=== PATIENT | female | born 1955 | race Caucasian/White ===

== ENCOUNTER → 2017-10-19 11:41 | Outpatient (CLI) | payer MEDICARE, OTHER, SELFPAY ==
[2017-10-19 14:40] LABS: ALB/GLOB Ratio 0.9 RATIO (0.9-2.4); AST(SGOT) 19 U/L (15-37); Alanine Aminotransfer ALT/SGPT 29 U/L (13-56); Albumin, Serum 3.8 g/dL (3.2-5.0); Alkaline Phosphatase 64 U/L (45-117); Anion Gap 8 (5-15); BUN 14 mg/dL (7-18); BUN/Creat Ratio 17.2 RATIO (10-20); Calcium,Total 8.9 mg/dL (8.5-10.1); Chloride 104 mmol/L (98-107); Creatinine, Serum 0.81 mg/dL (0.55-1.02); EST Glomerular Filtration Rate 75 mL/min (>60); Est Glom Filt Rate - Afr Amer 91 mL/min (>60); Globulin 4.2 g/dL (2.2-4.2); Glucose 86 mg/dL (74-106); Potassium 3.7 mmol/L (3.5-5.1); Sodium Level 139 mmol/L (136-145)
[2017-10-19 14:47] LABS: Absolute Lymphocyte Count 2.31 X10^3/ul (0.83-4.51); Basophil# 0.03 X10^3/uL; Basophil% 0.5 % (0-1); Eosinophil# 0.07 X10^3/uL; Eosinophils% 1.2 % (0-5); Hematocrit 40.4 % (37-47); Hemoglobin 13.3 g/dl (12.0-15.0); Lymphocyte # 2.31 X10^3/ul (4.0); Lymphocyte % 38.9 % (19-41); Mean Corp Hgb Conc 32.9 g/gl (32-36); Mean Corpuscular Hgb 31.3 pg (27.0-32.0); Mean Corpuscular Volume 95.1 fL (81-99); Mean Platelet Vol. 11.7 fl (6.2-12.0); Monocyte# 0.55 X10^3/uL; Monocyte% 9.3 % (0-10); Neutrophil # 2.98 X10^3/uL (2.7-7.7); Neutrophil % 50.1 % (47-70); Platelet Count 202 K/mm3 (150-450); RBC Distribution Width CV 14.5 % (11.6-14.6); RBC Distribution Width SD 48.6 fl (35.1-43.9); Red Blood Count 4.25 M/mm3 (4.2-5.4); White Blood Count 5.9 K/mm3 (4.4-11.0)
[2017-10-19 14:57] LABS: POSITIVE COUNT NO; POSITIVE DIFFERENTIAL NO; POSITIVE MORPHOLOGY NO
== END ==
PROVIDERS: Family Provider Family Medicine; PCP Family Medicine; Visit Provider Internal Medicine Rheumatology
DX: M05.70 Rheumatoid arthritis with rheumatoid factor of unspecified site without organ or systems involvement (principal); M21.40 Flat foot [pes planus] (acquired), unspecified foot; M81.0 Age-related osteoporosis without current pathological fracture; Z79.899 Other long term (current) drug therapy
CPT/HCPCS: 36415; 80053; 85025

== ENCOUNTER → 2018-01-09 11:40 | Outpatient (CLI) | payer MEDICARE, OTHER, SELFPAY ==
--- NOTE | 2018-01-09 11:40 | DT_ITS ---
This patient was seen during an EMR downtime January 02, 2018 - January 09, 2018. This patient may have a combination of paper and electronic documentation or all paper documentation. All documentation is viewable within the e-chart portion of [facility] [employer] for each patient visit.
[2018-01-09 14:01] LABS: Absolute Lymphocyte Count 2.83 X10^3/ul (0.83-4.51); Basophil# 0.03 X10^3/uL; Basophil% 0.4 % (0-1); Eosinophil# 0.04 X10^3/uL; Eosinophils% 0.5 % (0-5); Hematocrit 43.2 % (37-47); Hemoglobin 14.3 g/dl (12.0-15.0); Lymphocyte # 2.83 X10^3/ul (4.0); Mean Corp Hgb Conc 33.1 g/gl (32-36); Mean Corpuscular Hgb 31.6 pg (27.0-32.0); Mean Corpuscular Volume 95.4 fL (81-99); Mean Platelet Vol. 11.8 fl (6.2-12.0); Monocyte# 0.53 X10^3/uL; Monocyte% 7.1 % (0-10); Neutrophil % 53.7 % (47-70); Platelet Count 211 K/mm3 (150-450); RBC Distribution Width CV 14.5 % (11.6-14.6); RBC Distribution Width SD 49.1 fl (35.1-43.9); Red Blood Count 4.53 M/mm3 (4.2-5.4); White Blood Count 7.5 K/mm3 (4.4-11.0)
[2018-01-09 14:05] LABS: POSITIVE COUNT NO; POSITIVE DIFFERENTIAL NO; POSITIVE MORPHOLOGY NO
[2018-01-09 14:13] LABS: ALB/GLOB Ratio 0.9 RATIO (0.9-2.4); AST(SGOT) 17 U/L (15-37); Alanine Aminotransfer ALT/SGPT 22 U/L (13-56); Albumin, Serum 4.2 g/dL (3.2-5.0); Alkaline Phosphatase 67 U/L (45-117); Anion Gap 9 (5-15); BUN 9 mg/dL (7-18); BUN/Creat Ratio 12.2 RATIO (10-20); Calcium,Total 9.5 mg/dL (8.5-10.1); Chloride 105 mmol/L (98-107); Creatinine, Serum 0.74 mg/dL (0.55-1.02); EST Glomerular Filtration Rate 84 mL/min (>60); Est Glom Filt Rate - Afr Amer 102 mL/min (>60); Globulin 4.5 g/dL (2.2-4.2); Glucose 87 mg/dL (74-106); Potassium 3.9 mmol/L (3.5-5.1); Protein, Total 8.7 g/dL (6.4-8.2); Sodium Level 142 mmol/L (136-145)
== END ==
PROVIDERS: Family Provider Family Medicine; PCP Family Medicine; Visit Provider Internal Medicine Rheumatology
DX: M05.70 Rheumatoid arthritis with rheumatoid factor of unspecified site without organ or systems involvement (principal); Z79.899 Other long term (current) drug therapy; M21.40 Flat foot [pes planus] (acquired), unspecified foot; M81.0 Age-related osteoporosis without current pathological fracture
CPT/HCPCS: 36415; 80053; 85025

== ENCOUNTER → 2018-04-10 11:03 | Outpatient (CLI) | payer MEDICARE, OTHER, SELFPAY ==
[2018-04-10 12:47] LABS: Absolute Lymphocyte Count 1.93 X10^3/ul (0.83-4.51); Absolute Neutrophil Count 3.1 X10^3/uL (2.0-7.7); Basophil# 0.02 X10^3/uL; Basophil% 0.4 % (0-1); Eosinophil# 0.03 X10^3/uL; Eosinophils% 0.5 % (0-5); Hematocrit 42.8 % (37-47); Hemoglobin 14.5 g/dl (12.0-15.0); Lymphocyte # 1.93 X10^3/ul (4.0); Lymphocyte % 33.8 % (19-41); Mean Corp Hgb Conc 33.9 g/gl (32-36); Mean Corpuscular Hgb 31.9 pg (27.0-32.0); Mean Corpuscular Volume 94.1 fL (81-99); Mean Platelet Vol. 11.8 fl (6.2-12.0); Monocyte# 0.63 X10^3/uL; Neutrophil # 3.09 X10^3/uL (2.7-7.7); Neutrophil % 54.1 % (47-70); Platelet Count 194 K/mm3 (150-450); RBC Distribution Width CV 13.7 % (11.6-14.6); RBC Distribution Width SD 45.3 fl (35.1-43.9); Red Blood Count 4.55 M/mm3 (4.2-5.4); White Blood Count 5.7 K/mm3 (4.4-11.0)
[2018-04-10 12:59] LABS: POSITIVE COUNT NO; POSITIVE DIFFERENTIAL NO; POSITIVE MORPHOLOGY NO
[2018-04-10 13:21] LABS: ALB/GLOB Ratio 0.9 RATIO (0.9-2.4); AST(SGOT) 15 U/L (15-37); Alanine Aminotransfer ALT/SGPT 21 U/L (13-56); Alkaline Phosphatase 63 U/L (45-117); Anion Gap 13 (5-15); BUN 10 mg/dL (7-18); Calcium,Total 9.5 mg/dL (8.5-10.1); Chloride 100 mmol/L (98-107); Creatinine, Serum 0.72 mg/dL (0.55-1.02); EST Glomerular Filtration Rate 87 mL/min (>60); Est Glom Filt Rate - Afr Amer 105 mL/min (>60); Globulin 4.5 g/dL (2.2-4.2); Glucose 88 mg/dL (74-106); Potassium 4.3 mmol/L (3.5-5.1); Protein, Total 8.5 g/dL (6.4-8.2); Sodium Level 139 mmol/L (136-145)
== END ==
PROVIDERS: Family Provider Family Medicine; PCP Family Medicine; Visit Provider Internal Medicine Rheumatology
DX: M05.70 Rheumatoid arthritis with rheumatoid factor of unspecified site without organ or systems involvement (principal); M21.40 Flat foot [pes planus] (acquired), unspecified foot; M81.0 Age-related osteoporosis without current pathological fracture; Z79.899 Other long term (current) drug therapy
CPT/HCPCS: 36415; 80053; 85025

== ENCOUNTER 2018-05-19 17:48 | Emergency (ER) | payer MEDICARE, OTHER, SELFPAY ==
[2018-05-19 17:49] VITALS: BP 158/84; PULSE 84; RESP 16; TEMP 36.7; O2SAT 99; BMI 24.2
[2018-05-19 17:54] VITALS: O2SAT 100
--- NOTE | 2018-05-19 18:25 | ED.DCSUM_ITS ---
- ER Visit Summary Date of Service: 05/19/18 Chief Complaint: Fall History of Present Illness: The patient is a 63 F presenting after fall. Patient was getting the mail. She reached down for her cat and her leg slipped and she did the splits. She did not hit her head or lose consciousness. She was unable to get up. Her was also unable to get her up and EMS was called. She complains of left hip and pelvis pain. Denies other injuries. Physical Examination: Vitals are stable. Patient is afebrile. Alert no acute distress. HEENT exam is unremarkable. Neck is nontender Lungs are clear and equal bilaterally. Heart is regular rate and rhythm. Abdomen is soft nontender nondistended. Extremities left hip tenderness with painful range of motion, normal distal pulse Skin is warm and dry. No focal neurologic deficit. Remainder of exam is unremarkable. Emergency Department Course and Treatment: Patient was given morphine, Zofran IV. Left hip x-ray shows complete intratrochanteric transsection of the left femoral neck. No evidence of dislocation. Discussed with Dr. Rodriguez. Due to the operating room being down tomorrow he would like her transferred to [facility] for surgery tomorrow. Discussed with John Rae and patient will be transferred. Disposition: Transfer [facility] Impression: Left intertrochanteric fracture status post fall This note was generated with [employer] dictation software. It may contain incorrect words, spelling, and punctuation that were not noted in review of the chart prior to signing ED Disposition - Plan for ED Patient: Chief Complaint: Fall Referrals: Paulo Robertson III, MD [Primary Care Provider] -
[2018-05-19] MEDS: morphine 8 MG/ML Syringe 6 MG IV (18:31)
[2018-05-19] MEDS: Ondansetron 4 MG/2 ML Vial IV (18:31)
--- NOTE | 2018-05-19 18:45 | RAD_ITS ---
STUDY: X-RAY - PELVIS AND LEFT HIP REASON FOR EXAM: Female, 63 years old. Left hip pain after fall TECHNIQUE: Radiological exam, hip, unilateral, with pelvis when performed; 2 or 3 views. # of Images: 3 COMPARISON: None. FINDINGS: Complete intratrochanteric transsection of the left femoral neck. No evidence of dislocation. Calcified uterine fibroid. Unremarkable right hip RAD/HIP, UNI W/ Pelvis 2-3 Views IMPRESSION: As above Electronically Signed: Magan Thompson DO at 19:14 EDT Tel , Service support ,
[2018-05-19 20:05] VITALS: BP 162/81; PULSE 78; RESP 16; O2SAT 97
[2018-05-19 20:17] LABS: Absolute Lymphocyte Count 1.41 X10^3/ul (0.83-4.51); Absolute Neutrophil Count 8.4 X10^3/uL (2.0-7.7); Basophil# 0.01 X10^3/uL; Basophil% 0.1 % (0-1); Eosinophil# 0.01 X10^3/uL; Eosinophils% 0.1 % (0-5); Hematocrit 38.5 % (37-47); Hemoglobin 12.8 g/dl (12.0-15.0); Lymphocyte # 1.41 X10^3/ul (4.0); Lymphocyte % 13.4 % (19-41); Mean Corp Hgb Conc 33.2 g/gl (32-36); Mean Corpuscular Hgb 31.2 pg (27.0-32.0); Mean Corpuscular Volume 93.9 fL (81-99); Mean Platelet Vol. 11.1 fl (6.2-12.0); Monocyte# 0.67 X10^3/uL; Monocyte% 6.4 % (0-10); Neutrophil # 8.37 X10^3/uL (2.7-7.7); Neutrophil % 79.8 % (47-70); Platelet Count 183 K/mm3 (150-450); RBC Distribution Width CV 14.1 % (11.6-14.6); RBC Distribution Width SD 48.1 fl (35.1-43.9); White Blood Count 10.5 K/mm3 (4.4-11.0)
[2018-05-19 20:18] LABS: POSITIVE COUNT NO; POSITIVE DIFFERENTIAL NO; POSITIVE MORPHOLOGY NO
[2018-05-19 20:37] LABS: Anion Gap 6 (5-15); BUN 10 mg/dL (7-18); BUN/Creat Ratio 14.1 RATIO (10-20); Calcium,Total 8.7 mg/dL (8.5-10.1); Chloride 100 mmol/L (98-107); Creatinine, Serum 0.71 mg/dL (0.55-1.02); EST Glomerular Filtration Rate 88 mL/min (>60); Est Glom Filt Rate - Afr Amer 107 mL/min (>60); Estimated Creatinine Clearance 68.21 ml/min; Glucose 122 mg/dL (74-106); Potassium 3.8 mmol/L (3.5-5.1); Sodium Level 133 mmol/L (136-145)
[2018-05-19] MEDS: Morphine 4 MG/ML Syringe IV (21:40)
[2018-05-19 22:01] VITALS: BP 141/88; PULSE 88; RESP 16; O2SAT 100
== END 2018-05-19 22:03 | disposition short-term general hospital (02) ==
PROVIDERS: Emergency Provider Emergency Medicine; Family Provider Family Medicine; PCP Family Medicine; Referring Provider Emergency Medicine
DX: S72.142A Displaced intertrochanteric fracture of left femur, initial encounter for closed fracture (principal); W01.0XXA Fall on same level from slipping, tripping and stumbling without subsequent striking against object, initial encounter; Y93.89 Activity, other specified; I10 Essential (primary) hypertension; Z79.899 Other long term (current) drug therapy; Z72.0 Tobacco use
CPT/HCPCS: 73502; 80048; 85025; 96374; 96375; 96376; 99285; A4216; J2405

== ENCOUNTER → 2018-06-30 14:10 | Outpatient (CLI) | payer MEDICARE, OTHER, SELFPAY ==
[2018-06-30 15:58] LABS: ALB/GLOB Ratio 0.9 RATIO (0.9-2.4); AST(SGOT) 14 U/L (15-37); Alanine Aminotransfer ALT/SGPT 20 U/L (13-56); Alkaline Phosphatase 87 U/L (45-117); Anion Gap 11 (5-15); BUN 14 mg/dL (7-18); BUN/Creat Ratio 14.7 RATIO (10-20); Calcium,Total 9.7 mg/dL (8.5-10.1); Chloride 95 mmol/L (98-107); Creatinine, Serum 0.95 mg/dL (0.55-1.02); EST Glomerular Filtration Rate 62 mL/min (>60); Est Glom Filt Rate - Afr Amer 75 mL/min (>60); Globulin 4.4 g/dL (2.2-4.2); Glucose 101 mg/dL (74-106); Hematocrit 39.9 % (37-47); Hemoglobin 13.2 g/dl (12.0-15.0); Mean Corp Hgb Conc 33.1 g/gl (32-36); Mean Corpuscular Hgb 31.6 pg (27.0-32.0); Mean Corpuscular Volume 95.5 fL (81-99); Mean Platelet Vol. 10.7 fl (6.2-12.0); Neutrophil % 50.4 % (47-70); POSITIVE COUNT NO; POSITIVE DIFFERENTIAL NO; POSITIVE MORPHOLOGY NO; Platelet Count 286 K/mm3 (150-450); Potassium 3.6 mmol/L (3.5-5.1); Protein, Total 8.4 g/dL (6.4-8.2); RBC Distribution Width CV 14.4 % (11.6-14.6); RBC Distribution Width SD 48.8 fl (35.1-43.9); Red Blood Count 4.18 M/mm3 (4.2-5.4); Sodium Level 133 mmol/L (136-145); White Blood Count 7.7 K/mm3 (4.4-11.0)
[2018-06-30 15:59] LABS: Absolute Lymphocyte Count 3.02 X10^3/ul (0.83-4.51); Absolute Neutrophil Count 3.9 X10^3/uL (2.0-7.7); Basophil# 0.02 X10^3/uL; Basophil% 0.3 % (0-1); Eosinophil# 0.04 X10^3/uL; Eosinophils% 0.5 % (0-5); Lymphocyte # 3.02 X10^3/ul (4.0); Lymphocyte % 39.2 % (19-41); Monocyte# 0.73 X10^3/uL; Monocyte% 9.5 % (0-10); Neutrophil # 3.89 X10^3/uL (2.7-7.7)
--- OUTSIDE RECORDS SUMMARY | 2018-08-25 13:46 | XMS RPT_ITS ---
:1955 Author Organization OHIP Support Name Relationship Address Phone FORTINO BAIRD Unavailable [address] + [place] [address] TEREZA BAIRD Unavailable [address] + [place] [address] R Unavailable Unavailable Unavailable FORTINO BAIRD Unavailable [address] + [place] [address] TEREZA BAIRD Unavailable [address] + [place] [address] R Unavailable Unavailable Unavailable FORTINO BAIRD Unavailable [address] + [place] [address] TEREZA BAIRD Unavailable [address] + [place] [address] R Unavailable Unavailable Unavailable FORTINO BAIRD Unavailable [address] + [place] [address] TEREZA BAIRD Unavailable [address] + [place] [address] R Unavailable Unavailable Unavailable FORTINO BAIRD Unavailable [address] + [place] [address] TEREZA BAIRD Unavailable [address] + [place] [address] R Unavailable Unavailable Unavailable D Unavailable Unavailable Unavailable FORTINO BAIRD Unavailable [address] + [place] [address] TEREZA BAIRD Unavailable [address] + [place] [address] D Unavailable Unavailable Unavailable FORTINO BAIRD Unavailable [address] + [place] [address] TEREZA BAIRD Unavailable [address] + [place] [address] D Unavailable Unavailable Unavailable FORTINO BAIRD Unavailable [address] + [place] [address] TEREZA BAIRD Unavailable [address] + [place] [address] Care Team Providers Name Role Phone MARCY BARROSO MD Admitting Unavailable MARCY BARROSO MD Attending Unavailable PHYSICIAN, NONE Primary Care Unavailable JORDON FORD MD Consulting Unavailable MARCY BARROSO MD Consulting Unavailable IZABELLA DEXTER (LEAD MILITARY ANALYST) Attending Unavailable KAYDEN PATEL Referring Unavailable FAITH CASE (LEAD MILITARY ANALYST) Attending Unavailable IZABELLA DEXTER (LEAD MILITARY ANALYST) Referring Unavailable CEBUL III, PAULO A Referring Unavailable CEBUL III, PAULO A Attending Unavailable FAITH CASE (LEAD MILITARY ANALYST) Referring Unavailable CEBUL III, PAULO A Attending Unavailable Vellanki, Cira Attending Unavailable Cebul III, Paulo Primary Care Unavailable Vellanki, Cira Attending Unavailable Cebul III, Paulo Primary Care Unavailable Vellanki, Cira Attending Unavailable Vellanki, Cira Referring Unavailable Cebul III, Paulo Primary Care Unavailable Vellanki, Cira Attending Unavailable Vellanki, Cira Referring Unavailable Cebul III, Paulo Primary Care Unavailable Vellanki, Cira Attending Unavailable Vellanki, Cira Referring Unavailable Cebul III, Paulo Primary Care Unavailable Dyllan, Juan Attending Unavailable Cebul III, Paulo Referring Unavailable Cebul III, Paulo Primary Care Unavailable Xochilt Dorado Attending Unavailable Maru Doradoson Referring Unavailable Vellanki, Cira Attending Unavailable Vellanki, Cira Referring Unavailable Cebul III, Paulo Primary Care Unavailable PROBLEMS PROBLEMS DATE TYPE CONDITION / CODE ATTENDING STATUS SOURCE 05/18/2018 Unknown I10 - Essential [place], [place] Active [place] (primary) Community hypertension / Hospital I10(ICD-10) Repository 05/18/2018 Unknown I77.810 - Thoracic Dyllan, [place] Active [place] aortic ectasia / Community I77.810(ICD-10) Hospital Repository 03/03/2018 Active Other custodial NA Active [facility] (current) drug [facility] [place] therapy / Repository Z79.899(ICD-10) 03/21/2018 Unknown M05.70 - Vellanki, Cira Active [facility] arthritis with Hospital rheumatoid factor Repository of unspecified site without organ or systems involvement / M05.70(ICD-10) 10/19/2017 Unknown M21.40 - Flat foot Vellanki, Cira Active [place] [pes planus] Community (acquired), Hospital unspecified foot / Repository M21.40(ICD-10) 10/19/2017 Unknown M81.0 - Cira Boswell Active [place] Age-related Community osteoporosis Hospital without current Repository pathological fracture / M81.0(ICD-10) 10/19/2017 Unknown Z79.899 - Other Cira Boswell Active [place] custodial Community (current) drug Hospital therapy / Repository Z79.899(ICD-10) 08/08/2017 Active Unknown / IZABELLA DEXTER Active [facility] UNK(Unknown) (LEAD MILITARY ANALYST) [facility] [place] Repository PROCEDURES PROCEDURES No Procedure Records FoundRESULTS RESULTS COMPREHENSIVE METABOLIC Collected: 06/30/2018 Status: F Source: [place] 2:16 PM [facility]PITAL REPOSITORY TYPE CODE TESTS RESULT OUT OF RANGE REFERENCE UNITS LAB L501.0100 74-106 mg/dL Normal GLU 101 Result Comment: Fasting Glucose result from 100 to 125 mg/dL suggests IMPAIRED HOMEOSTASIS per A.D.A. criteria. Please note revised GLUCOSE reference range effective 2017. LAB L501.1000 7-18 mg/dL Normal BUN 14 LAB L501.1100 0.55-1.02 mg/dL Normal CREAT,SERUM 0.95 Result Comment: The validity of the calculated GFR AND GFRAA in patients over 70 years has not been determined. Clinical correlation is essential. LAB L501.1110 >60 mL/min Normal EST GFR 62 Result Comment: Non- GFR Calc LAB L501.1115 >60 mL/min Normal EST GFR - AA 75 Result Comment: GFR Calc LAB L501.1300 10-20 RATIO Normal BUN/CRE 14.7 LAB L501.1500 6.4-8.2 g/dL High T PROT 8.4 LAB L501.1800 3.2-5.0 g/dL Normal ALB 4.0 LAB L501.1950 2.2-4.2 g/dL High GLOB 4.4 LAB L501.2000 0.9-2.4 RATIO Normal A/G 0.9 LAB L501.2200 8.5-10.1 mg/dL CA Normal 9.7 LAB L501.4100 15-37 U/L Low AST 14 LAB L501.4305 45-117 U/L Normal ALK P 87 LAB L501.4405 13-56 U/L Normal ALT 20 LAB L501.4600 0.20-1.00 mg/dL T Normal BILI 0.30 LAB L501.5300 136-145 mmol/L Low NA 133 LAB L501.5600 3.5-5.1 mmol/L K Normal 3.6 LAB L501.5900 98-107 mmol/L Low CL 95 LAB L501.6100 21.0-32.0 mmol/L Normal CO2 27.0 LAB L501.6200 5-15 Normal GAP 11 Performed By: #### L500.4050 #### [facility] [address] [place], [place], [address] CBC W/DIFF, AUTOMATED Collected: 06/30/2018 Status: F Source: [place] 2:16 PM [facility] REPOSITORY TYPE CODE TESTS RESULT OUT OF RANGE REFERENCE UNITS LAB L100.1000 4.4-11.0 K/mm3 Normal WBC 7.7 LAB L100.1200 4.2-5.4 M/mm3 Low RBC 4.18 LAB L100.1300 12.0-15.0 g/dl Normal HGB 13.2 LAB L100.1400 37-47 % Normal HCT 39.9 LAB L100.1500 81-99 fL Normal MCV 95.5 LAB L100.1600 27.0-32.0 pg Normal MCH 31.6 LAB L100.1700 32-36 g/gl Normal MCHC 33.1 LAB L100.1810 11.6-14.6 % Normal RDW CV 14.4 LAB L100.1820 35.1-43.9 fl High RDW SD 48.8 LAB L100.1900 150-450 K/mm3 Normal PLT 286 LAB L100.2000 6.2-12.0 fl Normal MPV 10.7 LAB L100.2100 47-70 % Normal NEUT% 50.4 LAB L100.2200 19-41 % Normal LY% 39.2 LAB L100.2300 0-10 % Normal MONO% 9.5 LAB L100.2400 0-5 % Normal EO% 0.5 LAB L100.2500 0-1 % Normal BASO% 0.3 LAB L100.2550 0.0-0.9 % Normal IM GRAN % 0.100 Result Comment: IG% - Immature Granulocytes (promyelocytes, myelocytes and metamyelocytes) > 1% indicates that a LEFT SHIFT is Present. LAB L100.2620 2.0-7.7 X10 3/uL Normal Absolute Neut 3.9 LAB L100.2720 0.83-4.51 X10 3/ul Normal Absolute Lymph 3.02 Performed By: #### L100.0100 #### [facility] [address] [place], [address] PROGRESS Observed: 05/29/2018 Status: COMPLETED Source: [place] 3:24 PM [facility] REPOSITORY O ID: [id number] Author: Paulo Robertson III Service: (none) Author Type: Physician Type: Progress Notes Filed: 05/29/2018 6:45 PM Note Text: SUBJECTIVE: This is a 63 year old female that is here today for hospital discharge 05/22. Admitted 05/20 following a fall resulting in fx L hip. Now on xarelto for planned 10 d. tx. Oxycontin with some benefit. 05/29=first day out of home. Had PT earlier today and has been doing HEP. No hx of DVT. She gets up every 2 hrs and walks short distances in house with walker, and does calf pumps. Patient had bone density in March, as below. Diagnosis osteopenia. She had previously been on Fosamax for parts of 3 years. She did notice an episode of heartburn and she bent forward at the waist while on this medication. She stopped taking it. She had been on Boniva for 4 years but we did point out that this drug could not show any efficacy in preventing hip fracture. 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 WORLD HEALTH ORG. CLASSIFICATION OF BONE MASS CLASSIFICATION ?T-SCORE Normal ?Greater than -1 Low Bone Mass ?Between -1 and -2.5 (Osteopenia) Osteoporosis ?Less than or equal to -2.5 Screen Repairer Crusher: [place] ? Transcribe Date/Time: Mar 28 2017 ?4:31P Dictated by : FRANKO BRENNAN MD This examination was interpreted and the report reviewed and electronically signed by: FRANKO BRENNAN MD on Mar 28 2017 ?4:32PM ?EST Results-Findings * * *Final Report* * * DATE OF EXAM: Mar 28 2017 ?3:17PM ? WRB ? 6321 ?- ?BD AP SPINE/HIP TACO ?/ PROCEDURE REASON: Age-related osteoporosis without current pathological fracture ?? ? * * * * Physician Interpretation * * * * ?10/06/2014PROCEDURE: ?BD AP SPINE/HIP TACO INDICATION: Age-related osteoporosis without current pathological fracture TECHNIQUE: Low dose AP spine and hip images COMPARISON: ?02/10/2015 LUMBAR SPINE: ?The bone mineral density from L1 through L4 is 0.800 grams per square centimeter which yields a T-score of -2.2. ?This is not significantly changed. LEFT HIP: ?The bone mineral density of the total region of the hip is 0.789 grams per square centimeter which yields a T-score of -1.3. ?This is not significantly changed. LEFT FEMORAL NECK: ?The bone mineral density of the femoral neck is 0.601 grams per square centimeter which yields a T-score of -2.2. ?This is not significantly changed. RIGHT HIP: ? The bone mineral density of the total region of the hip is 0.883 grams per square centimeter which yields a T-score of -0.5. ? ?. RIGHT FEMORAL NECK: ?The bone mineral density of the femoral neck is 0.601 grams per square centimeter which yields a T-score of -2.2. ? ?. 10-year Fracture Risk (FRAX): Major osteoporotic fracture risk 15% Hip fracture risk 4.1% PAST MEDICAL HISTORY Diagnosis Date - Ascending aortic aneurysm (HCC) 02/27/2014 01/14/15: [address] scan 04/21/17: [address] scan - Carpal tunnel syndrome 07/29/2010 - Chronic obstructive pulmonary disease (COPD) (HCC) - Diarrhea - Essential hypertension, benign 11/14/2013 - H. pylori infection - Hyperlipidemia LDL goal <100 10/30/2016 - Hypertension 11/14/13 - Internal hemorrhoids without mention of complication - Osteoporosis 03/09 - Seropositive rheumatoid arthritis (HCC) 02/10/2012 - Sjogren's syndrome (HCC) 2004 - Snoring - Supraspinatus tendonitis 01/06/2011 - Syncope Current Outpatient Prescriptions on File Prior to Visit: metoprolol succinate ER (TOPROL XL) 25 mg 24 hr tablet Take 1 tablet by mouth once daily. lisinopril (PRINIVIL) 20 mg tablet Take 1 tablet by mouth once daily. Cholecalciferol, Vitamin D3, (VITAMIN D) 1,000 unit cap Vitamin D3 1,000 unit capsule Biotin 10,000 mcg cap Take 5,000 mcg by mouth once daily. hydroxychloroquine (PLAQUENIL) 200 mg tablet Take 1 tablet by mouth twice daily. FISH OIL CAP Take one(1) capsule daily. polyethylene glycol 3350 (MIRALAX) 17 gram/dose powder Take 17 g by mouth once daily. Mix with 8 ounces of liquid and allow sufficient time to dissolve. (1 capful equals 17 g) (Patient not taking: Reported on 05/29/2018 ) methotrexate 2.5 mg tablet Take 4 tablets by mouth every Tuesday. (Patient not taking: Reported on 05/29/2018 ) leucovorin (LEUCOVORIN) 25 mg tablet predniSONE (DELTASONE) 5 mg tablet as needed Etanercept (ENBREL SURECLICK) 50 mg/mL (0.98 mL) pnij Inject 50 mg subcutaneously once each week. (Patient not taking: Reported on 05/29/2018 ) TURMERIC (CURCUMIN MISC) Turmeric Curcumin 500mg daily FOLIC ACID ORAL Take by mouth. Pt takes two tablets daily. CHOLECALCIFEROL (VITAMIN D3) 1,000 UNIT CAP Take one(1) tablet daily. No current facility-administered medications on file prior to visit. FAMILY HISTORY Problem Relation Age of Onset - Hypertension Mother - other (Rheumatoid arthritis) Mother - other (ASHD) Father [place] - other (Grave's disease) Sister - Diabetes Sister - Colon Cancer Maternal Aunt 39 Social History Substance Use Topics - Smoking status: Current Every Day Smoker Packs/day: 0.50 Years: 30.00 Types: Cigarettes - Smokeless tobacco: Never Used - Alcohol use No BP 111/66 Pulse 106 Resp 16 . OBJECTIVE: APPEARANCE Well appearing, alert, in no acute distress, well-hydrated, well nourished. and able to push herself up from the chair to use her walker. Walking with a walker with weightbearing. Good flexion of the left hip with small amount of external rotation. EXTREMITIES mild swelling of the left thigh and left calf. No swelling left popliteal space. ASSESSMENT: L hip fx --healing well post op venous insufficiency LLE hypertension--well controlled RA Osteoporosis with current fracture PLAN: healthy diet and continue PT restart fosamax 70 mg weekly same other medications follow up with orthopedics as appointed recheck bone density 2-4 yrs wear support hose left lower extremity FAZAL Chavarria MD, III MD CNOV Observed: 05/29/2018 Status: COMPLETED Source: [place] 3:00 PM [facility] REPOSITORY [facility] ERIKA BAIRD ([id number]) 1955 F Date Time Provider Department 05/29/18 3:00 PM PAULO ROBERTSON III During your visit today, we recorded the following information about you: Pulse Respiration Blood pressure 106/minute 16/minute 111/66 Paulo Robertson III MD 05/29/2018 6:45 PM Signed SUBJECTIVE: This is a 63 year old female that is here today for hospital discharge 05/22. Admitted 05/20 following a fall resulting in fx L hip. Now on xarelto for planned 10 d. tx. Oxycontin with some benefit. 05/29=first day out of home. Had PT earlier today and has been doing HEP. No hx of DVT. She gets up every 2 hrs and walks short distances in house with walker, and does calf pumps. Patient had bone density in March, as below. Diagnosis osteopenia. She had previously been on Fosamax for parts of 3 years. She did notice an episode of heartburn and she bent forward at the waist while on this medication. She stopped taking it. She had been on Boniva for 4 years but we did point out that this drug could not show any efficacy in preventing hip fracture. 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 WORLD HEALTH ORG. CLASSIFICATION OF BONE MASS CLASSIFICATION ?T-SCORE Normal ?Greater than -1 Low Bone Mass ?Between -1 and -2.5 (Osteopenia) Osteoporosis ?Less than or equal to -2.5 Screen Repairer Crusher: [place] ? Transcribe Date/Time: Mar 28 2017 ?4:31P Dictated by : FRANKO BRENNAN MD This examination was interpreted and the report reviewed and electronically signed by: FRANKO BRENNAN MD on Mar 28 2017 ?4:32PM ?EST Results-Findings * * *Final Report* * * DATE OF EXAM: Mar 28 2017 ?3:17PM ? WRB ? 6321 ?- ?BD AP SPINE/HIP TACO ?/ PROCEDURE REASON: Age-related osteoporosis without current pathological fracture ?? ? * * * * Physician Interpretation * * * * ?10/06/2014PROCEDURE: ?BD AP SPINE/HIP TACO INDICATION: Age-related osteoporosis without current pathological fracture TECHNIQUE: Low dose AP spine and hip images COMPARISON: ?02/10/2015 LUMBAR SPINE: ?The bone mineral density from L1 through L4 is 0.800 grams per square centimeter which yields a T-score of -2.2. ?This is not significantly changed. LEFT HIP: ?The bone mineral density of the total region of the hip is 0.789 grams per square centimeter which yields a T-score of -1.3. ?This is not significantly changed. LEFT FEMORAL NECK: ?The bone mineral density of the femoral neck is 0.601 grams per square centimeter which yields a T-score of -2.2. ?This is not significantly changed. RIGHT HIP: ? The bone mineral density of the total region of the hip is 0.883 grams per square centimeter which yields a T-score of -0.5. ? ?. RIGHT FEMORAL NECK: ?The bone mineral density of the femoral neck is 0.601 grams per square centimeter which yields a T-score of -2.2. ? ?. 10-year Fracture Risk (FRAX): Major osteoporotic fracture risk 15% Hip fracture risk 4.1% PAST MEDICAL HISTORY Diagnosis Date - Ascending aortic aneurysm (HCC) 02/27/2014 01/14/15: [address] scan 04/21/17: [address] scan - Carpal tunnel syndrome 07/29/2010 - Chronic obstructive pulmonary disease (COPD) (HCC) - Diarrhea - Essential hypertension, benign 11/14/2013 - H. pylori infection - Hyperlipidemia LDL goal <100 10/30/2016 - Hypertension 11/14/13 - Internal hemorrhoids without mention of complication - Osteoporosis 03/09 - Seropositive rheumatoid arthritis (HCC) 02/10/2012 - Sjogren's syndrome (HCC) 2004 - Snoring - Supraspinatus tendonitis 01/06/2011 - Syncope Current Outpatient Prescriptions on File Prior to Visit: metoprolol succinate ER (TOPROL XL) 25 mg 24 hr tablet Take 1 tablet by mouth once daily. lisinopril (PRINIVIL) 20 mg tablet Take 1 tablet by mouth once daily. Cholecalciferol, Vitamin D3, (VITAMIN D) 1,000 unit cap Vitamin D3 1,000 unit capsule Biotin 10,000 mcg cap Take 5,000 mcg by mouth once daily. hydroxychloroquine (PLAQUENIL) 200 mg tablet Take 1 tablet by mouth twice daily. FISH OIL CAP Take one(1) capsule daily. polyethylene glycol 3350 (MIRALAX) 17 gram/dose powder Take 17 g by mouth once daily. Mix with 8 ounces of liquid and allow sufficient time to dissolve. (1 capful equals 17 g) (Patient not taking: Reported on 05/29/2018 ) methotrexate 2.5 mg tablet Take 4 tablets by mouth every Tuesday. (Patient not taking: Reported on 05/29/2018 ) leucovorin (LEUCOVORIN) 25 mg tablet predniSONE (DELTASONE) 5 mg tablet as needed Etanercept (ENBREL SURECLICK) 50 mg/mL (0.98 mL) pnij Inject 50 mg subcutaneously once each week. (Patient not taking: Reported on 05/29/2018 ) TURMERIC (CURCUMIN MISC) Turmeric Curcumin 500mg daily FOLIC ACID ORAL Take by mouth. Pt takes two tablets daily. CHOLECALCIFEROL (VITAMIN D3) 1,000 UNIT CAP Take one(1) tablet daily. No current facility-administered medications on file prior to visit. FAMILY HISTORY Problem Relation Age of Onset - Hypertension Mother - other (Rheumatoid arthritis) Mother - other (ASHD) Father [place] - other (Grave's disease) Sister - Diabetes Sister - Colon Cancer Maternal Aunt 39 Social History Substance Use Topics - Smoking status: Current Every Day Smoker Packs/day: 0.50 Years: 30.00 Types: Cigarettes - Smokeless tobacco: Never Used - Alcohol use No BP 111/66 Pulse 106 Resp 16 . OBJECTIVE: APPEARANCE Well appearing, alert, in no acute distress, well- hydrated, well nourished. and able to push herself up from the chair to use her walker. Walking with a walker with weightbearing. Good flexion of the left hip with small amount of external rotation. EXTREMITIES mild swelling of the left thigh and left calf. No swelling left popliteal space. ASSESSMENT: L hip fx --healing well post op venous insufficiency LLE hypertension--well controlled RA Osteoporosis with current fracture PLAN: healthy diet and continue PT restart fosamax 70 mg weekly same other medications follow up with orthopedics as appointed recheck bone density 2-4 yrs wear support hose left lower extremity FAZAL Chavarria MD, III MD Frank A Cebul, III MD 05/29/2018 3:45 PM Addendum PLAN: healthy diet and continue PT restart fosamax 70 mg weekly same other medications follow up with orthopedics as appointed recheck bone density 2-4 yrs wear support hose left lower extremity Paulo Robertson III MD Referring Provider: SELF [200] Allergies As of Date: 05/29/2018 Noted Allergy Reaction ADALIMUMAB 05/08/2017 14 - Other: See Comments FOSAMAX (ALENDRONATE SODIUM) 08/22/2017 8 - GI Upset Comments: Severe GI upset LEFLUNOMIDE 05/08/2017 14 - Other: See Comments Date Reviewed: 05/29/2018 Reviewed by: Cee ([facility]) CARL Wheat - Fully Assessed Reason for Visit: Hospital Follow Up [177] Cmt: left hip fracture Primary Visit Diagnosis:Closed fracture of left hip with routine healing, subsequent encounter [S72.002D] Other Visit Diagnoses:Essential hypertension [I10] Age-related osteoporosis with current pathological fracture with routine healing, subsequent encounter [M80.00XD] Seropositive rheumatoid arthritis (HCC) [M05.9] Essential hypertension, benign [I10] Order(s):alendronate (FOSAMAX) 70 mg tabletTake 1 tablet by mouth once each week. Take with a full glass of water, on an empty stomach; do NOT lie down for 30minutes.Disp: 4 tabletRfl: 11 Prescriptions as of 05/29/2018 Sig: METOPROLOL SUCCINATE ER 25 MG* Take 1 tablet by mouth once d* LISINOPRIL 20 MG TABLET Take 1 tablet by mouth once d* CHOLECALCIFEROL (VITAMIN D3) * Vitamin D3 1,000 unit capsule BIOTIN 10,000 MCG CAPSULE Take 5,000 mcg by mouth once * HYDROXYCHLOROQUINE 200 MG TAB* Take 1 tablet by mouth twice * * FISH OIL 500 MG CAPSULE Take one(1) capsule daily. ALENDRONATE 70 MG TABLET Take 1 tablet by mouth once e* POLYETHYLENE GLYCOL 3350 17 G* Take 17 g by mouth once daily* Patient not taking: Reported on 05/29/2018 METHOTREXATE SODIUM 2.5 MG TA* Take 4 tablets by mouth every* Patient not taking: Reported on 05/29/2018 LEUCOVORIN CALCIUM 25 MG TABL* PREDNISONE 5 MG TABLET as needed ETANERCEPT 50 MG/ML (0.98 ML)* Inject 50 mg subcutaneously o* Patient not taking: Reported on 05/29/2018 CURCUMIN MISC Turmeric Curcumin 500mg daily FOLIC ACID ORAL Take by mouth. Pt takes two * * CHOLECALCIFEROL (VITAMIN D3) * Take one(1) tablet daily. Problem List As Of Date 05/29/2018 Noted Resolved SICCA SYNDROME [M35.00] INVALID FOR* Tobacco use disorder [F17.200] INVALID FOR*02/27/2014 Age-related osteoporosis with current pathologi*INVALID FOR* More... 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 More... Hyperlipidemia LDL goal <100 [E78.5] INVALID FOR* Encounter for screening for malignant neoplasm *INVALID FOR* More... GERD with esophagitis [K21.0] INVALID FOR* More... Age-related osteoporosis without current pathol*INVALID FOR*05/29/2018 Acquired flat foot [M21.40] INVALID FOR* Hypertension [I10] INVALID FOR* Nicotine dependence, unspecified, uncomplicated*INVALID FOR* Palpitations [R00.2] INVALID FOR* Shortness of breath [R06.02] INVALID FOR*03/06/2018 Thoracic aortic aneurysm, without rupture (HCC)*INVALID FOR* Closed fracture of left hip (HCC) [S72.002A] INVALID FOR* Thoracic aortic ectasia (HCC) [I77.810] INVALID FOR* Other instructions from your clinician: PLAN: healthy diet and continue PT restart fosamax 70 mg weekly same other medications follow up with orthopedics as appointed recheck bone density 2-4 yrs wear support hose left lower extremity Paulo Robertson III MD Prescriptions ordered this encounter Disp Refills Start End ALENDRONATE 70 MG TABLET 4 ta* 11 05/29/2018 Route: ORAL Sig: Take 1 tablet by mouth once each week. Take with a full glass of water, on an empty stomach; do NOT lie down for 30minutes. Encounter Status:Closed by PAULO ROBERTSON III, MD on 05/29/18 CBC Collected: 05/21/2018 Status: F Source: [facility] 5:33 AM [facility] REPOSITORY TYPE CODE TESTS RESULT OUT OF REFERENCE UNITS RANGE LAB WBC(LOINC) 4.60-10.80 10 3/mcL WBC 6.20 LAB RBCCT(LOINC 4.20-5.40 10 6/mcL ) Low RBC 3.27 LAB HGB(LOINC) 12.0-16.0 G/dL Low Hgb 10.2 LAB HCT(LOINC) 37.0-47.0 % Low Hct 30.4 LAB MCV(LOINC) 80.0-94.0 fL MCV 93.1 LAB MCH(LOINC) 27.0-31.2 pg MCH 31.2 LAB MCHC(LOINC) 33.0-37.0 G/dL MCHC 33.5 LAB RDW(LOINC) 11.5-14.5 % RDW 13.8 LAB PLT(LOINC) 130-400 10 3/mcL Platelet 154 LAB MPV(LOINC) 7.4-10.4 fL MPV 9.3 Performed By: #### MG, GFR, CMP #### [place] [address] #### ANEU, ADIFF, CBC #### [address] [address] .AUTO DIFF Collected: 05/21/2018 Status: F Source: [facility] 5:33 AM [facility] [place] REPOSITORY TYPE CODE TESTS RESULT OUT OF REFERENCE UNITS RANGE LAB MILLY(LOINC) 37.0-80.0 % Neutrophil % 55.9 LAB LYM(LOINC) 10.0-50.0 % Lymphocyte % 32.7 LAB MON(LOINC) 1.7-13.0 % Monocyte % 10.5 LAB EO(LOINC) 0.0-7.0 % Eosinophil % 0.6 LAB BAS(LOINC) 0.0-2.5 % Basophil % 0.3 LAB ABLYM(LOIN 0.77-3.85 10 3/mcL C) Lymphocyte, 2.00 Absolute LAB RJ(LOINC 0.15-1.00 10 3/mcL ) Monocyte, 0.70 Absolute LAB AEOS(LOINC 0.00-0.40 10 3/mcL ) Eosinophil, 0.00 Absolute LAB ABAS(LOINC 0.00-0.19 10 3/mcL ) Basophil, 0.00 Absolute Performed By: #### MG, GFR, CMP #### [place] [address] #### ANEU, ADIFF, CBC #### [address] [address] .NEUABS Collected: 05/21/2018 Status: F Source: [facility] 5:33 AM [facility] [place] REPOSITORY TYPE CODE TESTS RESULT OUT OF REFERENCE UNITS RANGE LAB ANEU(LOINC) 2.85-6.16 10 3/mcL Neutrophil, 3.50 Absolute Performed By: #### MG, GFR, CMP #### [place] [address] #### ANEU, ADIFF, CBC #### [place] [address] [place], [place] [address] MG Collected: 05/21/2018 Status: F Source: [facility] 5:33 AM [facility] [place] REPOSITORY TYPE CODE TESTS RESULT OUT OF REFERENCE UNITS RANGE LAB MG(LOINC) 1.8-2.4 mg/dL Low Magnesium Lvl 1.7 Performed By: #### MG, GFR, CMP #### [place] [address] #### ANEU, ADIFF, CBC #### [place] [address] [place], [place] [address] CMP Collected: 05/21/2018 Status: F Source: [facility] 5:33 AM [facility] [place] REPOSITORY TYPE CODE TESTS RESULT OUT OF REFERENCE UNITS RANGE LAB GLU(LOINC) 80-115 mg/dL Glucose Level 113 LAB NA(LOINC) 136-145 mmol/L Sodium Level 140 LAB K(LOINC) 3.5-5.1 mmol/L Potassium Level 4.1 LAB CL(LOINC) 98-107 mmol/L Chloride 105 LAB CO2(LOINC) 23-31 mmol/L CO2 High 33 LAB EBAL(LOINC mEq/L ) Electrolyte Balance 2.0 LAB BUN(LOINC) 7-18 mg/dL BUN 7 LAB CRE(LOINC) 0.55-1.02 mg/dL Creatinine Lvl (s) 0.69 LAB BC(LOINC) 7-27 ratio BUN/Creatinine 10 Ratio LAB CA(LOINC) 8.4-10.2 mg/dL Calcium Lvl 8.4 LAB PROT(LOINC 6.4-8.2 G/dL ) Low Total Protein 5.7 LAB ALB(LOINC) 3.4-4.8 G/dL Low Albumin Level 2.8 LAB GLB(LOINC) G/dL Globulin 2.9 LAB AG(LOINC) 1.1-2.5 ratio Low A/G Ratio 1.0 LAB BILT(LOINC 0.2-1.0 mg/dL ) Bili Total 0.4 LAB AP(LOINC) 40-135 U/L Alk Phos 43 LAB AST(LOINC) 10-40 U/L AST/SGOT 17 LAB ALT(LOINC) 10-35 U/L ALT/SGPT 18 Performed By: #### MG, GFR, CMP #### [address] [address] #### ANEU, ADIFF, CBC #### [place] [address] [place], [place] [address] .GFR Collected: 05/21/2018 Status: F Source: [facility] 5:33 AM [facility] REPOSITORY TYPE CODE TESTS RESULT OUT OF REFERENCE UNITS RANGE LAB GFRAA(LOINC ml/min/1.73 ) sqm GFR 103 [place] Result Comment: GFR Population mean for , Non- Americans Ages 20-29 = 116 mL/min/1.73 sq.m. Ages 30-39 = 107 mL/min/1.73 sq.m. Ages 40-49 = 99 mL/min/1.73 sq.m. Ages 50-59 = 93 mL/min/1.73 sq.m. Ages 60-69 = 85 mL/min/1.73 sq.m. Ages 70+ = 75 mL/min/1.73 sq.m. Chronic Kidney Disease: Less than 60 mL/min/1.73 square meters End Stage Renal Disease: Less than 15 mL/min/1.73 square meters LAB GFRNO(LOINC) ml/min/1.73sqm GFR Non- 85 Result Comment: GFR Population mean for , Non- Americans Ages 20-29 = 116 mL/min/1.73 sq.m. Ages 30-39 = 107 mL/min/1.73 sq.m. Ages 40-49 = 99 mL/min/1.73 sq.m. Ages 50-59 = 93 mL/min/1.73 sq.m. Ages 60-69 = 85 mL/min/1.73 sq.m. Ages 70+ = 75 mL/min/1.73 sq.m. Chronic Kidney Disease: Less than 60 mL/min/1.73 square meters End Stage Renal Disease: Less than 15 mL/min/1.73 square meters Performed By: #### MG, GFR, CMP #### [address] [address] #### ANEU, ADIFF, CBC #### [place] [address] [place], [place] [address] XR HIP MINIMUM 2 Observed: 05/20/2018 Status: F Source: [facility] VIEWS LEFT 10:07 AM [facility] REPOSITORY ORIGINAL XR HIP MINIMUM 2 VIEWS LEFT CLINICAL STATEMENT: Status Post Arthroplasty. COMPARISON: 05/20/2018 FINDINGS: ORIF of LEFT intertrochanteric fracture is demonstrated. There are no hardware complications. Long intramedullary emir and compression screws have been placed. Soft tissue gas and skin yocasta are in keeping with recent intervention. IMPRESSION: ORIF LEFT femur. Interpreted By: Sarah Abebe MD Preliminary Report By: Sarah bAebe MD Electronically Signed By: Sarah Abebe MD Dictated Date: 05/20/2018 2:35:45 PM Prelim Date: 05/20/2018 2:35:45 PM Sign Date: 05/20/2018 2:37:19 PM XR FLUORO 1-2 HRS Observed: 05/20/2018 Status: F Source: [facility] TECH TIME 9:15 AM [facility] [place] REPOSITORY ORIGINAL Images acquired, not reported on this accession number. EMERGENCY DEPARTMENT Observed: 05/19/2018 Status: F Source: [facility] SUMMARY 9:21 PM [facility] [place] REPOSITORY [facility] Medical Records Department [address] [place] [address] Emergency Department Summary 05/19/18 1823 MR#: [id number] Acct: [id number] Name: ERIKA BAIRD Rep #: [id number] : 1955 63 From: Xochilt Dorado MD PCP: Paulo Robertson III, MD Status: REG ER - ER Visit Summary Date of Service: 05/19/18 Chief Complaint: Fall History of Present Illness: The patient is a 63 F presenting after fall. Patient was getting the mail. She reached down for her cat and her leg slipped and she did the splits. She did not hit her head or lose consciousness. She was unable to get up. Her was also unable to get her up and EMS was called. She complains of left hip and pelvis pain. Denies other injuries. Physical Examination: Vitals are stable. Patient is afebrile. Alert no acute distress. HEENT exam is unremarkable. Neck is nontender Lungs are clear and equal bilaterally. Heart is regular rate and rhythm. Abdomen is soft nontender nondistended. Extremities left hip tenderness with painful range of motion, normal distal pulse Skin is warm and dry. No focal neurologic deficit. Remainder of exam is unremarkable. Emergency Department Course and Treatment: Patient was given morphine, Zofran IV. Left hip x-ray shows complete intratrochanteric transsection of the left femoral neck. No evidence of dislocation. Discussed with Dr. Ford. Due to the operating room being down tomorrow he would like her transferred to [facility] for surgery tomorrow. Discussed with John Rae and patient will be transferred. Disposition: Transfer [facility] Impression: Left intertrochanteric fracture status post fall This note was generated with [employer] dictation software. It may contain incorrect words, spelling, and punctuation that were not noted in review of the chart prior to signing ED Disposition - Plan for ED Patient: Chief Complaint: Fall Referrals: Paulo Robertson III, MD [Primary Care Provider] - What to do if you have Problems For any increased pain, shortness of breath, bleeding, nausea or vomiting, chest pain, or any unexpected problems, contact your Primary Care Provider. Call [facility] ([phone]) or report to the closest Emergency Room. Call 911 if necessary. 05/19/182120 <Electronically signed by Xochilt Dorado MD> Date Xochilt Dorado MD Cosigner Signature (If Indicated): Date CC: Paulo Robertson III, MD CBC W/DIFF, AUTOMATED Collected: 05/19/2018 Status: F Source: [facility] 7:50 PM [facility] [place] REPOSITORY TYPE CODE TESTS RESULT OUT OF RANGE REFERENCE UNITS LAB L100.1000 4.4-11.0 K/mm3 Normal WBC 10.5 LAB L100.1200 4.2-5.4 M/mm3 Low RBC 4.10 LAB L100.1300 12.0-15.0 g/dl Normal HGB 12.8 LAB L100.1400 37-47 % Normal HCT 38.5 LAB L100.1500 81-99 fL Normal MCV 93.9 LAB L100.1600 27.0-32.0 pg Normal MCH 31.2 LAB L100.1700 32-36 g/gl Normal MCHC 33.2 LAB L100.1810 11.6-14.6 % Normal RDW CV 14.1 LAB L100.1820 35.1-43.9 fl High RDW SD 48.1 LAB L100.1900 150-450 K/mm3 Normal PLT 183 LAB L100.2000 6.2-12.0 fl Normal MPV 11.1 LAB L100.2100 47-70 % High NEUT% 79.8 LAB L100.2200 19-41 % Low LY% 13.4 LAB L100.2300 0-10 % Normal MONO% 6.4 LAB L100.2400 0-5 % Normal EO% 0.1 LAB L100.2500 0-1 % Normal BASO% 0.1 LAB L100.2550 0.0-0.9 % Normal IM GRAN % 0.200 Result Comment: IG% - Immature Granulocytes (promyelocytes, myelocytes and metamyelocytes) > 1% indicates that a LEFT SHIFT is Present. LAB L100.2620 2.0-7.7 X10 3/uL High Absolute Neut 8.4 LAB L100.2720 0.83-4.51 X10 3/ul Normal Absolute Lymph 1.41 Performed By: #### L100.0100 #### [facility] [address] [place], [address] BASIC METABOLIC Collected: 05/19/2018 Status: F Source: [facility] PROFILE ([facility]) 7:50 PM [facility] [place] REPOSITORY TYPE CODE TESTS RESULT OUT OF RANGE REFERENCE UNITS LAB L501.0100 74-106 mg/dL High GLU 122 Result Comment: Fasting Glucose result from 100 to 125 mg/dL suggests IMPAIRED HOMEOSTASIS per A.D.A. criteria. Please note revised GLUCOSE reference range effective 2017. LAB L501.1000 7-18 mg/dL Normal BUN 10 LAB L501.1100 0.55-1.02 mg/dL Normal CREAT,SERUM 0.71 Result Comment: The validity of the calculated GFR AND GFRAA in patients over 70 years has not been determined. Clinical correlation is essential. LAB L501.1110 >60 mL/min Normal EST GFR 88 Result Comment: Non- GFR Calc LAB L501.1115 >60 mL/min Normal EST GFR - AA 107 Result Comment: GFR Calc LAB L501.1255 ml/min Normal Estimated CRCL 68.21 LAB L501.1300 10-20 RATIO Normal BUN/CRE 14.1 LAB L501.2200 8.5-10 mg/dL Normal .1 CA 8.7 LAB L501.5300 136-14 mmol/L Low 5 NA 133 LAB L501.5600 3.5-5. mmol/L Normal 1 K 3.8 LAB L501.5900 98-107 mmol/L Normal CL 100 LAB L501.6100 21.0-3 mmol/L Normal 2.0 CO2 27.0 LAB L501.6200 5-15 Normal GAP 6 Performed By: #### L500.2500 #### [facility] [address] [place], [address] HIP, UNI W/ PELVIS Observed: 05/19/2018 Status: F Source: [facility] 2-3 VIEWS 6:22 PM [facility] [place] REPOSITORY [facility] Imaging Services [address] [place] [address] HIP, UNI W/ Pelvis 2-3 Views MR#: [id number] Acct: [id number] Name: ERIKA BAIRD Rep #: [id number] : 1955 F 63 From: Magan Thompson DO PCP: Paulo Robertson III, MD Status: REG ER Study: HIP, UNI W/ Pelvis 2-3 Views Date of Exam: 05/19/18 Exam# [id number] Ordering Dr: Xochilt Dorado MD STUDY: X-RAY - PELVIS AND LEFT HIP REASON FOR EXAM: Female, 63 years old. Left hip pain after fall TECHNIQUE: Radiological exam, hip, unilateral, with pelvis when performed; 2 or 3 views. # of Images: 3 COMPARISON: None. FINDINGS: Complete intratrochanteric transsection of the left femoral neck. No evidence of dislocation. Calcified uterine fibroid. Unremarkable right hip RAD/HIP, UNI W/ Pelvis 2-3 Views IMPRESSION: As above Electronically Signed: Magan Thompson DO at 19:14 EDT Tel , Service support , CC: Xochilt Dorado MD; Paulo Robertson III, MD Screen Repairer Crusher: Signed CARDIOLOGY VISIT Observed: 05/18/2018 Status: F Source: [facility] REPORT 11:19 AM [facility] [place] REPOSITORY [facility] [place] [id number] [facility] [place] [address] OFFICE VISIT Date of Service: 05/18/18 MR#: [id number] Acct: [id number] Name: ERIKA BAIRD Rep #: [id number] : 1955 Provider: Juan Mijares MD Age/Sex: 63/F [place] [facility] [place]: Signed HPI HPI Chief Complaint: Follow-up visit. Details: ERIKA BAIRD, is a 63 F who presents to the office today for a follow-up visit. She is a lady with no obstructive coronary artery disease but a history of hypertension who returns for yearly follow-up visit. She says that she has been doing well other than the fact that her blood pressure appears to be mildly elevated. She has had no neck arm or jaw discomfort suggest angina no dizziness or diaphoresis no near syncope or syncope. Unfortunately she continues to use tobacco products. You do remember that she had previously undergone a stress test which did not demonstrate any evidence of ischemia. She has been compliant with all her medications. Her physical exam today demonstrates clear lung valdes regular rate and rhythm and no pedal edema. Intake Vital Signs05/18/18 Height 5 ft 4 in 05/18/18 Weight: 137 lb 05/18/18 Body Mass Index (BMI) 23.5 05/18/18 Blood Pressure 132/84 H 05/18/18 Blood Pressure Location Lt brachial Intake Visit Reasons: 1 Y FU Public Address Announcer Required: No Accompanied by: none Is patient in pain?: No Allergies adalimumab [From Humira] Adverse Reaction (Verified 05/18/18 11:03) Other leflunomide [From Arava] Adverse Reaction (Verified 05/18/18 11:03) Other Medications Alendronate Sodium [Fosamax] 70 mg PO Q7D@0700 01/17/14 [History Confirmed 05/08/17] Cholecalciferol (Vitamin D3) [Vitamin D3] 1,000 unit PO DAILY 01/17/14 [History Confirmed 05/18/18] Folic Acid 0.8 mg PO DAILY@0800 01/17/14 [History Confirmed 05/18/18] Hydroxychloroquine [Plaquenil] 300 mg PO DAILYCM 01/17/14 [History Confirmed 05/18/18] Naproxen Sodium [Aleve] 1 tab PO PRN PRN 01/17/14 [History Confirmed 05/18/18] [place]-3 Fatty Acids [Fish Oil] 1 cap PO DAILY 01/17/14 [History Confirmed 05/18/18] predniSONE tablet 5 mg PO DAILY PRN 01/17/14 [History Confirmed 05/18/18] Lisinopril [Zestril] 20 mg PO DAILY #30 tab 02/18/14 [Rx Confirmed 05/18/18] Embrel 50 mg SQ QWEEK 05/08/17 [History Confirmed 05/18/18] Methotrexate 10 mg PO QWEEK 05/08/17 [History Confirmed 05/18/18] Metoprolol Succinate [Toprol Xl] 1 tab PO DAILY 05/08/17 [History Confirmed 05/18/18] hydrochlorothiazide 25 mg tablet 25 mg PO DAILY #90 tab 05/18/18 [Rx Confirmed 05/18/18] leucovorin calcium 15 mg tablet 15 mg PO DAILY 05/18/18 [History Confirmed 05/18/18] PFSH Medical History Rheumatoid arthritis (Chronic) Hypertension (Chronic) Surgical History H/O tubal ligation (Resolved) Hx of tonsillectomy (Resolved) Family History Father Heart disease Social History Smoking Status: Current every day smoker ROS Const Const: Negative for fatigue, weakness, night sweats, excessive sweating, frequent falls, headache(s) or daytime sleepiness Eyes Eyes: Negative for loss of peripheral vision, transient loss of vision, blind spots, double vision or blurry vision ENT ENT: Negative for headache(s), dizziness, balance problems, Nosebleed/epistaxis, tongue swelling or lip swelling Cardio Chest Pain: No Palpitations: No Edema: None Muscle aches with walking: None Resp Respiratory: Negative for SOB at rest, SOB orthopnea\SOB lying down, Cough, paroxysmal nocturnal dyspnea or SOB with activity GI GI: Negative nausea, vomiting, heartburn, black,tarry stools or bright, red blood in stools : Negative for hematuria Musc Musc: Negative for balance problems, muscle aches/ myalgia, muscle weakness or joint pain Skin Skin: Negative non-healing lesions, unusual bruising or rash Neuro Neuro: Negative for weakness, frequent falls, headache(s), double vision, dizziness, lightheadedness, orthostatic symptoms, blurry vision or lack of coordination Mark Hematologic/Lymphatic: Negative for easy bruising or easy bleeding Endo Endo: Negative for fatigue, excessive sweating, cold intolerance, heat intolerance, increased thirst/drinking or hair loss Psych Psych: Negative for anxiety or depression Allergy Allergy/Immunology: Negative for throat swelling, Negative for tongue swelling, Negative for hives, Negative for rash, Negative for lip swelling Cardiology Exam Const Appearance: cooperative, healthy appearing, well developed, well groomed and no acute distress Nutritional Appearance: well nourished and average body habitus Orientation: alert, awake and oriented x3 Head Head: normal to inspection, normocephalic and atraumatic Ears: hearing grossly normal bilaterally and external ears normal Nose: external nose normal, nasal mucous membranes and turbinates normal, nares normal, septum normal, no nasal discharge Face and Sinus: face symmetric Mouth: oral mucosae normal, tongue normal, oropharynx normal and moist mucous membranes Teeth and gingiva: dentition normal Throat: posterior oropharynx normal, tonsils normal and uvula midline Eyes General: appearance normal, both eyes and all related structures Eyelids: eyelids normal Conjunctivae: conjunctivae normal Pupils: PERRL, normal by confrontation and accommodation normal EOM: EOM intact bilaterally Neck Neck: normal visual inspection, trachea midline and no JVD JVD: +5 Carotids: normal carotid upstroke and bounding pulses Chest Chest inspection: normal inspection of the chest, symmetric chest movement and normal respiratory effort Auscultation: Bilateral: Clear to Auscultation Cardio Palpation: normal PMI Rate: regular rate Rhythm: regular rhythm Heart sounds: S1 normal, S2 normal and normal, physiologic split S2; negative rub, gallop or murmur GI GI: normal to inspection, soft, no hepatosplenomegaly and bowel sounds present Neuro General: alert, awake, oriented x3, no focal sensory deficit, gait normal and moves all extremities Skin Skin: no rashes or lesions noted Extremities Pulses: Normal: Right Femoral Pulse, Left Femoral Pulse, Right Dorsalis Pedis Pulse, Left Dorsalis Pedis Pulse, Right Posterior Tibial Pulse, Left Posterior Tibial Pulse, Right Radial Pulse, Left Radial Pulse Lower Extremity Edema: None: Bilateral Musculoskel Musculoskeletal: No joint tenderness Psych Psychological: normal affect Assessment AND Plan 1. Essential hypertension I10 Plan She does have a history of hypertension which appears to be well controlled. At this time I would not recommend that we make any changes other than as stated below. You know due to her mildly dilated ascending aorta I would recommend aggressive blood pressure control. She tells me that her blood pressure has sometimes been elevated at home and therefore I would suggest that we add hydrochlorothiazide 25 mg a day to her current regimen. 2. Ascending aorta dilatation I77.810 Plan She does have a history of mildly dilated ascending aorta. It measured 4 cm in the transverse diameter. My recommendation is for us to continue watching her and I will see her again in approximately a year. Smoking cessation has been emphasized. Thank you for allowing me to participate in the care of your patient. 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) Coding Level of Care Code Off vis,est,level 3 Diagnoses Essential hypertension I10 Hypertension type: essential hypertension Ascending aorta dilatation I77.810 Coding Level of Care Code Off vis,est,level 3 Diagnoses Essential hypertension I10 Hypertension type: essential hypertension Ascending aorta dilatation I77.810 05/18/18 1119 <Electronically signed by Juan Mijares MD> Date Juan Mijares MD Cosigner Signature: Date (if applicable) CC: Paulo Robertson III, MD CBC W/DIFF, AUTOMATED Collected: 04/10/2018 Status: F Source: [facility] 11:09 AM [facility] [place] REPOSITORY TYPE CODE TESTS RESULT OUT OF RANGE REFERENCE UNITS LAB L100.1000 4.4-11.0 K/mm3 Normal WBC 5.7 LAB L100.1200 4.2-5.4 M/mm3 Normal RBC 4.55 LAB L100.1300 12.0-15.0 g/dl Normal HGB 14.5 LAB L100.1400 37-47 % Normal HCT 42.8 LAB L100.1500 81-99 fL Normal MCV 94.1 LAB L100.1600 27.0-32.0 pg Normal MCH 31.9 LAB L100.1700 32-36 g/gl Normal MCHC 33.9 LAB L100.1810 11.6-14.6 % Normal RDW CV 13.7 LAB L100.1820 35.1-43.9 fl High RDW SD 45.3 LAB L100.1900 150-450 K/mm3 Normal PLT 194 LAB L100.2000 6.2-12.0 fl Normal MPV 11.8 LAB L100.2100 47-70 % Normal NEUT% 54.1 LAB L100.2200 19-41 % Normal LY% 33.8 LAB L100.2300 0-10 % High MONO% 11.0 LAB L100.2400 0-5 % Normal EO% 0.5 LAB L100.2500 0-1 % Normal BASO% 0.4 LAB L100.2550 0.0-0.9 % Normal IM GRAN % 0.200 Result Comment: IG% - Immature Granulocytes (promyelocytes, myelocytes and metamyelocytes) > 1% indicates that a LEFT SHIFT is Present. LAB L100.2620 2.0-7.7 X10 3/uL Normal Absolute Neut 3.1 LAB L100.2720 0.83-4.51 X10 3/ul Normal Absolute Lymph 1.93 Performed By: #### L100.0100 #### [facility] [address] [place], [address] COMPREHENSIVE METABOLIC Collected: 04/10/2018 Status: F Source: [facility] 11:09 AM [facility] [place] REPOSITORY TYPE CODE TESTS RESULT OUT OF RANGE REFERENCE UNITS LAB L501.0100 74-106 mg/dL Normal GLU 88 Result Comment: Please note revised GLUCOSE reference range effective 2017. LAB L501.1000 7-18 mg/dL Normal BUN 10 LAB L501.1100 0.55-1.02 mg/dL Normal CREAT,SERUM 0.72 Result Comment: The validity of the calculated GFR AND GFRAA in patients over 70 years has not been determined. Clinical correlation is essential. LAB L501.1110 >60 mL/min Normal EST GFR 87 Result Comment: Non- GFR Calc LAB L501.1115 >60 mL/min Normal EST GFR - AA 105 Result Comment: GFR Calc LAB L501.1300 10-20 RATIO Normal BUN/CRE 14.0 LAB L501.1500 6.4-8.2 g/dL High T PROT 8.5 LAB L501.1800 3.2-5.0 g/dL Normal ALB 4.0 LAB L501.1950 2.2-4.2 g/dL High GLOB 4.5 LAB L501.2000 0.9-2.4 RATIO Normal A/G 0.9 LAB L501.2200 8.5-10.1 mg/dL CA Normal 9.5 LAB L501.4100 15-37 U/L Normal AST 15 LAB L501.4305 45-117 U/L Normal ALK P 63 LAB L501.4405 13-56 U/L Normal ALT 21 LAB L501.4600 0.20-1.00 mg/dL T Normal BILI 0.50 LAB L501.5300 136-145 mmol/L NA Normal 139 LAB L501.5600 3.5-5.1 mmol/L K Normal 4.3 LAB L501.5900 98-107 mmol/L CL Normal 100 LAB L501.6100 21.0-32.0 mmol/L Normal CO2 26.0 LAB L501.6200 5-15 Normal GAP 13 Performed By: #### L500.4050 #### [facility] [address] [place], [address] PROGRESS Observed: 03/06/2018 Status: COMPLETED Source: [place] 9:48 AM [facility] REPOSITORY [facility] ID: [id number] Author: Paulo Robertson III Service: (none) Author Type: Physician Type: Progress Notes Filed: 03/06/2018 12:55 PM Note Text: SUBJECTIVE: This is a 63 year old female that is here today for Chronic Medical Conditions. 1. hypertension-- 2. GERD--well controlled. 3. 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 PAST MEDICAL HISTORY Diagnosis Date - Ascending aortic aneurysm (HCC) 02/27/2014 01/14/15: [address] scan 04/21/17: [address] scan - Carpal tunnel syndrome 07/29/2010 - Chronic obstructive pulmonary disease (COPD) ([facility]) - Diarrhea - Essential hypertension, benign 11/14/2013 - H. pylori infection - Hyperlipidemia LDL goal <100 10/30/2016 - Hypertension 11/14/13 - Internal hemorrhoids without mention of complication - Mental disorder - Osteoporosis 03/09 - Seropositive rheumatoid arthritis (HCC) 02/10/2012 - Sjogren's syndrome ([facility]) 2004 - Snoring - Supraspinatus tendonitis 01/06/2011 - Syncope - Uncontrolled type 2 diabetes mellitus without complication, without long-term current use of insulin ([facility]) 10/30/2016 FBS 173 on 10/28/16 Current Outpatient Prescriptions on File Prior to Visit: methotrexate 2.5 mg tablet Take 4 tablets by mouth every Tuesday. leucovorin (LEUCOVORIN) 25 mg tablet predniSONE (DELTASONE) 5 mg tablet as needed lisinopril (PRINIVIL) 20 mg tablet Take 1 tablet by mouth once daily. metoprolol succinate ER (TOPROL XL) 25 mg 24 hr tablet Take 1 tablet by mouth once daily. Biotin 10,000 mcg cap Take 5,000 mcg by mouth once daily. hydroxychloroquine (PLAQUENIL) 200 mg tablet Take 1 tablet by mouth twice daily. Etanercept (ENBREL SURECLICK) 50 mg/mL (0.98 mL) pnij Inject 50 mg subcutaneously once each week. FOLIC ACID ORAL Take by mouth. Pt takes two tablets daily. CHOLECALCIFEROL (VITAMIN D3) 1,000 UNIT CAP Take one(1) tablet daily. FISH OIL CAP Take one(1) capsule daily. Cholecalciferol, Vitamin D3, (VITAMIN D) 1,000 unit cap Vitamin D3 1,000 unit capsule TURMERIC (CURCUMIN MISC) Turmeric Curcumin 500mg daily No current facility-administered medications on file prior to visit. FAMILY HISTORY Problem Relation Age of Onset - Hypertension Mother - Rheumatoid arthritis [OTHER] Mother - ASHD [OTHER] Father MO - Grave's disease [OTHER] Sister - Diabetes Sister - Colon Cancer Maternal Aunt 39 Social History Substance Use Topics - Smoking status: Current Every Day Smoker Packs/day: 0.50 Years: 30.00 Types: Cigarettes - Smokeless tobacco: Never Used - Alcohol use No BP 134/88 Pulse 85 Resp 16 Wt 61.2 kg (135 lb) BMI 23.17 kg/m? . OBJECTIVE: APPEARANCE Well appearing, alert, in no acute distress, well-hydrated, well nourished. NECK Supple, no adenopathy; thyroid symmetric, normal size, no bruits HEART RRR with normal S1 and S2, no murmurs, no gallops, no JVD appreciated LUNG clear to auscultation ABDOMEN soft, non-tender, non-distended, without organomegaly or palpable masses, no tenderness to palpation EXTREMITIES Extremities normal, No deformities, No skin discoloration, No edema and Normal pulses bilaterally. NEURO Awake, alert and oriented x 3, Normal gait and No involuntary motions. Lab Results for ERIKA BAIRD ( ) as of 03/06/2018 09:53 Ref. Range 03/03/2018 09:27 Cholesterol, Total Latest Ref Range: <200 mg/dL 169 Triglyceride Latest Ref Range: <150 mg/dL 76 Fasting Time Latest Units: hrs 14 HDL Cholesterol Latest Ref Range: >39 mg/dL 64 LDL Cholesterol Latest Ref Range: <100 mg/dL 90 VLDL Cholesterol Latest Ref Range: <30 mg/dL 15 TC:HDL Ratio Latest Ref Range: <5.10 2.64 LDL:HDL Ratio Latest Ref Range: <2.54 1.41 Non HDL Cholesterol Latest Ref Range: <130 mg/dL 105 Hemoglobin A1C Latest Ref Range: 4.3 - 5.6 % 5.9 (H) Estimated Average Glucose Latest Units: mg/dL 123 ASSESSMENT: RA hypertension--at goal tobacco use PLAN: healthy diet and regular exercise recommend quitting smoking same medications follow up with Dr Boswell as appointed recommend pneumonia vaccine--patient declined by stating that she had bad reaction to a past vaccine (not pneumococcal). Will not be dissuaded Paulo Robertson III MD CNOV Observed: 03/06/2018 Status: COMPLETED Source: [place] 9:20 AM [facility] REPOSITORY Office Visit (FAMPWS) ERIKA BAIRD ([id number]) 1955 F Date Time Provider Department 03/06/18 9:20 AM PAULO ROBERTSON III [facility] During your visit today, we recorded the following information about you: Pulse Respiration Blood pressure Weight 85/minute 16/minute 134/88 61.2 kg Paulo Robertson III MD 03/06/2018 12:55 PM Signed SUBJECTIVE: This is a 63 year old female that is here today for Chronic Medical Conditions. 1. hypertension-- 2. GERD--well controlled. 3. 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 PAST MEDICAL HISTORY Diagnosis Date - Ascending aortic aneurysm (HCC) 02/27/2014 01/14/15: [address] scan 04/21/17: [address] scan - Carpal tunnel syndrome 07/29/2010 - Chronic obstructive pulmonary disease (COPD) ([facility]) - Diarrhea - Essential hypertension, benign 11/14/2013 - H. pylori infection - Hyperlipidemia LDL goal <100 10/30/2016 - Hypertension 11/14/13 - Internal hemorrhoids without mention of complication - Mental disorder - Osteoporosis 03/09 - Seropositive rheumatoid arthritis (HCC) 02/10/2012 - Sjogren's syndrome ([facility]) 2004 - Snoring - Supraspinatus tendonitis 01/06/2011 - Syncope - Uncontrolled type 2 diabetes mellitus without complication, without long-term current use of insulin (HCC) 10/30/2016 FBS 173 on 10/28/16 Current Outpatient Prescriptions on File Prior to Visit: methotrexate 2.5 mg tablet Take 4 tablets by mouth every Tuesday. leucovorin (LEUCOVORIN) 25 mg tablet predniSONE (DELTASONE) 5 mg tablet as needed lisinopril (PRINIVIL) 20 mg tablet Take 1 tablet by mouth once daily. metoprolol succinate ER (TOPROL XL) 25 mg 24 hr tablet Take 1 tablet by mouth once daily. Biotin 10,000 mcg cap Take 5,000 mcg by mouth once daily. hydroxychloroquine (PLAQUENIL) 200 mg tablet Take 1 tablet by mouth twice daily. Etanercept (ENBREL SURECLICK) 50 mg/mL (0.98 mL) pnij Inject 50 mg subcutaneously once each week. FOLIC ACID ORAL Take by mouth. Pt takes two tablets daily. CHOLECALCIFEROL (VITAMIN D3) 1,000 UNIT CAP Take one(1) tablet daily. FISH OIL CAP Take one(1) capsule daily. Cholecalciferol, Vitamin D3, (VITAMIN D) 1,000 unit cap Vitamin D3 1,000 unit capsule TURMERIC (CURCUMIN MISC) Turmeric Curcumin 500mg daily No current facility-administered medications on file prior to visit. FAMILY HISTORY Problem Relation Age of Onset - Hypertension Mother - Rheumatoid arthritis [OTHER] Mother - ASHD [OTHER] Father MO - Grave's disease [OTHER] Sister - Diabetes Sister - Colon Cancer Maternal Aunt 39 Social History Substance Use Topics - Smoking status: Current Every Day Smoker Packs/day: 0.50 Years: 30.00 Types: Cigarettes - Smokeless tobacco: Never Used - Alcohol use No BP 134/88 Pulse 85 Resp 16 Wt 61.2 kg (135 lb) BMI 23.17 kg/m? . OBJECTIVE: APPEARANCE Well appearing, alert, in no acute distress, well- hydrated, well nourished. NECK Supple, no adenopathy; thyroid symmetric, normal size, no bruits HEART RRR with normal S1 and S2, no murmurs, no gallops, no JVD appreciated LUNG clear to auscultation ABDOMEN soft, non-tender, non-distended, without organomegaly or palpable masses, no tenderness to palpation EXTREMITIES Extremities normal, No deformities, No skin discoloration, No edema and Normal pulses bilaterally. NEURO Awake, alert and oriented x 3, Normal gait and No involuntary motions. Lab Results for ERIKA BAIRD ( ) as of 03/06/2018 09:53 Ref. Range 03/03/2018 09:27 Cholesterol, Total Latest Ref Range: <200 mg/dL 169 Triglyceride Latest Ref Range: <150 mg/dL 76 Fasting Time Latest Units: hrs 14 HDL Cholesterol Latest Ref Range: >39 mg/dL 64 LDL Cholesterol Latest Ref Range: <100 mg/dL 90 VLDL Cholesterol Latest Ref Range: <30 mg/dL 15 TC:HDL Ratio Latest Ref Range: <5.10 2.64 LDL:HDL Ratio Latest Ref Range: <2.54 1.41 Non HDL Cholesterol Latest Ref Range: <130 mg/dL 105 Hemoglobin A1C Latest Ref Range: 4.3 - 5.6 % 5.9 (H) Estimated Average Glucose Latest Units: mg/dL 123 ASSESSMENT: RA hypertension--at goal tobacco use PLAN: healthy diet and regular exercise recommend quitting smoking same medications follow up with Dr Boswell as appointed recommend pneumonia vaccine--patient declined by stating that she had bad reaction to a past vaccine (not pneumococcal). Will not be dissuaded FAZAL Chavarria MD, III MD 03/06/2018 10:09 AM Signed PLAN: healthy diet and regular exercise recommend quitting smoking same medications follow up with Dr Boswell as appointed recommend pneumonia vaccine--patient declined Paulo Robertson III MD Referring Provider: FAITH CASE ([employer]) [[id number]] Allergies As of Date: 03/06/2018 Noted Allergy Reaction ADALIMUMAB 05/08/2017 14 - Other: See Comments FOSAMAX (ALENDRONATE SODIUM) 08/22/2017 8 - GI Upset Comments: Severe GI upset LEFLUNOMIDE 05/08/2017 14 - Other: See Comments Date Reviewed: 03/06/2018 Reviewed by: Cee ([facility]) CARL Wheat - Fully Assessed Primary Visit Diagnosis:Need for vaccination [Z23] Other Visit Diagnoses:Essential hypertension, benign [I10] Screening for breast cancer [Z12.31] Seropositive rheumatoid arthritis (HCC) [M05.9] GERD with esophagitis [K21.0] Cigarette nicotine dependence without complication [F17.210] Order(s):metoprolol succinate ER (TOPROL XL) 25 mg 24 hr tabletTake 1 tablet by mouth once daily.Disp: 90 tabletRfl: 3 lisinopril (PRINIVIL) 20 mg tabletTake 1 tablet by mouth once daily.Disp: 90 tabletRfl: 3 VESTA BAIRD [[id number]] Order #: [id number] FUTURE Prescriptions as of 03/06/2018 Sig: METOPROLOL SUCCINATE ER 25 MG* Take 1 tablet by mouth once d* LISINOPRIL 20 MG TABLET Take 1 tablet by mouth once d* METHOTREXATE SODIUM 2.5 MG TA* Take 4 tablets by mouth every* LEUCOVORIN CALCIUM 25 MG TABL* PREDNISONE 5 MG TABLET as needed BIOTIN 10,000 MCG CAPSULE Take 5,000 mcg by mouth once * HYDROXYCHLOROQUINE 200 MG TAB* Take 1 tablet by mouth twice * ETANERCEPT 50 MG/ML (0.98 ML)* Inject 50 mg subcutaneously o* FOLIC ACID ORAL Take by mouth. Pt takes two * * CHOLECALCIFEROL (VITAMIN D3) * Take one(1) tablet daily. * FISH OIL 500 MG CAPSULE Take one(1) capsule daily. 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 More... Hyperlipidemia LDL goal <100 [E78.5] INVALID FOR* Encounter for screening for malignant neoplasm *INVALID FOR* More... GERD with esophagitis [K21.0] INVALID FOR* More... Age-related osteoporosis without current pathol*INVALID FOR* Acquired flat foot [M21.40] INVALID FOR* Hypertension [I10] INVALID FOR* Nicotine dependence, unspecified, uncomplicated*INVALID FOR* Palpitations [R00.2] INVALID FOR* Shortness of breath [R06.02] INVALID FOR*03/06/2018 Thoracic aortic aneurysm, without rupture (HCC)*INVALID FOR* Other instructions from your clinician: PLAN: healthy diet and regular exercise recommend quitting smoking same medications follow up with Dr Boswell as appointed recommend pneumonia vaccine--patient declined Paulo Robertson III MD Prescriptions ordered this encounter Disp Refills Start End METOPROLOL SUCCINATE ER 25 MG TABLET* 90 t* 3 03/06/2018 Route: ORAL Sig: Take 1 tablet by mouth once daily. LISINOPRIL 20 MG TABLET 90 t* 3 03/06/2018 Route: ORAL Sig: Take 1 tablet by mouth once daily. Medications Discontinued During This Encounter metoprolol succinate ER (TOPROL XL) * 90 t* 3 02/28/2017 03/06/2018 Route: ORAL Sig: Take 1 tablet by mouth once daily. Disc: Reason for discontinue is not on file. lisinopril (PRINIVIL) 20 mg tablet 90 t* 3 02/28/2017 03/06/2018 Route: ORAL Sig: Take 1 tablet by mouth once daily. Disc: Reason for discontinue is not on file. Encounter Status:Closed by PAULO ROBERTSON III, MD on 03/06/18 PROGRESS Observed: 03/05/2018 Status: COMPLETED Source: [place] 6:02 PM [facility] REPOSITORY HNO ID: [id number] Author: Paulo Robertson III Service: (none) Author Type: Physician Type: Progress Notes Filed: 03/05/2018 6:02 PM Note Text: I will discuss with patient at upcoming appt Paulo Robertson III MD LIPID PANEL, BASIC Collected: 03/03/2018 Status: F Source: [place] 9:27 AM [facility] REPOSITORY TYPE CODE TESTS RESULT OUT OF REFERENCE UNITS RANGE LAB CHOL <200 mg/dL Cholesterol 169 Result Comment: <200 mg/dL, Desirable 200-239 mg/dL, Borderline high >239 mg/dL, High LAB TRIGLY <150 mg/dL Triglyceride 76 Result Comment: <150 mg/dL, Normal 150-199 mg/dL, Borderline high 200-499 mg/dL, High >499 mg/dL, Very high LAB HDL >39 mg/dL HDL-Cholesterol 64 Result Comment: 40-59 mg/dL, Acceptable >59 mg/dL, High: Negative risk factor for coronary heart disease <40 mg/dL, Low: Positive risk factor for coronary heart disease LAB LDL <100 mg/dL LDL-Cholesterol 90 Result Comment: <100 mg/dL, Optimal 100-129 mg/dL, Near optimal/above optimal 130-159 mg/dL, Borderline high 160-189 mg/dL, High >189 mg/dL, Very high Secondary prevention optimal LDL Cholesterol levels are recommended to be < 70 mg/dL LAB NONHDL <130 mg/dL Non HDL Cholesterol 105 Result Comment: <130 mg/dL, Optimal 130-159 mg/dL, Near optimal/above optimal 160-189 mg/dL, Borderline high 190-219 mg/dL, High >219 mg/dL, Very high Secondary prevention optimal non HDL Cholesterol levels are recommended to be < 100 mg/dL LAB FT hrs Fasting Time 14 LAB VLDL <30 mg/dL VLDL Cholesterol 15 LAB TCHDL <5.10 TC:HDL Ratio 2.64 LAB LDLHDL <2.54 LDL:HDL Ratio 1.41 Result Comment: Reference: 1. National Cholesterol Education Program ATP III Guideline At-A-Glance Quick Desk Reference: National Heart, Lung, and Blood [place]. National Institutes of Health. 2001: NIH Publication No. 01-3305. 2. An International Atherosclerosis Society position paper: global recommendations for the management of dyslipidemia: executive summary, Atherosclerosis. 2014: 232(2):410-413. Performed By: #### LIPB, HBA1C #### [facility] [address] [place], [place] [address] HEMOGLOBIN A1C Collected: 03/03/2018 Status: F Source: [place] 9:27 AM [facility] REPOSITORY TYPE CODE TESTS RESULT OUT OF REFERENCE UNITS RANGE LAB HGBA1C 4.3-5.6 % High Hemoglobin A1c 5.9 LAB HBA0 mg/dL Est. Average Glucose 123 Result Comment: eAG: (Estimated average glucose) is a calculated value from HgbA1c and is inbound sales representative of the average blood glucose level in the last 2-3 month period. Performed By: #### LIPB, HBA1C #### [facility] [address] [place], [place] [address] CNPTOUTREACH Observed: 02/21/2018 Status: COMPLETED Source: [place] 12:00 AM [facility] REPOSITORY Patient Outreach (FAMPST) ERIKA BAIRD ([id number]) 1955 F Date Time Provider Department 02/21/18 [facility] ROBERTSON [facility] During your visit today, we recorded the following information about you: Allergies As of Date: 02/21/2018 Noted Allergy Reaction ADALIMUMAB 05/08/2017 14 - Other: See Comments FOSAMAX (ALENDRONATE SODIUM) 08/22/2017 8 - GI Upset Comments: Severe GI upset LEFLUNOMIDE 05/08/2017 14 - Other: See Comments Date Reviewed: 08/22/2017 Reviewed by: Sirena Morillo [employer]land Maker - Fully Assessed Visit Diagnosis:Medication management [Z79.899] Order(s):HGB A1C [ZLAKM6S] Order #: [id number] FUTURE LIPID PANEL BASIC [SQLIPB] Order #: [id number] FUTURE Prescriptions as of 02/21/2018 Sig: METHOTREXATE SODIUM 2.5 MG TA* Take 4 tablets by mouth every* LEUCOVORIN CALCIUM 25 MG TABL* PREDNISONE 5 MG TABLET as needed CHOLECALCIFEROL (VITAMIN D3) * Vitamin D3 1,000 unit capsule X LISINOPRIL 20 MG TABLET Take 1 tablet by mouth once d* X METOPROLOL SUCCINATE ER 25 MG* Take 1 tablet by mouth once d* BIOTIN 10,000 MCG CAPSULE Take 5,000 mcg by mouth once * HYDROXYCHLOROQUINE 200 MG TAB* Take 1 tablet by mouth twice * ETANERCEPT 50 MG/ML (0.98 ML)* Inject 50 mg subcutaneously o* CURCUMIN MISC Turmeric Curcumin 500mg daily FOLIC ACID ORAL Take by mouth. Pt takes two * * CHOLECALCIFEROL (VITAMIN D3) * Take one(1) tablet daily. * FISH OIL 500 MG CAPSULE Take one(1) capsule daily. 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 More... Hyperlipidemia LDL goal <100 [E78.5] INVALID FOR* Encounter for screening for malignant neoplasm *INVALID FOR* More... GERD with esophagitis [K21.0] INVALID FOR* More... Encounter Status:Closed by Lintes TechnologiesERIS on 05/12/18 DOWNTIME REPORT Observed: 01/19/2018 Status: F Source: [place] 2:21 PM [facility] REPOSITORY [facility] Medical Records Department [address] [place] [id number] Downtime Report MR#: [id number] Acct: [id number] Name: ERIKA BAIRD Rep #: [id number] : 1955 63 From: Luke Douglas PCP: Paulo Robertson III, MD Status: REG CLI This patient was seen during an EMR downtime January 02, 2018 - January 09, 2018. This patient may have a combination of paper and electronic documentation or all paper documentation. All documentation is viewable within the e-chart portion of [employer] for each patient visit. CBC W/DIFF, AUTOMATED Collected: 01/09/2018 Status: F Source: [place] 11:47 AM [facility] REPOSITORY TYPE CODE TESTS RESULT OUT OF RANGE REFERENCE UNITS LAB L100.1000 4.4-11.0 K/mm3 Normal WBC 7.5 LAB L100.1200 4.2-5.4 M/mm3 Normal RBC 4.53 LAB L100.1300 12.0-15.0 g/dl Normal HGB 14.3 LAB L100.1400 37-47 % Normal HCT 43.2 LAB L100.1500 81-99 fL Normal MCV 95.4 LAB L100.1600 27.0-32.0 pg Normal MCH 31.6 LAB L100.1700 32-36 g/gl Normal MCHC 33.1 LAB L100.1810 11.6-14.6 % Normal RDW CV 14.5 LAB L100.1820 35.1-43.9 fl High RDW SD 49.1 LAB L100.1900 150-450 K/mm3 Normal PLT 211 LAB L100.2000 6.2-12.0 fl Normal MPV 11.8 LAB L100.2100 47-70 % Normal NEUT% 53.7 LAB L100.2200 19-41 % Normal LY% 38.0 LAB L100.2300 0-10 % Normal MONO% 7.1 LAB L100.2400 0-5 % Normal EO% 0.5 LAB L100.2500 0-1 % Normal BASO% 0.4 LAB L100.2550 0.0-0.9 % Normal IM GRAN % 0.300 Result Comment: IG% - Immature Granulocytes (promyelocytes, myelocytes and metamyelocytes) > 1% indicates that a LEFT SHIFT is Present. LAB L100.2620 2.0-7.7 X10 3/uL Normal Absolute Neut 4.0 LAB L100.2720 0.83-4.51 X10 3/ul Normal Absolute Lymph 2.83 Performed By: #### L100.0100 #### [facility] [address] [place] [address]. [place], [place], [address] COMPREHENSIVE METABOLIC Collected: 01/09/2018 Status: F Source: [facility] 11:47 AM [facility] REPOSITORY TYPE CODE TESTS RESULT OUT OF RANGE REFERENCE UNITS LAB L501.0100 74-106 mg/dL Normal GLU 87 Result Comment: Please note revised GLUCOSE reference range effective 2017. LAB L501.1000 7-18 mg/dL Normal BUN 9 LAB L501.1100 0.55-1.02 mg/dL Normal CREAT,SERUM 0.74 Result Comment: The validity of the calculated GFR AND GFRAA in patients over 70 years has not been determined. Clinical correlation is essential. LAB L501.1110 >60 mL/min Normal EST GFR 84 Result Comment: Non- GFR Calc LAB L501.1115 >60 mL/min Normal EST GFR - AA 102 Result Comment: GFR Calc LAB L501.1300 10-20 RATIO Normal BUN/CRE 12.2 LAB L501.1500 6.4-8.2 g/dL High T PROT 8.7 LAB L501.1800 3.2-5.0 g/dL Normal ALB 4.2 LAB L501.1950 2.2-4.2 g/dL High GLOB 4.5 LAB L501.2000 0.9-2.4 RATIO Normal A/G 0.9 LAB L501.2200 8.5-10.1 mg/dL CA Normal 9.5 LAB L501.4100 15-37 U/L Normal AST 17 LAB L501.4305 45-117 U/L Normal ALK P 67 LAB L501.4405 13-56 U/L Normal ALT 22 LAB L501.4600 0.20-1.00 mg/dL T Normal BILI 0.50 LAB L501.5300 136-145 mmol/L NA Normal 142 LAB L501.5600 3.5-5.1 mmol/L K Normal 3.9 LAB L501.5900 98-107 mmol/L CL Normal 105 LAB L501.6100 21.0-32.0 mmol/L Normal CO2 28.0 LAB L501.6200 5-15 Normal GAP 9 Performed By: #### L500.4050 #### [facility] [address] [place] [address]. [place], [address] COMPREHENSIVE METABOLIC Collected: 10/19/2017 Status: F Source: [facility] 11:52 AM [facility] REPOSITORY TYPE CODE TESTS RESULT OUT OF RANGE REFERENCE UNITS LAB L501.0100 74-106 mg/dL Normal GLU 86 Result Comment: Please note revised GLUCOSE reference range effective 2017. LAB L501.1000 7-18 mg/dL Normal BUN 14 LAB L501.1100 0.55-1.02 mg/dL Normal CREAT,SERUM 0.81 Result Comment: The validity of the calculated GFR AND GFRAA in patients over 70 years has not been determined. Clinical correlation is essential. LAB L501.1110 >60 mL/min Normal EST GFR 75 Result Comment: Non- GFR Calc LAB L501.1115 >60 mL/min Normal EST GFR - AA 91 Result Comment: GFR Calc LAB L501.1300 10-20 RATIO Normal BUN/CRE 17.2 LAB L501.1500 6.4-8.2 g/dL T Normal PROT 8.0 LAB L501.1800 3.2-5.0 g/dL Normal ALB 3.8 LAB L501.1950 2.2-4.2 g/dL Normal GLOB 4.2 LAB L501.2000 0.9-2.4 RATIO Normal A/G 0.9 LAB L501.2200 8.5-10.1 mg/dL CA Normal 8.9 LAB L501.4100 15-37 U/L Normal AST 19 LAB L501.4305 45-117 U/L Normal ALK P 64 LAB L501.4405 13-56 U/L Normal ALT 29 Result Comment: Please note revised ALT reference range effective 2017. LAB L501.4600 0.20-1.00 mg/dL Normal T BILI 0.40 LAB L501.5300 136-145 mmol/L Normal NA 139 LAB L501.5600 3.5-5.1 mmol/L Normal K 3.7 LAB L501.5900 98-107 mmol/L Normal CL 104 LAB L501.6100 21.0-32.0 mmol/L Normal CO2 27.0 LAB L501.6200 5-15 Normal GAP 8 Performed By: #### L500.4050 #### [facility] [address] [place], [place], [address] CBC W/DIFF, AUTOMATED Collected: 10/19/2017 Status: F Source: [facility] 11:52 AM [facility] REPOSITORY TYPE CODE TESTS RESULT OUT OF RANGE REFERENCE UNITS LAB L100.1000 4.4-11.0 K/mm3 Normal WBC 5.9 LAB L100.1200 4.2-5.4 M/mm3 Normal RBC 4.25 LAB L100.1300 12.0-15.0 g/dl Normal HGB 13.3 LAB L100.1400 37-47 % Normal HCT 40.4 LAB L100.1500 81-99 fL Normal MCV 95.1 LAB L100.1600 27.0-32.0 pg Normal MCH 31.3 LAB L100.1700 32-36 g/gl Normal MCHC 32.9 LAB L100.1810 11.6-14.6 % Normal RDW CV 14.5 LAB L100.1820 35.1-43.9 fl High RDW SD 48.6 LAB L100.1900 150-450 K/mm3 Normal PLT 202 LAB L100.2000 6.2-12.0 fl Normal MPV 11.7 LAB L100.2100 47-70 % Normal NEUT% 50.1 LAB L100.2200 19-41 % Normal LY% 38.9 LAB L100.2300 0-10 % Normal MONO% 9.3 LAB L100.2400 0-5 % Normal EO% 1.2 LAB L100.2500 0-1 % Normal BASO% 0.5 LAB L100.2550 0.0-0.9 % Normal IM GRAN % 0.000 Result Comment: IG% - Immature Granulocytes (promyelocytes, myelocytes and metamyelocytes) > 1% indicates that a LEFT SHIFT is Present. LAB L100.2620 2.0-7.7 X10 3/uL Normal Absolute Neut 3.0 LAB L100.2720 0.83-4.51 X10 3/ul Normal Absolute Lymph 2.31 Performed By: #### L100.0100 #### [facility] [address] [facility] [place], [address] PROGRESS Observed: 08/22/2017 Status: COMPLETED Source: [place] 11:10 AM [facility] REPOSITORY O ID: [id number] Author: Faith Daniel (Wang) Manpreet Service: (none) Author Type: Nurse Practitioner Type: Progress Notes Filed: 08/22/2017 12:28 PM Note Text: Chief Complaint Patient presents with: Blood Pressure HPI Erika Baird is a 62 year old female who presents here today for Above Complaints, recheck BP. HTN: Ms. Baird indicates that she is feeling well and denies any symptoms referable to elevated blood pressure. Specifically denies headache, chest pain, palpitations, dyspnea and peripheral edema. Patient denies any side effects of her medication(s) and is compliant with their regimen. She does check BP's away from this office with average BP's in the 118-145 SBP and 72-88 range. Erika gets minimal exercise. She watches her diet for sodium, low fat and low cholesterol most of the time. Last 3 Encounter BP Readings: Date: BP: 08/22/2017 130/78 08/08/2017 133/86 07/12/2017 138/86 The ROS is otherwise negative. Past medical history, appointments, medications, allergies reviewed. Patient Allergies ALLERGIES Allergen Reactions - Adalimumab Other: See Comments - Leflunomide Other: See Comments Current Medications Current Outpatient Prescriptions on File Prior to Visit: leucovorin (LEUCOVORIN) 25 mg tablet predniSONE (DELTASONE) 5 mg tablet DAILY Cholecalciferol, Vitamin D3, (VITAMIN D) 1,000 unit cap Vitamin D3 1,000 unit capsule sucralfate (CARAFATE) 1 gram tablet Dissolve in 1 TBSP water 4 times/day, before meals and at bedtime. lisinopril (PRINIVIL) 20 mg tablet Take 1 tablet by mouth once daily. metoprolol succinate ER (TOPROL XL) 25 mg 24 hr tablet Take 1 tablet by mouth once daily. Biotin 10,000 mcg cap Take 5,000 mcg by mouth once daily. hydroxychloroquine (PLAQUENIL) 200 mg tablet Take 1 tablet by mouth twice daily. Etanercept (ENBREL SURECLICK) 50 mg/mL (0.98 mL) pnij Inject 50 mg subcutaneously once each week. TURMERIC (CURCUMIN MISC) Turmeric Curcumin 500mg daily FOLIC ACID ORAL Take by mouth. Pt takes two tablets daily. CHOLECALCIFEROL (VITAMIN D3) 1,000 UNIT CAP Take one(1) tablet daily. FISH OIL CAP Take one(1) capsule daily. leucovorin (LEUCOVORIN) 15 mg tablet Take 1.67 tablets by mouth once each week. No current facility-administered medications on file prior to visit. Previous Medical History PAST MEDICAL HISTORY Diagnosis Date - Ascending aortic aneurysm (HCC) 02/27/2014 01/14/15: [address] scan 04/21/17: [address] scan - Carpal tunnel syndrome 07/29/2010 - Chronic obstructive pulmonary disease (COPD) (HCC) - Diarrhea - Essential hypertension, benign 11/14/2013 - H. pylori infection - Hyperlipidemia LDL goal <100 10/30/2016 - Hypertension 4/16/14 - Internal hemorrhoids without mention of complication - Mental disorder - Osteoporosis 03/09 - Seropositive rheumatoid arthritis (HCC) 02/10/2012 - Sjogren's syndrome (HCC) 2004 - Snoring - Supraspinatus tendonitis 01/06/2011 - Syncope - Uncontrolled type 2 diabetes mellitus without complication, without long-term current use of insulin (HCC) 10/30/2016 FBS 173 on 10/28/16 Previous Surgical History PAST SURGICAL HISTORY Procedure Laterality Date - COLONOSCOP W/ OR W/O [facility] SPEC 01/09/07 repeat in -2016 - COLONOSCOP W/ OR W/O BRSH SPEC 07/18/2017 10 year repeat - DANDC, DIAG AND/OR THERAPEUTIC Dilation AND curettage - EGD W/O OR W/BRUSH/WASH EGD - LIGATE FALLOPIAN TUBE Tubal ligation - REMOVAL OF TONSILS,<12 Y/O Tonsillectomy Family History FAMILY HISTORY Problem Relation Age of Onset - Hypertension Mother - Rheumatoid arthritis [OTHER] Mother - ASHD [OTHER] Father MO - Grave's disease [OTHER] Sister - Diabetes Sister - Colon Cancer Maternal Aunt 39 Social History Social History Marital status: Spouse name: Fortino Years of education: 13 Number of children: 2 Social History Main Topics Smoking status: Current Every Day Smoker Packs/day: 0.50 Years: 30.00 Types: Cigarettes Smokeless status: Never Used Alcohol use: No Drug use: No Sexual activity: Yes Partners with: Male control/protection: Surgical Comment: tubal ligation/Postmenopausal EXAM: BP 130/78 Pulse 76 Resp 20 Wt 60.3 kg (133 lb) BMI 22.83 kg/m2 General Appearance: Well appearing, alert, in no acute distress, well-hydrated, well nourished.. Neck: Supple, no adenopathy; thyroid symmetric, normal size, no bruits. Lungs: Lungs clear to auscultation. No wheezing, rhonchi, rales. Heart: RRR without murmur, gallop, or rubs. No ectopy. Extremities: No deformities, edema, skin discoloration, clubbing or cyanosis. Good capillary refill. . ASSESSMENT/PLAN: 1. Essential hypertension, benign - ICD9: 401.1, ICD10: I10 (primary diagnosis) - fair control - Continue current medication(s) - Encouraged dietary sodium restriction/DASH diet - Recommended regular aerobic exercise. - Recommend home blood pressure monitoring, to bring results in on next visit - Goal of BP <130/80 - She will continue to monitor BP at home, given parameters. If trending upward then will add Amlodipine 2.5-5 mg daily 2. Osteoporosis without current pathological fracture, unspecified osteoporosis type - ICD9: 733.00, ICD10: M81.0 - She is given reading information on Reclast. Will avoid oral Biphosphonates 3. Ascending aortic aneurysm (HCC) - ICD9: 441.2, ICD10: I71.2 - Stable, follows with Dr. Mijares. 4. Seropositive rheumatoid arthritis (HCC) - ICD9: 714.0, ICD10: M05.9 - Follows with Dr. Boswell, rx added to med list - METHOTREXATE SODIUM 2.5 MG TABLET 5. Sicca syndrome (HCC) - ICD9: 710.2, ICD10: M35.00 - Follows with Dr. Huang 6. Sjogren's syndrome with keratoconjunctivitis sicca (HCC) - ICD9: 710.2, ICD10: M35.01 - Follows with Dr. Andreia Case, MSN BIAS CUTTING MACHINE OPERATOR VERTICAL CNOV Observed: 08/22/2017 Status: COMPLETED Source: [place] 11:00 AM [facility] REPOSITORY Office Visit ([facility]) BAIRD,ERIKA L ([id number]) 1955 F Date Time Provider Department 08/22/17 11:00 AM FAITH CASE ([employer]IT[employer] ANALYST) [facility] During your visit today, we recorded the following information about you: Pulse Respiration Blood pressure Weight 76/minute 20/minute 130/78 60.3 kg Faith Case MSN BIAS CUTTING MACHINE OPERATOR VERTICAL 08/22/2017 12:28 PM Signed Chief Complaint Patient presents with: Blood Pressure HPI Erika Baird is a 62 year old female who presents here today for Above Complaints, recheck BP. HTN: Ms. Baird indicates that she is feeling well and denies any symptoms referable to elevated blood pressure. Specifically denies headache, chest pain, palpitations, dyspnea and peripheral edema. Patient denies any side effects of her medication(s) and is compliant with their regimen. She does check BP's away from this office with average BP's in the 118-145 SBP and 72-88 range. Erika gets minimal exercise. She watches her diet for sodium, low fat and low cholesterol most of the time. Last 3 Encounter BP Readings: Date: BP: 08/22/2017 130/78 08/08/2017 133/86 07/12/2017 138/86 The ROS is otherwise negative. Past medical history, appointments, medications, allergies reviewed. Patient Allergies ALLERGIES Allergen Reactions - Adalimumab Other: See Comments - Leflunomide Other: See Comments Current Medications Current Outpatient Prescriptions on File Prior to Visit: leucovorin (LEUCOVORIN) 25 mg tablet predniSONE (DELTASONE) 5 mg tablet DAILY Cholecalciferol, Vitamin D3, (VITAMIN D) 1,000 unit cap Vitamin D3 1,000 unit capsule sucralfate (CARAFATE) 1 gram tablet Dissolve in 1 TBSP water 4 times/day, before meals and at bedtime. lisinopril (PRINIVIL) 20 mg tablet Take 1 tablet by mouth once daily. metoprolol succinate ER (TOPROL XL) 25 mg 24 hr tablet Take 1 tablet by mouth once daily. Biotin 10,000 mcg cap Take 5,000 mcg by mouth once daily. hydroxychloroquine (PLAQUENIL) 200 mg tablet Take 1 tablet by mouth twice daily. Etanercept (ENBREL SURECLICK) 50 mg/mL (0.98 mL) pnij Inject 50 mg subcutaneously once each week. TURMERIC (CURCUMIN [facility] [place]) Turmeric Curcumin 500mg daily FOLIC ACID ORAL Take by mouth. Pt takes two tablets daily. CHOLECALCIFEROL (VITAMIN D3) 1,000 UNIT CAP Take one(1) tablet daily. FISH OIL CAP Take one(1) capsule daily. leucovorin (LEUCOVORIN) 15 mg tablet Take 1.67 tablets by mouth once each week. No current facility-administered medications on file prior to visit. Previous Medical History PAST MEDICAL HISTORY Diagnosis Date - Ascending aortic aneurysm (HCC) 02/27/2014 01/14/15: [address] scan 04/21/17: [address] scan - Carpal tunnel syndrome 07/29/2010 - Chronic obstructive pulmonary disease (COPD) ([facility]) - Diarrhea - Essential hypertension, benign 11/14/2013 - H. pylori infection - Hyperlipidemia LDL goal ANDlt;100 10/30/2016 - Hypertension 11/14/13 - Internal hemorrhoids without mention of complication - Mental disorder - Osteoporosis 03/09 - Seropositive rheumatoid arthritis ([facility]) 02/10/2012 - Sjogren's syndrome ([facility]) 2004 - Snoring - Supraspinatus tendonitis 01/06/2011 - Syncope - Uncontrolled type 2 diabetes mellitus without complication, without long-term current use of insulin ([facility]) 10/30/2016 FBS 173 on 10/28/16 Previous Surgical History PAST SURGICAL HISTORY Procedure Laterality Date - COLONOSCOP W/ OR W/O BRSH SPEC 01/09/07 repeat in - COLONOSCOP W/ OR W/O BRSH SPEC 07/18/2017 10 year repeat - DANDamp;C, DIAG AND/OR THERAPEUTIC Dilation ANDamp; curettage - EGD W/O OR W/BRUSH/WASH EGD - LIGATE FALLOPIAN TUBE Tubal ligation - REMOVAL OF TONSILS,ANDlt;10 Y/O Tonsillectomy Family History FAMILY HISTORY Problem Relation Age of Onset - Hypertension Mother - Rheumatoid arthritis [OTHER] Mother - ASHD [OTHER] Father MO - Grave's disease [OTHER] Sister - Diabetes Sister - Colon Cancer Maternal Aunt 39 Social History Social History Marital status: Spouse name: Fortino Years of education: 13 Number of children: 2 Social History Main Topics Smoking status: Current Every Day Smoker Packs/day: 0.50 Years: 30.00 Types: Cigarettes Smokeless status: Never Used Alcohol use: No Drug use: No Sexual activity: Yes Partners with: Male control/protection: Surgical Comment: tubal ligation/Postmenopausal EXAM: BP 130/78 Pulse 76 Resp 20 Wt 60.3 kg (133 lb) BMI 22.83 kg/m2 General Appearance: Well appearing, alert, in no acute distress, well-hydrated, well nourished.. Neck: Supple, no adenopathy; thyroid symmetric, normal size, no bruits. Lungs: Lungs clear to auscultation. No wheezing, rhonchi, rales. Heart: RRR without murmur, gallop, or rubs. No ectopy. Extremities: No deformities, edema, skin discoloration, clubbing or cyanosis. Good capillary refill. . ASSESSMENT/PLAN: 1. Essential hypertension, benign - ICD9: 401.1, ICD10: I10 (primary diagnosis) - fair control - Continue current medication(s) - Encouraged dietary sodium restriction/DASH diet - Recommended regular aerobic exercise. - Recommend home blood pressure monitoring, to bring results in on next visit - Goal of BP ANDlt;130/80 - She will continue to monitor BP at home, given parameters. If trending upward then will add Amlodipine 2.5-5 mg daily 2. Osteoporosis without current pathological fracture, unspecified osteoporosis type - ICD9: 733.00, ICD10: M81.0 - She is given reading information on Reclast. Will avoid oral Biphosphonates 3. Ascending aortic aneurysm (HCC) - ICD9: 441.2, ICD10: I71.2 - Stable, follows with Dr. Mijares. 4. Seropositive rheumatoid arthritis (HCC) - ICD9: 714.0, ICD10: M05.9 - Follows with Dr. Boswell, rx added to med list - METHOTREXATE SODIUM 2.5 MG TABLET 5. Sicca syndrome (HCC) - ICD9: 710.2, ICD10: M35.00 - Follows with Dr. Huang 6. Sjogren's syndrome with keratoconjunctivitis sicca (HCC) - ICD9: 710.2, ICD10: M35.01 - Follows with Dr. Andreia Case, MSN BIAS CUTTING MACHINE OPERATOR VERTICAL Referring Provider: IZABELLA DEXTER ([employer] ANALYST) [[id number]] Allergies As of Date: 08/22/2017 Noted Allergy Reaction ADALIMUMAB 05/08/2017 14 - Other: See Comments FOSAMAX (ALENDRONATE SODIUM) 08/22/2017 8 - GI Upset Comments: Severe GI upset LEFLUNOMIDE 05/08/2017 14 - Other: See Comments Date Reviewed: 08/22/2017 Reviewed by: Sirena Morillo Garland Maker - Fully Assessed Reason for Visit: Blood Pressure [15] Primary Visit Diagnosis:Essential hypertension, benign [I10] Other Visit Diagnoses:Osteoporosis without current pathological fracture, unspecified osteoporosis type [M81.0] Ascending aortic aneurysm (HCC) [I71.2] Seropositive rheumatoid arthritis (HCC) [M05.9] Sicca syndrome (HCC) [M35.00] Sjogren's syndrome with keratoconjunctivitis sicca (HCC) [M35.01] Order(s):[START ON 08/28/2017] methotrexate 2.5 mg tabletTake 4 tablets by mouth every Tuesday.Disp: Rfl: Prescriptions as of 08/22/2017 Sig: LEUCOVORIN CALCIUM 25 MG TABL* PREDNISONE 5 MG TABLET DAILY CHOLECALCIFEROL (VITAMIN D3) * Vitamin D3 1,000 unit capsule LISINOPRIL 20 MG TABLET Take 1 tablet by mouth once d* METOPROLOL SUCCINATE ER 25 MG* Take 1 tablet by mouth once d* BIOTIN 10,000 MCG CAPSULE Take 5,000 mcg by mouth once * HYDROXYCHLOROQUINE 200 MG TAB* Take 1 tablet by mouth twice * ETANERCEPT 50 MG/ML (0.98 ML)* Inject 50 mg subcutaneously o* CURCUMIN MISC Turmeric Curcumin 500mg daily FOLIC ACID ORAL Take by mouth. Pt takes two * * CHOLECALCIFEROL (VITAMIN D3) * Take one(1) tablet daily. * FISH OIL 500 MG CAPSULE Take one(1) capsule daily. 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 More... Hyperlipidemia LDL goal <100 [E78.5] INVALID FOR* Encounter for screening for malignant neoplasm *INVALID FOR* More... GERD with esophagitis [K21.0] INVALID FOR* More... Prescriptions ordered this encounter Disp Refills Start End METHOTREXATE SODIUM 2.5 MG TABLET 08/28/2017 Class: Med Update Route: ORAL Sig: Take 4 tablets by mouth every Tuesday. Medications Discontinued During This Encounter leucovorin (LEUCOVORIN) 15 mg tablet 0 02/27/2016 08/22/2017 Class: Med Update Route: ORAL Sig: Take 1.67 tablets by mouth once each week. Disc: Discontinued by another Health Care Provider Cosign accepted by PAULO ROBERTSON III, MD[[id number]] on 02/27/2016 9:33 AM sucralfate (CARAFATE) 1 gram tablet 56 t* 0 05/27/2017 08/22/2017 Sig: Dissolve in 1 TBSP water 4 times/day, before meals and at bedtime. Disc: Course of therapy completed Disposition: Return in about 6 months (around 03/01/2018). Follow-up and Disposition History Recorded Encounter Status:Closed by FAITH CASE CNP on 08/22/17 CNOV Observed: 08/08/2017 Status: COMPLETED Source: [place] 4:00 PM [facility] REPOSITORY [facility] ERIKA BAIRD ([id number]) 1955 F Date Time Provider Department 08/08/17 4:00 PM IZABELLA DEXTER (WANG) [facility] During your visit today, we recorded the following information about you: Pulse Blood pressure Weight Height 84/minute 133/86 60.3 kg 1.626 m Izabella Dexter RN BIAS CUTTING MACHINE OPERATOR VERTICAL 08/08/2017 4:35 PM Signed Erika Baird a 62 year old female who is returning for follow up regarding suspected GERD. I saw the patient in consultation on 06/15/17. That note has been reviewed. The patient was seen by Dr. Patel for upper endoscopy and screening colonoscopy 07/18/17. The procedure report has been reviewed and findings as follows: EGD Impression: - LA Grade A reflux esophagitis. Biopsied. ? - Gastritis. Biopsied. ? - Normal examined duodenum. FINAL DIAGNOSIS 1. Gastric antrum, biopsy (A) - Gastric antral/ body mucosa with mild chronic inactive gastritis. - No morphologic evidence of H. pylori organisms. 2. Distal esophagus, biopsy (B) - Gastric cardia/ oxyntic- type mucosa with mild chronic inflammation and reactive epithelial changes, negative for intestinal metaplasia and dysplasia. Colonoscopy Findings: ? ? ?The colon (entire examined portion) appeared normal. I have reviewed the procedure and pathology reports, as well as the images, with the patient. Presenting complaint: The patient presents today reporting that she isn't feeling any upper GI symptoms that she was experiencing when I saw her in June. No longer taking Pepcid AC. She was concerned that it was causing the slight elevation in her BP. BP remains slightly elevated. I have asked her to resume it, since her procedure did show signs of esophagitis. The patient notes that she usually has diarrhea each morning, after her coffee. It doesn't seem as bad, since her procedure. We discussed trial of Imodium, either before bed, or first thing in the morning. She'll try that, if the diarrhea returns. REVIEW OF SYSTEMS: GENERAL: No weight loss, malaise or fevers GI: The patient states that her appetite has been good. She does get hungry. There has been no nausea, no vomiting. She denies dysphagia and denies odynophagia. There has not been indigestion or heartburn. There has not been regurgitation. Bowel habits presently improved. No new or worsening abdominal pain. All other reviewed and negative other than HPI. PAST MEDICAL HISTORY Diagnosis Date - Ascending aortic aneurysm (HCC) 02/27/2014 01/14/15: [address] scan 04/21/17: [address] scan - Carpal tunnel syndrome 07/29/2010 - Chronic obstructive pulmonary disease (COPD) ([facility]) - Diarrhea - Essential hypertension, benign 11/14/2013 - H. pylori infection - Hyperlipidemia LDL goal ANDlt;100 10/30/2016 - Hypertension 11/14/13 - Internal hemorrhoids without mention of complication - Mental disorder - Osteoporosis 03/09 - Seropositive rheumatoid arthritis (HCC) 02/10/2012 - Sjogren's syndrome ([facility]) 2004 - Snoring - Supraspinatus tendonitis 01/06/2011 - Syncope - Uncontrolled type 2 diabetes mellitus without complication, without long-term current use of insulin ([facility]) 10/30/2016 FBS 173 on 10/28/16 PAST SURGICAL HISTORY Procedure Laterality Date - COLONOSCOP W/ OR W/O [facility] SPEC 01/09/07 repeat in -2016 - COLONOSCOP W/ OR W/O [facility] SPEC 07/18/2017 10 year repeat - DANDamp;C, DIAG AND/OR THERAPEUTIC Dilation ANDamp; curettage - EGD W/O OR W/BRUSH/WASH EGD - LIGATE FALLOPIAN TUBE Tubal ligation - REMOVAL OF TONSILS,ANDlt;10 Y/O Tonsillectomy FAMILY HISTORY Problem Relation Age of Onset - Hypertension Mother - Rheumatoid arthritis [OTHER] Mother - ASHD [OTHER] Father MO - Grave's disease [OTHER] Sister - Diabetes Sister - Colon Cancer Maternal Aunt 39 Current Outpatient Prescriptions: leucovorin (LEUCOVORIN) 25 mg tablet Disp: Rfl: predniSONE (DELTASONE) 5 mg tablet DAILY Disp: Rfl: Cholecalciferol, Vitamin D3, (VITAMIN D) 1,000 unit cap Vitamin D3 1,000 unit capsule Disp: Rfl: sucralfate (CARAFATE) 1 gram tablet Dissolve in 1 TBSP water 4 times/day, before meals and at bedtime. Disp: 56 tablet Rfl: 0 lisinopril (PRINIVIL) 20 mg tablet Take 1 tablet by mouth once daily. Disp: 90 tablet Rfl: 3 metoprolol succinate ER (TOPROL XL) 25 mg 24 hr tablet Take 1 tablet by mouth once daily. Disp: 90 tablet Rfl: 3 Biotin 10,000 mcg cap Take 5,000 mcg by mouth once daily. Disp: Rfl: 0 leucovorin (LEUCOVORIN) 15 mg tablet Take 1.67 tablets by mouth once each week. Disp: Rfl: 0 hydroxychloroquine (PLAQUENIL) 200 mg tablet Take 1 tablet by mouth twice daily. Disp: Rfl: Etanercept (ENBREL SURECLICK) 50 mg/mL (0.98 mL) pnij Inject 50 mg subcutaneously once each week. Disp: Rfl: 0 TURMERIC (CURCUMIN [facility]) Turmeric Curcumin 500mg daily Disp: Rfl: FOLIC ACID ORAL Take by mouth. Pt takes two tablets daily. Disp: Rfl: CHOLECALCIFEROL (VITAMIN D3) 1,000 UNIT CAP Take one(1) tablet daily. Disp: Rfl: 0 FISH OIL CAP Take one(1) capsule daily. Disp: Rfl: 0 No current facility-administered medications for this visit. SOCIAL HISTORY: Patient is . She smokes 1/2 ppd and reports her alcohol use as never. PHYSICAL EXAMINATION: Blood pressure 133/86, pulse 84, height 162.6 cm (5' 4ANDquot;), weight 60.3 kg (133 lb). General Appearance: Well appearing, alert, in no acute distress, well-hydrated, well nourished. Skin: Skin color, texture, turgor normal. Eyes: Anicteric sclera. Lungs: Lungs clear to auscultation. No wheezing, rhonchi, rales. Heart: RRR without murmur. Abdomen:Abdomen soft, non-tender. Bowel sounds normal. Impression: GERD with esophagitis 2)gastritis 3)functional bowel disorder. Elevated BP Plan: I have recommended that the patient resume Pepcid AC daily for the next 3 months. Also discussed using loperamide (Imodium) if the loose stools resume. She will let me know what happens. Regarding elevated BP: the patient has a BP cuff at home. I have recommended that she take her BP at least once a day, for the next 2 weeks, and see Faith Case to review them and make any recommendations. She agrees with this plan. I have personally interviewed and examined this patient. I have reviewed the information that the MA entered for this encounter. Greater than 25 minutes total time used this visit to review old chart, review new information, update current history and evaluate patient. A majority of the time was spent in discussion and counseling to formulate the plan. Izabella Dexter RN BIAS CUTTING MACHINE OPERATOR VERTICAL Debora Case MA 08/08/2017 3:57 PM Signed Says blood pressure has been running high the last couple of months. Debora Dexter RN CNP 08/08/2017 4:25 PM Addendum Keep a log of BPs for the next 2 weeks. See Faith for a review of those. Resume Pepcid AC. Taking at least once a day, for 3 months. Try taking Imodium tablets. Try taking 1/2 tablet before bed. If not before bed, then very first thing in the morning. Report back to me if/when you need to start this. Referring Provider: KAYDEN PATEL [[id number]] Allergies As of Date: 08/08/2017 Noted Allergy Reaction ADALIMUMAB 05/08/2017 14 - Other: See Comments LEFLUNOMIDE 05/08/2017 14 - Other: See Comments Date Reviewed: 08/08/2017 Reviewed by: Debora Case MA - Fully Assessed Reason for Visit: Follow up procedure from 07/18/17 [Other] Primary Visit Diagnosis:Gastroesophageal reflux disease with esophagitis [K21.0] Other Visit Diagnoses:Chronic antral gastritis [K29.50] Elevated BP without diagnosis of hypertension [R03.0] Prescriptions as of 08/08/2017 Sig: LEUCOVORIN CALCIUM 25 MG TABL* PREDNISONE 5 MG TABLET DAILY CHOLECALCIFEROL (VITAMIN D3) * Vitamin D3 1,000 unit capsule SUCRALFATE 1 GRAM TABLET Dissolve in 1 TBSP water 4 ti* LISINOPRIL 20 MG TABLET Take 1 tablet by mouth once d* METOPROLOL SUCCINATE ER 25 MG* Take 1 tablet by mouth once d* BIOTIN 10,000 MCG CAPSULE Take 5,000 mcg by mouth once * LEUCOVORIN CALCIUM 15 MG TABL* Take 1.67 tablets by mouth on* HYDROXYCHLOROQUINE 200 MG TAB* Take 1 tablet by mouth twice * ETANERCEPT 50 MG/ML (0.98 ML)* Inject 50 mg subcutaneously o* CURCUMIN MISC Turmeric Curcumin 500mg daily FOLIC ACID ORAL Take by mouth. Pt takes two * * CHOLECALCIFEROL (VITAMIN D3) * Take one(1) tablet daily. * FISH OIL 500 MG CAPSULE Take one(1) capsule daily. 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 More... Hyperlipidemia LDL goal <100 [E78.5] INVALID FOR* Encounter for screening for malignant neoplasm *INVALID FOR* More... GERD with esophagitis [K21.0] INVALID FOR* More... Other instructions from your clinician: Keep a log of BPs for the next 2 weeks. See Faith for a review of those. Resume Pepcid AC. Taking at least once a day, for 3 months. Try taking Imodium tablets. Try taking 1/2 tablet before bed. If not before bed, then very first thing in the morning. Report back to me if/when you need to start this. Visit Notes: >> Debora Case MA Mon Aug 08, 2017 3:57 PM Status: Signed Says blood pressure has been running high the last couple of months. Debora Case MA Disposition: Return in about 2 weeks (around 08/22/2017). Follow-up and Disposition History Recorded Encounter Status:Closed by IZABELLA DEXTER CNP on 08/08/17 PROGRESS Observed: 08/08/2017 Status: COMPLETED Source: [place] 3:56 PM [facility] REPOSITORY O ID: [id number] Author: Izabella (Wang) Guerita Service: (none) Author Type: Nurse Practitioner Type: Progress Notes Filed: 08/08/2017 4:35 PM Note Text: Erika Baird a 62 year old female who is returning for follow up regarding suspected GERD. I saw the patient in consultation on 06/15/17. That note has been reviewed. The patient was seen by Dr. Patel for upper endoscopy and screening colonoscopy 07/18/17. The procedure report has been reviewed and findings as follows: EGD Impression: - LA Grade A reflux esophagitis. Biopsied. ? - Gastritis. Biopsied. ? - Normal examined duodenum. FINAL DIAGNOSIS 1. Gastric antrum, biopsy (A) - Gastric antral/ body mucosa with mild chronic inactive gastritis. - No morphologic evidence of H. pylori organisms. 2. Distal esophagus, biopsy (B) - Gastric cardia/ oxyntic- type mucosa with mild chronic inflammation and reactive epithelial changes, negative for intestinal metaplasia and dysplasia. Colonoscopy Findings: ? ? ?The colon (entire examined portion) appeared normal. I have reviewed the procedure and pathology reports, as well as the images, with the patient. Presenting complaint: The patient presents today reporting that she isn't feeling any upper GI symptoms that she was experiencing when I saw her in June. No longer taking Pepcid AC. She was concerned that it was causing the slight elevation in her BP. BP remains slightly elevated. I have asked her to resume it, since her procedure did show signs of esophagitis. The patient notes that she usually has diarrhea each morning, after her coffee. It doesn't seem as bad, since her procedure. We discussed trial of Imodium, either before bed, or first thing in the morning. She'll try that, if the diarrhea returns. REVIEW OF SYSTEMS: GENERAL: No weight loss, malaise or fevers GI: The patient states that her appetite has been good. She does get hungry. There has been no nausea, no vomiting. She denies dysphagia and denies odynophagia. There has not been indigestion or heartburn. There has not been regurgitation. Bowel habits presently improved. No new or worsening abdominal pain. All other reviewed and negative other than HPI. PAST MEDICAL HISTORY Diagnosis Date - Ascending aortic aneurysm (HCC) 02/27/2014 01/14/15: [address] scan 04/21/17: [address] scan - Carpal tunnel syndrome 07/29/2010 - Chronic obstructive pulmonary disease (COPD) ([facility]) - Diarrhea - Essential hypertension, benign 11/14/2013 - H. pylori infection - Hyperlipidemia LDL goal <100 10/30/2016 - Hypertension 11/14/13 - Internal hemorrhoids without mention of complication - Mental disorder - Osteoporosis 03/09 - Seropositive rheumatoid arthritis (HCC) 02/10/2012 - Sjogren's syndrome ([facility]) 2004 - Snoring - Supraspinatus tendonitis 01/06/2011 - Syncope - Uncontrolled type 2 diabetes mellitus without complication, without long-term current use of insulin ([facility]) 10/30/2016 FBS 173 on 10/28/16 PAST SURGICAL HISTORY Procedure Laterality Date - COLONOSCOP W/ OR W/O BRSH SPEC 01/09/07 repeat in -2016 - COLONOSCOP W/ OR W/O BRSH SPEC 07/18/2017 10 year repeat - DANDC, DIAG AND/OR THERAPEUTIC Dilation AND curettage - EGD W/O OR W/BRUSH/WASH EGD - LIGATE FALLOPIAN TUBE Tubal ligation - REMOVAL OF TONSILS,<12 Y/O Tonsillectomy FAMILY HISTORY Problem Relation Age of Onset - Hypertension Mother - Rheumatoid arthritis [OTHER] Mother - ASHD [OTHER] Father MO - Grave's disease [OTHER] Sister - Diabetes Sister - Colon Cancer Maternal Aunt 39 Current Outpatient Prescriptions: leucovorin (LEUCOVORIN) 25 mg tablet Disp: Rfl: predniSONE (DELTASONE) 5 mg tablet DAILY Disp: Rfl: Cholecalciferol, Vitamin D3, (VITAMIN D) 1,000 unit cap Vitamin D3 1,000 unit capsule Disp: Rfl: sucralfate (CARAFATE) 1 gram tablet Dissolve in 1 TBSP water 4 times/day, before meals and at bedtime. Disp: 56 tablet Rfl: 0 lisinopril (PRINIVIL) 20 mg tablet Take 1 tablet by mouth once daily. Disp: 90 tablet Rfl: 3 metoprolol succinate ER (TOPROL XL) 25 mg 24 hr tablet Take 1 tablet by mouth once daily. Disp: 90 tablet Rfl: 3 Biotin 10,000 mcg cap Take 5,000 mcg by mouth once daily. Disp: Rfl: 0 leucovorin (LEUCOVORIN) 15 mg tablet Take 1.67 tablets by mouth once each week. Disp: Rfl: 0 hydroxychloroquine (PLAQUENIL) 200 mg tablet Take 1 tablet by mouth twice daily. Disp: Rfl: Etanercept (ENBREL SURECLICK) 50 mg/mL (0.98 mL) pnij Inject 50 mg subcutaneously once each week. Disp: Rfl: 0 TURMERIC (CURCUMIN [facility]) Turmeric Curcumin 500mg daily Disp: Rfl: FOLIC ACID ORAL Take by mouth. Pt takes two tablets daily. Disp: Rfl: CHOLECALCIFEROL (VITAMIN D3) 1,000 UNIT CAP Take one(1) tablet daily. Disp: Rfl: 0 FISH OIL CAP Take one(1) capsule daily. Disp: Rfl: 0 No current facility-administered medications for this visit. SOCIAL HISTORY: Patient is . She smokes 1/2 ppd and reports her alcohol use as never. PHYSICAL EXAMINATION: Blood pressure 133/86, pulse 84, height 162.6 cm (5' 4), weight 60.3 kg (133 lb). General Appearance: Well appearing, alert, in no acute distress, well-hydrated, well nourished. Skin: Skin color, texture, turgor normal. Eyes: Anicteric sclera. Lungs: Lungs clear to auscultation. No wheezing, rhonchi, rales. Heart: RRR without murmur. Abdomen:Abdomen soft, non-tender. Bowel sounds normal. Impression: GERD with esophagitis 2)gastritis 3)functional bowel disorder. Elevated BP Plan: I have recommended that the patient resume Pepcid AC daily for the next 3 months. Also discussed using loperamide (Imodium) if the loose stools resume. She will let me know what happens. Regarding elevated BP: the patient has a BP cuff at home. I have recommended that she take her BP at least once a day, for the next 2 weeks, and see Faith Case to review them and make any recommendations. She agrees with this plan. I have personally interviewed and examined this patient. I have reviewed the information that the MA entered for this encounter. Greater than 25 minutes total time used this visit to review old chart, review new information, update current history and evaluate patient. A majority of the time was spent in discussion and counseling to formulate the plan. Izabella Dexter RN BIAS CUTTING MACHINE OPERATOR VERTICAL COMPREHENSIVE METABOLIC Collected: 07/29/2017 Status: F Source: [place] 11:34 AM [facility] REPOSITORY TYPE CODE TESTS RESULT OUT OF RANGE REFERENCE UNITS LAB L501.0100 70-110 mg/dL Normal GLU 86 LAB L501.1000 7-18 mg/dL Normal BUN 12 LAB L501.1100 0.55-1.02 mg/dL Normal 0.69 CREAT,SERUM Result Comment: The validity of the calculated GFR AND GFRAA in patients over 70 years has not been determined. Clinical correlation is essential. LAB L501.1110 >60 mL/min Normal EST GFR 91 Result Comment: Non- GFR Calc LAB L501.1115 >60 mL/min Normal EST GFR - AA 110 Result Comment: GFR Calc LAB L501.1300 10-20 RATIO Normal BUN/CRE 17.4 LAB L501.1500 6.4-8.2 g/dL T Normal PROT 8.2 LAB L501.1800 3.4-5.0 g/dL Normal ALB 3.9 Result Comment: Please note revised Albumin AND Globulin reference range effective 2017. LAB L501.1950 2.2-4.2 g/dL High GLOB 4.3 LAB L501.2000 0.9-2.4 RATIO Normal A/G 0.9 LAB L501.2200 8.5-10.1 mg/dL Normal CA 9.1 LAB L501.4100 15-37 U/L Normal AST 15 LAB L501.4305 45-117 U/L Normal ALK P 54 LAB L501.4405 12-78 U/L Normal ALT 23 LAB L501.4600 0.20-1.00 mg/dL Normal T BILI 0.30 LAB L501.5300 136-145 mmol/L Normal NA 136 LAB L501.5600 3.5-5.1 mmol/L Normal K 3.8 LAB L501.5900 98-107 mmol/L Normal CL 101 LAB L501.6100 21.0-32.0 mmol/L Normal CO2 27.0 LAB L501.6200 5-15 Normal GAP 8 Performed By: #### L500.4050 #### [facility] [address] [facility] [place], [address] CBC W/DIFF, AUTOMATED Collected: 07/29/2017 Status: F Source: [place] 11:34 AM [facility] REPOSITORY TYPE CODE TESTS RESULT OUT OF RANGE REFERENCE UNITS LAB L100.1000 4.4-11.0 K/mm3 Normal WBC 6.7 LAB L100.1200 4.2-5.4 M/mm3 Normal RBC 4.34 LAB L100.1300 12.0-15.0 g/dl Normal HGB 13.4 LAB L100.1400 37-47 % Normal HCT 41.2 LAB L100.1500 81-99 fL Normal MCV 94.9 LAB L100.1600 27.0-32.0 pg Normal MCH 30.9 LAB L100.1700 32-36 g/gl Normal MCHC 32.5 LAB L100.1810 11.6-14.6 % Normal RDW CV 14.2 LAB L100.1820 35.1-43.9 fl High RDW SD 49.0 LAB L100.1900 150-450 K/mm3 Normal PLT 226 LAB L100.2000 6.2-12.0 fl Normal MPV 11.5 LAB L100.2100 47-70 % Normal NEUT% 51.5 LAB L100.2200 19-41 % Normal LY% 39.2 LAB L100.2300 0-10 % Normal MONO% 8.4 LAB L100.2400 0-5 % Normal EO% 0.6 LAB L100.2500 0-1 % Normal BASO% 0.3 LAB L100.2550 0.0-0.9 % Normal IM GRAN % 0.000 Result Comment: IG% - Immature Granulocytes (promyelocytes, myelocytes and metamyelocytes) > 1% indicates that a LEFT SHIFT is Present. LAB L100.2620 2.0-7.7 X10 3/uL Normal Absolute Neut 3.4 LAB L100.2720 0.83-4.51 X10 3/ul Normal Absolute Lymph 2.62 Performed By: #### L100.0100 #### [facility] [address] [place], [address] ALLERGIES ALLERGIES DATE TYPE / CODE NAME / CODE REACTION SEVERITY SOURCE 05/19/2018 Drug leflunomide/[id number] Other Unknown [place] Allergy/416 7642(RXNORM) [facility] 065197([facility] ED CT) Repository 05/19/2018 Drug adalimumab/[id number] Other Unknown [place] Allergy/416 871(RXNORM) [facility] 301445([facility] ED CT) Repository 08/22/2017 DRUG ALENDRONATE SODIUM GI UPSET [facility] INGRED/[address] [place] [address] 140797(SNOM Repository ED CT) 05/08/2017 DRUG ADALIMUMAB OTHER: [facility] 389519(SNOM Repository ED CT) 05/08/2017 DRUG LEFLUNOMIDE OTHER: SEE C [address] 619434([facility] Repository ED CT) ENCOUNTERS ENCOUNTERS ADMIT/DISCHARGE ACCOUNT NUMBER ADMITTING ENCOUNTER LOCATION SOURCE CLASS 06/30/2018 [id number] Ambulatory [facility] ding:MTLAB Repository 05/29/2018/05/30/20 [id number] Ambulatory [address] Main [place] Repository 05/19/2018/05/22/20 [id number] DHARMESH ALARCON, Inpatient BBuilding:MS Peck [address] W Encounter URRoom: Health 0222Bed: A [facility] Repository 05/19/2018/05/19/20 [id number] Emergency [address] ding:ED Repository 05/18/2018/05/18/20 [id number] Ambulatory BMSBuilding: [place] 18 B[facility] Repository 04/10/2018 [id number] Ambulatory [facility] ding:MTLAB Repository 03/06/2018/03/07/20 [id number] Ambulatory [address] Repository 03/03/2018/03/03/20 [id number] Ambulatory [address] Repository 01/09/2018 [id number] Ambulatory [facility] ding:MTLAB Repository 10/19/2017 [id number] Ambulatory [facility] ding:MTLAB Repository 08/22/2017/08/22/19 [id number] Ambulatory [address] Repository 08/11/2017 [id number] Ambulatory [facility] ding:MTLAB Repository 08/08/2017/08/08/19 [id number] Ambulatory [address] Repository 07/29/2017/07/31/20 [id number] Ambulatory [address] ding:MTLAB Repository PAYERS PAYERS ENCOUNTER GUARANTOR PAYER SUBSCRIBER SOURCE 06/30/2018 ERIKA L [id number] Primary ERIKA L HUFFDOB: [place] RUTT MONIKAWOOJOSE, Insurance:MEDICARE [id number] [facility] [address]Ixa: PART A [facility] Number: Repository HP) [id number] Date:2018-06-30 06/30/2018 Secondary ERIKA L HUFFDOB: [place] Insurance:CIGNAPolicy [id number] [facility] Number: [facility] [id number] Repository Date:5839-08-42BI ASHISH 359[address]JEZISDWJUIT, [place] [address]DY: 06/30/2018 Tertiary NOT GIVENUNK [place] Insurance:SELF PAY [facility] Number: Effective Repository Date:2018-06-30 05/19/2018 ERIKA L HUFFDOB: Primary ERIKA L HUFFDOB: [facility] Insurance:MEDICARE [id number] [place] [address], [facility] APolicy Number: 0 [place] [place]ository [place] [address]Nty: [id number] [place], [place] Date:2018-05-19 [id number]: [phone]) (HP) [id number] Name:Fredil Ivan WEAVER ()Tel: (000) [address] ([place]) [place], [place] [address]RF: 05/19/2018 Secondary ERIKA L HUFFDOB: [facility] Insurance:MEDICARE [id number] Foundation PART BPolic Number: 0 RUTT Repository [id number] [place], [place] Date:2018-05-19 [id number]: [phone] [id number] [phone] Name:ADRYAN ()Tel: (000) Administrators LLCPO 000-0000 ([address]) [address] [address]tyebeqox, [place] [address]DS: 05/19/2018 ERIKA L [id number] Primary ERIKA L HUFFDOB: [place] [facility], Insurance:MEDICARE [id number] [facility] [address]Zxu: PART A [facility] Number: Repository () [id number] Date:2018-05-19 05/19/2018 Secondary ERIKA L HUFFDOB: [place] [facility] [id number] [facility] Number: Hospital [id number] Repository Date:2241-95-49NB [address]IFXBDK[place]QL, [place] [address]NE: 05/19/2018 Tertiary NOT GIVENUNK [place] Insurance:SELF PAY [facility] INSURANCEPolicy Hospital Number: Effective Repository Date:2018-05-19 05/18/2018 ERIKA L [id number] Primary ERIKA L HUFFDOB: [place] BANDA, Insurance:MEDICARE [id number] [address]Gml: PART A [facility] Number: Repository () [id number] Date:2017-07-12 05/18/2018 Secondary ERIKA L HUFFDOB: [place] Insurance:Tracked.comNAPolLiveOfficey [id number] [facility] Number: [facility] [id number] Repository Date:4714-99-23FO [facility] [address]44[address]VEMH[place]DRDBT, [place] [address]CC: 05/18/2018 Tertiary NOT GIVENUNK [place] Insurance:SELF PAY [facility] Number: Effective Repository Date:2018-05-16 04/10/2018 ERIKA L [id number] Primary ERIKA L HUFFDOB: [place] BANDA, Insurance:MEDICARE [id number] Health [facility] [address]Cly: PART A [facility] Number: Repository () [id number] Date:2018-04-10 04/10/2018 Secondary ERIKA L HUFFDOB: [place] Insurance:[employer]Reading[employer] [id number] Community Number: [facility] [id number] Repository Date:7444-27-20HF [facility] [address]209[address]GHJFTUUNT[place], [place] [address]OF: 04/10/2018 Tertiary NOT GIVENUNK [place] Insurance:SELF PAY [facility] Hospital Number: Effective Repository Date:2018-04-10 01/09/2018 ERIKA L [id number] Primary ERIKA L HUFFDOB: [place] BANDA, Insurance:MEDICARE [id number] [facility] [address]Bni: PART A [facility] Number: Repository () [id number] Date:2018-01-09 01/09/2018 Secondary ERIKA L HUFFDOB: [place] Insurance:[employer] [id number] Community Number: [facility] [id number] Repository Date:5353-47-85EW [address], [place] [address]QL: 01/09/2018 Tertiary NOT GIVENUNK [place] Insurance:SELF PAY [facility] Number: Effective Repository Date:2018-01-09 10/19/2017 ERIKA L [id number] Primary ERIKA L HUFFDOB: [place] RUTT [facility], Insurance:MEDICARE [id number] [facility] [address]Ypx: PART A [facility] Number: Repository () [id number] Date:2017-10-19 10/19/2017 Secondary ERIKA L HUFFDOB: [place] Insurance:CIGNAPolicy [id number] [facility] Number: [facility] [id number] Repository Date:1340-57-09VJ [address]JDCKUFXEJFT, [place] [address]SB: 10/19/2017 Tertiary NOT GIVENUNK [place] Insurance:SELF PAY [facility] Hospital Number: Effective Repository Date:2017-10-19 08/11/2017 Fort[place] G Primary ERIKA L HUFFDOB: [place] [id number] [address] Insurance:MEDICARE [id number] [facility] A [facility] [address]Pqb: (330) Number: Repository [phone] () [id number] Date:2017-05-11 08/11/2017 Secondary ERIKA L HUFFDOB: [place] Insurance:CIGNAPolicy [id number] Community Number: [facility] [id number] Repository Date:8105-73-89DS [address]XYIKQF[address]W, [place] [address]MH: 08/11/2017 Tertiary NOT GIVENUNK [place] Insurance:SELF PAY [facility] Hospital Number: Effective Repository Date:2017-08-01 07/29/2017 Fortino G Primary ERIKA L HUFFDOB: [place] [id number] [address] Insurance:MEDICARE [id number] [facility] [address]Jyj: (330) Number: Repository [phone] (HP [id number] Date:2017-05-11 07/29/2017 Secondary ERIKA NASSAR: [place] Insurance:AMANDANAPolelainay [id number] [facility] Number: [facility] [id number] Repository Date:4523-46-64GH ASHISH 462746JNYNIONLFBA, [place] [address]DU: 07/29/2017 Tertiary NOT GIVENUNK [place] Insurance:SELF PAY [facility]: Effective Repository Date:2017-05-01
== END ==
PROVIDERS: Family Provider Family Medicine; PCP Family Medicine; Referring Provider Internal Medicine Rheumatology; Visit Provider Internal Medicine Rheumatology
DX: M05.70 Rheumatoid arthritis with rheumatoid factor of unspecified site without organ or systems involvement (principal); M21.40 Flat foot [pes planus] (acquired), unspecified foot; M81.0 Age-related osteoporosis without current pathological fracture; Z79.899 Other long term (current) drug therapy
CPT/HCPCS: 36415; 80053; 85025

== ENCOUNTER → 2018-09-25 10:01 | Outpatient (CLI) | payer MEDICARE, OTHER, SELFPAY ==
[2018-09-25 12:46] LABS: Absolute Lymphocyte Count 2.02 X10^3/ul (0.83-4.51); Absolute Neutrophil Count 2.7 X10^3/uL (2.0-7.7); Basophil# 0.02 X10^3/uL; Basophil% 0.4 % (0-1); Eosinophil# 0.04 X10^3/uL; Eosinophils% 0.8 % (0-5); Hematocrit 43.7 % (37-47); Hemoglobin 14.1 g/dl (12.0-15.0); Lymphocyte # 2.02 X10^3/ul (4.0); Lymphocyte % 38.3 % (19-41); Mean Corp Hgb Conc 32.3 g/gl (32-36); Mean Corpuscular Hgb 30.1 pg (27.0-32.0); Mean Corpuscular Volume 93.4 fL (81-99); Mean Platelet Vol. 10.9 fl (6.2-12.0); Monocyte# 0.47 X10^3/uL; Monocyte% 8.9 % (0-10); Neutrophil # 2.72 X10^3/uL (2.7-7.7); Neutrophil % 51.6 % (47-70); Platelet Count 233 K/mm3 (150-450); RBC Distribution Width CV 14.8 % (11.6-14.6); Red Blood Count 4.68 M/mm3 (4.2-5.4); White Blood Count 5.3 K/mm3 (4.4-11.0)
[2018-09-25 13:09] LABS: ALB/GLOB Ratio 0.9 RATIO (0.9-2.4); AST(SGOT) 19 U/L (15-37); Alanine Aminotransfer ALT/SGPT 27 U/L (13-56); Alkaline Phosphatase 69 U/L (45-117); Anion Gap 7 (5-15); BUN 9 mg/dL (7-18); BUN/Creat Ratio 13.8 RATIO (10-20); Calcium,Total 9.3 mg/dL (8.5-10.1); Chloride 105 mmol/L (98-107); Creatinine, Serum 0.65 mg/dL (0.55-1.02); EST Glomerular Filtration Rate 96 mL/min (>60); Est Glom Filt Rate - Afr Amer 117 mL/min (>60); Globulin 4.4 g/dL (2.2-4.2); Glucose 95 mg/dL (74-106); POSITIVE COUNT NO; POSITIVE DIFFERENTIAL NO; POSITIVE MORPHOLOGY NO; Protein, Total 8.4 g/dL (6.4-8.2); Sodium Level 137 mmol/L (136-145)
== END ==
PROVIDERS: Family Provider Family Medicine; PCP Family Medicine; Referring Provider Internal Medicine Rheumatology; Visit Provider Internal Medicine Rheumatology
DX: M05.70 Rheumatoid arthritis with rheumatoid factor of unspecified site without organ or systems involvement (principal); M21.40 Flat foot [pes planus] (acquired), unspecified foot; M81.0 Age-related osteoporosis without current pathological fracture; Z79.899 Other long term (current) drug therapy
CPT/HCPCS: 36415; 80053; 85025

== ENCOUNTER → 2018-12-26 09:23 | Outpatient (CLI) | payer MEDICARE, OTHER, SELFPAY ==
[2018-12-26 12:35] LABS: Absolute Neutrophil Count 3.8 X10^3/uL (2.0-7.7); Basophil# 0.02 X10^3/uL; Basophil% 0.3 % (0-1); Eosinophil# 0.05 X10^3/uL; Eosinophils% 0.8 % (0-5); Hematocrit 41.5 % (37-47); Hemoglobin 13.9 g/dl (12.0-15.0); Lymphocyte % 32.6 % (19-41); Mean Corp Hgb Conc 33.5 g/gl (32-36); Mean Corpuscular Hgb 31.4 pg (27.0-32.0); Mean Corpuscular Volume 93.7 fL (81-99); Mean Platelet Vol. 11.4 fl (6.2-12.0); Monocyte% 7.8 % (0-10); Neutrophil # 3.77 X10^3/uL (2.7-7.7); Neutrophil % 58.5 % (47-70); Platelet Count 220 K/mm3 (150-450); RBC Distribution Width CV 14.7 % (11.6-14.6); RBC Distribution Width SD 49.9 fl (35.1-43.9); Red Blood Count 4.43 M/mm3 (4.2-5.4); White Blood Count 6.4 K/mm3 (4.4-11.0)
[2018-12-26 12:43] LABS: POSITIVE COUNT NO; POSITIVE DIFFERENTIAL NO; POSITIVE MORPHOLOGY NO
[2018-12-26 12:52] LABS: ALB/GLOB Ratio 0.9 RATIO (0.9-2.4); AST(SGOT) 16 U/L (15-37); Alanine Aminotransfer ALT/SGPT 20 U/L (13-56); Albumin, Serum 3.7 g/dL (3.2-5.0); Alkaline Phosphatase 60 U/L (45-117); Anion Gap 8 (5-15); BUN 8 mg/dL (7-18); BUN/Creat Ratio 11.7 RATIO (10-20); Calcium,Total 9.2 mg/dL (8.5-10.1); Chloride 104 mmol/L (98-107); Creatinine, Serum 0.68 mg/dL (0.55-1.02); EST Glomerular Filtration Rate 91 mL/min (>60); Est Glom Filt Rate - Afr Amer 111 mL/min (>60); Globulin 4.3 g/dL (2.2-4.2); Glucose 101 mg/dL (74-106); Sodium Level 138 mmol/L (136-145)
== END ==
PROVIDERS: Family Provider Family Medicine; PCP Family Medicine; Referring Provider Internal Medicine Rheumatology; Visit Provider Internal Medicine Rheumatology
DX: M05.70 Rheumatoid arthritis with rheumatoid factor of unspecified site without organ or systems involvement (principal); M21.40 Flat foot [pes planus] (acquired), unspecified foot; M81.0 Age-related osteoporosis without current pathological fracture; Z79.899 Other long term (current) drug therapy
CPT/HCPCS: 36415; 80053; 85025

== ENCOUNTER → 2019-03-26 10:09 | Outpatient (CLI) | payer MEDICARE, OTHER, SELFPAY ==
[2019-03-26 12:52] LABS: Absolute Lymphocyte Count 2.01 X10^3/uL (0.83-4.51); Absolute Neutrophil Count 4.2 X10^3/uL (2.0-7.7); Basophil# 0.03 X10^3/uL; Basophil% 0.4 % (0-1); Eosinophil# 0.06 X10^3/uL; Eosinophils% 0.9 % (0-5); Hematocrit 42.4 % (37-47); Hemoglobin 13.9 g/dL (12.0-15.0); Lymphocyte # 2.01 X10^3/ul (4.0); Lymphocyte % 29.6 % (19-41); Mean Corp Hgb Conc 32.8 g/dL (32-36); Mean Corpuscular Volume 94.6 fL (81-99); Mean Platelet Vol. 10.9 fl (6.2-12.0); Monocyte% 7.4 % (0-10); NRBC Flagged by Analyzer 0 % (0-5); Neutrophil # 4.18 X10^3/uL (2.7-7.7); Neutrophil % 61.4 % (47-70); Platelet Count 213 K/mm3 (150-450); RBC Distribution Width CV 14.3 % (11.6-14.6); RBC Distribution Width SD 49.1 fl (35.1-43.9); Red Blood Count 4.48 M/mm3 (4.2-5.4); White Blood Count 6.8 K/mm3 (4.4-11.0)
[2019-03-26 13:19] LABS: ALB/GLOB Ratio 0.8 RATIO (0.9-2.4); AST(SGOT) 15 U/L (15-37); Alanine Aminotransfer ALT/SGPT 24 U/L (13-56); Albumin, Serum 3.9 g/dL (3.2-5.0); Alkaline Phosphatase 71 U/L (45-117); Anion Gap 7 (5-15); BUN 11 mg/dL (7-18); Calcium,Total 9.9 mg/dL (8.5-10.1); Chloride 104 mmol/L (98-107); Creatinine, Serum 0.69 mg/dL (0.55-1.02); EST Glomerular Filtration Rate 91 mL/min (>60); Est Glom Filt Rate - Afr Amer 110 mL/min (>60); Globulin 4.6 g/dL (2.2-4.2); Glucose 97 mg/dL (74-106); Protein, Total 8.5 g/dL (6.4-8.2); Sodium Level 137 mmol/L (136-145)
== END ==
PROVIDERS: Family Provider Family Medicine; PCP Family Medicine; Referring Provider Internal Medicine Rheumatology; Visit Provider Internal Medicine Rheumatology
DX: M05.70 Rheumatoid arthritis with rheumatoid factor of unspecified site without organ or systems involvement (principal); M21.40 Flat foot [pes planus] (acquired), unspecified foot; M81.0 Age-related osteoporosis without current pathological fracture; Z79.899 Other long term (current) drug therapy
CPT/HCPCS: 36415; 80053; 85025

== ENCOUNTER → 2019-05-28 | Outpatient (CLI) | payer MEDICARE, OTHER, SELFPAY ==
[2019-05-22 08:37] VITALS: BMI 23.1
--- NOTE | 2019-05-28 07:17 | CT_ITS ---
STUDY: CT CHEST WITH CONTRAST REASON FOR EXAM: Female, 64 years old. Follow-up thoracic aortic aneurysm. History of hypertension 50 pack-year smoking history. RADIATION DOSAGE (If Supplied By Facility): CTDIvol = ( 6.46 ) mGy, DLP = ( 231.24 ) mGycm TECHNIQUE: Transaxial imaging was performed following intravenous administration of IV Isovue 300 100mL. Multiplanar coronal and sagittal images were reformatted. Individualized dose optimization techniques were used for this CT. COMPARISON: CTA of the chest, April 21, 2017. FINDINGS: The lungs are normal. There is no demonstrated pleural abnormality. Normal heart and pericardium. There are calcified lymph nodes in the subcarinal region. The mediastinum is otherwise unremarkable. Normal hilar regions. Normal enhanced pulmonary arteries. The ascending thoracic aorta measures 3.6 x 3.9 cm in maximum diameter. The aorta is tortuous with minimal atherosclerotic changes. There is no dissection. There are multi-level degenerative changes of the thoracic spine. There is fatty infiltration of liver without other evidence of abdominal abnormality. CT/Chest WITH Contrast IMPRESSION: 1. Atherosclerotic aorta with mild prominence of the ascending aorta unchanged from the prior study. There is no dissection. 2. No other evidence of thoracic abnormality or major interval change. Electronically Signed: Shawn Ames DO at 17:00 EDT Tel [phone], Service support ,
[2019-05-28 07:31] LABS: CREATININE FINGERSTICK 0.8 mg/dL (0.55-1.02); EGFR FINGERSTICK > 60.0000 mL/min (>60)
== END | disposition home or self-care (01) ==
LOC: CT 07:15
PROVIDERS: Family Provider Family Medicine; PCP Family Medicine; Referring Provider Internal Medicine Cardiovascular Disease; Visit Provider Internal Medicine Cardiovascular Disease
DX: I71.2 Thoracic aortic aneurysm, without rupture (principal)
CPT/HCPCS: 71260; Q9967

== ENCOUNTER → 2019-06-25 10:57 | Outpatient (CLI) | payer MEDICARE, OTHER, SELFPAY ==
[2019-05-22 08:37] VITALS: BMI 23.1
[2019-06-25 12:19] LABS: Absolute Lymphocyte Count 2.59 X10^3/uL (0.83-4.51); Absolute Neutrophil Count 3.6 X10^3/uL (2.0-7.7); Basophil# 0.04 X10^3/uL; Basophil% 0.6 % (0-1); Eosinophil# 0.05 X10^3/uL; Eosinophils% 0.7 % (0-5); Hematocrit 43.5 % (37-47); Hemoglobin 14.2 g/dL (12.0-15.0); Lymphocyte # 2.59 X10^3/ul (4.0); Lymphocyte % 37.8 % (19-41); Mean Corp Hgb Conc 32.6 g/dL (32-36); Mean Corpuscular Hgb 31.5 pg (27.0-32.0); Mean Corpuscular Volume 96.5 fL (81-99); Mean Platelet Vol. 11.1 fl (6.2-12.0); Monocyte# 0.56 X10^3/uL; Monocyte% 8.2 % (0-10); NRBC Flagged by Analyzer 0 % (0-5); Neutrophil # 3.59 X10^3/uL (2.7-7.7); Neutrophil % 52.4 % (47-70); Platelet Count 208 K/mm3 (150-450); RBC Distribution Width SD 49.7 fl (35.1-43.9); Red Blood Count 4.51 M/mm3 (4.2-5.4); White Blood Count 6.9 K/mm3 (4.4-11.0)
[2019-06-25 12:45] LABS: AST(SGOT) 15 U/L (15-37); Alanine Aminotransfer ALT/SGPT 22 U/L (13-56); Albumin, Serum 4.2 g/dL (3.2-5.0); Alkaline Phosphatase 65 U/L (45-117); Anion Gap 7 (5-15); BUN 9 mg/dL (7-18); BUN/Creat Ratio 13.4 RATIO (10-20); Calcium,Total 9.7 mg/dL (8.5-10.1); Chloride 105 mmol/L (98-107); Creatinine, Serum 0.67 mg/dL (0.55-1.02); EST Glomerular Filtration Rate 93 mL/min (>60); Est Glom Filt Rate - Afr Amer 113 mL/min (>60); Globulin 4.4 g/dL (2.2-4.2); Glucose 89 mg/dL (74-106); Potassium 3.7 mmol/L (3.5-5.1); Protein, Total 8.6 g/dL (6.4-8.2); Sodium Level 138 mmol/L (136-145)
== END ==
PROVIDERS: Family Provider Family Medicine; PCP Family Medicine; Referring Provider Internal Medicine Rheumatology; Visit Provider Internal Medicine Rheumatology
DX: M05.70 Rheumatoid arthritis with rheumatoid factor of unspecified site without organ or systems involvement (principal); M21.40 Flat foot [pes planus] (acquired), unspecified foot; M81.0 Age-related osteoporosis without current pathological fracture; Z79.899 Other long term (current) drug therapy
CPT/HCPCS: 36415; 80053; 85025

== ENCOUNTER → 2019-09-21 09:14 | Outpatient (CLI) | payer MEDICARE, OTHER, SELFPAY ==
[2019-05-22 08:37] VITALS: BMI 23.1
[2019-09-21 10:19] LABS: Absolute Lymphocyte Count 2.11 X10^3/uL (0.83-4.51); Absolute Neutrophil Count 3.2 X10^3/uL (2.0-7.7); Basophil# 0.04 X10^3/uL; Basophil% 0.7 % (0-1); Eosinophil# 0.06 X10^3/uL; Hematocrit 42.1 % (37-47); Hemoglobin 13.7 g/dL (12.0-15.0); Lymphocyte # 2.11 X10^3/ul (4.0); Lymphocyte % 35.6 % (19-41); Mean Corp Hgb Conc 32.5 g/dL (32-36); Mean Corpuscular Hgb 30.7 pg (27.0-32.0); Mean Corpuscular Volume 94.4 fL (81-99); Mean Platelet Vol. 11.2 fl (6.2-12.0); Monocyte# 0.52 X10^3/uL; Monocyte% 8.8 % (0-10); NRBC Flagged by Analyzer 0 % (0-5); Neutrophil # 3.18 X10^3/uL (2.7-7.7); Neutrophil % 53.7 % (47-70); Platelet Count 211 K/mm3 (150-450); RBC Distribution Width CV 14.1 % (11.6-14.6); RBC Distribution Width SD 48.3 fl (35.1-43.9); Red Blood Count 4.46 M/mm3 (4.2-5.4); White Blood Count 5.9 K/mm3 (4.4-11.0)
[2019-09-21 10:51] LABS: ALB/GLOB Ratio 0.9 RATIO (0.9-2.4); AST(SGOT) 15 U/L (15-37); Alanine Aminotransfer ALT/SGPT 25 U/L (13-56); Alkaline Phosphatase 66 U/L (45-117); Anion Gap 5 (5-15); BUN 8 mg/dL (7-18); BUN/Creat Ratio 11.3 RATIO (10-20); Calcium,Total 9.3 mg/dL (8.5-10.1); Chloride 105 mmol/L (98-107); Creatinine, Serum 0.71 mg/dL (0.55-1.02); EST Glomerular Filtration Rate 87 mL/min (>60); Est Glom Filt Rate - Afr Amer 106 mL/min (>60); Globulin 4.3 g/dL (2.2-4.2); Glucose 94 mg/dL (74-106); Potassium 3.7 mmol/L (3.5-5.1); Protein, Total 8.3 g/dL (6.4-8.2); Sodium Level 137 mmol/L (136-145)
[2019-09-24 16:08] LABS: Endomysial Antibody IgA Negative (Negative)
[2019-09-24 17:10] LABS: Deamidated Gliadin IgA 3 units (0-19); Deamidated Gliadin IgG 3 units (0-19); Immunoglobulin A 163 mg/dL (87-352); t-Transglutaminase IgA <2 U/mL (0-3)
== END ==
PROVIDERS: PCP Family Medicine; Referring Provider Internal Medicine Rheumatology; Visit Provider Internal Medicine Rheumatology
DX: M05.70 Rheumatoid arthritis with rheumatoid factor of unspecified site without organ or systems involvement (principal); M21.40 Flat foot [pes planus] (acquired), unspecified foot; M81.0 Age-related osteoporosis without current pathological fracture; Z79.899 Other long term (current) drug therapy
CPT/HCPCS: 36415; 80053; 82784; 83516; 85025; 86255

== ENCOUNTER → 2019-12-11 08:41 | Outpatient (CLI) | payer MEDICARE, OTHER, SELFPAY ==
[2019-05-22 08:37] VITALS: BMI 23.1
[2019-12-11 10:01] LABS: Absolute Lymphocyte Count 1.83 X10^3/uL (0.83-4.51); Basophil# 0.04 X10^3/uL; Basophil% 0.6 % (0-1); Eosinophil# 0.03 X10^3/uL; Eosinophils% 0.5 % (0-5); Hematocrit 42.2 % (37-47); Lymphocyte # 1.83 X10^3/ul (4.0); Lymphocyte % 28.5 % (19-41); Mean Corp Hgb Conc 33.2 g/dL (32-36); Mean Corpuscular Volume 93.4 fL (81-99); Mean Platelet Vol. 11.1 fl (6.2-12.0); Monocyte# 0.52 X10^3/uL; Monocyte% 8.1 % (0-10); NRBC Flagged by Analyzer 0 % (0-5); Neutrophil # 3.98 X10^3/uL (2.7-7.7); Neutrophil % 62.1 % (47-70); Platelet Count 208 K/mm3 (150-450); RBC Distribution Width CV 13.4 % (11.6-14.6); RBC Distribution Width SD 46.1 fl (35.1-43.9); Red Blood Count 4.52 M/mm3 (4.2-5.4); White Blood Count 6.4 K/mm3 (4.4-11.0)
[2019-12-11 10:38] LABS: AST(SGOT) 22 U/L (15-37); Alanine Aminotransfer ALT/SGPT 32 U/L (13-56); Albumin, Serum 4.1 g/dL (3.2-5.0); Alkaline Phosphatase 54 U/L (45-117); Anion Gap 7 (5-15); BUN 12 mg/dL (7-18); BUN/Creat Ratio 16.6 RATIO (10-20); Calcium,Total 9.4 mg/dL (8.5-10.1); Chloride 103 mmol/L (98-107); Creatinine, Serum 0.72 mg/dL (0.55-1.02); EST Glomerular Filtration Rate 85 mL/min (>60); Est Glom Filt Rate - Afr Amer 103 mL/min (>60); Globulin 4.3 g/dL (2.2-4.2); Glucose 107 mg/dL (74-106); Protein, Total 8.4 g/dL (6.4-8.2); Sodium Level 137 mmol/L (136-145)
== END ==
PROVIDERS: PCP Family Medicine; Referring Provider Internal Medicine Rheumatology; Visit Provider Internal Medicine Rheumatology
DX: M05.70 Rheumatoid arthritis with rheumatoid factor of unspecified site without organ or systems involvement (principal); M21.40 Flat foot [pes planus] (acquired), unspecified foot; M81.0 Age-related osteoporosis without current pathological fracture; Z79.899 Other long term (current) drug therapy
CPT/HCPCS: 36415; 80053; 85025

== ENCOUNTER → 2020-03-07 09:47 | Outpatient (CLI) | payer MEDICARE, OTHER, SELFPAY ==
[2019-05-22 08:37] VITALS: BMI 23.1
[2020-03-07 12:45] LABS: Absolute Lymphocyte Count 1.81 X10^3/uL (0.83-4.51); Absolute Neutrophil Count 2.9 X10^3/uL (2.0-7.7); Basophil# 0.03 X10^3/uL; Basophil% 0.5 % (0-1); Eosinophil# 0.16 X10^3/uL; Eosinophils% 2.9 % (0-5); Hemoglobin 13.3 g/dL (12.0-15.0); Lymphocyte # 1.81 X10^3/ul (4.0); Lymphocyte % 32.7 % (19-41); Mean Corp Hgb Conc 32.4 g/dL (32-36); Mean Corpuscular Hgb 30.9 pg (27.0-32.0); Mean Corpuscular Volume 95.1 fL (81-99); Mean Platelet Vol. 12.1 fl (6.2-12.0); Monocyte# 0.58 X10^3/uL; Monocyte% 10.5 % (0-10); NRBC Flagged by Analyzer 0 % (0-5); Neutrophil # 2.94 X10^3/uL (2.7-7.7); Platelet Count 202 K/mm3 (150-450); RBC Distribution Width CV 13.9 % (11.6-14.6); RBC Distribution Width SD 48.7 fl (35.1-43.9); Red Blood Count 4.31 M/mm3 (4.2-5.4); White Blood Count 5.5 K/mm3 (4.4-11.0)
[2020-03-07 13:00] LABS: AST(SGOT) 16 U/L (15-37); Alanine Aminotransfer ALT/SGPT 31 U/L (13-56); Albumin, Serum 3.9 g/dL (3.2-5.0); Alkaline Phosphatase 50 U/L (45-117); Anion Gap 2 (5-15); BUN 10 mg/dL (7-18); BUN/Creat Ratio 13.8 RATIO (10-20); Calcium,Total 9.1 mg/dL (8.5-10.1); Chloride 105 mmol/L (98-107); Creatinine, Serum 0.72 mg/dL (0.55-1.02); EST Glomerular Filtration Rate 85 mL/min (>60); Est Glom Filt Rate - Afr Amer 103 mL/min (>60); Globulin 4.1 g/dL (2.2-4.2); Glucose 94 mg/dL (74-106); Potassium 4.3 mmol/L (3.5-5.1); Sodium Level 137 mmol/L (136-145)
== END ==
PROVIDERS: PCP Family Medicine; Referring Provider Internal Medicine Rheumatology; Visit Provider Internal Medicine Rheumatology
DX: M05.70 Rheumatoid arthritis with rheumatoid factor of unspecified site without organ or systems involvement (principal); M21.40 Flat foot [pes planus] (acquired), unspecified foot; M81.0 Age-related osteoporosis without current pathological fracture; Z79.899 Other long term (current) drug therapy
CPT/HCPCS: 36415; 80053; 85025

== ENCOUNTER → 2020-06-02 08:42 | Outpatient (CLI) | payer MEDICARE, OTHER, SELFPAY ==
[2019-05-22 08:37] VITALS: BMI 23.1
[2020-06-02 10:08] LABS: Erythrocyte Sedimentation Rate 8 mm/hr (0-30)
[2020-06-02 10:09] LABS: Absolute Lymphocyte Count 1.65 X10^3/uL (0.83-4.51); Absolute Neutrophil Count 1.9 X10^3/uL (2.0-7.7); Basophil# 0.03 X10^3/uL; Basophil% 0.7 % (0-1); Eosinophil# 0.04 X10^3/uL; Hematocrit 42.4 % (37-47); Hemoglobin 13.6 g/dL (12.0-15.0); Lymphocyte # 1.65 X10^3/ul (4.0); Lymphocyte % 40.4 % (19-41); Mean Corp Hgb Conc 32.1 g/dL (32-36); Mean Corpuscular Hgb 30.6 pg (27.0-32.0); Mean Corpuscular Volume 95.3 fL (81-99); Monocyte# 0.47 X10^3/uL; Monocyte% 11.5 % (0-10); NRBC Flagged by Analyzer 0 % (0-5); Neutrophil # 1.88 X10^3/uL (2.7-7.7); Neutrophil % 46.2 % (47-70); Platelet Count 213 K/mm3 (150-450); RBC Distribution Width CV 12.7 % (11.6-14.6); RBC Distribution Width SD 44.7 fl (35.1-43.9); Red Blood Count 4.45 M/mm3 (4.2-5.4); White Blood Count 4.1 K/mm3 (4.4-11.0)
[2020-06-02 11:50] LABS: ALB/GLOB Ratio 0.9 RATIO (0.9-2.4); AST(SGOT) 15 U/L (15-37); Alanine Aminotransfer ALT/SGPT 24 U/L (13-56); Alkaline Phosphatase 48 U/L (45-117); Anion Gap 6 (5-15); BUN 9 mg/dL (7-18); BUN/Creat Ratio 12.8 RATIO (10-20); CRP < 2.90 mg/L (0.0-3.0); Calcium,Total 8.9 mg/dL (8.5-10.1); Chloride 100 mmol/L (98-107); EST Glomerular Filtration Rate 88 mL/min (>60); Est Glom Filt Rate - Afr Amer 107 mL/min (>60); Globulin 4.6 g/dL (2.2-4.2); Glucose 102 mg/dL (74-106); Potassium 3.9 mmol/L (3.5-5.1); Protein, Total 8.6 g/dL (6.4-8.2); Sodium Level 135 mmol/L (136-145)
== END ==
PROVIDERS: PCP Family Medicine; Referring Provider Internal Medicine Rheumatology; Visit Provider Internal Medicine Rheumatology
DX: M05.70 Rheumatoid arthritis with rheumatoid factor of unspecified site without organ or systems involvement (principal); M21.40 Flat foot [pes planus] (acquired), unspecified foot; M81.0 Age-related osteoporosis without current pathological fracture; Z79.899 Other long term (current) drug therapy
CPT/HCPCS: 36415; 80053; 85025; 85652; 86140

== ENCOUNTER → 2020-08-21 08:39 | Outpatient (CLI) | payer MEDICARE, OTHER, SELFPAY ==
[2020-08-05 11:03] VITALS: BMI 24.9
[2020-08-21 10:18] LABS: Absolute Lymphocyte Count 1.38 X10^3/uL (0.83-4.51); Absolute Neutrophil Count 2.5 X10^3/uL (2.0-7.7); Basophil# 0.03 X10^3/uL; Basophil% 0.7 % (0-1); Eosinophil# 0.07 X10^3/uL; Eosinophils% 1.6 % (0-5); Hematocrit 42.9 % (37-47); Hemoglobin 13.7 g/dL (12.0-15.0); Lymphocyte # 1.38 X10^3/ul (4.0); Lymphocyte % 30.6 % (19-41); Mean Corp Hgb Conc 31.9 g/dL (32-36); Mean Corpuscular Hgb 29.7 pg (27.0-32.0); Mean Corpuscular Volume 92.9 fL (81-99); Mean Platelet Vol. 11.1 fl (6.2-12.0); Monocyte# 0.51 X10^3/uL; Monocyte% 11.3 % (0-10); NRBC Flagged by Analyzer 0 % (0-5); Neutrophil # 2.51 X10^3/uL (2.7-7.7); Neutrophil % 55.6 % (47-70); Platelet Count 220 K/mm3 (150-450); RBC Distribution Width CV 13.1 % (11.6-14.6); RBC Distribution Width SD 44.9 fl (35.1-43.9); Red Blood Count 4.62 M/mm3 (4.2-5.4); White Blood Count 4.5 K/mm3 (4.4-11.0)
[2020-08-21 10:48] LABS: ALB/GLOB Ratio 0.9 RATIO (0.9-2.4); AST(SGOT) 14 U/L (15-37); Alanine Aminotransfer ALT/SGPT 27 U/L (13-56); Albumin, Serum 3.9 g/dL (3.2-5.0); Alkaline Phosphatase 52 U/L (45-117); Anion Gap 4 (5-15); BUN 9 mg/dL (7-18); BUN/Creat Ratio 12.4 RATIO (10-20); Chloride 105 mmol/L (98-107); Creatinine, Serum 0.72 mg/dL (0.55-1.02); EST Glomerular Filtration Rate 85 mL/min (>60); Est Glom Filt Rate - Afr Amer 103 mL/min (>60); Globulin 4.5 g/dL (2.2-4.2); Glucose 110 mg/dL (74-106); Potassium 4.1 mmol/L (3.5-5.1); Protein, Total 8.4 g/dL (6.4-8.2); Sodium Level 137 mmol/L (136-145)
== END ==
PROVIDERS: PCP Family Medicine; Referring Provider Internal Medicine Rheumatology; Visit Provider Internal Medicine Rheumatology
DX: M05.70 Rheumatoid arthritis with rheumatoid factor of unspecified site without organ or systems involvement (principal); M21.40 Flat foot [pes planus] (acquired), unspecified foot; M81.0 Age-related osteoporosis without current pathological fracture; Z79.899 Other long term (current) drug therapy
CPT/HCPCS: 36415; 80053; 85025

== ENCOUNTER 2020-09-29 12:18 | Outpatient (RCR) | payer MEDICARE, SELFPAY ==
[2020-08-05 11:03] VITALS: BMI 24.9
== END 2020-09-29 23:59 ==
LOC: IMMUN 12:18
PROVIDERS: PCP Family Medicine; Visit Provider Family Medicine
DX: Z23 Encounter for immunization (principal)
CPT/HCPCS: 0011A; 0012A

== ENCOUNTER → 2020-10-06 09:07 | Outpatient (CLI) | payer MEDICARE, OTHER, SELFPAY ==
[2020-08-05 11:03] VITALS: BMI 24.9
[2020-10-06 10:19] LABS: Absolute Neutrophil Count 3.7 X10^3/uL (2.0-7.7); Basophil# 0.03 X10^3/uL; Basophil% 0.5 % (0-1); Eosinophil# 0.02 X10^3/uL; Eosinophils% 0.3 % (0-5); Hematocrit 43.3 % (37-47); Lymphocyte % 25.8 % (19-41); Mean Corp Hgb Conc 32.3 g/dL (32-36); Mean Corpuscular Volume 92.9 fL (81-99); Mean Platelet Vol. 11.4 fl (6.2-12.0); Monocyte# 0.56 X10^3/uL; Monocyte% 9.6 % (0-10); NRBC Flagged by Analyzer 0 % (0-5); Neutrophil % 63.6 % (47-70); Platelet Count 227 K/mm3 (150-450); RBC Distribution Width CV 13.2 % (11.6-14.6); RBC Distribution Width SD 45.3 fl (35.1-43.9); Red Blood Count 4.66 M/mm3 (4.2-5.4); White Blood Count 5.8 K/mm3 (4.4-11.0)
[2020-10-06 10:56] LABS: ALB/GLOB Ratio 0.9 RATIO (0.9-2.4); AST(SGOT) 15 U/L (15-37); Alanine Aminotransfer ALT/SGPT 26 U/L (13-56); Albumin, Serum 4.1 g/dL (3.2-5.0); Alkaline Phosphatase 60 U/L (45-117); Anion Gap 6 (5-15); BUN 10 mg/dL (7-18); BUN/Creat Ratio 12.3 RATIO (10-20); Calcium,Total 9.5 mg/dL (8.5-10.1); Chloride 103 mmol/L (98-107); Creatinine, Serum 0.81 mg/dL (0.55-1.02); EST Glomerular Filtration Rate 74 mL/min (>60); Est Glom Filt Rate - Afr Amer 90 mL/min (>60); Globulin 4.4 g/dL (2.2-4.2); Glucose 103 mg/dL (74-106); Potassium 3.8 mmol/L (3.5-5.1); Protein, Total 8.5 g/dL (6.4-8.2); Sodium Level 136 mmol/L (136-145)
== END ==
PROVIDERS: PCP Family Medicine; Referring Provider Internal Medicine Rheumatology; Visit Provider Internal Medicine Rheumatology
DX: M05.70 Rheumatoid arthritis with rheumatoid factor of unspecified site without organ or systems involvement (principal); M35.00 Sjogren syndrome, unspecified; M21.40 Flat foot [pes planus] (acquired), unspecified foot; M81.0 Age-related osteoporosis without current pathological fracture; Z79.899 Other long term (current) drug therapy
CPT/HCPCS: 36415; 80053; 85025

== ENCOUNTER → 2020-12-22 08:43 | Outpatient (CLI) | payer MEDICARE, OTHER, SELFPAY ==
[2020-08-05 11:03] VITALS: BMI 24.9
[2020-12-22 10:40] LABS: Absolute Lymphocyte Count 1.72 X10^3/uL (0.83-4.51); Absolute Neutrophil Count 3.1 X10^3/uL (2.0-7.7); Basophil# 0.03 X10^3/uL; Basophil% 0.6 % (0-1); Eosinophil# 0.02 X10^3/uL; Eosinophils% 0.4 % (0-5); Hematocrit 42.1 % (37-47); Hemoglobin 13.8 g/dL (12.0-15.0); Lymphocyte # 1.72 X10^3/ul (0.83-4.51); Lymphocyte % 32.3 % (19-41); Mean Corp Hgb Conc 32.8 g/dL (32-36); Mean Corpuscular Hgb 30.1 pg (27.0-32.0); Mean Corpuscular Volume 91.7 fL (81-99); Mean Platelet Vol. 11.5 fl (6.2-12.0); Monocyte# 0.43 X10^3/uL; Monocyte% 8.1 % (0-10); NRBC Flagged by Analyzer 0 % (0-5); Neutrophil % 58.2 % (47-70); Platelet Count 214 K/mm3 (150-450); RBC Distribution Width CV 13.6 % (11.6-14.6); RBC Distribution Width SD 46.4 fl (35.1-43.9); Red Blood Count 4.59 M/mm3 (4.2-5.4); White Blood Count 5.3 K/mm3 (4.4-11.0)
[2020-12-22 11:00] LABS: ALB/GLOB Ratio 0.9 RATIO (0.9-2.4); AST(SGOT) 17 U/L (15-37); Alanine Aminotransfer ALT/SGPT 27 U/L (13-56); Alkaline Phosphatase 57 U/L (45-117); Anion Gap 7 (5-15); BUN 10 mg/dL (7-18); Calcium,Total 9.7 mg/dL (8.5-10.1); Chloride 101 mmol/L (98-107); Creatinine, Serum 0.77 mg/dL (0.55-1.02); EST Glomerular Filtration Rate 80 mL/min (>60); Est Glom Filt Rate - Afr Amer 96 mL/min (>60); Globulin 4.3 g/dL (2.2-4.2); Glucose 108 mg/dL (74-106); Potassium 3.9 mmol/L (3.5-5.1); Protein, Total 8.3 g/dL (6.4-8.2); Sodium Level 137 mmol/L (136-145)
== END ==
PROVIDERS: PCP Family Medicine; Referring Provider Internal Medicine Rheumatology; Visit Provider Internal Medicine Rheumatology
DX: M05.70 Rheumatoid arthritis with rheumatoid factor of unspecified site without organ or systems involvement (principal); M35.00 Sjogren syndrome, unspecified; M21.40 Flat foot [pes planus] (acquired), unspecified foot; M81.0 Age-related osteoporosis without current pathological fracture; Z79.899 Other long term (current) drug therapy
CPT/HCPCS: 36415; 80053; 85025

== ENCOUNTER → 2021-03-09 09:36 | Outpatient (CLI) | payer MEDICARE, OTHER, SELFPAY ==
[2020-08-05 11:03] VITALS: BMI 24.9
[2021-03-09 12:11] LABS: Absolute Lymphocyte Count 1.87 X10^3/uL (0.83-4.51); Absolute Neutrophil Count 3.1 X10^3/uL (2.0-7.7); Basophil# 0.05 X10^3/uL; Basophil% 0.9 % (0-1); Eosinophil# 0.04 X10^3/uL; Eosinophils% 0.7 % (0-5); Hematocrit 41.5 % (37-47); Hemoglobin 13.6 g/dL (12.0-15.0); Lymphocyte # 1.87 X10^3/ul (0.83-4.51); Lymphocyte % 33.4 % (19-41); Mean Corp Hgb Conc 32.8 g/dL (32-36); Mean Corpuscular Volume 91.6 fL (81-99); Mean Platelet Vol. 11.5 fl (6.2-12.0); Monocyte# 0.51 X10^3/uL; Monocyte% 9.1 % (0-10); NRBC Flagged by Analyzer 0 % (0-5); Neutrophil # 3.12 X10^3/uL (2.7-7.7); Neutrophil % 55.7 % (47-70); Platelet Count 230 K/mm3 (150-450); RBC Distribution Width CV 13.7 % (11.6-14.6); RBC Distribution Width SD 46.6 fl (35.1-43.9); Red Blood Count 4.53 M/mm3 (4.2-5.4); White Blood Count 5.6 K/mm3 (4.4-11.0)
[2021-03-09 12:44] LABS: AST(SGOT) 14 U/L (15-37); Alanine Aminotransfer ALT/SGPT 23 U/L (13-56); Albumin, Serum 4.1 g/dL (3.2-5.0); Alkaline Phosphatase 70 U/L (45-117); Anion Gap 5 (5-15); BUN 10 mg/dL (7-18); Calcium,Total 9.3 mg/dL (8.5-10.1); Chloride 101 mmol/L (98-107); Creatinine, Serum 0.71 mg/dL (0.55-1.02); EST Glomerular Filtration Rate 87 mL/min (>60); Est Glom Filt Rate - Afr Amer 105 mL/min (>60); Globulin 4.3 g/dL (2.2-4.2); Glucose 107 mg/dL (74-106); Potassium 3.8 mmol/L (3.5-5.1); Protein, Total 8.4 g/dL (6.4-8.2); Sodium Level 133 mmol/L (136-145)
== END ==
PROVIDERS: PCP Internal Medicine; Referring Provider Internal Medicine Rheumatology; Visit Provider Internal Medicine Rheumatology
DX: M05.70 Rheumatoid arthritis with rheumatoid factor of unspecified site without organ or systems involvement (principal); M35.00 Sjogren syndrome, unspecified; M21.40 Flat foot [pes planus] (acquired), unspecified foot; M81.0 Age-related osteoporosis without current pathological fracture; Z79.899 Other long term (current) drug therapy
CPT/HCPCS: 36415; 80053; 85025

== ENCOUNTER → 2021-06-11 07:48 | Outpatient (CLI) | payer MEDICARE, OTHER, SELFPAY ==
[2021-06-11 10:30] LABS: Absolute Lymphocyte Count 1.46 X10^3/uL (0.83-4.51); Absolute Neutrophil Count 2.9 X10^3/uL (2.0-7.7); Basophil# 0.03 X10^3/uL; Basophil% 0.6 % (0-1); Eosinophil# 0.03 X10^3/uL; Eosinophils% 0.6 % (0-5); Hematocrit 44.4 % (37-47); Hemoglobin 14.7 g/dL (12.0-15.0); Lymphocyte # 1.46 X10^3/ul (0.83-4.51); Lymphocyte % 29.4 % (19-41); Mean Corp Hgb Conc 33.1 g/dL (32-36); Mean Corpuscular Hgb 30.8 pg (27.0-32.0); Mean Corpuscular Volume 93.1 fL (81-99); Mean Platelet Vol. 11.5 fl (6.2-12.0); Monocyte# 0.47 X10^3/uL; Monocyte% 9.5 % (0-10); NRBC Flagged by Analyzer 0 % (0-5); Neutrophil # 2.94 X10^3/uL (2.7-7.7); Neutrophil % 59.1 % (47-70); Platelet Count 219 K/mm3 (150-450); RBC Distribution Width CV 13.7 % (11.6-14.6); RBC Distribution Width SD 47.2 fl (35.1-43.9); Red Blood Count 4.77 M/mm3 (4.2-5.4)
[2021-06-11 10:49] LABS: ALB/GLOB Ratio 0.8 RATIO (0.9-2.4); AST(SGOT) 17 U/L (15-37); Alanine Aminotransfer ALT/SGPT 28 U/L (13-56); Alkaline Phosphatase 60 U/L (45-117); Anion Gap 8 (5-15); BUN 8 mg/dL (7-18); BUN/Creat Ratio 10.3 RATIO (10-20); Calcium,Total 9.6 mg/dL (8.5-10.1); Chloride 101 mmol/L (98-107); Creatinine, Serum 0.78 mg/dL (0.55-1.02); EST Glomerular Filtration Rate 78 mL/min (>60); Est Glom Filt Rate - Afr Amer 94 mL/min (>60); Globulin 4.9 g/dL (2.2-4.2); Glucose 133 mg/dL (74-106); Protein, Total 8.9 g/dL (6.4-8.2); Sodium Level 136 mmol/L (136-145)
== END ==
PROVIDERS: PCP Internal Medicine; Referring Provider Internal Medicine Rheumatology; Visit Provider Internal Medicine Rheumatology
DX: M05.70 Rheumatoid arthritis with rheumatoid factor of unspecified site without organ or systems involvement (principal); M35.00 Sjogren syndrome, unspecified; M21.40 Flat foot [pes planus] (acquired), unspecified foot; M81.0 Age-related osteoporosis without current pathological fracture; Z79.899 Other long term (current) drug therapy
CPT/HCPCS: 36415; 80053; 85025

== ENCOUNTER → 2021-07-01 12:39 | Outpatient (CLI) | payer MEDICARE, OTHER, SELFPAY ==
--- NOTE | 2021-07-01 12:46 | CT_ITS ---
STUDY: CT CHEST WITH CONTRAST REASON FOR EXAM: Female, 66 years old. Aneurysm of the ascending thoracic aorta. RADIATION DOSAGE (If Supplied By Facility): CTDIvol = ( 8.90 ) mGy, DLP = ( 218.34 ) mGycm TECHNIQUE: Transaxial imaging was performed following intravenous administration of IV 100ML ISOVUE 370. Multiplanar coronal and sagittal images were reformatted. Individualized dose optimization techniques were used for this CT. COMPARISON: Comparison is made with prior study dated 05/28/2019. FINDINGS: Small benign-appearing bilateral axillary lymph nodes. 1.2 cm bulla in the lateral posterior left lower lobe. There is no demonstrated pleural abnormality. Normal heart and pericardium. Normal mediastinum. Normal hilar regions. Normal enhanced pulmonary arteries. The root of the descending thoracic aorta measures upper limits of normal at 4 cm. This is unchanged. There are multi-level degenerative changes of the thoracic spine. There is no demonstrated abnormality of the visualized upper abdomen. CT/Chest WITH Contrast IMPRESSION: Stable examination. Electronically Signed: Jovanny Faye MD at 14:34 EST , Service support ,
== END ==
PROVIDERS: PCP Family Medicine; Referring Provider Family Medicine; Visit Provider Family Medicine
DX: I71.2 Thoracic aortic aneurysm, without rupture (principal)
CPT/HCPCS: 71260; Q9967

== ENCOUNTER 2021-09-07 08:24 | Outpatient (CLI) | payer MEDICARE, OTHER, SELFPAY ==
[2021-09-07 10:08] LABS: Absolute Lymphocyte Count 1.37 X10^3/uL (0.83-4.51); Absolute Neutrophil Count 3.3 X10^3/uL (2.0-7.7); Basophil# 0.03 X10^3/uL; Basophil% 0.6 % (0-1); Eosinophil# 0.03 X10^3/uL; Eosinophils% 0.6 % (0-5); Hematocrit 42.9 % (37-47); Hemoglobin 14.8 g/dL (12.0-15.0); Lymphocyte # 1.37 X10^3/ul (0.83-4.51); Lymphocyte % 25.7 % (19-41); Mean Corp Hgb Conc 34.5 g/dL (32-36); Mean Corpuscular Hgb 31.6 pg (27.0-32.0); Mean Corpuscular Volume 91.7 fL (81-99); Mean Platelet Vol. 11.5 fl (6.2-12.0); Monocyte# 0.55 X10^3/uL; Monocyte% 10.3 % (0-10); NRBC Flagged by Analyzer 0 % (0-5); Neutrophil # 3.34 X10^3/uL (2.7-7.7); Neutrophil % 62.4 % (47-70); Platelet Count 184 K/mm3 (150-450); RBC Distribution Width CV 13.4 % (11.6-14.6); RBC Distribution Width SD 45.9 fl (35.1-43.9); Red Blood Count 4.68 M/mm3 (4.2-5.4); White Blood Count 5.3 K/mm3 (4.4-11.0)
[2021-09-07 10:21] LABS: ALB/GLOB Ratio 0.9 RATIO (0.9-2.4); AST(SGOT) 18 U/L (15-37); Alanine Aminotransfer ALT/SGPT 26 U/L (13-56); Albumin, Serum 3.9 g/dL (3.2-5.0); Alkaline Phosphatase 58 U/L (45-117); Anion Gap 6 (5-15); BUN 11 mg/dL (7-18); BUN/Creat Ratio 15.6 RATIO (10-20); Calcium,Total 9.2 mg/dL (8.5-10.1); Chloride 103 mmol/L (98-107); EST Glomerular Filtration Rate 88 mL/min (>60); Est Glom Filt Rate - Afr Amer 106 mL/min (>60); Globulin 4.3 g/dL (2.2-4.2); Glucose 108 mg/dL (74-106); Protein, Total 8.2 g/dL (6.4-8.2); Sodium Level 134 mmol/L (136-145)
== END 2021-09-07 23:59 | disposition home or self-care (01) ==
LOC: MTLAB 08:26
PROVIDERS: PCP Family Medicine; Referring Provider Internal Medicine Rheumatology; Visit Provider Internal Medicine Rheumatology
DX: M05.70 Rheumatoid arthritis with rheumatoid factor of unspecified site without organ or systems involvement (principal); M35.00 Sjogren syndrome, unspecified; M21.40 Flat foot [pes planus] (acquired), unspecified foot; M81.0 Age-related osteoporosis without current pathological fracture; Z79.899 Other long term (current) drug therapy
CPT/HCPCS: 36415; 80053; 85025

== ENCOUNTER → 2021-11-26 | Outpatient (CLI) | payer MEDICARE, OTHER, SELFPAY ==
[2021-11-26 09:54] LABS: Absolute Lymphocyte Count 1.61 X10^3/uL (0.83-4.51); Absolute Neutrophil Count 2.8 X10^3/uL (2.0-7.7); Basophil# 0.03 X10^3/uL; Basophil% 0.6 % (0-1); Eosinophil# 0.03 X10^3/uL; Eosinophils% 0.6 % (0-5); Hematocrit 40.7 % (37-47); Hemoglobin 13.6 g/dL (12.0-15.0); Lymphocyte # 1.61 X10^3/ul (0.83-4.51); Lymphocyte % 32.1 % (19-41); Mean Corp Hgb Conc 33.4 g/dL (32-36); Mean Corpuscular Hgb 30.9 pg (27.0-32.0); Mean Corpuscular Volume 92.5 fL (81-99); Mean Platelet Vol. 11.5 fl (6.2-12.0); Monocyte# 0.57 X10^3/uL; Monocyte% 11.4 % (0-10); NRBC Flagged by Analyzer 0 % (0-5); Neutrophil # 2.76 X10^3/uL (2.7-7.7); Neutrophil % 55.1 % (47-70); Platelet Count 209 K/mm3 (150-450); RBC Distribution Width CV 13.9 % (11.6-14.6); RBC Distribution Width SD 47.5 fl (35.1-43.9)
[2021-11-26 10:11] LABS: ALB/GLOB Ratio 0.9 RATIO (0.9-2.4); AST(SGOT) 15 U/L (15-37); Alanine Aminotransfer ALT/SGPT 24 U/L (13-56); Albumin, Serum 3.8 g/dL (3.2-5.0); Alkaline Phosphatase 55 U/L (45-117); Anion Gap 4 (5-15); BUN 9 mg/dL (7-18); BUN/Creat Ratio 13.1 RATIO (10-20); Calcium,Total 9.3 mg/dL (8.5-10.1); Chloride 104 mmol/L (98-107); Creatinine, Serum 0.69 mg/dL (0.55-1.02); EST Glomerular Filtration Rate 90 mL/min (>60); Est Glom Filt Rate - Afr Amer 109 mL/min (>60); Globulin 4.2 g/dL (2.2-4.2); Glucose 107 mg/dL (74-106); Sodium Level 136 mmol/L (136-145)
== END | disposition home or self-care (01) ==
LOC: MTLAB 08:12
PROVIDERS: PCP Family Medicine; Referring Provider Internal Medicine Rheumatology; Visit Provider Internal Medicine Rheumatology
DX: M05.70 Rheumatoid arthritis with rheumatoid factor of unspecified site without organ or systems involvement (principal); M35.00 Sjogren syndrome, unspecified; M21.40 Flat foot [pes planus] (acquired), unspecified foot; M81.0 Age-related osteoporosis without current pathological fracture; Z79.899 Other long term (current) drug therapy
CPT/HCPCS: 36415; 80053; 85025

== ENCOUNTER → 2022-02-26 | Outpatient (CLI) | payer MEDICARE, OTHER, SELFPAY ==
[2022-02-26 12:00] LABS: Absolute Lymphocyte Count 1.91 X10^3/uL (0.83-4.51); Absolute Neutrophil Count 1.8 X10^3/uL (2.0-7.7); Basophil# 0.02 X10^3/uL; Basophil% 0.5 % (0-1); Eosinophil# 0.08 X10^3/uL; Eosinophils% 1.9 % (0-5); Hematocrit 41.3 % (37-47); Hemoglobin 13.9 g/dL (12.0-15.0); Lymphocyte # 1.91 X10^3/ul (0.83-4.51); Lymphocyte % 44.7 % (19-41); Mean Corp Hgb Conc 33.7 g/dL (32-36); Mean Corpuscular Hgb 31.6 pg (27.0-32.0); Mean Corpuscular Volume 93.9 fL (81-99); Mean Platelet Vol. 11.3 fl (6.2-12.0); Monocyte# 0.44 X10^3/uL; Monocyte% 10.3 % (0-10); NRBC Flagged by Analyzer 0 % (0-5); Neutrophil # 1.82 X10^3/uL (2.7-7.7); Neutrophil % 42.6 % (47-70); Platelet Count 182 K/mm3 (150-450); RBC Distribution Width CV 13.4 % (11.6-14.6); RBC Distribution Width SD 46.6 fl (35.1-43.9); White Blood Count 4.3 K/mm3 (4.4-11.0)
[2022-02-26 12:17] LABS: ALB/GLOB Ratio 0.9 RATIO (0.9-2.4); AST(SGOT) 15 U/L (15-37); Alanine Aminotransfer ALT/SGPT 21 U/L (13-56); Albumin, Serum 3.7 g/dL (3.2-5.0); Alkaline Phosphatase 57 U/L (45-117); Anion Gap 6 (5-15); BUN 9 mg/dL (7-18); Chloride 105 mmol/L (98-107); Creatinine, Serum 0.69 mg/dL (0.55-1.02); EST Glomerular Filtration Rate 89 mL/min (>60); Est Glom Filt Rate - Afr Amer 108 mL/min (>60); Globulin 4.1 g/dL (2.2-4.2); Glucose 98 mg/dL (74-106); Potassium 3.7 mmol/L (3.5-5.1); Protein, Total 7.8 g/dL (6.4-8.2); Sodium Level 136 mmol/L (136-145)
== END | disposition home or self-care (01) ==
LOC: MTLAB 10:05
PROVIDERS: PCP Family Medicine; Referring Provider Internal Medicine Rheumatology; Visit Provider Internal Medicine Rheumatology
DX: M05.70 Rheumatoid arthritis with rheumatoid factor of unspecified site without organ or systems involvement (principal); M35.00 Sjogren syndrome, unspecified; M21.40 Flat foot [pes planus] (acquired), unspecified foot; M81.0 Age-related osteoporosis without current pathological fracture; Z79.899 Other long term (current) drug therapy
CPT/HCPCS: 36415; 80053; 85025

== ENCOUNTER → 2022-08-27 | Outpatient (CLI) | payer MEDICARE, OTHER, SELFPAY ==
[2022-08-27 09:56] LABS: Absolute Lymphocyte Count 4.06 X10^3/uL (0.83-4.51); Absolute Neutrophil Count 5.1 X10^3/uL (2.0-7.7); Basophil# 0.05 X10^3/uL; Basophil% 0.5 % (0-1); Eosinophil# 0.07 X10^3/uL; Eosinophils% 0.7 % (0-5); Hematocrit 44.2 % (37-47); Hemoglobin 14.6 g/dL (12.0-15.0); Lymphocyte # 4.06 X10^3/ul (0.83-4.51); Lymphocyte % 40.1 % (19-41); Mean Corpuscular Hgb 31.1 pg (27.0-32.0); Mean Platelet Vol. 10.2 fl (6.2-12.0); Monocyte# 0.78 X10^3/uL; Monocyte% 7.7 % (0-10); NRBC Flagged by Analyzer 0.6 % (0-5); Neutrophil # 5.13 X10^3/uL (2.7-7.7); Neutrophil % 50.6 % (47-70); Platelet Count 255 K/mm3 (150-450); RBC Distribution Width CV 14.5 % (11.6-14.6); White Blood Count 10.1 K/mm3 (4.4-11.0)
[2022-08-27 10:10] LABS: AST(SGOT) 12 U/L (15-37); Alanine Aminotransfer ALT/SGPT 28 U/L (13-56); Alkaline Phosphatase 55 U/L (45-117); Anion Gap 8 (5-15); BUN 10 mg/dL (7-18); Calcium,Total 9.5 mg/dL (8.5-10.1); Chloride 105 mmol/L (98-107); Creatinine, Serum 0.77 mg/dL (0.55-1.02); EST Glomerular Filtration Rate 79 mL/min (>60); Est Glom Filt Rate - Afr Amer 96 mL/min (>60); Globulin 4.2 g/dL (2.2-4.2); Glucose 115 mg/dL (74-106); Potassium 3.7 mmol/L (3.5-5.1); Protein, Total 8.2 g/dL (6.4-8.2); Sodium Level 141 mmol/L (136-145)
== END | disposition home or self-care (01) ==
LOC: MTLAB 08:33
PROVIDERS: PCP Family Medicine; Referring Provider Internal Medicine Rheumatology; Visit Provider Internal Medicine Rheumatology
DX: M05.70 Rheumatoid arthritis with rheumatoid factor of unspecified site without organ or systems involvement (principal); M35.00 Sjogren syndrome, unspecified; M21.40 Flat foot [pes planus] (acquired), unspecified foot; M81.0 Age-related osteoporosis without current pathological fracture; Z79.899 Other long term (current) drug therapy
CPT/HCPCS: 36415; 80053; 85025

== ENCOUNTER → 2022-11-18 | Outpatient (CLI) | payer MEDICARE, OTHER, SELFPAY ==
[2022-11-18 10:04] LABS: Absolute Lymphocyte Count 1.78 X10^3/uL (0.83-4.51); Absolute Neutrophil Count 2.1 X10^3/uL (2.0-7.7); Basophil# 0.03 X10^3/uL; Basophil% 0.7 % (0-1); Eosinophil# 0.05 X10^3/uL; Eosinophils% 1.1 % (0-5); Hematocrit 42.6 % (37-47); Hemoglobin 14.1 g/dL (12.0-15.0); Lymphocyte # 1.78 X10^3/ul (0.83-4.51); Lymphocyte % 39.9 % (19-41); Mean Corp Hgb Conc 33.1 g/dL (32-36); Mean Corpuscular Hgb 30.7 pg (27.0-32.0); Mean Corpuscular Volume 92.8 fL (81-99); Mean Platelet Vol. 10.5 fl (6.2-12.0); Monocyte# 0.53 X10^3/uL; Monocyte% 11.9 % (0-10); NRBC Flagged by Analyzer 0 % (0-5); Neutrophil # 2.07 X10^3/uL (2.7-7.7); Neutrophil % 46.4 % (47-70); Platelet Count 188 K/mm3 (150-450); RBC Distribution Width SD 48.3 fl (35.1-43.9); Red Blood Count 4.59 M/mm3 (4.2-5.4); White Blood Count 4.5 K/mm3 (4.4-11.0)
[2022-11-18 10:22] LABS: ALB/GLOB Ratio 0.9 RATIO (0.9-2.4); AST(SGOT) 16 U/L (15-37); Alanine Aminotransfer ALT/SGPT 29 U/L (13-56); Albumin, Serum 3.9 g/dL (3.2-5.0); Alkaline Phosphatase 62 U/L (45-117); Anion Gap 3 (5-15); BUN 11 mg/dL (7-18); BUN/Creat Ratio 14.9 RATIO (10-20); Calcium,Total 9.9 mg/dL (8.5-10.1); Chloride 104 mmol/L (98-107); Creatinine, Serum 0.74 mg/dL (0.55-1.02); EST Glomerular Filtration Rate 83 mL/min (>60); Est Glom Filt Rate - Afr Amer 100 mL/min (>60); Globulin 4.3 g/dL (2.2-4.2); Glucose 110 mg/dL (74-106); Potassium 3.7 mmol/L (3.5-5.1); Protein, Total 8.2 g/dL (6.4-8.2); Sodium Level 134 mmol/L (136-145)
== END | disposition home or self-care (01) ==
LOC: MTLAB 08:06
PROVIDERS: PCP Family Medicine; Referring Provider Internal Medicine Rheumatology; Visit Provider Internal Medicine Rheumatology
DX: M05.70 Rheumatoid arthritis with rheumatoid factor of unspecified site without organ or systems involvement (principal); M35.00 Sjogren syndrome, unspecified; M21.40 Flat foot [pes planus] (acquired), unspecified foot; M81.0 Age-related osteoporosis without current pathological fracture; Z79.899 Other long term (current) drug therapy
CPT/HCPCS: 36415; 80053; 85025

== ENCOUNTER → 2023-03-05 | Outpatient (CLI) | payer MEDICARE, OTHER, SELFPAY ==
[2023-03-05 12:18] LABS: Absolute Lymphocyte Count 2.35 X10^3/uL (0.83-4.51); Absolute Neutrophil Count 2.9 X10^3/uL (2.0-7.7); Basophil# 0.04 X10^3/uL; Basophil% 0.7 % (0-1); Eosinophil# 0.02 X10^3/uL; Eosinophils% 0.3 % (0-5); Hematocrit 44.1 % (37-47); Hemoglobin 14.3 g/dL (12.0-15.0); Lymphocyte # 2.35 X10^3/ul (0.83-4.51); Lymphocyte % 39.9 % (19-41); Mean Corp Hgb Conc 32.4 g/dL (32-36); Mean Corpuscular Hgb 30.3 pg (27.0-32.0); Mean Corpuscular Volume 93.4 fL (81-99); Monocyte# 0.59 X10^3/uL; NRBC Flagged by Analyzer 0 % (0-5); Neutrophil # 2.88 X10^3/uL (2.7-7.7); Neutrophil % 48.9 % (47-70); Platelet Count 211 K/mm3 (150-450); RBC Distribution Width CV 13.9 % (11.6-14.6); RBC Distribution Width SD 47.9 fl (35.1-43.9); Red Blood Count 4.72 M/mm3 (4.2-5.4); White Blood Count 5.9 K/mm3 (4.4-11.0)
[2023-03-05 12:46] LABS: ALB/GLOB Ratio 0.9 RATIO (0.9-2.4); AST(SGOT) 16 U/L (15-37); Alanine Aminotransfer ALT/SGPT 23 U/L (13-56); Albumin, Serum 3.9 g/dL (3.2-5.0); Alkaline Phosphatase 71 U/L (45-117); Anion Gap 7 (5-15); BUN 10 mg/dL (7-18); BUN/Creat Ratio 13.6 RATIO (10-20); Calcium,Total 9.5 mg/dL (8.5-10.1); Chloride 102 mmol/L (98-107); Creatinine, Serum 0.74 mg/dL (0.55-1.02); EST Glomerular Filtration Rate 83 mL/min (>60); Est Glom Filt Rate - Afr Amer 100 mL/min (>60); Globulin 4.5 g/dL (2.2-4.2); Glucose 99 mg/dL (74-106); Protein, Total 8.4 g/dL (6.4-8.2); Sodium Level 135 mmol/L (136-145)
== END | disposition home or self-care (01) ==
LOC: LAB 10:51
PROVIDERS: PCP Family Medicine; Referring Provider Internal Medicine Rheumatology; Visit Provider Internal Medicine Rheumatology
DX: M05.70 Rheumatoid arthritis with rheumatoid factor of unspecified site without organ or systems involvement (principal); Z79.899 Other long term (current) drug therapy
CPT/HCPCS: 36415; 80053; 85025

== ENCOUNTER → 2023-06-06 | Outpatient (CLI) | payer MEDICARE, OTHER, SELFPAY ==
[2023-06-06 15:09] LABS: Absolute Lymphocyte Count 2.54 X10^3/uL (0.83-4.51); Absolute Neutrophil Count 3.3 X10^3/uL (2.0-7.7); Basophil# 0.04 X10^3/uL; Basophil% 0.6 % (0-1); Eosinophil# 0.03 X10^3/uL; Eosinophils% 0.5 % (0-5); Hematocrit 43.6 % (37-47); Hemoglobin 14.3 g/dL (12.0-15.0); Lymphocyte # 2.54 X10^3/ul (0.83-4.51); Lymphocyte % 39.6 % (19-41); Mean Corp Hgb Conc 32.8 g/dL (32-36); Mean Corpuscular Hgb 30.4 pg (27.0-32.0); Mean Corpuscular Volume 92.8 fL (81-99); Mean Platelet Vol. 10.6 fl (6.2-12.0); Monocyte# 0.48 X10^3/uL; Monocyte% 7.5 % (0-10); NRBC Flagged by Analyzer 0 % (0-5); Neutrophil # 3.32 X10^3/uL (2.7-7.7); Neutrophil % 51.8 % (47-70); Platelet Count 205 K/mm3 (150-450); RBC Distribution Width SD 48.4 fl (35.1-43.9); White Blood Count 6.4 K/mm3 (4.4-11.0)
[2023-06-06 15:23] LABS: ALB/GLOB Ratio 1.1 RATIO (0.9-2.4); AST(SGOT) 18 U/L (15-37); Alanine Aminotransfer ALT/SGPT 26 U/L (13-56); Albumin, Serum 4.3 g/dL (3.2-5.0); Alkaline Phosphatase 64 U/L (45-117); Anion Gap 9 (5-15); BUN 13 mg/dL (7-18); Calcium,Total 9.9 mg/dL (8.5-10.1); Chloride 102 mmol/L (98-107); Creatinine, Serum 0.68 mg/dL (0.55-1.02); EST Glomerular Filtration Rate 90 mL/min (>60); Est Glom Filt Rate - Afr Amer 109 mL/min (>60); Glucose 87 mg/dL (74-106); Potassium 3.3 mmol/L (3.5-5.1); Protein, Total 8.3 g/dL (6.4-8.2); Sodium Level 137 mmol/L (136-145)
== END | disposition home or self-care (01) ==
LOC: MTLAB 11:38
PROVIDERS: PCP Family Medicine; Referring Provider Internal Medicine Rheumatology; Visit Provider Internal Medicine Rheumatology
DX: M05.70 Rheumatoid arthritis with rheumatoid factor of unspecified site without organ or systems involvement (principal); Z79.899 Other long term (current) drug therapy
CPT/HCPCS: 36415; 80053; 85025

== ENCOUNTER → 2023-09-05 | Outpatient (CLI) | payer MEDICARE, OTHER, SELFPAY ==
--- NOTE | 2023-09-05 13:12 | CT_ITS ---
STUDY: CTA CHEST REASON FOR EXAM: Female, 68 years old. TAA f/u RADIATION DOSAGE (If Supplied By Facility): CTDIvol = ( 8.29 ) mGy, DLP = ( 169.91 ) mGycm TECHNIQUE: The examination was performed with the intravenous administration of IV 100mL Isovue-370. Post-processing of the angiographic images was performed, with multiplanar reformation and 3D reconstruction. Individualized dose optimization techniques were used for this CT. COMPARISON: Comparison is made with prior study dated April 21, 2017. FINDINGS: Normal enhancement of the main pulmonary artery and right and left pulmonary arteries. Normal enhancement of the bilateral peripheral pulmonary arteries. There is no demonstrated pulmonary embolism. There is aneurysmal dilatation of the ascending aorta. The transverse diameter of the ascending aorta measures 41.6 `mm''s. There is no demonstrated aortic dissection. Normal heart and pericardium. Normal mediastinum. Calcified left hilar lymph node. Normal visualized trachea and bronchi. The lungs are well expanded. Normal pulmonary parenchyma. Normal pleura. Normal chest wall structures. There are degenerative changes of thoracic spine. Stable small cyst in the segment [address]/CTA Chest W/WO Contrast IMPRESSION: Mild dilatation of the root of the ascending thoracic aorta with a transverse dimension of 41.6 mm. Electronically Signed: Jovanny Faye MD at 14:37 EST ,
[2023-09-05 13:34] LABS: CREATININE FINGERSTICK < 1.0 mg/dL (0.55-1.02); EGFR FINGERSTICK > 60.0000 mL/min (>60)
== END | disposition home or self-care (01) ==
LOC: CT 12:45
PROVIDERS: PCP Family Medicine; Referring Provider Physician Assistant Medical; Visit Provider Physician Assistant Medical
DX: I71.20 Thoracic aortic aneurysm, without rupture, unspecified (principal)
CPT/HCPCS: 71275; Q9967

== ENCOUNTER → 2023-10-26 | Outpatient (CLI) | payer MEDICARE, OTHER, SELFPAY ==
[2023-10-26 12:16] LABS: Absolute Lymphocyte Count 1.97 X10^3/uL (0.83-4.51); Absolute Neutrophil Count 1.6 X10^3/uL (2.0-7.7); Basophil# 0.04 X10^3/uL; Eosinophil# 0.03 X10^3/uL; Eosinophils% 0.7 % (0-5); Lymphocyte # 1.97 X10^3/ul (0.83-4.51); Lymphocyte % 48.3 % (19-41); Mean Corp Hgb Conc 32.6 g/dL (32-36); Mean Corpuscular Hgb 30.3 pg (27.0-32.0); Mean Corpuscular Volume 93.1 fL (81-99); Monocyte# 0.48 X10^3/uL; Monocyte% 11.8 % (0-10); NRBC Flagged by Analyzer 0 % (0-5); Neutrophil # 1.56 X10^3/uL (2.7-7.7); Neutrophil % 38.2 % (47-70); Platelet Count 187 K/mm3 (150-450); RBC Distribution Width CV 13.5 % (11.6-14.6); Red Blood Count 4.62 M/mm3 (4.2-5.4); White Blood Count 4.1 K/mm3 (4.4-11.0)
[2023-10-26 13:35] LABS: AST(SGOT) 19 U/L (15-37); Alanine Aminotransfer ALT/SGPT 25 U/L (13-56); Alkaline Phosphatase 61 U/L (45-117); Anion Gap 7 (5-15); BUN 11 mg/dL (7-18); BUN/Creat Ratio 14.8 RATIO (10-20); Calcium,Total 9.6 mg/dL (8.5-10.1); Chloride 103 mmol/L (98-107); Creatinine, Serum 0.74 mg/dL (0.55-1.02); EST Glomerular Filtration Rate 82 mL/min (>60); Est Glom Filt Rate - Afr Amer 99 mL/min (>60); Glucose 105 mg/dL (74-106); Potassium 4.1 mmol/L (3.5-5.1); Sodium Level 135 mmol/L (136-145)
== END | disposition home or self-care (01) ==
LOC: MTLAB 10:42
PROVIDERS: PCP Family Medicine; Referring Provider Internal Medicine Rheumatology; Visit Provider Internal Medicine Rheumatology
DX: M05.70 Rheumatoid arthritis with rheumatoid factor of unspecified site without organ or systems involvement (principal); M35.00 Sjogren syndrome, unspecified; Z79.899 Other long term (current) drug therapy
CPT/HCPCS: 36415; 80053; 85025

== ENCOUNTER → 2024-04-23 | Outpatient (CLI) | payer MEDICARE, OTHER, SELFPAY ==
[2024-04-23 12:18] LABS: Absolute Lymphocyte Count 1.66 X10^3/uL (0.83-4.51); Absolute Neutrophil Count 0.8 X10^3/uL (2.0-7.7); Basophil# 0.03 X10^3/uL; Eosinophil# 0.04 X10^3/uL; Eosinophils% 1.3 % (0-5); Hematocrit 40.3 % (37-47); Hemoglobin 13.1 g/dL (12.0-15.0); Lymphocyte # 1.66 X10^3/ul (0.83-4.51); Lymphocyte % 54.8 % (19-41); Mean Corp Hgb Conc 32.5 g/dL (32-36); Mean Corpuscular Hgb 30.3 pg (27.0-32.0); Mean Corpuscular Volume 93.1 fL (81-99); Monocyte# 0.47 X10^3/uL; Monocyte% 15.5 % (0-10); NRBC Flagged by Analyzer 0 % (0-5); Neutrophil # 0.83 X10^3/uL (2.7-7.7); Neutrophil % 27.4 % (47-70); POSITIVE DIFFERENTIAL YES; Platelet Count 173 K/mm3 (150-450); RBC Distribution Width CV 13.6 % (11.6-14.6); RBC Distribution Width SD 46.7 fl (35.1-43.9); Red Blood Count 4.33 M/mm3 (4.2-5.4)
[2024-04-23 12:20] LABS: Differential Indicated SCAN CRITERIA MET
[2024-04-23 12:23] LABS: ALB/GLOB Ratio 0.9 RATIO (0.9-2.4); AST(SGOT) 17 U/L (15-37); Alanine Aminotransfer ALT/SGPT 24 U/L (13-56); Albumin, Serum 3.9 g/dL (3.2-5.0); Alkaline Phosphatase 59 U/L (45-117); Anion Gap 6 (5-15); BUN 11 mg/dL (7-18); BUN/Creat Ratio 14.5 RATIO (10-20); Calcium,Total 9.6 mg/dL (8.5-10.1); Chloride 103 mmol/L (98-107); Creatinine, Serum 0.76 mg/dL (0.55-1.02); EST Glomerular Filtration Rate 80 mL/min (>60); Est Glom Filt Rate - Afr Amer 97 mL/min (>60); Globulin 4.2 g/dL (2.2-4.2); Glucose 99 mg/dL (74-106); Potassium 4.1 mmol/L (3.5-5.1); Protein, Total 8.1 g/dL (6.4-8.2); Sodium Level 137 mmol/L (136-145)
== END | disposition home or self-care (01) ==
PROVIDERS: PCP Family Medicine; Referring Provider Internal Medicine Rheumatology; Visit Provider Internal Medicine Rheumatology
DX: M05.70 Rheumatoid arthritis with rheumatoid factor of unspecified site without organ or systems involvement (principal); Z79.899 Other long term (current) drug therapy; M35.00 Sjogren syndrome, unspecified; M81.0 Age-related osteoporosis without current pathological fracture
CPT/HCPCS: 36415; 80053; 85025

== ENCOUNTER → 2024-05-22 | Outpatient (CLI) | payer MEDICARE, OTHER, SELFPAY ==
--- OUTSIDE RECORDS SUMMARY | 2024-05-22 07:17 | XMS RPT_ITS | CCD ---
Author Organization [facility] Care Team Providers Care Commercial Credit Officer Name Role Phone Leana RN, Tess Ron Unavailable Unavailable Saurav COLD ROLL CATCHER, Shara Daniel Unavailable [phone] aVl Case Unavailable Leana RN, Tess Ron Unavailable Unavailable Leana RN, Tess A Unavailable Unavailable Leana RN, Tess A Unavailable Unavailable Leana RN, Tess A Unavailable Unavailable MARCY BARROSO Unavailable Unavailable MARCY BARROSO Unavailable Unavailable PHYSICIAN, NONE Unavailable Unavailable JORDON FORD Unavailable Unavailable MARCY BARROSO Unavailable Unavailable [place] Unavailable Jules Hatch MD Primary Care Provider Jules Hatch MD Primary Care Provider JULES HATCH Referring Unavailable JULES HATCH Primary Care Unavailable JULES HATCH Referring Unavailable JULES HATCH Primary Care Unavailable JULES HATCH Primary Care Unavailable JULES HATCH Attending Unavailable JULES HATCH Primary Care Unavailable JULES HATCH Attending Unavailable JULES HATCH Referring Unavailable JULES HATCH Primary Care Unavailable JULES HATCH Primary Care Unavailable JULES HATCH Attending Unavailable Jules Hatch MD Primary Care Provider Allergies Allergy Classification Reported Allergen(s) Allergy Type Date of Onset Reaction(s) Facility (20 sources) adalimumab; Translations: [ADALIMUMAB] Drug Allergy 05-08-2017 Other: See Comments [facility] Work Phone: (20 sources) leflunomide; Translations: [LEFLUNOMIDE] Drug Allergy 05-08-2017 Other: See Comments [facility] Work Phone: (14 sources) hydroCHLOROthiaz matthew; Translations: [HYDROCHLOROTHIA ZIDE] Drug Allergy 05-22-2019 Unknown [facility] Medications Current Medications Medication Drug Class(es) Dates Sig (Normalized) Sig (Original) amLODIPine 10 mg oral tablet (20 sources) Dihydropyridine Calcium Channel Sanjeev Start: 11-30-2023 take 1 tablet by mouth once daily amLODIPine (NORVASC) 10 mg tablet Take 10 mg by mouth once daily. 0 11/30/2023 Active Start: 02-18-2021 End: 02-08-2024 take 1 tablet by mouth once daily amLODIPine (NORVASC) 5 mg tablet Take 1 tablet by mouth once daily. 90 tablet 3 02/18/2021 02/08/2024 Discontinued Comment on above: Take 1 tablet by humberto once daily. biotin 10 mg oral capsule (20 sources) Start: 02-27-2016 Biotin 10,000 mcg cap Take 5,000 mcg by mouth once daily. 0 02/27/2016 Active Start: 04-10-2014 take 1 tablet by humberto th once daily BIOTIN FORTE TABS One tablet by mouth daily BIOTIN TABS [id number] Juan Mijares MD Start: 04-10-2014 take 1 tablet by humberto th once daily BIOTIN FORTE TABS One tablet by mouth daily BIOTIN TABS [id number] Juan Mijares MD Comment on above: Take 5,000 mcg by [facility] daily. cholecalciferol 0.025 mg ora l capsule (20 sources) Vitamin D Cholecalciferol, Vitamin D3, 25 mcg (1,000 unit) cap Vitamin D3 1,000 unit capsule Active Cholecalciferol, Vitamin D3, 25 mcg (1,000 unit) cap Vitamin D3 1,000 unit capsule 0 Active Cholecalciferol, Vitamin D3, (VITAMIN D) 1,000 unit cap Vitamin D3 1,000 unit capsule 0 Active Comment on above: Vitamin D3 1,000 uni t capsule fluticasone propionate 0.05 mg/actuat metered dose nasal spray (2 sources) Corticosteroid Start: 2023 End: 2024 take 2 spray(s) by mouth once daily fluticasone (FLONASE) 50 mcg/actuation nasal spray Indications: Seasonal allergic rhinitis due to other allergic trigger Use 2 Sprays in each nostril once daily. Rinse mouth after use. 1 Each 11/11/2023 11/10/2024 Active Comment on above: Use 2 Sprays in each nostril once daily. Rinse mouth after use. gabapentin 100 mg oral capsule (14 sources) Anti-epileptic Agent Start: 2021 End: 2024 take 1 capsule by mouth once daily at bedtime as needed gabapentin (NEURONTIN) 100 mg capsule Indications: Post herpetic neuralgia Take 1 capsule by mouth daily at bedtime. prn 30 capsule 10/10/2023 10/09/2024 Active Comment on above: TAKE 1 TO 2 CAPSULES BY MOUTH EVERY NIGHT AT BEDTIME Take 1 capsule by mo uth daily at bedtime. prn hydroxychloroquine sulfate 200 mg oral tablet (20 sources) Antirheumatic Agent Start: 2015 take 1 tablet by mouth twice daily hydroxychloroquine (PLAQUENIL) 200 mg tablet Indications: Seropositive rheumatoid arthritis (HCC) Take 1 tablet by mouth twice daily. 02/27/2016 Active Start: 03-29-2014 PLAQUENIL TABS 300mg daily HYDROXYCHLOROQUINE SULFATE TABS [id number] Cassi Prescott RN Start: 03-29-2014 PLAQUENIL TABS 300mg daily HYDROXYCHLOROQUINE SULFATE TABS [id number] Cassi Prescott RN Comment on above: Take 1 tablet by humberto th twice daily. lisinopril 40 mg oral tablet (20 sources) Angiotensin Converting Enzyme Inhibitor Start: 02-05-2024 take 1 tablet by mouth once daily lisinopril (ZESTRIL) 40 mg tablet Take 40 mg by mouth once daily. 0 02/05/2024 Active Start: 02-18-2021 End: 02-08-2024 take 1 tablet by mouth once daily lisinopril (PRINIVIL) 20 mg tablet Indications: Essential hypertension, benign Take 1 tablet by mouth once daily. 90 tablet 3 02/18/2021 02/08/2024 Discontinued Start: 03-29-2014 take 1 tablet by humberto th once daily LISINOPRIL 20 MG TABS One tablet by mouth daily LISINOPRIL [id number] Cassi Prescott RN Comment on above: Take 1 tablet by humberto th once daily. omega-3 fatty acids 1,000 mg cap (20 sources) take 1 capsule by mouth once daily omega-3 fatty acids 1,000 mg cap Take 2 g by mouth once daily. Active take 1 capsule by mouth once zarina ly omega-3 fatty acids 1,000 mg cap Take 2 g by mouth once daily. 0 Active Comment on above: Take 2 g by mouth on ce daily. pilocarpine hydrochloride 5 mg oral tablet (4 sources) Cholinergic Receptor Agonist Start: 08-30-19 24 take 1 tablet by mouth three times daily pilocarpine (SALAGEN) 5 mg tablet Take 5 mg by mouth three times a day. 0 08/30/2023 Active Comment on above: Take 5 mg by mouth t hree times a day. predniSONE 5 mg oral tablet (20 sources) Corticosteroid Start: 01-18-20 14 predniSONE (DELTASONE) 5 mg tablet As needed per rheum. 01/17/2014 Active Comment on above: As needed per rheum. sertraline 50 mg oral tablet (4 sources) Serotonin Reuptake Inhibitor Start: 10-10-19 24 End: 04-07-20 24 take 1 tablet by mouth once daily, then take 0.5 tablet by mouth once daily, then take 1 tablet by mouth once daily sertraline (ZOLOFT) 50 mg tablet Indications: Adjustment disorder with anxious mood Take 1 tablet by mouth once daily. Take 1/2 tab once a day orally for one week then 1 tab once a day 30 tablet 5 10/10/2023 04/07/2024 Active Comment on above: Take 1 tablet by humberto once daily. Take 1/2 tab once a day orally for one week then 1 tab once a day valACYclovir 1000 mg oral tablet (3 sources) Herpesvirus Nucleoside Analog DNA Polymerase Inhibitor, Herpes Simplex Virus Nucleoside Analog DNA Polymerase Inhibitor, Herpes Zoster Virus Nucleoside Analog DNA Polymerase Inhibitor Start: 08-14-19 23 End: 08-21-19 23 take 1 tablet by mouth three times daily valACYclovir (VALTREX) 1 gram Take 1 tablet by mouth three times daily for 7 days. 21 tablet 0 08/14/2022 08/21/2022 Active Comment on above: Take 1 tablet by humberto three times daily for 7 days. Completed/Discontinued Medications Medication Drug Class(es) Dates Sig (Normalized) Sig (Original) alendronic acid 70 mg oral tablet (20 sources) Bisphosphonate Start: 03-29-2014 End: 05-20-2017 take 1 tablet by mouth every week FOSAMAX 70 MG TABS Take one tablet by mouth once weekly ALENDRONATE SODIUM [id number] Shara Durons COLD ROLL CATCHER calcium carbonate / vitamin D (20 sources) Start: 03-29-2014 End: 04-10-2014 take 1 tablet by mouth once daily CALCIUM + D 600-200 MG-UNIT TABS One tablet by mouth daily CALCIUM CARBONATE-VITAMIN D Juan Mijares MD Start: 03-29-2014 take 1 tablet by humberto th once daily CALCIUM + D 600-200 MG-UNIT TABS One tablet by mouth daily CALCIUM CARBONATE-VITAMIN D Cassi Prescott RN Start: 03-29-2014 End: 04-10-2014 take 1 tablet by mouth once daily CALCIUM + D 600-200 MG-UNIT TABS One tablet by mouth daily CALCIUM CARBONATE-VITAMIN D Juan Mijares MD Start: 03-29-2014 take 1 tablet by humberto once daily CALCIUM + D 600-200 MG-UNIT TABS One tablet by mouth daily CALCIUM CARBONATE-VITAMIN D Cassi Prescott RN cevimeline 30 mg oral capsule (20 sources) Cholinergic Receptor Agonist Start: 02-18-2021 End: 10-10-2023 take 1 capsule by mouth twice daily cevimeline (EVOXAC) 30 mg capsule Take 30 mg by mouth twice daily. 02/18/2021 10/10/2023 Discontinued (Changing Therapy/Dosage Form) Start: 02-18-2021 take 1 capsule by mo [facility] three times daily cevimeline (EVOXAC) 30 mg capsule Take 1 capsule by mouth three times daily. 0 02/18/2021 Active Comment on above: Take 1 capsule by mo uth three times daily. Take 30 mg by mouth twice daily. doxycycline monohydrate 100 mg oral tablet (3 sources) Tetracycline-class Drug Start: 12-10-2021 End: 12-20-2021 take 1 tablet by mouth twice daily doxycycline monohydrate 100 mg tablet Indications: Bronchitis Take 1 tablet by mouth twice daily for 10 days. 20 tablet 12/10/2021 12/20/2021 Comment on above: Take 1 tablet by humberto twice daily for 10 days. 0.51 ml etanercept 50 mg/ml prefilled syringe (20 sources) Tumor Necrosis Factor Sanjeev Start: 04-29-2016 ENBREL SURECLICK 50 MG/ML SOAJ SQ once weekly ETANERCEPT [id number] Juan Mijares MD Start: 04-29-2016 ENBREL SURECLI CK 50 MG/ML SOAJ SQ once weekly ETANERCEPT [id number] Juan Mijares MD Start: 02-27-2016 inject 50 mg by subc utaneous injection every week Etanercept (ENBREL SURECLICK) 50 mg/mL (0.98 mL) pnij Indications: Seropositive rheumatoid arthritis (HCC) Inject 50 mg subcutaneously once each week. 0 02/27/2016 Active Comment on above: Inject 50 mg subcuta neously once each week. folic acid 0.8 mg oral tablet (20 sources) Start: 4 take 1 tablet by mouth once daily FOLIC ACID 800 MCG TABS One tablet by mouth daily FOLIC ACID [id number] Cassi Prescott RN Start: 03-29-2014 take 1 tablet by humberto once daily FOLIC ACID 1 MG TABS One tablet by mouth daily FOLIC ACID [id number] Juan Mijares MD End: 10-10-2023 take 2 tablets by mouth once daily FOLIC ACID ORAL Take by mouth. Pt takes two tablets daily. 10/10/2023 Discontinued (Course of therapy completed) End: 10-10-2023 take 2 tablets by mouth once daily FOLIC ACID ORAL Take by mouth. Pt takes two tablets daily. 0 10/10/2023 Discontinued (Course of therapy completed) take 2 tablets by mo [facility] once daily FOLIC ACID ORAL Take by mouth. Pt takes two tablets daily. 0 Active Comment on above: Take by mouth. Pt ta kes two tablets daily. leucovorin 25 mg oral tablet (12 sources) Folate Analog Start: 5 End: 7 take 1 tablet by mouth once daily LEUCOVORIN CALCIUM 25 MG TABS 1 tablet by mouth weekly day after taking Methotrexate LEUCOVORIN CALCIUM [id number] Juan Mijares MD methotrexate 2.5 mg oral tablet (10 sources) Folate Analog Metabolic Inhibitor Start: 5 take 6 tablets by mouth every week METHOTREXATE 2.5 MG TABS 6 tablets by mouth once a week METHOTREXATE SODIUM [id number] Juan Mijares MD 24 hr metoprolol succinate 25 mg extended release oral tablet (20 sources) beta-Adrenergic Sanjeev Start: 1 End: 2 take 1 tablet by mouth once daily metoprolol succinate ER (TOPROL XL) 25 mg 24 hr tablet Take 1 tablet by mouth once daily. 90 tablet 3 02/18/2021 01/20/2022 Discontinued Start: 04-10-2014 take 1 tablet by humberto th once daily METOPROLOL SUCCINATE ER 25 MG [id number] One tablet by mouth daily METOPROLOL SUCCINATE [id number] Juan Mijares MD Comment on above: Take 1 tablet by humberto th once daily. MULTIPLE VITAMIN (20 sources) Start: 04-10-2014 End: 04-17-2015 take 1 tablet by mouth once daily MULTIVITAMINS TABS One tablet by mouth daily MULTIPLE VITAMIN Juan Mijares MD Start: 04-10-2014 take 1 tablet by humberto th once daily MULTIVITAMINS TABS One tablet by mouth daily MULTIPLE VITAMIN Juan Mijares MD Start: 04-10-2014 End: 04-17-2015 take 1 tablet by mouth once daily MULTIVITAMINS TABS One tablet by mouth daily MULTIPLE VITAMIN Juan Mijares MD Start: 04-10-2014 take 1 tablet by humberto th once daily MULTIVITAMINS TABS One tablet by mouth daily MULTIPLE VITAMIN Juan Mijares MD naproxen sodium 220 mg oral tablet (10 sources) Nonsteroidal Anti-inflammatory Drug Start: 03-29-2014 ALEVE 220 MG TABS PRN NAPROXEN SODIUM [id number] Cassi Prescott RN OMEGA-3 FATTY ACIDS CPDR (4 sources) Start: 03-29-2014 take 1 tablet by mouth once daily OMEGA 3 CPDR One tablet by mouth daily OMEGA-3 FATTY ACIDS CPDR [id number] Cassi Prescott RN OMEGA-3 FATTY ACIDS CPDR (6 sources) Start: 03-29-2014 take 1 tablet by mouth once daily OMEGA 3 CPDR One tablet by mouth daily OMEGA-3 FATTY ACIDS CPDR [id number] Cassi Prescott RN perflutren lipid microspheres 1.3 mL in NaCl (PF) 0.9% 10 mL injection (DEFINITY) (15 sources) Start: 12-10-2021 End: 03-11-2023 perflutren lipid microspheres 1.3 mL in NaCl (PF) 0.9% 10 mL injection (DEFINITY) 125 ml sodium chloride 9 mg/ml prefilled syringe (15 sources) Start: 12-10-2021 End: 03-11-2023 sodium chloride 0.9 % (flush) 10 mL (BD POSIFLUSH) traZODone hydrochloride 50 mg oral tablet (2 sources) Serotonin Reuptake Inhibitor Start: 11-11-2023 End: 02-09-2024 take 1 tablet by mouth once daily at bedtime traZODone (DESYREL) 50 mg tablet Indications: Anxiety Take 1 tablet by mouth daily at bedtime. 30 tablet 2 11/11/2023 02/08/2024 Discontinued Comment on above: Take 1 tablet by humberto th daily at bedtime. vitamin d 1000 unt oral tablet (10 sources) Start: 03-29-2014 take 1 tablet by mouth once daily VITAMIN D 1000 UNIT TABS D3 One tablet by mouth daily CHOLECALCIFEROL [id number] Cassi Prescott RN Start: 03-29-2014 take 1 tablet by humberto th once daily VITAMIN D 1000 UNIT TABS D3 One tablet by mouth daily CHOLECALCIFEROL [id number] Cassi Prescott RN Start: 03-29-2014 take 1 tablet by humberto th once daily VITAMIN D 1000 UNIT TABS D3 One tablet by mouth daily CHOLECALCIFEROL [id number] Cassi Prescott RN Problems Active Problems Problem Classification Problem Date Documented Da te Episodic/Chronic Adjustment disorders (1 source) Adjustment disorder with anxious mood; Translations: [Adjustment disorder with anxiety] 10-10-2023 Chronic Anxiety disorders (1 source) Anxiety; Translations: [Anxiety disorder, unspecified] 11-11-2023 Chronic Aortic; peripheral; and visceral artery aneurysms (20 sources) Thoracic aortic aneurysm without rupture; Translations: [Aneurysm of ascending aorta] Onset: 02-27-2014 03-29-2014 Chronic Chronic obstructive pulmonary disease and bronchiectasis (1 source) Bronchitis; Translations: [Bronchitis, not specified as acute or chronic] Episodic Diseases of white blood cells (20 sources) Leukopenia; Translations: [Decreased white blood cell count, unspecified] Onset: 10-15-2009 10-15-2009 Chronic Disorders of lipid metabolism (20 sources) Hyperlipidemia; Translations: [Hyperlipidemia, unspecified] Onset: 10-30-2016 Chronic Esophageal disorders (20 sources) Gastro-esophageal reflux disease with esophagitis; Translations: [GERD with esophagitis] Onset: 06-15-2017 06-15-2017 Chronic Essential hypertension (20 sources) Hypertensive disorder; Translations: [Benign essential hypertension] Onset: 11-14-2013 Resolved: 03-31-2023 03-29-2014 Chronic Malaise and fatigue (5 sources) Fatigue; Translations: [Other fatigue] Onset: 10-12-2023 Episodic Melanomas of skin (2 sources) Malignant melanoma of upper limb; Translations: [Malignant melanoma of left upper limb, including shoulder] Onset: 02-08-2024 02-08-2024 Chronic Miscellaneous mental health disorders (1 source) Chronic insomnia; Translations: [Psychophysiologic insomnia] Chronic Nonspecific chest pain (20 sources) Chest pain, unspecified; Translations: [Chest discomfort] Onset: 04-09-2014 Resolved: 04-29-2016 04-29-2016 Episodic Other bone disease and musculoskeletal deformities (2 sources) Disorder of bone; Translations: [Disorder of bone, unspecified] Episodic Other non-epithelial cancer of skin (1 source) Squamous cell carcinoma of skin of lower extremity; Translations: [Squamous cell carcinoma of skin of other part of trunk] 02-08-2024 Episodic Other skin disorders (1 source) Eruption; Translations: [Rash and other nonspecific skin eruption] Episodic Other upper respiratory disease (1 source) Seasonal allergic rhinitis; Translations: [Other allergic rhinitis] 11-11-2023 Chronic Residual codes; unclassified (3 sources) Postmenopausal state; Translations: [Asymptomatic menopausal state] Episodic Rheumatoid arthritis and related disease (20 sources) Rheumatoid arthritis; Translations: [Seropositive rheumatoid arthritis] Onset: 02-10-2012 03-29-2014 Chronic Screening or history of mental health and substance abuse (20 sources) Nicotine dependence; Translations: [Nicotine dependence, unspecified, uncomplicated] Onset: 04-29-2016 04-29-2016 Chronic Systemic lupus erythematosus and connective tissue disorders (20 sources) Sjogren's syndrome; Translations: [Sicca syndrome, unspecified] Onset: 03-01-2006 03-29-2014 Chronic Unclassified (9 sources) Gynecologic examination ; Translations: [Encounter for gynecological examination (general) (routine) without abnormal findings] Onset: 03-16-2017 03-16-2017 Viral infection (1 source) Postherpetic neuralgia; Translations: [Other postherpetic nervous system involvement] 10-10-2023 Episodic Past or Other Problems Problem Classification Problem Date Documented Date Episodic/Chronic Acquired foot deformities (20 sources) Acquired pes planus; Translations: [Flat foot [pes planus] (acquired), unspecified foot] Onset: 05-31-2017 03-06-2018 Episodic Cardiac dysrhythmias (6 sources) Palpitations; Translations: [Palpitations] Onset: 05-11-2017 Resolved: 06-12-2021 05-11-2017 Episodic Diabetes mellitus without complication (20 sources) Hyperglycemia; Translations: [Hyperglycemia, unspecified] Onset: 06-12-2021 Episodic Fracture of neck of femur (hip) (15 sources) Closed fracture of hip; Translations: [Fracture of unspecified part of neck of left femur, initial encounter for closed fracture] Onset: 05-29-2018 Resolved: 03-31-2023 05-29-2018 Episodic Osteoporosis (2 sources) Senile osteoporosis; Translations: [Age-related osteoporosis without current pathological fracture] Onset: 05-31-2017 Resolved: 05-29-2018 05-29-2018 Chronic Other connective tissue disease (2 sources) Supraspinatus tendinitis; Translations: [Shoulder lesion, unspecified, unspecified shoulder] Onset: 01-06-2011 Resolved: 02-27-2016 02-27-2016 Episodic Other injuries and conditions due to external causes (10 sources) H/O: hip fracture; Translations: [Personal history of (healed) traumatic fracture] Onset: 03-31-2023 03-31-2023 Episodic Other lower respiratory disease (2 sources) Dyspnea; Translations: [Shortness of breath] Onset: 03-06-2018 Resolved: 03-06-2018 03-06-2018 Episodic Other nervous system disorders (2 sources) Carpal tunnel syndrome; Translations: [Carpal tunnel syndrome, unspecified upper limb] Onset: 07-29-2010 Resolved: 01-08-2015 01-08-2015 Chronic Other screening for suspected conditions (not mental disorders or infectious disease) (13 sources) Patient encounter status; Translations: [Encounter for screening for malignant neoplasm of colon] Onset: 06-15-2017 Resolved: 07-02-2022 06-15-2017 Episodic Other skin disorders (20 sources) Female pattern alopecia; Translations: [Other specified nonscarring hair loss] Onset: 11-14-2013 11-14-2013 Episodic Pathological fracture (20 sources) Pathological fracture due to osteoporosis; Translations: [Age-related osteoporosis with current pathological fracture, unspecified site, initial encounter for fracture] Onset: 10-15-2009 05-29-2018 Episodic Substance-related disorders (2 sources) Tobacco user; Translations: [Nicotine dependence, unspecified, uncomplicated] Onset: 10-26-2006 Resolved: 02-27-2014 02-27-2014 Chronic Results Test Name Value Interpretation Reference Range Facility [facility] 11-11-2023 CNOV Office Visit (FAMPWS ) JENNI BAIRD ([id number]) 1955 F Date Time Provider Department 11/11/23 10:40 AM JULES HATCH During your visit today, we recorded the following information about you: Pulse Blood pressure Weight Height 83/minute 116/70 59.4 kg 1.6 m Jules Hatch MD 11/11/2023 11:13 AM Signed Patient presents with: Follow Up HPI: Patient presents today for office visit for 4 week follow up. Started on Sertraline 50 mg. Started taking 1/2 tablet (25mg) daily for one week and then increased to full tablet. Tolerating well. Denies any side effects. She feels tired She is not sleeping. Attributes. Some of her issues to that. She is also having a lot of allergy issues. Rheum asked us to prescribe something with steroids. No fever or cough. See previous ov: Depression Assessment -positive screen, related to her Mom's issues. No suicidal ideation. Initially declines meds or behavioral help, willing to consider meds after discussion.. Latest Ref Rng 10/12/2023 Cholesterol, Total <200 mg/dL 175 Triglyceride <150 mg/dL 54 HDL Cholesterol >39 mg/dL 74 Non HDL Cholesterol <130 mg/dL 101 Fasting Time hrs 15 VLDL Cholesterol <30 mg/dL 11 TC:HDL Ratio <5.10 2.36 LDL Cholesterol <100 mg/dL 90 LDL:HDL Ratio <2.54 1.22 Hemoglobin A1C 4.3 - 5.6 % 5.8 (H) Estimated Average Glucose mg/dL 120 TSH 0.270 - 4.200 mIU/L 0.628 MEDICATIONS: Current Outpatient Medications Medication Sig pilocarpine (SALAGEN) 5 mg tablet Take 5 mg by mouth three times a day. gabapentin (NEURONTIN) 100 mg capsule Take 1 capsule by mouth daily at bedtime. prn sertraline (ZOLOFT) 50 mg tablet Take 1 tablet by mouth once daily. Take 1/2 tab once a day orally for one week then 1 tab once a day metoprolol succinate ER (TOPROL XL) 25 mg 24 hr tablet Take 1 tablet by mouth once daily. omega-3 fatty acids 1,000 mg cap Take 2 g by mouth once daily. lisinopril (PRINIVIL) 20 mg tablet Take 1 tablet by mouth once daily. (Patient taking differently: Take 40 mg by mouth once daily.) amLODIPine (NORVASC) 5 mg tablet Take 1 tablet by mouth once daily. (Patient taking differently: Take 10 mg by mouth once daily.) predniSONE (DELTASONE) 5 mg tablet As needed per rheum. Cholecalciferol, Vitamin D3, 25 mcg (1,000 unit) cap Vitamin D3 1,000 unit capsule Biotin 10,000 mcg cap Take 5,000 mcg by mouth once daily. hydroxychloroquine (PLAQUENIL) 200 mg tablet Take 1 tablet by mouth twice daily. Etanercept (ENBREL SURECLICK) 50 mg/mL (0.98 mL) pnij Inject 50 mg subcutaneously once each week. No current facility-administered medications for this visit. ALLERGIES: ALLERGIES Allergen Reactions Adalimumab Other: See Comments Hydrochlorothiazide Unknown Leflunomide Other: See Comments PAST MEDICAL HISTORY Diagnosis Date Age-related osteoporosis with current pathological fracture 10/15/2009 Age-related osteoporosis with current pathological fracture 10/15/2009 L hip fracture 05/20/18 Ascending aortic aneurysm (HCC) 02/27/2014 01/14/15: [address] scan 04/21/17: [address] scan Carpal tunnel syndrome 07/29/2010 Chronic obstructive pulmonary disease (COPD) ([facility]) Diarrhea Essential hypertension, benign 11/14/2013 H. pylori infection Hyperlipidemia LDL goal <100 10/30/2016 Hypertension 11/14/13 Internal hemorrhoids without mention of complication Osteoporosis 03/09 Seropositive rheumatoid arthritis (HCC) 02/10/2012 Sjogren's syndrome ([facility]) 2004 Snoring Supraspinatus tendonitis 01/06/2011 Syncope PAST SURGICAL HISTORY Procedure Laterality Date COLONOSCOPY FLX DX W/COLLJ SPEC WHEN PFRMD 01/09/07 repeat in COLONOSCOPY FLX DX W/COLLJ SPEC WHEN PFRMD 07/18/2017 10 year repeat DILATATION Ascending Aorta DILATION AND CURETTAGE DXAND/THER NONOBSTETRIC Dilation AND curettage ESOPHAGOGASTRODUODENOS COPY TRANSORAL DIAGNOSTIC EGD LIG/TRNSXJ FLP TUBE ABDL/VAG APPR UNI/BI Tubal ligation TONSILLECTOMY PRIMARY/SECONDARY Tonsillectomy FAMILY HISTORY Problem Relation Age of Onset Hypertension Mother other (Rheumatoid arthritis) Mother other (ASHD) Father [place] other (Grave's disease) Sister Diabetes Sister Colon Cancer Maternal Aunt 39 Social History Tobacco Use Smoking status: Every Day Packs/day: 1.00 Years: 50.00 Additional pack years: 0.00 Total pack years: 50.00 Types: Cigarettes Smokeless tobacco: Never Vaping Use Vaping Use: Never used Substance Use Topics Alcohol use: No Drug use: No Reviewed current medications, allergies, past medical history, surgical history, family history and social history today. REVIEW OF SYSTEMS All other reviewed and negative other than HPI. HEALTH MAINTENANCE: Reviewed health maintenance issues today and recommended the following in detail. Behavioral Health Screening Never done VITALS: BP 116/70 Pulse 83 (more content not included)... [facility] Tele[facility] (PUMT) JENNI BAIRD ([id number]) 1955 F Date Time Provider Department 10/13/23 JULES HATCH [facility] During your visit today, we recorded the following information about you: Jules Hatch MD 10/13/2023 8:12 AM Signed Let her know her labs are stable Mi Sanders LPN 10/13/2023 11:13 AM Signed Phoned patient and went over results from Dr Hatch with understanding. Allergies As of Date: 10/13/2023 Noted Allergy Reaction ADALIMUMAB 05/08/2017 14 - Other: See Comments HYDROCHLOROTHIAZIDE 05/22/2019 16 - Unknown LEFLUNOMIDE 05/08/2017 14 - Other: See Comments Date Reviewed: 03/31/2023 Reviewed by: Eliana Quick LPN - Fully Assessed Reason for Visit: Results [95] Prescriptions as of 10/13/2023 - pilocarpine (SALAGEN) 5 mg tablet Take 5 mg by mouth three times a day. - gabapentin (NEURONTIN) 100 mg capsule Take 1 capsule by mouth daily at bedtime. prn - sertraline (ZOLOFT) 50 mg tablet Take 1 tablet by mouth once daily. Take 1/2 tab once a day orally for one week then 1 tab once a day - metoprolol succinate ER (TOPROL XL) 25 mg 24 hr tablet Take 1 tablet by mouth once daily. - omega-3 fatty acids 1,000 mg cap Take 2 g by mouth once daily. - lisinopril (PRINIVIL) 20 mg tablet Take 1 tablet by mouth once daily. - amLODIPine (NORVASC) 5 mg tablet Take 1 tablet by mouth once daily. - predniSONE (DELTASONE) 5 mg tablet As needed per rheum. - Cholecalciferol, Vitamin D3, 25 mcg (1,000 unit) cap Vitamin D3 1,000 unit capsule - Biotin 10,000 mcg cap Take 5,000 mcg by mouth once daily. - hydroxychloroquine (PLAQUENIL) 200 mg tablet Take 1 tablet by mouth twice daily. - Etanercept (ENBREL SURECLICK) 50 mg/mL (0.98 mL) pnij Inject 50 mg subcutaneously once each week. Problem List As Of Date 10/13/2023 Noted Resolved SICCA SYNDROME [M35.00] 03/01/2006 Tobacco use disorder [F17.200] 10/26/2006 02/27/2014 Age-related osteoporosis with current pathologi*10/15/2009 Leukopenia [D72.819] 10/15/2009 Carpal tunnel syndrome [G56.00] 07/29/2010 01/08/2015 Supraspinatus tendonitis [M75.90] 01/06/2011 02/27/2016 Sjogren's syndrome [M35.00] 02/19/2011 Seropositive rheumatoid arthritis [M05.9] 02/10/2012 Essential hypertension, benign [I10] 11/14/2013 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] 11/14/2013 Ascending aortic aneurysm (HCC) [I71.21] 02/27/2014 Hyperlipidemia LDL goal <100 [E78.5] 10/30/2016 Encounter for screening for malignant neoplasm *06/15/2017 07/02/2022 GERD with esophagitis [K21.00] 06/15/2017 Age-related osteoporosis without current pathol*05/31/2017 05/29/2018 Acquired flat foot [M21.40] 05/31/2017 Hypertension [I10] 03/06/2018 03/31/2023 Nicotine dependence, unspecified, uncomplicated*05/08/20 17 Palpitations [R00.2] 05/11/2017 06/12/2021 Shortness of breath [R06.02] 03/06/2018 03/06/2018 Closed fracture of left hip (HCC) [S72.002A] 05/29/2018 03/31/2023 Hyperglycemia [R73.9] 06/12/2021 History of hip fracture [Z87.81] 03/31/2023 Encounter Status:Closed by MI SANDERS on 10/13/23 Normal [facility] HbA1c (Bld)on 10-12-2023 Average glucose Estimated from glycated hemoglobin (Bld) [Mass/Vol] 120 mg/dL Normal [facility] Comment on above: Order Comment: Louisa crowe Type: BLOOD SPECIMENOrdering Facility: [facility] Address: [address] [place] [address] Result Comment: eAG: (Estimated average glucose) is a calculated value from HgbA1c and is patient portal representative of the average blood glucose level in the last 2-3 month period. Performed By: #### 5 5454-3 ####[facility] LABIA [id number] [place] [address] [place] HbA1c (Bld) [Mass fraction] 5.8 % High 4.3-5.6 [facility] Comment on above: Order Comment: Louisa crowe Type: BLOOD SPECIMENOrdering Facility: [facility] Address: [address] [place] [address] Result Comment: Amer ican Diabetes Association guidelines indicate that patients with HgbA1c in the range 5.7-6.4% are at increased risk for development of diabetes, and intervention by lifestyle modification may be beneficial. HgbA1c greater or equal to 6.5% is considered diagnostic of diabetes. Performed By: #### 5 5454-3 ####[facility] LABCLIA [id number] [place] [address] [place] Lipid 1996 panelon Cholesterol [Mass/Vol] 175 mg/dL Normal <200 [facility] Comment on above: Order Comment: Louisa crowe Type: BLOOD SPECIMENOrdering Facility: [facility] Address: [address] [place] [address] Result Comment: <200 mg/dL, Desirable 200-239 mg/dL, Borderline high >239 mg/dL, High Performed By: #### 2 4331-1, 3016-3 ####[facility] LABCLIA [id number] [address] OF [facility] Cholesterol in HDL [Mass/Vol] 74 mg/dL Normal >39 [facility] Comment on above: Order Comment: Olivierlars crowe Type: BLOOD SPECIMENOrdering Facility: [facility] Address: [address] [place] [address] Result Comment: 40-5 9 mg/dL, Acceptable >59 mg/dL, High: Negative risk factor for coronary heart disease <40 mg/dL, Low: Positive risk factor for coronary heart disease Performed By: #### 2 4331-1, 3015-3 ####[facility] LABCLIA [id number] [address] Cholesterol in LDL [Mass/Vol] 90 mg/dL Normal <100 [facility] Comment on above: Order Comment: Louisa crowe Type: BLOOD SPECIMENOrdering Facility: [facility] Address: [address] [place] [address] Result Comment: <100 mg/dL, Optimal 100-129 mg/dL, Near optimal/above optimal 130-159 mg/dL, Borderline high 160-189 mg/dL, High >189 mg/dL, Very high Secondary prevention optimal LDL Cholesterol levels are recommended to be < 70 mg/dL Performed By: #### 2 4331-1, 3015-3 ####[facility] LABCLIA [id number] [address] OF [facility] Cholesterol in LDL/Cholesterol in HDL [Mass ratio] 1.22 {ratio} Normal <2.54 [facility] Comment on above: Order Comment: Olivierlars crowe Type: BLOOD SPECIMENOrdering Facility: [facility] Address: [address] [place] [address] Result Comment: Kerwin leal: 1. National Cholesterol Education Program ATP III Guideline At-A-Glance Quick Desk Reference: National Heart, Lung, and Blood Kyle. National Institutes of Health. 2001: NIH Publication No. 01-3305. 2. An International Atherosclerosis Society position paper: global recommendations for the management of dyslipidemia: executive summary, Atherosclerosis. 2014: 232(2):410-413. Performed By: #### 2 4331-1, 3016-3 ####[facility] LABCLIA [id number] [address] [address] [place] Cholesterol in VLDL [Mass/Vol] 11 mg/dL Normal <30 [facility] Comment on above: Order Comment: Speci men Type: BLOOD SPECIMENOrdering Facility: [facility] Address: [address] [place] [address] Performed By: #### 2 4331-1, 3015-3 ####[facility] LABCLIA [id number] [place] [address] [place] Cholesterol non HDL [Mass/Vol] 101 mg/dL Normal <130 [facility] Comment on above: Order Comment: Speci men Type: BLOOD SPECIMENOrdering Facility: [facility] Address: [address] [place] [address] Result Comment: <130 mg/dL, Optimal 130-159 mg/dL, Near optimal/above optimal 160-189 mg/dL, Borderline high 190-219 mg/dL, High >219 mg/dL, Very high Secondary prevention optimal non HDL Cholesterol levels are recommended to be <100 mg/dL Performed By: #### 2 4331-1, 3015-3 ####[facility] LABCLIA [id number] [place] [address] [place] Cholesterol.total/Ch olesterol in HDL [Mass ratio] 2.36 {ratio} Normal <5.10 [facility] Comment on above: Order Comment: Speci men Type: BLOOD SPECIMENOrdering Facility: [facility] Address: [address] [place] [id number] Performed By: #### 2 4331-1, 6-3 ####[facility] LABCLIA [id number] [place] [id number] [place] FASTING TIME 15 hrs Normal [facility] Comment on above: Order Comment: Speci men Type: BLOOD SPECIMENOrdering Facility: [facility] Address: [address] [place] [address] Performed By: #### 2 4331-1, 6-3 ####[facility] LABCLIA [id number] [place] [address] [place] Triglyceride [Mass/Vol] 54 mg/dL Normal <150 [facility] Comment on above: Order Comment: Speci men Type: BLOOD SPECIMENOrdering Facility: [facility] Address: [address] [place] [address] Result Comment: <150 mg/dL, Normal 150-199 mg/dL, Borderline high 200-499 mg/dL, High >499 mg/dL, Very high Performed By: #### 2 4331-1, 3015-3 ####[facility] LABCLIA [id number] [place] [address] [place] TSH SerPl-aCncon 10-12-2023 TSH Qn 0.628 m[IU]/L Normal 0.270-4.200 [facility] Comment on above: Order Comment: Speci men Type: BLOOD SPECIMENOrdering Facility: [facility] Address: [address] [place] [address] Performed By: #### 2 4331-1, 3015-3 ####[facility] LABCLIA [id number] [place] [address] [place] CNOVon 10-10-2023 CNOV Office Visit (JESSYPWS ) JENNI BAIRD ([id number]) 1955 F Date Time Provider Department 10/10/23 9:40 AM JULES HATCH During your visit today, we recorded the following information about you: Pulse Blood pressure Weight 70/minute 128/72 60.3 kg Jules Hatch MD 10/10/2023 10:11 AM Signed Patient presents with: 6 Month Exam HPI: Patient presents today for office visit for follow up. Cardio: Saw them 09/29/23 CT scan stable repeat in 2 years. Told to follow up then. Tolerating meds. Discussed that we will monitor her bp. HTN: Patient is compliant with meds Yes Monitors bp at home: No. Denies side effects: Yes. Chest pain: No. Dyspnea: No. Edema: No. Palpitations: No. Syncope: No. Headache: No. Dizziness: No. Rhemu: Per Dr Andreia samuel. Remains on plaquenl and enbril. MEDICATIONS: Current Outpatient Medications Medication Sig pilocarpine (SALAGEN) 5 mg tablet Take 5 mg by mouth three times a day. gabapentin (NEURONTIN) 100 mg capsule TAKE 1 TO 2 CAPSULES BY MOUTH EVERY NIGHT AT BEDTIME metoprolol succinate ER (TOPROL XL) 25 mg 24 hr tablet Take 1 tablet by mouth once daily. omega-3 fatty acids 1,000 mg cap Take 2 g by mouth once daily. lisinopril (PRINIVIL) 20 mg tablet Take 1 tablet by mouth once daily. (Patient taking differently: Take 40 mg by mouth once daily.) amLODIPine (NORVASC) 5 mg tablet Take 1 tablet by mouth once daily. (Patient taking differently: Take 10 mg by mouth once daily.) Cholecalciferol, Vitamin D3, 25 mcg (1,000 unit) cap Vitamin D3 1,000 unit capsule Biotin 10,000 mcg cap Take 5,000 mcg by mouth once daily. hydroxychloroquine (PLAQUENIL) 200 mg tablet Take 1 tablet by mouth twice daily. Etanercept (ENBREL SURECLICK) 50 mg/mL (0.98 mL) pnij Inject 50 mg subcutaneously once each week. predniSONE (DELTASONE) 5 mg tablet As needed per rheum. No current facility-administered medications for this visit. ALLERGIES: ALLERGIES Allergen Reactions Adalimumab Other: See Comments Hydrochlorothiazide Unknown Leflunomide Other: See Comments PAST MEDICAL HISTORY Diagnosis Date Age-related osteoporosis with current pathological fracture 10/15/2009 Age-related osteoporosis with current pathological fracture 10/15/2009 L hip fracture 05/20/18 Ascending aortic aneurysm (HCC) 02/27/2014 01/14/15: [address] scan 04/21/17: [address] scan Carpal tunnel syndrome 07/29/2010 Chronic obstructive pulmonary disease (COPD) ([facility]) Diarrhea Essential hypertension, benign 11/14/2013 H. pylori infection Hyperlipidemia LDL goal <100 10/30/2016 Hypertension 11/14/13 Internal hemorrhoids without mention of complication Osteoporosis 03/09 Seropositive rheumatoid arthritis ([facility]) 02/10/2012 Sjogren's syndrome ([facility]) 2005 Snoring Supraspinatus tendonitis 01/06/2011 Syncope PAST SURGICAL HISTORY Procedure Laterality Date COLONOSCOPY FLX DX W/COLLJ SPEC WHEN PFRMD 01/09/07 repeat in COLONOSCOPY FLX DX W/COLLJ SPEC WHEN PFRMD 07/18/2017 10 year repeat DILATATION Ascending Aorta DILATION AND CURETTAGE DXAND/THER NONOBSTETRIC Dilation AND curettage ESOPHAGOGASTRODUODENOS COPY TRANSORAL DIAGNOSTIC EGD LIG/TRNSXJ FLP TUBE ABDL/VAG APPR UNI/BI Tubal ligation TONSILLECTOMY PRIMARY/SECONDARY Tonsillectomy FAMILY HISTORY Problem Relation Age of Onset Hypertension Mother other (Rheumatoid arthritis) Mother other (ASHD) Father [place] other (Grave's disease) Sister Diabetes Sister Colon Cancer Maternal Aunt 39 Social History Tobacco Use Smoking status: Every Day Packs/day: 1.00 Years: 50.00 Additional pack years: 0.00 Total pack years: 50.00 Types: Cigarettes Smokeless tobacco: Never Vaping Use Vaping Use: Never used Substance Use Topics Alcohol use: No Drug use: No Discussed tobacco cessation, including risks of continued use. Offered assistance to help quit if patient desires. Reviewed current medications, allergies, past medical history, surgical history, family history and social history today. REVIEW OF SYSTEMS No gi or gu issues. No falls. All other reviewed and negative other than HPI. HEALTH MAINTENANCE: Reviewed health maintenance issues today and recommended the following in detail. BP Controlled (<130/80) due on 06/12/2022 Advance Directive Discussion - her and kids. Depression Assessment -positive screen, related to her Mom's issues. No suicidal ideation. Initially declines meds or behavioral help, willing to consider meds after discussion.. Has been tired. Wants thyroid checked. Due for A1c. VITALS: BP 128/72 Pulse 70 Wt 60.3 kg (133 lb) SpO2 100% BMI 23.57 kg/m? Last 4 Encounter Wt Readings: Date: Wt: 03/31/2023 59.9 kg (132 lb) 08/14/2022 61.9 kg (136 lb 6.4 oz) 07/02/2022 61.7 kg (136 lb) 12/31/2021 62.1 kg (137 lb) PHYSICAL EXAMINATION: Gene (more content not included)... Normal [facility] CNCOon 04-18-2023 CNCO HNO ID: [id number] Author: Coordinator, Mammography Service: ? Author Type: Physician Type: Letter Filed: 04/19/2023 11:34 PM Note Text: April 19, 2023 PID: [id number] Jenni Baird [address] [place] [address] Dear Baird, We are pleased to inform you that the results of your recent breast imaging exam on 04/15/2023 are normal. Your mammogram demonstrates that you have dense breast tissue, which could hide abnormalities. Dense breast tissue, in and of itself, is a relatively common condition. Therefore, this information is not provided to cause undue concern; rather, it is to raise your awareness and promote discussion with your health care provider regarding the presence of dense breast tissue in addition to other risk factors. Early detection of cancer is very important. We also understand recommendations regarding breast cancer screening are controversial. Please discuss with your primary care provider which strategy is best for you and whether a mammogram is right for you. Your imaging studies and report will be kept on file at [facility] as part of your permanent medical record and are available for your continuing care. Thank you for allowing us to help in meeting your health care needs. Sincerely, Dr. Cortez Interpreting Radiologist [facility] (Normal over 40) Normal [facility] CNPNon 04-18-2023 CNPN Telephone (FAMPWS) JENNI BAIRD ([id number]) 1955 F Date Time Provider Department 04/18/23 JULES HATCH During your visit today, we recorded the following information about you: Jules Hatch MD 04/18/2023 2:25 PM Signed Let her know her mammogram was ok. Myla Lemus 04/18/2023 2:49 PM Signed Patient informed of normal mammo via VM. VM verified. Advised to call back with any questions or concerns. Myla Lemus Allergies As of Date: 04/18/2023 Noted Allergy Reaction ADALIMUMAB 05/08/2017 14 - Other: See Comments HYDROCHLOROTHIAZIDE 05/22/2019 16 - Unknown LEFLUNOMIDE 05/08/2017 14 - Other: See Comments Date Reviewed: 03/31/2023 Reviewed by: Eliana Quick LPN - Fully Assessed Reason for Visit: Results [95] Prescriptions as of 04/18/2023 - gabapentin (NEURONTIN) 100 mg capsule TAKE 1 TO 2 CAPSULES BY MOUTH EVERY NIGHT AT BEDTIME - metoprolol succinate ER (TOPROL XL) 25 mg 24 hr tablet Take 1 tablet by mouth once daily. - omega-3 fatty acids 1,000 mg cap Take 2 g by mouth once daily. - cevimeline (EVOXAC) 30 mg capsule Take 30 mg by mouth twice daily. - lisinopril (PRINIVIL) 20 mg tablet Take 1 tablet by mouth once daily. - amLODIPine (NORVASC) 5 mg tablet Take 1 tablet by mouth once daily. - predniSONE (DELTASONE) 5 mg tablet As needed per rheum. - Cholecalciferol, Vitamin D3, 25 mcg (1,000 unit) cap Vitamin D3 1,000 unit capsule - Biotin 10,000 mcg cap Take 5,000 mcg by mouth once daily. - hydroxychloroquine (PLAQUENIL) 200 mg tablet Take 1 tablet by mouth twice daily. - Etanercept (ENBREL SURECLICK) 50 mg/mL (0.98 mL) pnij Inject 50 mg subcutaneously once each week. - FOLIC ACID ORAL Take by mouth. Pt takes two tablets daily. Problem List As Of Date 04/18/2023 Noted Resolved SICCA SYNDROME [M35.00] 03/01/2006 Tobacco use disorder [F17.200] 10/26/2006 02/27/2014 Age-related osteoporosis with current pathologi*10/15/2009 Leukopenia [D72.819] 10/15/2009 Carpal tunnel syndrome [G56.00] 07/29/2010 01/08/2015 Supraspinatus tendonitis [M75.90] 01/06/2011 02/27/2016 Sjogren's syndrome [M35.00] 02/19/2011 Seropositive rheumatoid arthritis [M05.9] 02/10/2012 Essential hypertension, benign [I10] 11/14/2013 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] 11/14/2013 Ascending aortic aneurysm (HCC) [I71.21] 02/27/2014 Hyperlipidemia LDL goal <100 [E78.5] 10/30/2016 Encounter for screening for malignant neoplasm *06/15/2017 07/02/2022 GERD with esophagitis [K21.00] 06/15/2017 Age-related osteoporosis without current pathol*05/31/2017 05/29/2018 Acquired flat foot [M21.40] 05/31/2017 Hypertension [I10] 03/06/2018 03/31/2023 Nicotine dependence, unspecified, uncomplicated*05/08/20 17 Palpitations [R00.2] 05/11/2017 06/12/2021 Shortness of breath [R06.02] 03/06/2018 03/06/2018 Closed fracture of left hip (HCC) [S72.002A] 05/29/2018 03/31/2023 Hyperglycemia [R73.9] 06/12/2021 History of hip fracture [Z87.81] 03/31/2023 Encounter Status:Closed by MYLA LEMUS on 04/18/23 [facility] SCREENINGon 04-15-2023 [facility] SCREENING * * *Final Report* * * DATE OF EXAM: Apr 15 2023 10:04AM NATALIA 0581 - [facility] SCREENING / PROCEDURE REASON: Encounter for screening mammogram for breast cancer * * * * Physician Interpretation * * * * RESULT: #[id number] - [facility] SCREENING BILATERAL DIGITAL SCREENING MAMMOGRAM WITH CAD: 04/15/2023 HISTORY: Encounter For Screening Mammogram For Breast Cancer / Screening Mammogram-Patient reports NO symptoms. /priors available for comparison. RESULT: TECHNIQUE: The study was acquired using full field digital technology and interpreted from soft copy. Current study was also evaluated with a Computer Aided Detection (CAD). Comparison is made to exam dated: 01/06/2022 mammogram - [facility]. The breasts are heterogeneously dense, which may obscure small masses. No significant masses, calcifications, or other findings are seen in either breast. There has been no significant interval change. IMPRESSION: NEGATIVE There is no mammographic evidence of malignancy. A 1 year screening mammogram is recommended. Cinthya marcelo/goran:04/18/2023 14:11:32 Color Weigher(s): RT Brian(R)(M), [facility] letter sent: Normal over 40 Mammogram BI-RADS: 1 Negative Multiple national specialty organizations have released breast cancer screening guidelines for women at average risk for developing breast cancer - guidelines that are based on both evidence and opinion, yet differ on when to start and how often to screen for breast cancer. With representation from Breast Imaging, Internal Medicine, Women's Health, Family Medicine, and Medical/Surgical Oncology, the [facility] has carefully reviewed the data and reached the following consensus: 1) All women should engage in shared decision-making with their providers to decide when to start and how often to screen; 2) All women should have the opportunity to start screening mammography at age 40; 3) For women ages 45-55, we recommend annual screening mammograms; 4) For women ages 55 and over, we support both the transition from an annual to a biennial interval if this aligns more with patient's values and preferences, or continuation with annual screening; 5) All women should discuss with their providers when to stop screening mammograms. Welder Experimental: Goran Transcribe Date/Time: Apr 15 2023 9:48A Dictated by: CINTHYA CORTEZ MD This examination was interpreted and the report reviewed and electronically signed by: CINTHYA CORTEZ MD on Apr 18 2023 2:11PM EST [id number] Normal [facility] CNOVon 03-31-2023 CNOV Office Visit (FAMPWS ) JENNI BAIRD ([id number]) 1955 F Date Time Provider Department 03/31/23 9:00 AM JULES HATCH During your visit today, we recorded the following information about you: Pulse Blood pressure Weight Height 87/minute 126/80 59.9 kg 1.6 m Jules Hatch MD 03/31/2023 9:39 AM Signed Patient presents with: Medicare Wellness Exam HPI: Patient presents today for office visit for check up/medicare wellness. CARDIO:seeing [facility]. HYPERTENSION:no chest pain or breathing issues. No edema. No palpitations. Having a lot of stress at home. Dealing with Mother who has been ill. Feeling stressed with that. Not sleeping well. Having some sjogren's issues. Has been seeing rheum, Dr. Boswell. No issues swallowing. Still with dry eyes. Also has seen Dr. Grullon for her TMJ. Had bone density in 2021. We have been follow her blood sugars. MEDICATIONS: Current Outpatient Medications Medication Sig gabapentin (NEURONTIN) 100 mg capsule TAKE 1 TO 2 CAPSULES BY MOUTH EVERY NIGHT AT BEDTIME metoprolol succinate ER (TOPROL XL) 25 mg 24 hr tablet Take 1 tablet by mouth once daily. omega-3 fatty acids 1,000 mg cap Take 2 g by mouth once daily. cevimeline (EVOXAC) 30 mg capsule Take 30 mg by mouth twice daily. lisinopril (PRINIVIL) 20 mg tablet Take 1 tablet by mouth once daily. (Patient taking differently: Take 40 mg by mouth once daily.) amLODIPine (NORVASC) 5 mg tablet Take 1 tablet by mouth once daily. (Patient taking differently: Take 10 mg by mouth once daily.) predniSONE (DELTASONE) 5 mg tablet As needed per rheum. Cholecalciferol, Vitamin D3, 25 mcg (1,000 unit) cap Vitamin D3 1,000 unit capsule Biotin 10,000 mcg cap Take 5,000 mcg by mouth once daily. hydroxychloroquine (PLAQUENIL) 200 mg tablet Take 1 tablet by mouth twice daily. Etanercept (ENBREL SURECLICK) 50 mg/mL (0.98 mL) pnij Inject 50 mg subcutaneously once each week. FOLIC ACID ORAL Take by mouth. Pt takes two tablets daily. No current facility-administered medications for this visit. ALLERGIES: ALLERGIES Allergen Reactions Adalimumab Other: See Comments Hydrochlorothiazide Unknown Leflunomide Other: See Comments PAST MEDICAL HISTORY Diagnosis Date Age-related osteoporosis with current pathological fracture 10/15/2009 Age-related osteoporosis with current pathological fracture 10/15/2009 L hip fracture 05/20/18 Ascending aortic aneurysm (HCC) 02/27/2014 01/14/15: [address] scan 04/21/17: [address] scan Carpal tunnel syndrome 07/29/2010 Chronic obstructive pulmonary disease (COPD) ([facility]) Diarrhea Essential hypertension, benign 11/14/2013 H. pylori infection Hyperlipidemia LDL goal <100 10/30/2016 Hypertension 11/14/13 Internal hemorrhoids without mention of complication Osteoporosis 03/09 Seropositive rheumatoid arthritis ([facility]) 02/10/2012 Sjogren's syndrome ([facility]) 2005 Snoring Supraspinatus tendonitis 01/06/2011 Syncope PAST SURGICAL HISTORY Procedure Laterality Date COLONOSCOPY FLX DX W/COLLJ SPEC WHEN PFRMD 01/09/07 repeat in COLONOSCOPY FLX DX W/COLLJ SPEC WHEN PFRMD 07/18/2017 10 year repeat DILATATION Ascending Aorta DILATION AND CURETTAGE DXAND/THER NONOBSTETRIC Dilation AND curettage ESOPHAGOGASTRODUODENOS COPY TRANSORAL DIAGNOSTIC EGD LIG/TRNSXJ FLP TUBE ABDL/VAG APPR UNI/BI Tubal ligation TONSILLECTOMY PRIMARY/SECONDARY Tonsillectomy FAMILY HISTORY Problem Relation Age of Onset Hypertension Mother other (Rheumatoid arthritis) Mother other (ASHD) Father [place] other (Grave's disease) Sister Diabetes Sister Colon Cancer Maternal Aunt 39 Social History Tobacco Use Smoking status: Every Day Packs/day: 1.00 Years: 50.00 Additional pack years: 0.00 Total pack years: 50.00 Types: Cigarettes Smokeless tobacco: Never Vaping Use Vaping Use: Never used Substance Use Topics Alcohol use: No Drug use: No Discussed tobacco cessation, including risks of continued use. Offered assistance to help quit if patient desires. Reviewed current medications, allergies, past medical history, surgical history, family history and social history today. REVIEW OF SYSTEMS GI: No nausea, vomiting, or diarrhea : No history of dysuria, frequency or incontinence All other reviewed and negative other than HPI. HEALTH MAINTENANCE: Reviewed health maintenance issues today and recommended the following in detail. SHINGRIX VACCINE(1 of 2) Never done COVID-19 VACCINE(4 - Moderna risk series) due on 08/12/2021 BP CONTROLLED (<130/80) due on 06/12/2022 ADVANCE DIRECTIVE DISCUSSION - and children are her surrogates. DEPRESSION ASSESSMENT due on 08/01/2022 MAMMOGRAM due on 01/06/2023 Lung cancer screening. -will be getting a ct scan in the upcoming year with cardiology. VITALS: BP 126/80 Pulse 87 Ht 160 cm ( (more content not included)... Normal [facility] JENNI BAIRD ([id number]) 1955 F Date Time Provider Department 03/31/23 JULES HATCH [facility] During your visit today, we recorded the following information about you: Jules Hatch MD 03/31/2023 6:01 PM Signed Let her know sugars are stable Allergies As of Date: 03/31/2023 Noted Allergy Reaction ADALIMUMAB 05/08/2017 14 - Other: See Comments HYDROCHLOROTHIAZIDE 05/22/2019 16 - Unknown LEFLUNOMIDE 05/08/2017 14 - Other: See Comments Date Reviewed: 03/31/2023 Reviewed by: Eliana Quick LPN - Fully Assessed Reason for Visit: Results [95] Prescriptions as of 03/31/2023 - gabapentin (NEURONTIN) 100 mg capsule TAKE 1 TO 2 CAPSULES BY MOUTH EVERY NIGHT AT BEDTIME - metoprolol succinate ER (TOPROL XL) 25 mg 24 hr tablet Take 1 tablet by mouth once daily. - omega-3 fatty acids 1,000 mg cap Take 2 g by mouth once daily. - cevimeline (EVOXAC) 30 mg capsule Take 30 mg by mouth twice daily. - lisinopril (PRINIVIL) 20 mg tablet Take 1 tablet by mouth once daily. - amLODIPine (NORVASC) 5 mg tablet Take 1 tablet by mouth once daily. - predniSONE (DELTASONE) 5 mg tablet As needed per rheum. - Cholecalciferol, Vitamin D3, 25 mcg (1,000 unit) cap Vitamin D3 1,000 unit capsule - Biotin 10,000 mcg cap Take 5,000 mcg by mouth once daily. - hydroxychloroquine (PLAQUENIL) 200 mg tablet Take 1 tablet by mouth twice daily. - Etanercept (ENBREL SURECLICK) 50 mg/mL (0.98 mL) pnij Inject 50 mg subcutaneously once each week. - FOLIC ACID ORAL Take by mouth. Pt takes two tablets daily. 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] 11/14/2013 Ascending aortic aneurysm (HCC) [I71.21] 02/27/2014 Hyperlipidemia LDL goal <100 [E78.5] 10/30/2016 Encounter for screening for malignant neoplasm *06/15/2017 07/02/2022 GERD with esophagitis [K21.00] 06/15/2017 Age-related osteoporosis without current pathol*05/31/2017 05/29/2018 Acquired flat foot [M21.40] 05/31/2017 Hypertension [I10] 03/06/2018 03/31/2023 Nicotine dependence, unspecified, uncomplicated*05/08/20 17 Palpitations [R00.2] 05/11/2017 06/12/2021 Shortness of breath [R06.02] 03/06/2018 03/06/2018 Closed fracture of left hip (HCC) [S72.002A] 05/29/2018 03/31/2023 Hyperglycemia [R73.9] 06/12/2021 History of hip fracture [Z87.81] 03/31/2023 Encounter Status:Closed by JULES HATCH on 03/31/23 Normal [facility] HbA1c (Bld)on 03-31-2023 Average glucose Estimated from glycated hemoglobin (Bld) [Mass/Vol] 126 mg/dL Normal [facility] Comment on above: Order Comment: Louisa crowe Type: BLOOD SPECIMENOrdering Facility: [facility] Address: [address] [place] [address] Result Comment: eAG: (Estimated average glucose) is a calculated value from HgbA1c and is patient portal representative of the average blood glucose level in the last 2-3 month period. Performed By: #### 5 5454-3 ####[facility] LABCLIA [id number] [place] [address] [place] HbA1c (Bld) [Mass fraction] 6.0 % High 4.3-5.6 [facility] Comment on above: Order Comment: Louisa crowe Type: BLOOD SPECIMENOrdering Facility: [facility] Address: [address] [place] [address] Result Comment: Amer [place] Diabetes Association guidelines indicate that patients with HgbA1c in the range 5.7-6.4% are at increased risk for development of diabetes, and intervention by lifestyle modification may be beneficial. HgbA1c greater or equal to 6.5% is considered diagnostic of diabetes. Performed By: #### 5 5454-3 ####[facility] LABCLIA [id number] [place] [address] [place] DXA-AXIAL SKELETONon [facility] VESTA SCREENINGon 01-06-2022 [facility] XR Chest PA and Lateralon IMPRESSION: Stable chest. No acute radiographic abnormality. Welder Experimental: PSCB Transcribe Date/Time: Dec 10 2021 11:12A Dictated by : MI ROCHE MD This examination was interpreted and the report reviewed and electronically signed by: MI ROCHE MD on Dec 10 2021 4:04PM EST ZZ_DO_NOT_USE _DIVISION OF RADIOLOGY * * *Final Report* * * DATE OF EXAM: Dec 10 2021 11:04AM WOX [id number] - XR CHEST 2V FRONTAL/LAT / PROCEDURE REASON: multiple diagnoses * * * * Physician Interpretation * * * * EXAMINATION: CHEST RADIOGRAPH (2 VIEW FRONTAL & LATERAL) CLINICAL HISTORY: Chest discomfort Fatigue, unspecified type MQ: XC2_6 EXAM DATE/TIME: 12/10/2021 11:04 AM COMPARISON: Comparison is made to prior 2 view chest dated 08 January 2015. RESULT: Lines, tubes, and devices: None. Lungs and pleura: Mild chronic interstitial lung changes with lingular scarring is unchanged dating back to 2014. There is no focal consolidation or acute pleural process. There is no vascular redistribution to suggest pulmonary edema. Cardiomediastinal silhouette: Unchanged cardiomediastinal silhouette with mild unfolding of the descending thoracic aorta. Bones and soft tissues: The bony structures are intact ZZ_DO_NOT_USE _DIVISION OF RADIOLOGY Provider, [facility] - 12/10/2021 * * *Final Report* * * DATE OF EXAM: Dec 10 2021 11:04AM WOX [id number] - XR CHEST 2V FRONTAL/LAT / PROCEDURE REASON: multiple diagnoses * * * * Physician Interpretation * * * * EXAMINATION: CHEST RADIOGRAPH (2 VIEW FRONTAL & LATERAL) CLINICAL HISTORY: Chest discomfort Fatigue, unspecified type MQ: XC2_6 EXAM DATE/TIME: 12/10/2021 11:04 AM COMPARISON: Comparison is made to prior 2 view chest dated 08 January 2015. RESULT: Lines, tubes, and devices: None. Lungs and pleura: Mild chronic interstitial lung changes with lingular scarring is unchanged dating back to 2014. There is no focal consolidation or acute pleural process. There is no vascular redistribution to suggest pulmonary edema. Cardiomediastinal silhouette: Unchanged cardiomediastinal silhouette with mild unfolding of the descending thoracic aorta. Bones and soft tissues: The bony structures are intact IMPRESSION IMPRESSION: Stable chest. No acute radiographic abnormality. Welder Experimental: PSCMarianela Transcribe Date/Time: Dec 10 2021 11:12A Dictated by : MI ROCHE MD This examination was interpreted and the report reviewed and electronically signed by: MI ROCHE MD on Dec 10 2021 4:04PM EST [facility] Radiology Study observation (narrative) [facility] XR Chest PA and LateralOrder ed By: [facility]cf Provider on 12-10-2021 [facility] Depart Summaryon 05-22-2018 Depart Summary Normal [facility] ([place]) Discharge Note-Nursingon Discharge Note-Nursing Normal [facility] ([place]) [place] [facility] Patient S ummaryon 05-22-2018 [place] [facility] Patient Summary Normal [facility]) .Auto Diffon 05-21-2018 Ammonia mass conc (P) 0.70 10 3/mcL Normal 0.15-1.00 [facility] ([place]) Comment on above: Performed By: #### C BCLD, ANEU ####[place] [address]#### MG, CMP, GFR ####[address] [address] Basophils Auto #/vol (Bld) 0.00 10 3/mcL Normal 0.00-0.19 [facility] ([place]) Comment on above: Performed By: #### C BCLD, ANEU ####[place] [address]#### MG, CMP, GFR ####[place] [address] [place] [address] Basophils/100 WBC Auto (Bld) 0.3 % Normal 0.0-2.5 [facility]) Comment on above: Performed By: #### C BCLD, ANEU ####[place] [address]#### MG, CMP, GFR ####[address] [place], [place] [address] Eosinophils Auto #/vol (Bld) 0.00 10 3/mcL Normal 0.00-0.40 [facility] ([place]) Comment on above: Performed By: #### C BC, ADIFF, ANEU ####Liv [address] [place] [address]#### MG, CMP, GFR ####[address] [address] Eosinophils/100 WBC Auto (Bld) 0.6 % Normal 0.0-7.0 [facility] ([place]) Comment on above: Performed By: #### C BC, ADIFF, ANEU ####[place] Qmjxzymh[address] [address]#### MG, CMP, GFR ####[address] [address] Lymphocytes Auto #/vol (Bld) 2.00 10 3/mcL Normal 0.77-3.85 [facility] ([place]) Comment on above: Performed By: #### C BC, ADIFF, ANEU ####[place] [address] [address]#### MG, CMP, GFR ####[address] [address] Lymphocytes/100 WBC Auto (Bld) 32.7 % Normal 10.0-50.0 [facility] ([place]) Comment on above: Performed By: #### C FROYLAN, ADIFF, ANEU ####[address] [place] [address]#### MG, CMP, GFR ####[address] [address] Monocytes/100 WBC Auto (Bld) 10.5 % Normal 1.7-13.0 [facility] ([place]) Comment on above: Performed By: #### C BC, ADIFF, ANEU ####Liv [address] [place] [address]#### MG, CMP, GFR ####[address] [address] Neutrophils/100 WBC Auto (Bld) 55.9 % Normal 37.0-80.0 [facility] ([place]) Comment on above: Performed By: #### C LD GALEANO, ANEU ####[address] [place], [place] [address]#### MG, CMP, GFR ####[address] [address] .GFRon 05-21-2018 GFR 103 ml/min/1.73sqm Normal [facility] ([place]) Comment on above: Result Comment: GFR Population mean for , Non- Americans Ages 20-29 = 116 mL/min/1.73 sq.m. Ages 30-39 = 107 mL/min/1.73 sq.m. Ages 40-49 = 99 mL/min/1.73 sq.m. Ages 50-59 = 93 mL/min/1.73 sq.m. Ages 60-69 = 85 mL/min/1.73 sq.m. Ages 70+ = 75 mL/min/1.73 sq.m.Chronic Kidney Disease: Less than 60 mL/min/1.73 square metersEnd Stage Renal Disease: Less than 15 mL/min/1.73 square meters Performed By: #### C LD GALEANO, ANEU ####[address] [place], [place] [address]#### MG, CMP, GFR ####[place] [address] GFR Non- 85 ml/min/1.73sqm Normal [facility] ([place]) Comment on above: Result Comment: GFR Population mean for , Non- Americans Ages 20-29 = 116 mL/min/1.73 sq.m. Ages 30-39 = 107 mL/min/1.73 sq.m. Ages 40-49 = 99 mL/min/1.73 sq.m. Ages 50-59 = 93 mL/min/1.73 sq.m. Ages 60-69 = 85 mL/min/1.73 sq.m. Ages 70+ = 75 mL/min/1.73 sq.m.Chronic Kidney Disease: Less than 60 mL/min/1.73 square metersEnd Stage Renal Disease: Less than 15 mL/min/1.73 square meters Performed By: #### C BC, ADIFF, ANEU ####[address] [place] [address]#### MG, CMP, GFR ####[place] [address] .NEUABSon 05-21-2018 Neutrophil, Absolute 3.50 10 3/mcL Normal 2.85-6.16 [facility] ([place]) Comment on above: Performed By: #### C BC, ADIFF, ANEU ####[address] [place] [address]#### MG, CMP, GFR ####[place] [address] CBCon 05-21-2018 Erythrocyte distribution width Auto Ratio (RBC) 13.8 % Normal 11.5-14.5 [facility] ([place]) Comment on above: Performed By: #### Galindo GALEANO, ADIFF, ANEU ####[place] [address]#### MG, CMP, GFR ####[place] [address] Hematocrit Auto Volume Fraction (Bld) 30.4 % Low 37.0-47.0 [facility] ([place]) Comment on above: Performed By: #### Galindo GALEANO, ADIFF, ANEU ####[place] [address]#### MG, CMP, GFR ####[place] [address] Hemoglobin mass conc (Bld) 10.2 G/dL Low 12.0-16.0 [facility] ([place]) Comment on above: Performed By: #### Galindo BC, ADIFF, ANEU ####[address] [place] [address]#### MG, CMP, GFR ####[place] [address] MCH Auto Entitic mass (RBC) 31.2 pg Normal 27.0-31.2 [facility] ([place] Comment on above: Performed By: #### C BC, ADIFF, ANEU ####Liv [address] [place] [address]#### MG, CMP, GFR ####[address] [address] MCHC Auto mass conc (RBC) 33.5 G/dL Normal 33.0-37.0 [facility] ([place]) Comment on above: Performed By: #### C BC, ADIFF, ANEU ####Liv [address] [place] [address]#### MG, CMP, GFR ####[place] [address] MCV Auto Entitic volume (RBC) 93.1 fL Normal 80.0-94.0 [facility] ([place]) Comment on above: Performed By: #### C BC, ADIFF, ANEU ####[place] [address]#### MG, CMP, GFR ####[place] [address] Platelet mean volume Auto Entitic volume (Bld) 9.3 fL Normal 7.4-10.4 [facility] ([place]) Comment on above: Performed By: #### C BC, ADIFF, ANEU ####Liv [address]ff[address] [place] [address]#### MG, CMP, GFR ####[place] [address] Platelets Auto #/vol (Bld) 154 10 3/mcL Normal 130-400 [facility] ([place]) Comment on above: Performed By: #### C BC, ADIFF, ANEU ####Liv [address] [place] [address]#### MG, CMP, GFR ####[address] [address] RBC Auto #/vol (Bld) 3.27 10 6/mcL Low 4.20-5.40 [facility] ([place]) Comment on above: Performed By: #### C BC, ADIFF, ANEU ####Liv Lophi[address] [place] [address]#### MG, CMP, GFR ####[place] [address] WBC Auto #/vol (Bld) 6.20 10 3/mcL Normal 4.60-10.80 [facility] ([place]) Comment on above: Performed By: #### C BC, ADIFF, ANEU ####[place] [address]#### MG, CMP, GFR ####[place] [address] CMPon 05-21-2018 Albumin mass conc 2.8 G/dL Low 3.4-4.8 [facility] ([place]) Comment on above: Performed By: #### C BC, ADIFF, ANEU ####Liv Aiqdqlwb[address] [address]#### MG, CMP, GFR ####[place] [address] Albumin/Globulin mass ratio 1.0 {ratio} Low 1.1-2.5 [facility] ([place]) Comment on above: Performed By: #### C BC, ADIFF, ANEU ####Liv Qbubg[address] [address]#### MG, CMP, GFR ####[address] [address] ALP enzyme act/vol 43 U/L Normal 40-135 [facility] ([place]) Comment on above: Performed By: #### C BC, ADIFF, ANEU ####Liv [address]qvh[address]rtt[address] [place] [address]#### MG, CMP, GFR ####[place] [address] ALT enzyme act/vol 18 U/L Normal 10-35 [facility] ([place]) Comment on above: Performed By: #### C BC, ADIFF, ANEU ####Liv Hgmwlegu[address] [place] [address]#### MG, CMP, GFR ####Liv [address] [place] [address] AST enzyme act/vol 17 U/L Normal 10-40 [facility] ([place]) Comment on above: Performed By: #### C BC, ADIFF, ANEU ####Liv [address]xjhmcsl[address] [place] [address]#### MG, CMP, GFR ####[place] [address] Bili Total 0.4 mg/dL Normal 0.2-1.0 [facility] ([place]) Comment on above: Performed By: #### C BC, ADIFF, ANEU ####[facility] [place] [address]#### MG, CMP, GFR ####[place] [address] Calcium mass conc 8.4 mg/dL Normal 8.4-10.2 [facility] ([place]) Comment on above: Performed By: #### C BC, ADIFF, ANEU ####[facility] [place] [address]#### MG, CMP, GFR ####[address] [address] Chloride molar conc 105 mmol/L Normal 98-107 [facility] ([place]) Comment on above: Performed By: #### C BC, ADIFF, ANEU ####[facility] [place] [address]#### MG, CMP, GFR ####[place] [address] [place] [address] CO2 molar conc 33 mmol/L High 23-31 [facility] ([place]) Comment on above: Performed By: #### C BC, ADIFF, ANEU ####Liv [address] [place] [address]#### MG, CMP, GFR ####[address] [address] Creatinine mass conc 0.69 mg/dL Normal 0.55-1.02 [facility] ([place]) Comment on above: Performed By: #### C BC, ADIFF, ANEU ####[address]iv [address] [place], [place] [address]#### MG, CMP, GFR ####[address] [address] Electrolyte Balance 2.0 mEq/L Normal [facility] ([place]) Comment on above: Performed By: #### C BC, ADIFF, ANEU ####[address] [place], [place] [address]#### MG, CMP, GFR ####[address] [address] Globulin Calculated mass conc (S) 2.9 G/dL Normal [facility] ([place]) Comment on above: Performed By: #### C BC, ADIFF, ANEU ####[address] [address]#### MG, CMP, GFR ####[address] [address] Glucose mass conc 113 mg/dL Normal 80-115 [facility] ([place]) Comment on above: Performed By: #### C BC, ADIFF, ANEU ####[place] [id number]#### MG, CMP, GFR ####[address] [address] Potassium molar conc 4.1 mmol/L Normal 3.5-5.1 [facility] ([place]) Comment on above: Performed By: #### C BC, ADIFF, ANEU ####[address] [place], [place] [address]#### MG, CMP, GFR ####[address] [address] Protein mass conc 5.7 G/dL Low 6.4-8.2 [facility] ([place]) Comment on above: Performed By: #### C BC, ADIFF, ANEU ####Liv [address] [place], [place] [address]#### MG, CMP, GFR ####[address] [address] Sodium molar conc 140 mmol/L Normal 136-145 [facility] ([place]) Comment on above: Performed By: #### C BC, ADIFF, ANEU ####[facility] [place], [place] [address]#### MG, CMP, GFR ####[facility] [place] [address] Urea nitrogen mass conc 7 mg/dL Normal 7-18 [facility]) Comment on above: Performed By: #### C BC, ADIFF, ANEU ####Liv [address] [place], [place] [address]#### MG, CMP, GFR ####[facility] [place] [address] Urea nitrogen/Creatinine mass ratio 10 ratio Normal - [facility]) Comment on above: Performed By: #### C BC, ADIFF, ANEU ####[place] [address] [place], [place] [address]#### MG, CMP, GFR ####[facility] [place] [address] MGon 05-21-2018 Magnesium mass conc 1.7 mg/dL Low 1.8-2.4 [facility] ([place]) Comment on above: Performed By: #### C BC, ADIFF, ANEU ####[facility] [place], [place] [address]#### MG, CMP, GFR ####[address] [address] AOH MAIN OR Intraop Recordon 05-20-2018 AO MAIN OR Intraop Record Normal [facility] ([place]) Anesthesiology Consultationo n 05-20-2018 Anesthesiology Consultation Normal [facility]) Anesthesiology Consultation Normal [facility]) [place] Consultation Noteon 05-20-2018 [place] Consultation Note Normal [facility]) [place] History and Physica benjamin 05-20-2018 [place] History and Physical Normal [facility]) [place] Operative Reporton 05-20-2018 [place] Operative Report Normal [facility]) XR FLUORO 1-2 HRS TECH TIMEo n 05-20-2018 XR FLUORO 1-2 HRS TECH TIME ORIGINAL Images acquired, not reported on this accession number. Normal [facility] ([place]) XR HIP MINIMUM 2 VIEWS LEFTo n 05-20-2018 XR HIP MINIMUM 2 VIEWS LEFT ORIGINALXR HIP MINIMUM 2 VIEWS LEFT CLINICAL STATEMENT: Status Post Arthroplasty. COMPARISON: 05/20/2018 FINDINGS: ORIF of LEFT intertrochanteric fracture is demonstrated. There are no hardware complications. Long intramedullary emir and compression screws have been placed. Soft tissue gas and skin yocasta are in keeping with recent intervention. IMPRESSION: ORIF LEFT femur. Interpreted By: Sarah Abebereliminary Report By: Sarah Abebe MDElectronically Signed By: Sarah Abebe MD Dictated Date: 05/20/2018 2:35:45 PM Prelim Date: 05/20/2018 2:35:45 PM Sign Date: 05/20/2018 2:37:19 PM Normal [facility] ([place]) Office Visiton 05-20-2017 Documentation of current medications (procedure) Done Invalid Interpretation Code [facility] Work Phone: Fall risk assessment No Invalid Interpretation Code [facility] Work Phone: Protein mass conc Done Invalid Interpretation Code [facility] Work Phone: Clinical Lists Update: Prelo global marketing intern 05-11-2017 Left ventricular Ejection fraction 55 % Invalid Interpretation Code [facility] Work Phone: Lab Report: CREATININE FINGE RSTICKon 04-21-2017 EGFR WB > 60.0000 mL/min Invalid Interpretation Code >60 [facility] Work Phone: GE use only - for [employer] import when terms are not otherwise specified > 60.0000 mL/min Invalid Interpretation Code >60 [facility] Work Phone: Replaced Document: Basic Met abolic Profile (BMP)on 04-21-2017 Anion gap 6 mmol/L Invalid Interpretation Code 12-13 [facility] Work Phone: Anion gap 4 molar conc 6 Invalid Interpretation Code 12-13 [facility] Work Phone: BUN/Creatinine Ratio 18.0 RATIO Invalid Interpretation Code 05-20 [facility] Work Phone: Calcium 8.9 mg/dL Invalid Interpretation Code 8.5-10.1 [facility] Work Phone: Chloride 108 mmol/L High 98-107 [facility] Work Phone: CO2 28.0 mmol/L Invalid Interpretation Code 21.0-32.0 [facility] Work Phone: CO2 ppres (BldV) 28.0 mmol/L Invalid Interpretation Code 21.0-32.0 [facility] Work Phone: Creatinine 0.66 mg/dL Invalid Interpretation Code 0.55-1.02 [facility] Work Phone: eGFR (non-black) 95 mL/min/{1.73_m2} Invalid Interpretation Code >60 [facility] Work Phone: eGFR (non-black) 115 mL/min/{1.73_m2} Invalid Interpretation Code >60 [facility] Work Phone: EST GFR - AA 115 mL/min Invalid Interpretation Code >60 [facility] Work Phone: Glucose 105 mg/dL Invalid Interpretation Code 70-110 [facility] Work Phone: Glucose mass conc 105 mg/dL Invalid Interpretation Code 70-110 [facility] Work Phone: Potassium molar conc 4.4 mmol/L Invalid Interpretation Code 3.5-5.1 [facility] Work Phone: Sodium 142 mmol/L Invalid Interpretation Code 136-145 [facility] Work Phone: Urea nitrogen 12 mg/dL Invalid Interpretation Code 7-18 [facility] Work Phone: Lab Report: PAP I-G HPV Hi R iskon 03-22-2017 GE use only - for [employer] import when terms are not otherwise specified Negative Invalid Interpretation Code Negative [facility] Office Visit: est annualon 0 03-16-2017 Documentation of current medications (procedure) Done Invalid Interpretation Code [facility] Fall risk assessment No Invalid Interpretation Code [facility] Tobacco smoking status NHIS Never Invalid Interpretation Code [facility] Tobacco smoking status NHIS Current every day smoker Invalid Interpretation Code [facility] Work Phone: Tobacco use [facility] Current every day smoker Invalid Interpretation Code [facility] Office Visiton 04-29-2016 Protein mass conc yes Invalid Interpretation Code [facility] Work Phone: Smoking cessation education (procedure) yes Invalid Interpretation Code [facility] Chart Maintenanceon 02-03-20 16 Alanine aminotransferase (ALT) 27 U/L Invalid Interpretation Code [facility] Alkaline phosphatase (ALP) 48 U/L Low [facility] ALP enzyme act/vol (Bld) 48 U/L Low [facility] Work Phone: Anion gap 7 mmol/L Invalid Interpretation Code [facility] Aspartate aminotransferase (AST) 19 U/L Invalid Interpretation Code [facility] BUN/Creatinine Ratio 15.3 mg/mg Invalid Interpretation Code [facility] Calcium 9.0 mg/dL Invalid Interpretation Code [facility] Chloride 106 mmol/L Invalid Interpretation Code [facility] CO2 28 mmol/L Invalid Interpretation Code [facility] Creatinine 0.72 mg/dL Invalid Interpretation Code [facility] Glucose 90 mg/dL Invalid Interpretation Code [facility] Hematocrit (HCT) 40.6 % Invalid Interpretation Code [facility] Hemoglobin (HGB) 13.3 g/dL Invalid Interpretation Code [facility] Platelets 180 10*3/mm3 Invalid Interpretation Code [facility] Potassium 3.7 mmol/L Invalid Interpretation Code [facility] Sodium 141 mmol/L Invalid Interpretation Code [facility] Urea nitrogen 11 mg/dL Invalid Interpretation Code [facility] Office Visit: est annualon 0 11-30-2015 Breast Mammogram screening Normal Bilateral Invalid Interpretation Code [facility] Office Visiton 04-15-2015 cardiac risk group C Invalid Interpretation Code [facility] General cardiovascular disease 10Y risk [#] Winona.D'Agostin o 9 % Invalid Interpretation Code [facility] Office Visiton 01-16-2015 Erythrocytes (RBC) 4.40 10*6/uL Invalid Interpretation Code [facility] MCH 30.7 pg Invalid Interpretation Code [facility] MCHC 33.4 g/dL Invalid Interpretation Code [facility] MCV 91.8 fL Invalid Interpretation Code [facility] WBC (Leukocytes) 5.1 10*3/uL Invalid Interpretation Code [facility] Clinical Lists Update: Prelo global marketing intern 02-18-2014 Cholesterol 123 mg/dL Invalid Interpretation Code [facility] HDL Cholesterol 52 mg/dL Invalid Interpretation Code [facility] LDL Cholesterol 58 mg/dL Invalid Interpretation Code [facility] Triglyceride 63 mg/dL Invalid Interpretation Code [facility] Office Visit: est annualon 0 08-01-2012 General categories [Interpretation] of Cervical or vaginal smear or scraping by Cyto stain Normal Invalid Interpretation Code [facility] Vital Signs Date Time Vital Sign Value Performing Clinician Facility 02-08-2024 10:37-0400 Body height 157.5 cm Jules Hatch MD Work Phone: [facility] 02-08-2024 10:37-0400 Body mass index (BMI) [Ratio] 24.22 kg/m2 Jules Hatch MD Work Phone: [facility] 02-08-2024 10:37-0400 Body weight 60.06 kg Jules Hatch MD Work Phone: [facility] 02-08-2024 10:37-0400 Diastolic blood pressure 70 mm[Hg] Jules Hatch MD Work Phone: [facility] 02-08-2024 10:37-0400 Heart rate 85 /min Jules Hatch MD Work Phone: [facility] 02-08-2024 10:37-0400 SaO2% (BldA) [Mass fraction] 97 % Jules Hatch MD Work Phone: [facility] 02-08-2024 10:37-0400 Systolic blood pressure 118 mm[Hg] Jules Hatch MD Work Phone: [facility] 11-11-2023 10:36-0400 Body height 160 cm Jules Hatch MD Work Phone: [facility] 11-11-2023 10:36-0400 Body weight 59.42 kg Jules Hatch MD Work Phone: [facility] 11-11-2023 10:36-0400 Diastolic blood pressure 70 mm[Hg] Jules Hatch MD Work Phone: [facility] 11-11-2023 10:36-0400 Heart rate 83 /min Jules Hatch MD Work Phone: [facility] 11-11-2023 10:36-0400 SaO2% (BldA) [Mass fraction] 96 % Jules Hatch MD Work Phone: [facility] 11-11-2023 10:36-0400 Systolic blood pressure 116 mm[Hg] Jules Hatch MD Work Phone: [facility] 10-10-2023 09:51-0400 Body weight 60.33 kg Jules Hatch MD Work Phone: [facility] 10-10-2023 09:51-0400 Diastolic blood pressure 72 mm[Hg] Jules Hatch MD Work Phone: [facility] 10-10-2023 09:51-0400 Heart rate 70 /min Jules Hatch MD Work Phone: [facility] 10-10-2023 09:51-0400 SaO2% (BldA) [Mass fraction] 100 % Jules Hatch MD Work Phone: [facility] 10-10-2023 09:51-0400 Systolic blood pressure 128 mm[Hg] Jules Hatch MD Work Phone: [facility] 03-31-2023 09:34-0400 Diastolic blood pressure 80 mm[Hg] Jules Hatch MD Work Phone: [facility] 03-31-2023 09:34-0400 Systolic blood pressure 126 mm[Hg] Jules Hatch MD Work Phone: [facility] 03-31-2023 09:05-0400 Body height 160 cm Jules Hatch MD Work Phone: [facility] 03-31-2023 09:05-0400 Body weight 59.88 kg Jules Hatch MD Work Phone: [facility] 03-31-2023 09:05-0400 Heart rate 87 /min Jules Hatch MD Work Phone: [facility] 03-31-2023 09:05-0400 SaO2% (BldA) [Mass fraction] 99 % Jules Hatch MD Work Phone: [facility] 08-14-2022 10:38-0500 Body temperature 98.4 [degF] Ankur Pendlebury BRACELET FORM COVERER.STOPPER MAKER HELPER Work Phone: [facility] 08-14-2022 10:38-0500 Body weight 61.87 kg Ankur Pendlebury BRACELET FORM COVERER.STOPPER MAKER HELPER Work Phone: [facility] 08-14-2022 10:38-0500 Diastolic blood pressure 78 mm[Hg] Ankur Pendlebury BRACELET FORM COVERER.STOPPER MAKER HELPER Work Phone: [facility] 08-14-2022 10:38-0500 Heart rate 97 /min Ankur Pendlebury BRACELET FORM COVERER.STOPPER MAKER HELPER Work Phone: [facility] 08-14-2022 10:38-0500 Respiratory rate 16 /min Ankur Pendlebury BRACELET FORM COVERER.STOPPER MAKER HELPER Work Phone: [facility] 08-14-2022 10:38-0500 SaO2% (BldA) [Mass fraction] 97 % Ankur Pendlebury BRACELET FORM COVERER.STOPPER MAKER HELPER Work Phone: [facility] 08-14-2022 10:38-0500 Systolic blood pressure 130 mm[Hg] Ankur Pendlebury BRACELET FORM COVERER.STOPPER MAKER HELPER Work Phone: [facility] 07-02-2022 10:36-0500 Body weight 61.69 kg Jules Hatch MD Work Phone: [facility] 07-02-2022 10:36-0500 Diastolic blood pressure 72 mm[Hg] Jules Hatch MD Work Phone: [facility] 07-02-2022 10:36-0500 Heart rate 76 /min Jules Hatch MD Work Phone: [facility] 07-02-2022 10:36-0500 SaO2% (BldA) [Mass fraction] 98 % Jules Hatch MD Work Phone: [facility] 07-02-2022 10:36-0500 Systolic blood pressure 122 mm[Hg] Jules Hatch MD Work Phone: [facility] 12-31-2021 11:19-0400 Body weight 62.14 kg Jules Hatch MD Work Phone: [facility] 12-31-2021 11:19-0400 Diastolic blood pressure 82 mm[Hg] Jules Hatch MD Work Phone: [facility] 12-31-2021 11:19-0400 Heart rate 88 /min Jules Hatch MD Work Phone: [facility] 12-31-2021 11:19-0400 Systolic blood pressure 132 mm[Hg] Jules Hatch MD Work Phone: [facility] 12-10-2021 10:21-0400 Diastolic blood pressure 82 mm[Hg] Jules Hatch MD Work Phone: [facility] 12-10-2021 10:21-0400 Systolic blood pressure 140 mm[Hg] Jules Hatch MD Work Phone: [facility] 12-10-2021 09:51-0400 Body weight 62.6 kg Jules Hatch MD Work Phone: [facility] 12-10-2021 09:51-0400 Heart rate 80 /min Jules Hatch MD Work Phone: [facility] 05-20-2017 13:17-0400 BMI (Body Mass Index) 22.48 kg/m2 [facility] Work Phone: 05-20-2017 13:17-0400 BP Diastolic 78 mm[Hg] [facility] Work Phone: 05-20-2017 13:17-0400 BP Systolic 128 mm[Hg] [facility] Work Phone: 05-20-2017 13:17-0400 Height 162.56 cm [facility] Work Phone: 05-20-2017 13:17-0400 Pulse (Heart Rate) 74 /min [facility] Work Phone: 05-20-2017 13:17-0400 Respiratory Rate 16 /min [facility] Work Phone: 05-20-2017 13:17-0400 Weight 59.42 kg [facility] Work Phone: 03-16-2017 11:02-0400 BMI (Body Mass Index) 23.48 kg/m2 Shara Mg NP [facility] 03-16-2017 11:02-0400 Body Temperature 97 [degF] Shara Mg NP [facility] 03-16-2017 11:02-0400 BP Diastolic 83 mm[Hg] Shara Mg NP [facility] 03-16-2017 11:02-0400 BP Systolic 143 mm[Hg] Shara Mg NP [facility] 03-16-2017 11:02-0400 Height 162.56 cm Sh[facility] 03-16-2017 11:02-0400 Pulse (Heart Rate) 82 /min Shara Mg NP [facility] 03-16-2017 11:02-0400 Respiratory Rate 16 /min Shara Mg NP [facility] 03-16-2017 11:02-0400 Weight 62.05 kg Shara Mg NP [facility] 04-29-2016 08:42-0400 BSA (Body Surface Area) 1.68 m2 Shara Mg NP [facility] Encounters Encounter Date Encounter Type Care Provider Facility Start: 02-08-2024 End: 02-08-2024 Patient encounter procedure Jules Hatch MD Work Phone: [facility] [place] Comment on above: Essential hypertensi on, benign (Primary Dx); Aneurysm of ascending aorta without rupture (HCC); Hyperlipidemia LDL goal <100; Sjogren's syndrome, with unspecified organ involvement (HCC); Seropositive rheumatoid arthritis (HCC); Sicca syndrome (HCC); Age-related osteoporosis with current pathological fracture, sequela; Hyperglycemia; 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 Start: 11-11-2023 End: 11-11-2023 Patient encounter procedure Jules Hatch MD Work Phone: [facility] [place] Comment on above: Essential hypertensi on, benign (Primary Dx); Sjogren's syndrome, with unspecified organ involvement (HCC); Seasonal allergic rhinitis due to other allergic trigger; Anxiety Start: 10-13-2023 Telephone encounter Jules Hatch MD Work Phone: Pulmonology [facility] Comment on above: Results Start: 10-12-2023 End: 10-13-2023 ambulatory JULES Orquidea HATCH Facility:[facility] Start: 10-10-2023 End: 10-10-2023 [facility] Facility:[facility] Start: 10-10-2023 End: 10-10-2023 Patient encounter procedure Jules Hatch MD Work Phone: [facility] [place] Comment on above: Essential hypertensi on, benign (Primary Dx); Aneurysm of ascending aorta without rupture (HCC); Hyperlipidemia LDL goal <100; Hyperglycemia; Gastroesophageal reflux disease with esophagitis, unspecified whether hemorrhage; Seropositive rheumatoid arthritis (HCC); Sjogren's syndrome, with unspecified organ involvement (HCC); Sicca syndrome (HCC); Post herpetic neuralgia; Adjustment disorder with anxious mood; Fatigue, unspecified type; Mixed hyperlipidemia Start: 04-18-2023 Documentation procedure Mammog ana marai Coordinator [facility] Start: 04-18-2023 Letter encounter Mammography Coordinator [facility] Department Start: 04-18-2023 Telephone encounter Jules Hatch MD Work Phone: [facility] [place] Comment on above: Results Start: 04-15-2023 End: 04-15-2023 ambulatory JULES Orquidea DIMITRIS Facility:[facility] Start: 04-15-2023 End: 04-15-2023 Subsequent hospital visit by physician Screen Mammo [facility] Comment on above: Encounter for screen ing mammogram for breast cancer [Z12.31] Start: 03-31-2023 Telephone encounter Jules Hatch MD Work Phone: [facility] [place] Comment on above: Results Start: 03-31-2023 End: 04-01-2023 ambulatory JULES HATCH Facility:[facility] Start: 03-31-2023 End: 03-31-2023 Patient encounter procedure Jules Hatch MD Work Phone: [facility] [place] Comment on above: Essential hypertensi on, benign (Primary Dx); Hyperlipidemia LDL goal <100; Aneurysm of ascending aorta without rupture (HCC); Gastroesophageal reflux disease with esophagitis, unspecified whether hemorrhage; Sjogren's syndrome, with unspecified organ involvement (HCC); Sicca syndrome (HCC); Seropositive rheumatoid arthritis (HCC); Age-related osteoporosis with current pathological fracture, sequela; History of hip fracture; Cigarette nicotine dependence without complication; Hyperglycemia Start: 03-01-2023 ambulatory [facility] Comment on above: Population Health Na vigation Outreach (HCC Gaps) Start: 08-17-2022 Telephone encounter Ankur martinez APRN.STOPPER MAKER HELPER Work Phone: [facility] Comment on above: Results Start: 08-16-2022 Telephone encounter Jules Hatch MD Work Phone: [facility] [place] Comment on above: Shingles Start: 08-14-2022 Telephone encounter Jules Hatch MD Work Phone: [facility] [place] Comment on above: Rash Start: 08-14-2022 End: 08-14-2022 Office outpatient visit 25 minutes Ankur Tipton APRN.STOPPER MAKER HELPER Work Phone: [facility] Comment on above: Rash (Primary Dx) Start: 07-19-2022 Telephone encounter Jules Hatch MD Work Phone: [facility] [place] Comment on above: Results Start: 07-13-2022 End: 07-13-2022 Subsequent hospital visit by physician Bone Density [facility] Work Phone: Radiology Comment on above: Age-related osteopor osis with current pathological fracture, sequela [M80.00XS] Start: 07-02-2022 End: 07-02-2022 Patient encounter procedure Jules Hatch MD Work Phone: [facility] Comment on above: Primary hypertension (Primary Dx); Hyperlipidemia LDL goal <100; Gastroesophageal reflux disease with esophagitis, unspecified whether hemorrhage; Hyperglycemia; Leukopenia, unspecified type; Seropositive rheumatoid arthritis (HCC); Age-related osteoporosis with current pathological fracture, sequela; Fatigue, unspecified type; Disorder of bone, unspecified ; Asymptomatic postmenopausal status Start: 01-20-2022 Refill Jules Hatch MD Work Phone: [facility] Comment on above: Refill Request Start: 01-06-2022 Documentation procedure Mammog ana maria Coordinator [facility] Start: 01-06-2022 Letter encounter Mammography Coordinator [facility] Start: 01-06-2022 End: 01-06-2022 Subsequent hospital visit by physician Screen Mammo [facility] Comment on above: Screening breast exa mination [Z12.39] Start: 12-31-2021 End: 12-31-2021 Patient encounter procedure Jules Hatch MD Work Phone: [facility] Comment on above: Essential hypertensi on, benign (Primary Dx); Screening breast examination; Primary hypertension; Chronic insomnia Start: 12-11-2021 Telephone encounter Jules Hatch MD Work Phone: [facility] [place] Comment on above: Results Start: 12-10-2021 End: 12-10-2021 Subsequent hospital visit by physician Xr [facility] Work Phone: Radiology Comment on above: Chest discomfort [R0 7.89] Start: 12-10-2021 End: 12-10-2021 Patient encounter procedure Jules Hatch MD Work Phone: [facility] Comment on above: Chest discomfort (Pr imary Dx); Fatigue, unspecified type; Essential hypertension, benign; Ascending aortic aneurysm (HCC); Hyperlipidemia LDL goal <100; Hyperglycemia; Sjogren's syndrome, with unspecified organ involvement (HCC); Bronchitis Start: 05-20-2018 End: 05-22-2018 Evaluation and management of inpatient MARCY BARROSO Facility:B Procedures Date Procedure Procedure Detail Performing Clinician Start: 02-08-2024 Adult depression screening assessment [facility] Work Phone: Start: 10-12-2023 Lipid 1996 panel - Serum or Plasma Jules Hatch MD Work Phone: Start: 04-15-2023 Screening mammography bi 2-view breast inc cad Bulk Order Provider Start: 07-13-2022 Dxa bone density study 1/> sites axial skel Jules Hatch MD Work Phone: Start: 07-12-2022 Lipid 1996 panel - Serum or Plasma Jules Hatch MD Work Phone: Start: 01-06-2022 End: 01-06-2022 Screening mammography bi 2-view breast inc cad Jules Hatch MD Work Phone: Start: 12-10-2021 Radiologic exam chest 2 views Jules Hatch MD Work Phone: Start: 12-10-2021 Adult depression screening assessment Jules Hatch MD Work Phone: Start: 04-16-2019 Mammography Jules Hatch MD Work Phone: Start: 07-18-2017 Colonoscopy Jules Hatch MD Work Phone: Start: 03-16-2017 Gynecologic examination Routine gynecological examination [facility] Start: 04-29-2016 End: 05-02-2017 *NADIA Mijares MD Start: 04-29-2016 End: 04-29-2016 NICK Mijares MD Start: 04-29-2016 End: 05-03-2017 Ct angiography chest w/contrast/noncontrast Juan Mijares MD Start: 04-29-2016 End: 04-29-2016 Follow Up Appt 1 year Juan Mijares MD Start: 04-29-2016 End: 05-02-2017 *BMP Juan Mijares MD Start: 04-29-2016 End: 04-29-2016 NICK Mijares MD Start: 04-29-2016 End: 04-29-2016 Follow Up Appt 1 year Juan Mijares MD Start: 04-17-2015 End: 04-17-2015 NICK Mijares MD Start: 04-17-2015 End: 04-18-2015 Documentation of current medications Juan Mijares MD Start: 04-17-2015 End: 04-17-2015 Follow Up Appt 1 year Juan Mijares MD Start: 04-17-2015 End: 04-18-2015 Smoking cessation education Juan Mijares MD Start: 04-17-2015 End: 04-17-2015 NICK iMjares MD Start: 04-17-2015 End: 04-18-2015 Documentation of current medications Juan Mijares MD Start: 04-17-2015 End: 04-17-2015 Follow Up Appt 1 year Juan Mijares MD Start: 04-17-2015 End: 04-18-2015 Smoking cessation education Juan Mijares MD Start: 04-10-2014 End: 04-12-2017 NICK Mijares MD Start: 04-10-2014 End: 04-12-2017 Follow Up Appt 1 year Juan Mijares MD Start: 04-10-2014 End: 04-12-2017 SPANISH SPEAKING BABYSITTER Juan Mijares MD Start: 04-10-2014 End: 04-12-2017 Follow Up Appt 1 year Juan Mijares MD Plan of Treatment Date Care Activity Detail Author Start: 10-11-2028 Lipid panel Lipid Screening [facility] Start: 07-18-2027 Colonoscopy COLONOSCOPY [facility] Start: 07-18-2027 COLORECTAL CANCER SCREENING COLORECTAL CANCER SCREENING [facility] Start: 07-18-2027 Screening for malign ant neoplasm of colon [facility] Start: 07-12-2027 Lipid 1996 panel - S bruce or Plasma Lipid Screening [facility] Start: 07-12-2027 Lipid panel Lipid Screening [facility] Start: 07-12-2027 LIPID SCREEN LIPID SCREEN [facility] Start: 02-28-2027 Urine microalbumin profile [facility] Start: 10-11-2026 Diabetes Screening Diabetes Screenin g [facility] Start: 06-08-2026 LIPID SCREEN LIPID SCREEN [facility] Start: 03-31-2026 DIABETES SCREEN DIABETES SCREEN [facility] Start: 03-31-2026 Diabetes Screening Diabetes Screenin g [facility] Start: 07-12-2025 DIABETES SCREEN DIABETES SCREEN [facility] Start: 02-07-2025 Annual PCP Team Sld Teacher carmelo Disease Visit Annual PCP Team Chronic Disease Visit [facility] Start: 02-07-2025 Anxiety Screening Anxiety Screening [facility] Start: 02-07-2025 BP Controlled (<130/80) BP Controlle d (<130/80) [facility] Start: 02-07-2025 Depression Screening Depression Scre ening [facility] Start: 12-04-2024 DIABETES SCREEN DIABETES SCREEN [facility] Start: 11-10-2024 Annual PCP Team Sld Teacher carmelo Disease Visit Annual PCP Team Chronic Disease Visit [facility] Start: 11-10-2024 BP Controlled (<130/80) BP Controlle d (<130/80) [facility] Start: 10-09-2024 Annual PCP Team Sld Teacher carmelo Disease Visit Annual PCP Team Chronic Disease Visit [facility] Start: 10-09-2024 BP Controlled (<130/80) BP Controlle d (<130/80) [facility] Start: 10-09-2024 RSV Vaccine (1 - 1-d ose 60+ series) RSV Vaccine (1 - 1-dose 60+ series) [facility] Comment on above: Postponed from 01/07 (Declined at this time) Start: 10-09-2024 RSV Vaccine (1 - Ris k 60-74 years 1-dose series) RSV Vaccine (1 - Risk 60-74 years 1-dose series) [facility] Comment on above: Postponed from 01/07 (Declined at this time) Start: 08-13-2024 End: 08-13-2024 Patient encounter procedure 08/13/2024 10:40 AM EST Office Visit [facility] [place] [address] [place] [address] Jules Hatch MD [address] [place] [id number] 6 month follow up [facility] [place] Comment on above: 6 month follow up Start: 08-10-2024 End: 11-09-2024 Hemoglobin A1c in Blood HEMOGLOBIN A1C Lab Routine Hyperglycemia Expected: 08/10/2024, Expires: 11/09/2024 [facility] Work Phone: Comment on above: Expected: 08/10/2024 , Expires: 11/09/2024 Start: 08-10-2024 End: 11-09-2024 Lipid 1996 panel - Serum or Plasma LIPID PANEL BASIC Lab Routine Hyperlipidemia LDL goal <100 Expected: 08/10/2024, Expires: 11/09/2024 [facility] Comment on above: Expected: 08/10/2024 , Expires: 11/09/2024 Start: 07-13-2024 Screening for osteoporosis Bone Density Screening [facility] Start: 04-15-2024 Mammography Mammogram Screening [facility] Start: 04-15-2024 Screening for malign ant neoplasm of breast Mammogram Screening [facility] Start: 04-01-2024 Influenza vaccination [facility] Start: 03-31-2024 ANNUAL PCP TEAM SEISMIC PROSPECTING OBSERVER HELPER CARMELO DISEASE VISIT ANNUAL PCP TEAM CHRONIC DISEASE VISIT [facility] Start: 03-31-2024 COVID-19 VACCINE (4 - Moderna risk series) COVID-19 VACCINE (4 - Moderna risk series) [facility] Comment on above: Postponed from 08/12 (Declined at this time) Start: 03-31-2024 Influenza vaccination LUNG CANCER SC REENING [facility] Comment on above: Postponed from 01/07 (Declined at this time) Start: 03-31-2024 Screening for malign ant neoplasm of lung Lung Cancer Screening [facility] Comment on above: Postponed from 01/07 (Declined at this time) Start: 03-31-2024 SHINGRIX VACCINE (1 of 2) LOPEZ GRIX VACCINE (1 of 2) [facility] Comment on above: Postponed from 01/07 (Declined at this time) Start: 01-29-2024 Influenza vaccination Influenza Vacc ine (#1) [facility] Comment on above: Postponed from 04/01 (Declined at this time) Start: 10-10-2023 End: 01-09-2024 Hemoglobin A1c in Blood HGB A1C Lab Routine Hyperglycemia Expected: 10/10/2023, Expires: 01/09/2024 [facility] Work Phone: Comment on above: Expected: 10/10/2023 , Expires: 01/09/2024 Start: 10-10-2023 End: 01-09-2024 Lipid 1996 panel - Serum or Plasma LIPID PANEL BASIC Lab Routine Mixed hyperlipidemia Expected: 10/10/2023, Expires: 01/09/2024 [facility] Work Phone: Comment on above: Expected: 10/10/2023 , Expires: 01/09/2024 Start: 10-10-2023 End: 01-09-2024 Thyrotropin [Units/volume] in Serum or Plasma TSH BLD Lab Routine Fatigue, unspecified type Expected: 10/10/2023, Expires: 01/09/2024 [facility] Work Phone: Comment on above: Expected: 10/10/2023 , Expires: 01/09/2024 Start: 08-01-2023 Behavioral Health Screening Behavioral Health Screening [facility] Start: 07-02-2023 ANNUAL PCP TEAM SEISMIC PROSPECTING OBSERVER HELPER CARMELO DISEASE VISIT ANNUAL PCP TEAM CHRONIC DISEASE VISIT [facility] Start: 07-02-2023 BP CONTROLLED (<130/80) BP CONTROLLE D (<130/80) [facility] Start: 04-01-2023 Covid-19 Vaccine () Covid-19 Vaccine () [facility] Start: 04-01-2023 Influenza vaccination [facility] Start: 03-31-2023 End: 05-31-2023 Hemoglobin A1c in Blood [facility] Work Phone: Comment on above: Expected: 03/31/2023 , Expires: 05/31/2023 Start: 01-28-2023 Influenza vaccination INFLUENZA (#1) [facility] [facility] Comment on above: Postponed from 04/01 (Declined at this time) Start: 01-06-2023 Mammography MAMMOGRAM [facility] Start: 12-31-2022 ANNUAL PCP TEAM SEISMIC PROSPECTING OBSERVER HELPER CARMELO DISEASE VISIT ANNUAL PCP TEAM CHRONIC DISEASE VISIT [facility] Start: 12-10-2022 Adult depression screening assessment DEPRESSION SCREENING [facility] Start: 12-10-2022 ANNUAL PCP TEAM SEISMIC PROSPECTING OBSERVER HELPER CARMELO DISEASE VISIT ANNUAL PCP TEAM CHRONIC DISEASE VISIT [facility] Start: 08-14-2022 End: 10-14-2022 Herpes simplex virus+Varicella zoster virus DNA [Presence] in Unspecified specimen by FRANTZ with probe detection HSV 1,2/VZV AMP MOLECULAR DETECT Lab Routine Rash Expected: 08/14/2022, Expires: 10/14/2022 [facility] Work Phone: Comment on above: Expected: 08/14/2022 , Expires: 10/14/2022 Start: 08-01-2022 ADVANCE DIRECTIVE DISCUSSION ADVANCE DIRECTIVE DISCUSSION [facility] Start: 08-01-2022 DEPRESSION ASSESSMENT DEPRESSION ASS ESSMENT [facility] Start: 07-02-2022 End: 09-01-2022 25-hydroxyvitamin D3 [Mass/volume] in Serum or Plasma VITAMIN D 25 HYDROXY Lab Routine Age-related osteoporosis with current pathological fracture, sequela Disorder of bone, unspecified Expected: 07/02/2022, Expires: 09/01/2022 [facility] Work Phone: Comment on above: Expected: 07/02/2022 , Expires: 09/01/2022 Start: 07-02-2022 End: 09-01-2022 CBC W Auto Differential panel - Blood CBC + DIFF Lab Routine Primary hypertension Expected: 07/02/2022, Expires: 09/01/2022 [facility] Work Phone: Comment on above: Expected: 07/02/2022 , Expires: 09/01/2022 Start: 07-02-2022 End: 09-01-2022 Comprehensive metabolic 2000 panel - Serum or Plasma COMP METABOLIC PANEL Lab Routine Primary hypertension Expected: 07/02/2022, Expires: 09/01/2022 [facility] Work Phone: Comment on above: Expected: 07/02/2022 , Expires: 09/01/2022 Start: 07-02-2022 End: 09-01-2022 Hemoglobin A1c in Blood HGB A1C Lab Routine Hyperglycemia Expected: 07/02/2022, Expires: 09/01/2022 [facility] Work Phone: Comment on above: Expected: 07/02/2022 , Expires: 09/01/2022 Start: 07-02-2022 End: 09-01-2022 Lipid 1996 panel - Serum or Plasma LIPID PANEL BASIC Lab Routine Primary hypertension Expected: 07/02/2022, Expires: 09/01/2022 [facility] Work Phone: Comment on above: Expected: 07/02/2022 , Expires: 09/01/2022 Start: 07-02-2022 End: 09-01-2022 Thyrotropin [Units/volume] in Serum or Plasma TSH BLD Lab Routine Fatigue, unspecified type Expected: 07/02/2022, Expires: 09/01/2022 [facility] Work Phone: Comment on above: Expected: 07/02/2022 , Expires: 09/01/2022 Start: 06-12-2022 BP CONTROLLED (<130/80) BP CONTROLLE D (<130/80) [facility] Start: 04-01-2022 Influenza vaccination INFLUENZ A (Season Ended) [facility] Start: 12-10-2021 End: 02-09-2022 T4/FTI/T4U [facility] Work Phone: Comment on above: Expected: 12/10/2021 , Expires: 02/09/2022 Start: 12-10-2021 End: 02-09-2022 Thyrotropin [Units/volume] in Serum or Plasma [facility] Work Phone: Comment on above: Expected: 12/10/2021 , Expires: 02/09/2022 Start: 09-17-2021 COVID-19 VACCINE (4 - Booster for Moderna series) COVID-19 VACCINE (4 - Booster for Moderna series) [facility] Start: 08-12-2021 COVID-19 VACCINE (4 - Booster for Moderna series) COVID-19 VACCINE (4 - Booster for Moderna series) [facility] Start: 08-01-2021 ADVANCE DIRECTIVE DISCUSSION ADVANCE DIRECTIVE DISCUSSION [facility] Start: 04-16-2020 Mammography MAMMOGRAM [facility] Start: 05-18-2018 End: 05-18-2018 Appointment Appointment [facility] Work Phone: Start: 05-20-2017 End: 05-23-2017 SPANISH SPEAKING BABYSITTER SPANISH SPEAKING BABYSITTER [facility] Work Phone: Start: 05-20-2017 End: 05-23-2017 Follow Up Appt 1 year Follow Up Appt 1 year [facility] Work Phone: Start: 05-19-2017 End: 05-19-2017 Appointment Appointment [facility] Work Phone: Start: 05-05-2017 End: 05-05-2017 Appointment Appointment [facility] Start: 03-16-2017 End: 03-16-2017 Appointment Appointment [facility] Start: 03-03-2017 FECAL OCCULT BLOOD FECAL OCCULT BLOO D [facility] Start: 03-03-2017 Screening for malign ant neoplasm of colon Fecal Occult Blood [facility] Start: 04-29-2016 End: 04-21-2017 *BMP *BMP [facility] Work Phone: Start: 04-29-2016 End: 04-29-2016 SPANISH SPEAKING BABYSITTER SPANISH SPEAKING BABYSITTER [facility] Work Phone: Start: 04-29-2016 End: 04-12-2017 Ct angiography chest w/contrast/noncontrast CTA Chest, with contrast material(s) [facility] Work Phone: Start: 04-29-2016 End: 04-29-2016 Follow Up Appt 1 year Follow Up Appt 1 year [facility] Work Phone: Start: 04-29-2016 End: 04-21-2017 *BMP *BMP [facility] Start: 04-29-2016 End: 04-29-2016 SPANISH SPEAKING BABYSITTER SPANISH SPEAKING BABYSITTER [facility] Start: 04-29-2016 End: 04-12-2017 Ct angiography, chest CTA Chest, with contrast material(s) [facility] Start: 04-29-2016 End: 04-29-2016 Follow Up Appt 1 year Follow Up Appt 1 year [facility] Start: 04-17-2015 End: 04-17-2015 [facility] Work Phone: Start: 04-17-2015 End: 04-17-2015 Follow Up Appt 1 year Follow Up Appt 1 year [facility] Work Phone: Start: 04-17-2015 End: 04-17-2015 SPANISH SPEAKING BABYSITTER SPANISH SPEAKING BABYSITTER [facility] Start: 04-17-2015 End: 04-17-2015 Follow Up Appt 1 year Follow Up Appt 1 year [facility] Start: 04-10-2014 End: 04-12-2017 [facility] Work Phone: Start: 04-10-2014 End: 04-10-2014 Follow Up Appt 1 year Follow Up Appt 1 year [facility] Work Phone: Start: 04-10-2014 End: 04-12-2017 SPANISH SPEAKING BABYSITTER SPANISH SPEAKING BABYSITTER [facility] Start: 04-10-2014 End: 04-10-2014 Follow Up Appt 1 year Follow Up Appt 1 year [facility] Start: 2013 RSV Vaccine (1 - 1-d ose 60+ series) RSV Vaccine (1 - 1-dose 60+ series) [facility] Start: 2003 Screening for malign ant neoplasm of lung Lung Cancer Screening [facility] Start: 2003 SHINGRIX VACCINE (1 of 2) LOPEZ GRIX VACCINE (1 of 2) [facility] Start: 1998 COLOGUARD (FIT-DNA) COLOGUARD (FIT-D NA) [facility] Start: [address] COLONOGRAPHY [facility] Start: 1998 Screening for malign ant neoplasm of colon [facility] Start: 1998 SIGMOIDOSCOPY SIGMOIDOSCOPY [facility] Start: 01-08-1972 SHINGRIX VACCINE (1 of 2) LOPEZ GRIX VACCINE (1 of 2) [facility] End: 03-09-2025 BD DXA TRABECULAR BONE SCORE (TBS) BD DXA TRABECULAR BONE SCORE (TBS) Radiology Routine Asymptomatic postmenopausal status 1 Occurrences starting 02/08/2024 until 03/09/2025 [facility] Comment on above: 1 Occurrences starti ng 02/08/2024 until 03/09/2025 End: 03-09-2025 DXA Skeletal system.axial Views for bone density DXA-AXIAL SKELETON Radiology Routine Asymptomatic postmenopausal status 1 Occurrences starting 02/08/2024 until 03/09/2025 [facility] Comment on above: 1 Occurrences starti ng 02/08/2024 until 03/09/2025 End: 08-01-2023 DXA-AXIAL SKELETON DXA-AXIAL SKELETON Radiology Routine Age-related osteoporosis with current pathological fracture, sequela Disorder of bone, unspecified Asymptomatic postmenopausal status 1 Occurrences starting 07/02/2022 until 08/01/2023 [facility] Work Phone: Comment on above: 1 Occurrences starti ng 07/02/2022 until 08/01/2023 End: 12-10-2022 ECG COMPLETE ECG COMPLETE ECG Routine Chest discomfort Fatigue, unspecified type 1 Occurrences starting 12/10/2021 until 12/10/2022 [facility] Work Phone: Comment on above: 1 Occurrences starti ng 12/10/2021 until 12/10/2022 End: 12-10-2022 Echocardiography ECHO Cardiology Routine Chest discomfort Ascending aortic aneurysm (HCC) 1 Occurrences starting 12/10/2021 until 12/10/2022 [facility] Work Phone: Comment on above: 1 Occurrences starti ng 12/10/2021 until 12/10/2022 End: 03-09-2025 MG Breast Screening [facility] SCREENING Radiology Routine Encounter for screening mammogram for malignant neoplasm of breast 1 Occurrences starting 02/08/2024 until 03/09/2025 [facility] Comment on above: 1 Occurrences starti ng 02/08/2024 until 03/09/2025 Radiologic exam ches t 2 views XR CHEST 2V FRONTAL/LAT Radiology Routine Chest discomfort Fatigue, unspecified type 12/10/2021 11:04 AM EDT [facility] Work Phone: End: 01-30-2023 Screening mammography bi 2-view breast inc cad [facility] SCREENING Radiology Routine Screening breast examination 1 Occurrences starting 12/31/2021 until 01/30/2023 [facility] Work Phone: Comment on above: 1 Occurrences starti ng 12/31/2021 until 01/30/2023 [facility] Immunization Date Immunization Notes Care Provider [facility] 05-29-2018 influenza virus vaccine, unspecified formulation Jules Hatch MD Work Phone: [facility] 02-28-2017 tetanus toxoid, redu laury diphtheria toxoid, and acellular pertussis vaccine, adsorbed Jules Hatch MD Work Phone: [facility] 05-01-2010 influenza, seasonal, injectable Jules Hatch MD Work Phone: [facility] 10-26-2006 tetanus toxoid, redu laury diphtheria toxoid, and acellular pertussis vaccine, adsorbed Jules Hatch MD Work Phone: [facility] Work Phone: Payers Date Payer Category Payer Medicare [id number] 2015 Medicare MEDICARE MEDICAR E A AND B [id number] 2015-Present [phone] [place] [address] Medicare [id number] 2015 Medicare MEDICARE MEDICAR E A AND B [id number] 2015-Present [phone] [address] [address] [place] [address] Medicare [id number] 2015 Medicare [id number] 2014 Private Health Insurance [employer] C IGNA PPO [id number] 2014-Present [phone] [address] [place] [address] PPO [id number] 2014 Private Health Insurance [employer] C IGNA PPO [id number] 2014-Present [phone] [address] [place] [address] PPO [id number] 2014 Private Health Insurance [id number] 2004 Unknown [facility] GENERIC [id number] 2004-Present [phone] [address] [address] [place] [address] [id number] 1955 Unknown [id number] Social History Date Type Detail Facility Start: 02-18-2021 End: 06-12-2021 Tobacco smoking status NHIS Smokes tobacco daily [facility] Work Phone: History of tobacco use Cigarette Smoker [facility] Work Phone: Start: 07-06-2020 End: 02-18-2021 Cigarettes smoked current (pack per day) - Reported 0.5 [facility] Work Phone: Start: 02-18-2021 End: 06-12-2021 Tobacco use and exposure Smokeless tobacco non-user [facility] Work Phone: Start: 12-10-2021 End: 02-08-2024 Alcohol intake Current non-drinker of alcohol (finding) [facility] Start: 1955 Sex Assigned At Not on file [facility] Start: 11-30-2021 End: 07-02-2022 Exposure to SARS-CoV-2 (event) Not sure [facility] Start: 07-06-2020 End: 08-14-2022 Tobacco use panel [facility] Work Phone: Adult Depression Screening Assessment 0 [facility] Work Phone: Clinical Notes 03-06-2018 to 02-08-2024 Patient InstructionsJules Hatch MD - 02/08/2024 10:37 AM EDTLJules jacobs MD - 11/11/2023 10:36 AM EDTTelephone Encounter - Mi Sanders LPN - 10/13/2023 11:13 AM EDTPatient Instructions Note Date & Type Note Facility 02-08-2024 Instructions Jules Hatch MD - 02/08/2024 11:02 AM EDT BONE MINERAL DENSITY PATIENT INSTRUCTIONS ======== Bone mineral density testing measures the amount of calcium in certain parts of your bones. This information determines how strong your bones are. The test is used to detect osteoporosis, a disease in which the bone's mineral content and density are low, increasing a person's risk of fractures. The lumbar spine (lower back) and the hip are the skeletal sites usually examined. For the test, remember that: 1. You cannot take this test if you are . 2. Eat a normal diet on the day of the test. 3. Take your medications as you normally would. 4. DO NOT take calcium supplements (such as Tums) for 24 hours before the test. 5. On the day of the test, leave valuables (jewelry or credit cards) at home. 6. The test should be performed prior to oral, rectal or IV contrast studies, or at least 7 days after any of these studies. For the test, you may be asked to wear a hospital gown. You will lie on your back, on a padded table, in a comfortable position. Generally, you can resume your usual activities immediately. documented in this encounter [facility] 02-08-2024 History of Present illness Narrative Patient presents with: Follow Up HPI: Patient presents today for office visit for follow up. Continues on Sertraline 50 mg daily. Mentions wanting to stop taking it. Would like to wean off med. Discusses alternative options in which she declines. Does not wish to take anything. She does not feel it's doing anything. Still with anxiety and depression. Mentions her mother being in a retirement which causes some stress. Started on Trazodone 50 mg qhs for trouble sleeping. Not helping. Still not sleeping. She did try increasing dose to 75 mg which did not make a difference either. Only took for about a week. No longer taking trazodone. Her mother is nearing on hospice. I suggested we wait until things settle down. RHEUM: still seeing rheum. Dry mouth is maybe a little better. HYPERTENSION:bp well controlled Still seeing cardiology No chest pain or shortness of breath. MEDICATIONS: Current Outpatient Medications Medication Sig lisinopril (ZESTRIL) 40 mg tablet Take 40 mg by mouth once daily. amLODIPine (NORVASC) 10 mg tablet Take 10 mg by mouth once daily. traZODone (DESYREL) 50 mg tablet Take 1 tablet by mouth daily at bedtime. fluticasone (FLONASE) 50 mcg/actuation nasal spray Use 2 Sprays in each nostril once daily. Rinse mouth after use. pilocarpine (SALAGEN) 5 mg tablet Take 5 mg by mouth three times a day. gabapentin (NEURONTIN) 100 mg capsule Take 1 capsule by mouth daily at bedtime. prn sertraline (ZOLOFT) 50 mg tablet Take 1 tablet by mouth once daily. Take 1/2 tab once a day orally for one week then 1 tab once a day metoprolol succinate ER (TOPROL XL) 25 mg 24 hr tablet Take 1 tablet by mouth once daily. omega-3 fatty acids 1,000 mg cap Take 2 g by mouth once daily. predniSONE (DELTASONE) 5 mg tablet As needed per rheum. Cholecalciferol, Vitamin D3, 25 mcg (1,000 unit) cap Vitamin D3 1,000 unit capsule Biotin 10,000 mcg cap Take 5,000 mcg by mouth once daily. hydroxychloroquine (PLAQUENIL) 200 mg tablet Take 1 tablet by mouth twice daily. Etanercept (ENBREL SURECLICK) 50 mg/mL (0.98 mL) pnij Inject 50 mg subcutaneously once each week. No current facility-administered medications for this visit. ALLERGIES: ALLERGIES Allergen Reactions Adalimumab Other: See Comments Hydrochlorothiazide Unknown Leflunomide Other: See Comments PAST MEDICAL HISTORY Diagnosis Date Age-related osteoporosis with current pathological fracture 10/15/2009 Age-related osteoporosis with current pathological fracture 10/15/2009 L hip fracture 05/20/18 Ascending aortic aneurysm (HCC) 02/27/2014 01/14/15: [address] scan 04/21/17: [address] scan Carpal tunnel syndrome 07/29/2010 Chronic obstructive pulmonary disease (COPD) ([facility]) Diarrhea Essential hypertension, benign 11/14/2013 H. pylori infection Hyperlipidemia LDL goal <100 10/30/2016 Hypertension 11/14/13 Internal hemorrhoids without mention of complication Osteoporosis 03/09 Seropositive rheumatoid arthritis (HCC) 02/10/2012 Sjogren's syndrome ([facility]) 2004 Snoring Supraspinatus tendonitis 01/06/2011 Syncope PAST SURGICAL HISTORY Procedure Laterality Date COLONOSCOPY FLX DX W/COLLJ SPEC WHEN PFRMD 01/09/07 repeat in COLONOSCOPY FLX DX W/COLLJ SPEC WHEN PFRMD 07/18/2017 10 year repeat DILATATION Ascending Aorta DILATION & CURETTAGE DX&/THER NONOBSTETRIC Dilation & curettage ESOPHAGOGASTRODUODENOSCOPY TRANSORAL DIAGNOSTIC EGD LIG/TRNSXJ FLP TUBE ABDL/VAG APPR UNI/BI Tubal ligation TONSILLECTOMY PRIMARY/SECONDARY <AGE 12 Tonsillectomy FAMILY HISTORY Problem Relation Age of Onset Hypertension Mother other (Rheumatoid arthritis) Mother other (ASHD) Father [place] other (Grave's disease) Sister Diabetes Sister Colon Cancer Maternal Aunt 39 Social History Tobacco Use Smoking status: Every Day Packs/day: 1.00 Years: 50.00 Additional pack years: 0.00 Total pack years: 50.00 Types: Cigarettes Smokeless tobacco: Never Vaping Use Vaping Use: Never used Substance Use Topics Alcohol use: No Drug use: No Reviewed current medications, allergies, past medical history, surgical history, family history and social history today. REVIEW OF SYSTEMS Did have skin cancers recently diagnosed. Encouraged derm follow up. All other reviewed and negative other than HPI. HEALTH MAINTENANCE: Reviewed health maintenance issues today and recommended the following in detail. Cervical Cancer Screening motion designer told her she can stop. Behavioral Health Screening-Behavioral Health Screening PHQ-2 Score: 0 (Lower risk for depression) KYLE-2 Score: 0 (Lower risk for anxiety) Recommendation: no further intervention at this time Mammogram Screening due on 04/15/2024 VITALS: BP 118/70 Pulse 85 Ht 157.5 cm (5' 2 ) Wt 60.1 kg (132 lb 6.4 oz) SpO2 97% BMI 24.22 kg/m Last 4 Encounter Wt Readings: Date: Wt: 02/08/2024 60.1 kg (132 lb 6.4 oz) 11/11/2023 59.4 kg (131 lb) 10/10/2023 60.3 kg (133 lb) 03/31/2023 59.9 kg (132 lb) PHYSICAL EXAMINATION: General appearance: Well appearing, alert, in no acute distress, well-hydrated, well nourished. Skin: Skin color, texture, turgor normal, no suspicious rashes or lesions Head: Normocephalic, no masses, lesions, tenderness or abnormalities Lungs: Lungs clear to auscultation. No wheezing, rhonchi, rales Heart: RRR without murmur, gallop, or rubs. No ectopy Abdomen: Normal abdominal exam, Abdomen soft, non-tender. Bowel sounds normal. No masses, organomegaly Extremities: No deformities, edema, skin discoloration, clubbing or cyanosis. Good capillary refill. ASSESSMENT/PLAN: 1. Essential hypertension, benign - ICD9: 401.1, ICD10: I10 (primary diagnosis) - Controlled - Continue current medications 2. Aneurysm of ascending aorta without rupture (HCC) - ICD9: 441.2, ICD10: I71.21 - following with cardiology 3. Hyperlipidemia LDL goal <100 - ICD9: 272.4, ICD10: E78.5 - Controlled - Counseled on healthy diet and regular exercise - LIPID PANEL BASIC 4. Sjogren's syndrome, with unspecified organ involvement (HCC) - ICD9: 710.2, ICD10: M35.00 - per rheum. 5. Seropositive rheumatoid arthritis (HCC) - ICD9: 714.0, ICD10: M05.9 - per rheum. 6. Sicca syndrome (HCC) - ICD9: 710.2, ICD10: M35.00 - per rheum. 7. Age-related osteoporosis with current pathological fracture, sequela - ICD9: 905.5, 733.01, ICD10: M80.00XS -recommended bone density. 8. Hyperglycemia - ICD9: 790.29, ICD10: R73.9 - HEMOGLOBIN A1C 9. 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 Malignant melanoma of left upper extremity including shoulder (HCC) - ICD9: 172.6, ICD10: C43.62 - follow with derm. 11. Encounter for screening mammogram for malignant neoplasm of breast - ICD9: V76.12, ICD10: Z12.31 - Follow up for annual exam in one year. - [facility] SCREENING Jules Hatch MD documented in this encounter [facility] 11-11-2023 Note HNO ID: [id number] Author: JULES HATCH MD Service: ? Author Type: Physician Type: Progress Notes Filed: 11/11/2023 11:13 Note Text: Patient presents with: Follow Up HPI: Patient presents today for office visit for 4 week follow up. Started on Sertraline 50 mg. Started taking 1/2 tablet (25mg) daily for one week and then increased to full tablet. Tolerating well. Denies any side effects. She feels tired She is not sleeping. Attributes. Some of her issues to that. She is also having a lot of allergy issues. Rheum asked us to prescribe something with steroids. No fever or cough. See previous ov: Depression Assessment -positive screen, related to her Mom's issues. No suicidal ideation. Initially declines meds or behavioral help, willing to consider meds after discussion.. Latest Ref Rng 10/12/2023 Cholesterol, Total <200 mg/dL 175 Triglyceride <150 mg/dL 54 HDL Cholesterol >39 mg/dL 74 Non HDL Cholesterol <130 mg/dL 101 Fasting Time hrs 15 VLDL Cholesterol <30 mg/dL 11 TC:HDL Ratio <5.10 2.36 LDL Cholesterol <100 mg/dL 90 LDL:HDL Ratio <2.54 1.22 Hemoglobin A1C 4.3 - 5.6 % 5.8 (H) Estimated Average Glucose mg/dL 120 TSH 0.270 - 4.200 mIU/L 0.628 MEDICATIONS: Current Outpatient Medications Medication Sig pilocarpine (SALAGEN) 5 mg tablet Take 5 mg by mouth three times a day. gabapentin (NEURONTIN) 100 mg capsule Take 1 capsule by mouth daily at bedtime. prn sertraline (ZOLOFT) 50 mg tablet Take 1 tablet by mouth once daily. Take 1/2 tab once a day orally for one week then 1 tab once a day metoprolol succinate ER (TOPROL XL) 25 mg 24 hr tablet Take 1 tablet by mouth once daily. omega-3 fatty acids 1,000 mg cap Take 2 g by mouth once daily. lisinopril (PRINIVIL) 20 mg tablet Take 1 tablet by mouth once daily. (Patient taking differently: Take 40 mg by mouth once daily.) amLODIPine (NORVASC) 5 mg tablet Take 1 tablet by mouth once daily. (Patient taking differently: Take 10 mg by mouth once daily.) predniSONE (DELTASONE) 5 mg tablet As needed per rheum. Cholecalciferol, Vitamin D3, 25 mcg (1,000 unit) cap Vitamin D3 1,000 unit capsule Biotin 10,000 mcg cap Take 5,000 mcg by mouth once daily. hydroxychloroquine (PLAQUENIL) 200 mg tablet Take 1 tablet by mouth twice daily. Etanercept (ENBREL SURECLICK) 50 mg/mL (0.98 mL) pnij Inject 50 mg subcutaneously once each week. No current facility-administered medications for this visit. ALLERGIES: ALLERGIES Allergen Reactions Adalimumab Other: See Comments Hydrochlorothiazide Unknown Leflunomide Other: See Comments PAST MEDICAL HISTORY Diagnosis Date Age-related osteoporosis with current pathological fracture 10/15/2009 Age-related osteoporosis with current pathological fracture 10/15/2009 L hip fracture 05/20/18 Ascending aortic aneurysm (HCC) 02/27/2014 01/14/15: [address] scan 04/21/17: [address] scan Carpal tunnel syndrome 07/29/2010 Chronic obstructive pulmonary disease (COPD) (HCC) Diarrhea Essential hypertension, benign 11/14/2013 H. pylori infection Hyperlipidemia LDL goal <100 10/30/2016 Hypertension 11/14/13 Internal hemorrhoids without mention of complication Osteoporosis 03/09 Seropositive rheumatoid arthritis (HCC) 02/10/2012 Sjogren's syndrome ([facility]) 2004 Snoring Supraspinatus tendonitis 01/06/2011 Syncope PAST SURGICAL HISTORY Procedure Laterality Date COLONOSCOPY FLX DX W/COLLJ SPEC WHEN PFRMD 01/09/07 repeat in COLONOSCOPY FLX DX W/COLLJ SPEC WHEN PFRMD 07/18/2017 10 year repeat DILATATION Ascending Aorta DILATION AND CURETTAGE DXAND/THER NONOBSTETRIC Dilation AND curettage ESOPHAGOGASTRODUODENOSCOPY TRANSORAL DIAGNOSTIC EGD LIG/TRNSXJ FLP TUBE ABDL/VAG APPR UNI/BI Tubal ligation TONSILLECTOMY PRIMARY/SECONDARY Tonsillectomy FAMILY HISTORY Problem Relation Age of Onset Hypertension Mother other (Rheumatoid arthritis) Mother other (ASHD) Father [place] other (Grave's disease) Sister Diabetes Sister Colon Cancer Maternal Aunt 39 Social History Tobacco Use Smoking status: Every Day Packs/day: 1.00 Years: 50.00 Additional pack years: 0.00 Total pack years: 50.00 Types: Cigarettes Smokeless tobacco: Never Vaping Use Vaping Use: Never used Substance Use Topics Alcohol use: No Drug use: No Reviewed current medications, allergies, past medical history, surgical history, family history and social history today. REVIEW OF SYSTEMS All other reviewed and negative other than HPI. HEALTH MAINTENANCE: Reviewed health maintenance issues today and recommended the following in detail. Behavioral Health Screening Never done VITALS: BP 116/70 Pulse 83 Ht 160 cm (5' 2.99 ) Wt 59.4 kg (131 lb) SpO2 96% BMI 23.21 kg/m? Last 4 Encounter Wt Readings: Date: Wt: 10/10/2023 60.3 kg (133 lb) 03/31/2023 59.9 kg (132 lb) 08/14/2022 61.9 kg (136 lb 6.4 oz) 07/02/2022 61.7 kg (136 lb) PHYSICAL EXAMINAT (more content not included)... [facility] 11-11-2023 History of Present illness Narrative Patient presents with: Follow Up HPI: Patient presents today for office visit for 4 week follow up. Started on Sertraline 50 mg. Started taking 1/2 tablet (25mg) daily for one week and then increased to full tablet. Tolerating well. Denies any side effects. She feels tired She is not sleeping. Attributes. Some of her issues to that. She is also having a lot of allergy issues. Rheum asked us to prescribe something with steroids. No fever or cough. See previous ov: Depression Assessment -positive screen, related to her Mom's issues. No suicidal ideation. Initially declines meds or behavioral help, willing to consider meds after discussion.. Latest Ref Rng 10/12/2023 Cholesterol, Total <200 mg/dL 175 Triglyceride <150 mg/dL 54 HDL Cholesterol >39 mg/dL 74 Non HDL Cholesterol <130 mg/dL 101 Fasting Time hrs 15 VLDL Cholesterol <30 mg/dL 11 TC:HDL Ratio <5.10 2.36 LDL Cholesterol <100 mg/dL 90 LDL:HDL Ratio <2.54 1.22 Hemoglobin A1C 4.3 - 5.6 % 5.8 (H) Estimated Average Glucose mg/dL 120 TSH 0.270 - 4.200 mIU/L 0.628 MEDICATIONS: Current Outpatient Medications Medication Sig pilocarpine (SALAGEN) 5 mg tablet Take 5 mg by mouth three times a day. gabapentin (NEURONTIN) 100 mg capsule Take 1 capsule by mouth daily at bedtime. prn sertraline (ZOLOFT) 50 mg tablet Take 1 tablet by mouth once daily. Take 1/2 tab once a day orally for one week then 1 tab once a day metoprolol succinate ER (TOPROL XL) 25 mg 24 hr tablet Take 1 tablet by mouth once daily. omega-3 fatty acids 1,000 mg cap Take 2 g by mouth once daily. lisinopril (PRINIVIL) 20 mg tablet Take 1 tablet by mouth once daily. (Patient taking differently: Take 40 mg by mouth once daily.) amLODIPine (NORVASC) 5 mg tablet Take 1 tablet by mouth once daily. (Patient taking differently: Take 10 mg by mouth once daily.) predniSONE (DELTASONE) 5 mg tablet As needed per rheum. Cholecalciferol, Vitamin D3, 25 mcg (1,000 unit) cap Vitamin D3 1,000 unit capsule Biotin 10,000 mcg cap Take 5,000 mcg by mouth once daily. hydroxychloroquine (PLAQUENIL) 200 mg tablet Take 1 tablet by mouth twice daily. Etanercept (ENBREL SURECLICK) 50 mg/mL (0.98 mL) pnij Inject 50 mg subcutaneously once each week. No current facility-administered medications for this visit. ALLERGIES: ALLERGIES Allergen Reactions Adalimumab Other: See Comments Hydrochlorothiazide Unknown Leflunomide Other: See Comments PAST MEDICAL HISTORY Diagnosis Date Age-related osteoporosis with current pathological fracture 10/15/2009 Age-related osteoporosis with current pathological fracture 10/15/2009 L hip fracture 05/20/18 Ascending aortic aneurysm (HCC) 02/27/2014 01/14/15: [address] scan 04/21/17: [address] scan Carpal tunnel syndrome 07/29/2010 Chronic obstructive pulmonary disease (COPD) ([facility]) Diarrhea Essential hypertension, benign 11/14/2013 H. pylori infection Hyperlipidemia LDL goal <100 10/30/2016 Hypertension 11/14/13 Internal hemorrhoids without mention of complication Osteoporosis 03/09 Seropositive rheumatoid arthritis (HCC) 02/10/2012 Sjogren's syndrome ([facility]) 2005 Snoring Supraspinatus tendonitis 01/06/2011 Syncope PAST SURGICAL HISTORY Procedure Laterality Date COLONOSCOPY FLX DX W/COLLJ SPEC WHEN PFRMD 01/09/07 repeat in COLONOSCOPY FLX DX W/COLLJ SPEC WHEN PFRMD 07/18/2017 10 year repeat DILATATION Ascending Aorta DILATION & CURETTAGE DX&/THER NONOBSTETRIC Dilation & curettage ESOPHAGOGASTRODUODENOSCOPY TRANSORAL DIAGNOSTIC EGD LIG/TRNSXJ FLP TUBE ABDL/VAG APPR UNI/BI Tubal ligation TONSILLECTOMY PRIMARY/SECONDARY <AGE 12 Tonsillectomy FAMILY HISTORY Problem Relation Age of Onset Hypertension Mother other (Rheumatoid arthritis) Mother other (ASHD) Father [place] other (Grave's disease) Sister Diabetes Sister Colon Cancer Maternal Aunt 39 Social History Tobacco Use Smoking status: Every Day Packs/day: 1.00 Years: 50.00 Additional pack years: 0.00 Total pack years: 50.00 Types: Cigarettes Smokeless tobacco: Never Vaping Use Vaping Use: Never used Substance Use Topics Alcohol use: No Drug use: No Reviewed current medications, allergies, past medical history, surgical history, family history and social history today. REVIEW OF SYSTEMS All other reviewed and negative other than HPI. HEALTH MAINTENANCE: Reviewed health maintenance issues today and recommended the following in detail. Behavioral Health Screening Never done VITALS: BP 116/70 Pulse 83 Ht 160 cm (5' 2.99 ) Wt 59.4 kg (131 lb) SpO2 96% BMI 23.21 kg/m Last 4 Encounter Wt Readings: Date: Wt: 10/10/2023 60.3 kg (133 lb) 03/31/2023 59.9 kg (132 lb) 08/14/2022 61.9 kg (136 lb 6.4 oz) 07/02/2022 61.7 kg (136 lb) PHYSICAL EXAMINATION: General appearance: Well appearing, alert, in no acute distress, well-hydrated, well nourished. Skin: Skin color, texture, turgor normal, no suspicious rashes or lesions Head: Normocephalic, no masses, lesions, tenderness or abnormalities Lungs: Lungs clear to auscultation. No wheezing, rhonchi, rales Heart: RRR without murmur, gallop, or rubs. No ectopy Abdomen: Normal abdominal exam, Abdomen soft, non-tender. Bowel sounds normal. No masses, organomegaly Extremities: No deformities, edema, skin discoloration, clubbing or cyanosis. Good capillary refill. ASSESSMENT/PLAN: 1. Essential hypertension, benign - ICD9: 401.1, ICD10: I10 (primary diagnosis) - Controlled - Continue current medications - Recommend regular aerobic exercise 2. Sjogren's syndrome, with unspecified organ involvement (HCC) - ICD9: 710.2, ICD10: M35.00 - stable. 3. Seasonal allergic rhinitis due to other allergic trigger - ICD9: 477.8, ICD10: J30.89 - FLUTICASONE PROPIONATE 50 MCG/ACTUATION NASAL SPRAY,SUSPENSION 4. Anxiety Continue meds. Add trazodone. - TRAZODONE 50 MG TABLET Jules Hatch MD documented in this encounter [facility] 10-13-2023 Miscellaneous Notes Phoned patient and went over results from Dr Hatch with understanding. Let her know her labs are stable documented in this encounter [facility] 10-10-2023 Note HNO ID: [id number] Author: JULES HATCH MD Service: ? Author Type: Physician Type: Progress Notes Filed: 10/10/2023 10:11 Note Text: Patient presents with: 6 Month Exam HPI: Patient presents today for office visit for follow up. Cardio: Saw them 09/29/23 CT scan stable repeat in 2 years. Told to follow up then. Tolerating meds. Discussed that we will monitor her bp. HTN: Patient is compliant with meds Yes Monitors bp at home: No. Denies side effects: Yes. Chest pain: No. Dyspnea: No. Edema: No. Palpitations: No. Syncope: No. Headache: No. Dizziness: No. Rhemu: Per Dr Boswell stable. Remains on plaquenl and enbril. MEDICATIONS: Current Outpatient Medications Medication Sig pilocarpine (SALAGEN) 5 mg tablet Take 5 mg by mouth three times a day. gabapentin (NEURONTIN) 100 mg capsule TAKE 1 TO 2 CAPSULES BY MOUTH EVERY NIGHT AT BEDTIME metoprolol succinate ER (TOPROL XL) 25 mg 24 hr tablet Take 1 tablet by mouth once daily. omega-3 fatty acids 1,000 mg cap Take 2 g by mouth once daily. lisinopril (PRINIVIL) 20 mg tablet Take 1 tablet by mouth once daily. (Patient taking differently: Take 40 mg by mouth once daily.) amLODIPine (NORVASC) 5 mg tablet Take 1 tablet by mouth once daily. (Patient taking differently: Take 10 mg by mouth once daily.) Cholecalciferol, Vitamin D3, 25 mcg (1,000 unit) cap Vitamin D3 1,000 unit capsule Biotin 10,000 mcg cap Take 5,000 mcg by mouth once daily. hydroxychloroquine (PLAQUENIL) 200 mg tablet Take 1 tablet by mouth twice daily. Etanercept (ENBREL SURECLICK) 50 mg/mL (0.98 mL) pnij Inject 50 mg subcutaneously once each week. predniSONE (DELTASONE) 5 mg tablet As needed per rheum. No current facility-administered medications for this visit. ALLERGIES: ALLERGIES Allergen Reactions Adalimumab Other: See Comments Hydrochlorothiazide Unknown Leflunomide Other: See Comments PAST MEDICAL HISTORY Diagnosis Date Age-related osteoporosis with current pathological fracture 10/15/2009 Age-related osteoporosis with current pathological fracture 10/15/2009 L hip fracture 05/20/18 Ascending aortic aneurysm (HCC) 02/27/2014 01/14/15: [address] scan 04/21/17: [address] scan Carpal tunnel syndrome 07/29/2010 Chronic obstructive pulmonary disease (COPD) ([facility]) Diarrhea Essential hypertension, benign 11/14/2013 H. pylori infection Hyperlipidemia LDL goal <100 10/30/2016 Hypertension 11/14/13 Internal hemorrhoids without mention of complication Osteoporosis 03/09 Seropositive rheumatoid arthritis (HCC) 02/10/2012 Sjogren's syndrome ([facility]) 2004 Snoring Supraspinatus tendonitis 01/06/2011 Syncope PAST SURGICAL HISTORY Procedure Laterality Date COLONOSCOPY FLX DX W/COLLJ SPEC WHEN PFRMD 01/09/07 repeat in COLONOSCOPY FLX DX W/COLLJ SPEC WHEN PFRMD 07/18/2017 10 year repeat DILATATION Ascending Aorta DILATION AND CURETTAGE DXAND/THER NONOBSTETRIC Dilation AND curettage ESOPHAGOGASTRODUODENOSCOPY TRANSORAL DIAGNOSTIC EGD LIG/TRNSXJ FLP TUBE ABDL/VAG APPR UNI/BI Tubal ligation TONSILLECTOMY PRIMARY/SECONDARY Tonsillectomy FAMILY HISTORY Problem Relation Age of Onset Hypertension Mother other (Rheumatoid arthritis) Mother other (ASHD) Father [place] other (Grave's disease) Sister Diabetes Sister Colon Cancer Maternal Aunt 39 Social History Tobacco Use Smoking status: Every Day Packs/day: 1.00 Years: 50.00 Additional pack years: 0.00 Total pack years: 50.00 Types: Cigarettes Smokeless tobacco: Never Vaping Use Vaping Use: Never used Substance Use Topics Alcohol use: No Drug use: No Discussed tobacco cessation, including risks of continued use. Offered assistance to help quit if patient desires. Reviewed current medications, allergies, past medical history, surgical history, family history and social history today. REVIEW OF SYSTEMS No gi or gu issues. No falls. All other reviewed and negative other than HPI. HEALTH MAINTENANCE: Reviewed health maintenance issues today and recommended the following in detail. BP Controlled (<130/80) due on 06/12/2022 Advance Directive Discussion - her and kids. Depression Assessment -positive screen, related to her Mom's issues. No suicidal ideation. Initially declines meds or behavioral help, willing to consider meds after discussion.. Has been tired. Wants thyroid checked. Due for A1c. VITALS: BP 128/72 Pulse 70 Wt 60.3 kg (133 lb) SpO2 100% BMI 23.57 kg/m? Last 4 Encounter Wt Readings: Date: Wt: 03/31/2023 59.9 kg (132 lb) 08/14/2022 61.9 kg (136 lb 6.4 oz) 07/02/2022 61.7 kg (136 lb) 12/31/2021 62.1 kg (137 lb) PHYSICAL EXAMINATION: General appearance: Well appearing, alert, in no acute distress, well-hydrated, well nourished. Skin: Skin color, texture, turgor normal, no suspicious rashes or lesion Lungs: Lungs clear to auscultation. No wheezing, rhonchi, rales Heart: RRR wi (more content not included)... [facility] 10-10-2023 History of Present illness Narrative Patient presents with: 6 Month Exam HPI: Patient presents today for office visit for follow up. Cardio: Saw them 09/29/23 CT scan stable repeat in 2 years. Told to follow up then. Tolerating meds. Discussed that we will monitor her bp. HTN: Patient is compliant with meds Yes Monitors bp at home: No. Denies side effects: Yes. Chest pain: No. Dyspnea: No. Edema: No. Palpitations: No. Syncope: No. Headache: No. Dizziness: No. Rhemu: Per Dr Boswell stable. Remains on plaquenl and enbril. MEDICATIONS: Current Outpatient Medications Medication Sig pilocarpine (SALAGEN) 5 mg tablet Take 5 mg by mouth three times a day. gabapentin (NEURONTIN) 100 mg capsule TAKE 1 TO 2 CAPSULES BY MOUTH EVERY NIGHT AT BEDTIME metoprolol succinate ER (TOPROL XL) 25 mg 24 hr tablet Take 1 tablet by mouth once daily. omega-3 fatty acids 1,000 mg cap Take 2 g by mouth once daily. lisinopril (PRINIVIL) 20 mg tablet Take 1 tablet by mouth once daily. (Patient taking differently: Take 40 mg by mouth once daily.) amLODIPine (NORVASC) 5 mg tablet Take 1 tablet by mouth once daily. (Patient taking differently: Take 10 mg by mouth once daily.) Cholecalciferol, Vitamin D3, 25 mcg (1,000 unit) cap Vitamin D3 1,000 unit capsule Biotin 10,000 mcg cap Take 5,000 mcg by mouth once daily. hydroxychloroquine (PLAQUENIL) 200 mg tablet Take 1 tablet by mouth twice daily. Etanercept (ENBREL SURECLICK) 50 mg/mL (0.98 mL) pnij Inject 50 mg subcutaneously once each week. predniSONE (DELTASONE) 5 mg tablet As needed per rheum. No current facility-administered medications for this visit. ALLERGIES: ALLERGIES Allergen Reactions Adalimumab Other: See Comments Hydrochlorothiazide Unknown Leflunomide Other: See Comments PAST MEDICAL HISTORY Diagnosis Date Age-related osteoporosis with current pathological fracture 10/15/2009 Age-related osteoporosis with current pathological fracture 10/15/2009 L hip fracture 05/20/18 Ascending aortic aneurysm (HCC) 02/27/2014 01/14/15: [address] scan 04/21/17: [address] scan Carpal tunnel syndrome 07/29/2010 Chronic obstructive pulmonary disease (COPD) (HCC) Diarrhea Essential hypertension, benign 11/14/2013 H. pylori infection Hyperlipidemia LDL goal <100 10/30/2016 Hypertension 11/14/13 Internal hemorrhoids without mention of complication Osteoporosis 03/09 Seropositive rheumatoid arthritis (HCC) 02/10/2012 Sjogren's syndrome ([facility]) 2004 Snoring Supraspinatus tendonitis 01/06/2011 Syncope PAST SURGICAL HISTORY Procedure Laterality Date COLONOSCOPY FLX DX W/COLLJ SPEC WHEN PFRMD 01/09/07 repeat in COLONOSCOPY FLX DX W/COLLJ SPEC WHEN PFRMD 07/18/2017 10 year repeat DILATATION Ascending Aorta DILATION & CURETTAGE DX&/THER NONOBSTETRIC Dilation & curettage ESOPHAGOGASTRODUODENOSCOPY TRANSORAL DIAGNOSTIC EGD LIG/TRNSXJ FLP TUBE ABDL/VAG APPR UNI/BI Tubal ligation TONSILLECTOMY PRIMARY/SECONDARY <AGE 10 Tonsillectomy FAMILY HISTORY Problem Relation Age of Onset Hypertension Mother other (Rheumatoid arthritis) Mother other (ASHD) Father [place] other (Grave's disease) Sister Diabetes Sister Colon Cancer Maternal Aunt 39 Social History Tobacco Use Smoking status: Every Day Packs/day: 1.00 Years: 50.00 Additional pack years: 0.00 Total pack years: 50.00 Types: Cigarettes Smokeless tobacco: Never Vaping Use Vaping Use: Never used Substance Use Topics Alcohol use: No Drug use: No Discussed tobacco cessation, including risks of continued use. Offered assistance to help quit if patient desires. Reviewed current medications, allergies, past medical history, surgical history, family history and social history today. REVIEW OF SYSTEMS No gi or gu issues. No falls. All other reviewed and negative other than HPI. HEALTH MAINTENANCE: Reviewed health maintenance issues today and recommended the following in detail. BP Controlled (<130/80) due on 06/12/2022 Advance Directive Discussion - her and kids. Depression Assessment -positive screen, related to her Mom's issues. No suicidal ideation. Initially declines meds or behavioral help, willing to consider meds after discussion.. Has been tired. Wants thyroid checked. Due for A1c. VITALS: BP 128/72 Pulse 70 Wt 60.3 kg (133 lb) SpO2 100% BMI 23.57 kg/m Last 4 Encounter Wt Readings: Date: Wt: 03/31/2023 59.9 kg (132 lb) 08/14/2022 61.9 kg (136 lb 6.4 oz) 07/02/2022 61.7 kg (136 lb) 12/31/2021 62.1 kg (137 lb) PHYSICAL EXAMINATION: General appearance: Well appearing, alert, in no acute distress, well-hydrated, well nourished. Skin: Skin color, texture, turgor normal, no suspicious rashes or lesion\ Lungs: Lungs clear to auscultation. No wheezing, rhonchi, rales Heart: RRR without murmur, gallop, or rubs. No ectopy Abdomen: Normal abdominal exam, Abdomen soft, non-tender. Bowel sounds normal. No masses, organomegaly Extremities: No deformities, edema, skin discoloration, clubbing or cyanosis. Good capillary refill. Musculoskeletal: No joint swelling, deformity, or tenderness ASSESSMENT/PLAN: 1. Essential hypertension, benign - ICD9: 401.1, ICD10: I10 (primary diagnosis) - Controlled - Continue current medications 2. Aneurysm of ascending aorta without rupture (HCC) - ICD9: 441.2, ICD10: I71.21 - per cardiology. Keep bp stable.l 3. Hyperlipidemia LDL goal <100 - ICD9: 272.4, ICD10: E78.5 - Controlled - Continue current medications - Counseled on healthy diet and regular exercise 4. Hyperglycemia - ICD9: 790.29, ICD10: R73.9 - HGB A1C 5. Gastroesophageal reflux disease with esophagitis, unspecified whether hemorrhage - ICD9: 530.11, ICD10: K21.00 - stable. 6. Seropositive rheumatoid arthritis (HCC) - ICD9: 714.0, ICD10: M05.9 - per rheum 7. Sjogren's syndrome, with unspecified organ involvement (HCC) - ICD9: 710.2, ICD10: M35.00 - per rheum. 8. Sicca syndrome (HCC) - ICD9: 710.2, ICD10: M35.00 - stable. 9. Post herpetic neuralgia - ICD9: 053.19, ICD10: B02.29 - just using prn. - GABAPENTIN 100 MG CAPSULE 10. Adjustment disorder with anxious mood - ICD9: 309.24, ICD10: F43.22 - start meds. Discussed risks and benefits of new medication with the patient. Advised them to call if any side effects or questions. - SERTRALINE 50 MG TABLET 11. Fatigue, unspecified type - ICD9: 780.79, ICD10: R53.83 - may be related to above. - TSH BLD 12. Mixed hyperlipidemia - ICD9: 272.2, ICD10: E78.2 - Control undetermined, due for labs - LIPID PANEL BASIC Jules Hatch MD RTO in one months. documented in this encounter [facility] 04-18-2023 Miscellaneous Notes Patient informed of normal mammo via VM. VM verified. Advised to call back with any questions or concerns. Myla Lemus Let her know her mammogram was ok. documented in this encounter [facility] 04-18-2023 Miscellaneous Notes April 19, 2023 PID: [id number] Jenni Baird [address] [place] [address] Dear Ms. Baird, We are pleased to inform you that the results of your recent breast imaging exam on 04/15/2023 are normal. Your mammogram demonstrates that you have dense breast tissue, which could hide abnormalities. Dense breast tissue, in and of itself, is a relatively common condition. Therefore, this information is not provided to cause undue concern; rather, it is to raise your awareness and promote discussion with your health care provider regarding the presence of dense breast tissue in addition to other risk factors. Early detection of cancer is very important. We also understand recommendations regarding breast cancer screening are controversial. Please discuss with your primary care provider which strategy is best for you and whether a mammogram is right for you. Your imaging studies and report will be kept on file at [facility] as part of your permanent medical record and are available for your continuing care. Thank you for allowing us to help in meeting your health care needs. Sincerely, Dr. Cortez Interpreting Radiologist [facility] (Normal over 40) documented in this encounter [facility] 04-15-2023 Note HNO ID: [id number] Author: Howard Kelley, Mammo Tech Service: ? Author Type: Technologist Type: Progress Notes Filed: 04/15/2023 10:02 AM Note Text: Radiology Service Progress Note PATIENT NAME: Jenin Baird DATE OF SERVICE: April 15, 2023 TIME: 9:46 AM PATIENT IDENTITY VERIFICATION COMPLETED USING TWO (2) IDENTIFIERS: Name and Date of confirmed by patient verbally. FALL SCREENING: Has the patient had 2 falls in the last year or 1 fall with injury or currently using an Ambulatory Assistive Device (Walker, Cane, Wheelchair, Crutches, etc.)? No PATIENT GENDER DATA: Female. status: : No status: NO. PATIENT RELEVANT IMPLANT DATA REVIEWED: Not Applicable RADIOLOGY DEPARTMENT: Mammography PERIPHERAL IV DATA: Not applicable SIGNED BY: Srikanth Torres April 15, 2023 9:46 AM [facility] 04-15-2023 History of Present illness Narrative Radiology Service Progress Note PATIENT NAME: Jenni Baird DATE OF SERVICE: April 15, 2023 TIME: 9:46 AM PATIENT IDENTITY VERIFICATION COMPLETED USING TWO (2) IDENTIFIERS: Name and Date of confirmed by patient verbally. FALL SCREENING: Has the patient had 2 falls in the last year or 1 fall with injury or currently using an Ambulatory Assistive Device (Walker, Cane, Wheelchair, Crutches, etc.)? No PATIENT GENDER DATA: Female. status: : No status: NO. PATIENT RELEVANT IMPLANT DATA REVIEWED: Not Applicable RADIOLOGY DEPARTMENT: Mammography PERIPHERAL IV DATA: Not applicable SIGNED BY: Srikanth Torres April 15, 2023 9:46 AM documented in this encounter [facility] 03-31-2023 Miscellaneous Notes Let her know sugars are stable documented in this encounter [facility] 03-31-2023 Note HNO ID: [id number] Author: Jules Hatch MD Service: ? Author Type: Physician Type: Progress Notes Filed: 03/31/2023 9:39 AM Note Text: Patient presents with: Medicare Wellness Exam HPI: Patient presents today for office visit for check up/medicare wellness. CARDIO:seeing [facility]. HYPERTENSION:no chest pain or breathing issues. No edema. No palpitations. Having a lot of stress at home. Dealing with Mother who has been ill. Feeling stressed with that. Not sleeping well. Having some sjogren's issues. Has been seeing rheum, Dr. Boswell. No issues swallowing. Still with dry eyes. Also has seen Dr. Grullon for her TMJ. Had bone density in 2021. We have been follow her blood sugars. MEDICATIONS: Current Outpatient Medications Medication Sig gabapentin (NEURONTIN) 100 mg capsule TAKE 1 TO 2 CAPSULES BY MOUTH EVERY NIGHT AT BEDTIME metoprolol succinate ER (TOPROL XL) 25 mg 24 hr tablet Take 1 tablet by mouth once daily. omega-3 fatty acids 1,000 mg cap Take 2 g by mouth once daily. cevimeline (EVOXAC) 30 mg capsule Take 30 mg by mouth twice daily. lisinopril (PRINIVIL) 20 mg tablet Take 1 tablet by mouth once daily. (Patient taking differently: Take 40 mg by mouth once daily.) amLODIPine (NORVASC) 5 mg tablet Take 1 tablet by mouth once daily. (Patient taking differently: Take 10 mg by mouth once daily.) predniSONE (DELTASONE) 5 mg tablet As needed per rheum. Cholecalciferol, Vitamin D3, 25 mcg (1,000 unit) cap Vitamin D3 1,000 unit capsule Biotin 10,000 mcg cap Take 5,000 mcg by mouth once daily. hydroxychloroquine (PLAQUENIL) 200 mg tablet Take 1 tablet by mouth twice daily. Etanercept (ENBREL SURECLICK) 50 mg/mL (0.98 mL) pnij Inject 50 mg subcutaneously once each week. FOLIC ACID ORAL Take by mouth. Pt takes two tablets daily. No current facility-administered medications for this visit. ALLERGIES: ALLERGIES Allergen Reactions Adalimumab Other: See Comments Hydrochlorothiazide Unknown Leflunomide Other: See Comments PAST MEDICAL HISTORY Diagnosis Date Age-related osteoporosis with current pathological fracture 10/15/2009 Age-related osteoporosis with current pathological fracture 10/15/2009 L hip fracture 05/20/18 Ascending aortic aneurysm (HCC) 02/27/2014 01/14/15: [address] scan 04/21/17: [address] scan Carpal tunnel syndrome 07/29/2010 Chronic obstructive pulmonary disease (COPD) (HCC) Diarrhea Essential hypertension, benign 11/14/2013 H. pylori infection Hyperlipidemia LDL goal <100 10/30/2016 Hypertension 11/14/13 Internal hemorrhoids without mention of complication Osteoporosis 03/09 Seropositive rheumatoid arthritis (HCC) 02/10/2012 Sjogren's syndrome (HCC) 2004 Snoring Supraspinatus tendonitis 01/06/2011 Syncope PAST SURGICAL HISTORY Procedure Laterality Date COLONOSCOPY FLX DX W/COLLJ SPEC WHEN PFRMD 01/09/07 repeat in COLONOSCOPY FLX DX W/COLLJ SPEC WHEN PFRMD 07/18/2017 10 year repeat DILATATION Ascending Aorta DILATION AND CURETTAGE DXAND/THER NONOBSTETRIC Dilation AND curettage ESOPHAGOGASTRODUODENOSCOPY TRANSORAL DIAGNOSTIC EGD LIG/TRNSXJ FLP TUBE ABDL/VAG APPR UNI/BI Tubal ligation TONSILLECTOMY PRIMARY/SECONDARY Tonsillectomy FAMILY HISTORY Problem Relation Age of Onset Hypertension Mother other (Rheumatoid arthritis) Mother other (ASHD) Father [place] other (Grave's disease) Sister Diabetes Sister Colon Cancer Maternal Aunt 39 Social History Tobacco Use Smoking status: Every Day Packs/day: 1.00 Years: 50.00 Additional pack years: 0.00 Total pack years: 50.00 Types: Cigarettes Smokeless tobacco: Never Vaping Use Vaping Use: Never used Substance Use Topics Alcohol use: No Drug use: No Discussed tobacco cessation, including risks of continued use. Offered assistance to help quit if patient desires. Reviewed current medications, allergies, past medical history, surgical history, family history and social history today. REVIEW OF SYSTEMS GI: No nausea, vomiting, or diarrhea : No history of dysuria, frequency or incontinence All other reviewed and negative other than HPI. HEALTH MAINTENANCE: Reviewed health maintenance issues today and recommended the following in detail. SHINGRIX VACCINE(1 of 2) Never done COVID-19 VACCINE(4 - Moderna risk series) due on 08/12/2021 BP CONTROLLED (<130/80) due on 06/12/2022 ADVANCE DIRECTIVE DISCUSSION - and children are her surrogates. DEPRESSION ASSESSMENT due on 08/01/2022 MAMMOGRAM due on 01/06/2023 Lung cancer screening. -will be getting a ct scan in the upcoming year with cardiology. VITALS: BP 126/80 Pulse 87 Ht 160 cm (5' 2.99 ) Wt 59.9 kg (132 lb) SpO2 99% BMI 23.39 kg/m? Last 4 Encounter Wt Readings: Date: Wt: 03/31/2023 59.9 kg (132 lb) 08/14/2022 61.9 kg (136 lb 6.4 oz) 07/02/2022 61.7 kg (136 lb) 12/31/2021 62.1 kg (137 lb) PHYSICAL EXAMINATION: (more content not included)... [facility] 03-31-2023 History of Present illness Narrative Patient presents with: Medicare Wellness Exam HPI: Patient presents today for office visit for check up/medicare wellness. CARDIO:seeing [facility]. HYPERTENSION:no chest pain or breathing issues. No edema. No palpitations. Having a lot of stress at home. Dealing with Mother who has been ill. Feeling stressed with that. Not sleeping well. Having some sjogren's issues. Has been seeing rheum, Dr. Boswell. No issues swallowing. Still with dry eyes. Also has seen Dr. Grullon for her TMJ. Had bone density in 2021. We have been follow her blood sugars. MEDICATIONS: Current Outpatient Medications Medication Sig gabapentin (NEURONTIN) 100 mg capsule TAKE 1 TO 2 CAPSULES BY MOUTH EVERY NIGHT AT BEDTIME metoprolol succinate ER (TOPROL XL) 25 mg 24 hr tablet Take 1 tablet by mouth once daily. omega-3 fatty acids 1,000 mg cap Take 2 g by mouth once daily. cevimeline (EVOXAC) 30 mg capsule Take 30 mg by mouth twice daily. lisinopril (PRINIVIL) 20 mg tablet Take 1 tablet by mouth once daily. (Patient taking differently: Take 40 mg by mouth once daily.) amLODIPine (NORVASC) 5 mg tablet Take 1 tablet by mouth once daily. (Patient taking differently: Take 10 mg by mouth once daily.) predniSONE (DELTASONE) 5 mg tablet As needed per rheum. Cholecalciferol, Vitamin D3, 25 mcg (1,000 unit) cap Vitamin D3 1,000 unit capsule Biotin 10,000 mcg cap Take 5,000 mcg by mouth once daily. hydroxychloroquine (PLAQUENIL) 200 mg tablet Take 1 tablet by mouth twice daily. Etanercept (ENBREL SURECLICK) 50 mg/mL (0.98 mL) pnij Inject 50 mg subcutaneously once each week. FOLIC ACID ORAL Take by mouth. Pt takes two tablets daily. No current facility-administered medications for this visit. ALLERGIES: ALLERGIES Allergen Reactions Adalimumab Other: See Comments Hydrochlorothiazide Unknown Leflunomide Other: See Comments PAST MEDICAL HISTORY Diagnosis Date Age-related osteoporosis with current pathological fracture 10/15/2009 Age-related osteoporosis with current pathological fracture 10/15/2009 L hip fracture 05/20/18 Ascending aortic aneurysm ([facility]) 02/27/2014 01/14/15: [address] scan 04/21/17: [address] scan Carpal tunnel syndrome 07/29/2010 Chronic obstructive pulmonary disease (COPD) ([facility]) Diarrhea Essential hypertension, benign 11/14/2013 H. pylori infection Hyperlipidemia LDL goal <100 10/30/2016 Hypertension 11/14/13 Internal hemorrhoids without mention of complication Osteoporosis 03/09 Seropositive rheumatoid arthritis ([facility]) 02/10/2012 Sjogren's syndrome ([facility]) 2004 Snoring Supraspinatus tendonitis 01/06/2011 Syncope PAST SURGICAL HISTORY Procedure Laterality Date COLONOSCOPY FLX DX W/COLLJ SPEC WHEN PFRMD 01/09/07 repeat in COLONOSCOPY FLX DX W/COLLJ SPEC WHEN PFRMD 07/18/2017 10 year repeat DILATATION Ascending Aorta DILATION & CURETTAGE DX&/THER NONOBSTETRIC Dilation & curettage ESOPHAGOGASTRODUODENOSCOPY TRANSORAL DIAGNOSTIC EGD LIG/TRNSXJ FLP TUBE ABDL/VAG APPR UNI/BI Tubal ligation TONSILLECTOMY PRIMARY/SECONDARY <AGE 10 Tonsillectomy FAMILY HISTORY Problem Relation Age of Onset Hypertension Mother other (Rheumatoid arthritis) Mother other (ASHD) Father [place] other (Grave's disease) Sister Diabetes Sister Colon Cancer Maternal Aunt 39 Social History Tobacco Use Smoking status: Every Day Packs/day: 1.00 Years: 50.00 Additional pack years: 0.00 Total pack years: 50.00 Types: Cigarettes Smokeless tobacco: Never Vaping Use Vaping Use: Never used Substance Use Topics Alcohol use: No Drug use: No Discussed tobacco cessation, including risks of continued use. Offered assistance to help quit if patient desires. Reviewed current medications, allergies, past medical history, surgical history, family history and social history today. REVIEW OF SYSTEMS GI: No nausea, vomiting, or diarrhea : No history of dysuria, frequency or incontinence All other reviewed and negative other than HPI. HEALTH MAINTENANCE: Reviewed health maintenance issues today and recommended the following in detail. SHINGRIX VACCINE(1 of 2) Never done COVID-19 VACCINE(4 - Moderna risk series) due on 08/12/2021 BP CONTROLLED (<130/80) due on 06/12/2022 ADVANCE DIRECTIVE DISCUSSION - and children are her surrogates. DEPRESSION ASSESSMENT due on 08/01/2022 MAMMOGRAM due on 01/06/2023 Lung cancer screening. -will be getting a ct scan in the upcoming year with cardiology. VITALS: BP 126/80 Pulse 87 Ht 160 cm (5' 2.99 ) Wt 59.9 kg (132 lb) SpO2 99% BMI 23.39 kg/m Last 4 Encounter Wt Readings: Date: Wt: 03/31/2023 59.9 kg (132 lb) 08/14/2022 61.9 kg (136 lb 6.4 oz) 07/02/2022 61.7 kg (136 lb) 12/31/2021 62.1 kg (137 lb) PHYSICAL EXAMINATION: General appearance: Well appearing, alert, in no acute distress, well-hydrated, well nourished. Skin: Skin color, texture, turgor normal, no suspicious rashes or lesions Head: Normocephalic, no masses, lesions, tenderness or abnormalities Neck: Supple, no adenopathy; thyroid symmetric, normal size, no bruits Lungs: Lungs clear to auscultation. No wheezing, rhonchi, rales Heart: RRR without murmur, gallop, or rubs. No ectopy Abdomen: Normal abdominal exam, Abdomen soft, non-tender. Bowel sounds normal. No masses, organomegaly Extremities: No deformities, edema, skin discoloration, clubbing or cyanosis. Good capillary refill. Musculoskeletal: No joint swelling, deformity, or tenderness Peripheral pulses: Normal Neuro: Negative. ASSESSMENT/PLAN: 1. Essential hypertension, benign - ICD9: 401.1, ICD10: I10 (primary diagnosis) - Controlled - Continue current medications 2. Hyperlipidemia LDL goal <100 - ICD9: 272.4, ICD10: E78.5 - Controlled - Continue current medications - Counseled on healthy diet and regular exercise 3. Aneurysm of ascending aorta without rupture (HCC) - ICD9: 441.2, ICD10: I71.21 - per cardiology 4. Gastroesophageal reflux disease with esophagitis, unspecified whether hemorrhage - ICD9: 530.11, ICD10: K21.00 - stable. 5. Sjogren's syndrome, with unspecified organ involvement (HCC) - ICD9: 710.2, ICD10: M35.00 - per rheum 6. Sicca syndrome (HCC) - ICD9: 710.2, ICD10: M35.00 - per rheum. 7. Seropositive rheumatoid arthritis (HCC) - ICD9: 714.0, ICD10: M05.9 - per rheum 8. Age-related osteoporosis with current pathological fracture, sequela - ICD9: 905.5, 733.01, ICD10: M80.00XS - have followed bone density. Declines meds like reclast or prolia. Discussed stopping smoking and adequate vit d and calcium intake. 9. History of hip fracture - ICD9: V15.51, ICD10: Z87.81 - stable 10. Cigarette nicotine dependence without complication - ICD9: 305.1, ICD10: F17.210 - Cessation encouraged. - Physiologic and physical aspects of tobacco addiction as well as strategies for quitting were discussed. - Counseling was given focusing on the harmful effects of this addiction especially given the patient's medical condition(s) which will be worsened because of the chemicals in tobacco. - getting ct per cardiology. 11. Hyperglycemia - ICD9: 790.29, ICD10: R73.9 - HGB A1C Jules Hatch MD documented in this encounter [facility] 03-01-2023 Note Patient Outreach (NE TNAV) JENNI BAIRD ([id number]) 1955 F Date Time Provider Department 03/01/23 RADHA BARCENAS During your visit today, we recorded the following information about you: Radha Barcenas 03/01/2023 8:39 AM Signed POPULATION HEALTH NAVIGATION OUTREACH Action/ 1st attempt: Spoke to patient and Medicare WEllness scheduled. Declined other scheduling including mammogram. [facility] GAPS I71.21 - Ascending aortic aneurysm (HCC) - [id number] Last Billed 12/10/2021 M05.9 - Seropositive rheumatoid arthritis (HCC) - [id number] Last Billed 07/02/2022 M35.00 - Sjogren's syndrome (HCC) - [id number] Last Billed 07/02/2022 M35.00 - Sicca syndrome (HCC) - [id number] Last Billed 07/02/2022 Care Gaps Annual Wellness visit Breast Cancer screening Controlling Blood Pressure Patient Identified by Name and : YES, via phone Outreach Outcome/Action Spoke to patient / parent / legal guardian: Patient scheduled Did you use a PCP flex slot to schedule this appointment? No Reason for Outreach HCC or suspected condition Payer: Payor: MEDICARE / Plan: MEDICARE A AND B / Product Type: Medicare / Care Gap Reviewed:: Annual Wellness visit Breast Cancer screening Controlling Blood Pressure Reminder: Reminder note to check Health Maintenance for items below Health Maintenance items due: SHINGRIX VACCINE(1 of 2) Never done COVID-19 VACCINE(4 - Booster for Moderna series) due on 08/12/2021 BP CONTROLLED (<130/80) due on 06/12/2022 ADVANCE DIRECTIVE DISCUSSION Never done DEPRESSION ASSESSMENT due on 08/01/2022 MAMMOGRAM due on 01/06/2023 Navigation Signature: Radha Barcenas March 01, 2023 8:35 AM Allergies As of Date: 03/01/2023 Noted Allergy Reaction ADALIMUMAB 05/08/2017 14 - Other: See Comments HYDROCHLOROTHIAZIDE 05/22/2019 16 - Unknown LEFLUNOMIDE 05/08/2017 14 - Other: See Comments Date Reviewed: 08/14/2022 Reviewed by: Ankur Tipton APRN.STOPPER MAKER HELPER - Fully Assessed Reason for Visit: Population Health Navigation Outreach [3910] Cmt: HCC Gaps Prescriptions as of 03/01/2023 - gabapentin (NEURONTIN) 100 mg capsule TAKE 1 TO 2 CAPSULES BY MOUTH EVERY NIGHT AT BEDTIME - metoprolol succinate ER (TOPROL XL) 25 mg 24 hr tablet Take 1 tablet by mouth once daily. - omega-3 fatty acids 1,000 mg cap Take 2 g by mouth once daily. - cevimeline (EVOXAC) 30 mg capsule Take 1 capsule by mouth three times daily. - lisinopril (PRINIVIL) 20 mg tablet Take 1 tablet by mouth once daily. - amLODIPine (NORVASC) 5 mg tablet Take 1 tablet by mouth once daily. - predniSONE (DELTASONE) 5 mg tablet As needed per rheum. - Cholecalciferol, Vitamin D3, 25 mcg (1,000 unit) cap Vitamin D3 1,000 unit capsule - Biotin 10,000 mcg cap Take 5,000 mcg by mouth once daily. - hydroxychloroquine (PLAQUENIL) 200 mg tablet Take 1 tablet by mouth twice daily. - Etanercept (ENBREL SURECLICK) 50 mg/mL (0.98 mL) pnij Inject 50 mg subcutaneously once each week. - FOLIC ACID ORAL Take by mouth. Pt takes two tablets daily. Facility-Administered Medications as of 03/01/2023 - perflutren lipid microspheres 1.3 mL in NaCl (PF) 0.9% 10 mL injection (DEFINITY) - sodium chloride 0.9 % (flush) 10 mL (BD POSIFLUSH) Problem List As Of Date 03/01/2023 Noted Resolved SICCA SYNDROME [M35.00] 03/01/2006 Tobacco use disorder [F17.200] 10/26/2006 02/27/2014 Age-related osteoporosis with current pathologi*10/15/2009 Leukopenia [D72.819] 10/15/2009 Carpal tunnel syndrome [G56.00] 07/29/2010 01/08/2015 Supraspinatus tendonitis [M75.90] 01/06/2011 02/27/2016 Sjogren's syndrome [M35.00] 02/19/2011 Seropositive rheumatoid arthritis [M05.9] 02/10/2012 Essential hypertension, benign [I10] 11/14/2013 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] 11/14/2013 Ascending aortic aneurysm (HCC) [I71.21] 02/27/2014 Hyperlipidemia LDL goal <100 [E78.5] 10/30/2016 Encounter for screening for malignant neoplasm *06/15/2017 07/02/2022 GERD with esophagitis [K21.00] 06/15/2017 Age-related osteoporosis without current pathol*05/31/2017 05/29/2018 Acquired flat foot [M21.40] 05/31/2017 Hypertension [I10] 03/06/2018 Nicotine dependence, unspecified, uncomplicated*05/08/2017 Palpitations [R00.2] 05/11/2017 06/12/2021 Shortness of breath [R06.02] 03/06/2018 03/06/2018 Closed fracture of left hip (HCC) [S72.002A] 05/29/2018 Hyperglycemia [R73.9] 06/12/2021 Encounter Status:Closed by RADHA BARCENAS on 03/01/23 [facility] 03-01-2023 Note HNO ID: [id number] Author: Radha Barcenas Service: ? Author Type: ? Type: Progress Notes Filed: 03/01/2023 8:39 AM Note Text: POPULATION HEALTH NAVIGATION OUTREACH Action/ 1st attempt: Spoke to patient and Medicare WEllness scheduled. Declined other scheduling including mammogram. HCC GAPS I71.21 - Ascending aortic aneurysm (HCC) - [id number] Last Billed 12/10/2021 M05.9 - Seropositive rheumatoid arthritis (HCC) - [id number] Last Billed 07/02/2022 M35.00 - Sjogren's syndrome (HCC) - [id number] Last Billed 07/02/2022 M35.00 - Sicca syndrome (HCC) - [id number] Last Billed 07/02/2022 Care Gaps Annual Wellness visit Breast Cancer screening Controlling Blood Pressure Patient Identified by Name and : YES, via phone Outreach Outcome/Action Spoke to patient / parent / legal guardian: Patient scheduled Did you use a PCP flex slot to schedule this appointment? No Reason for Outreach HCC or suspected condition Payer: Payor: MEDICARE / Plan: MEDICARE A AND B / Product Type: Medicare / Care Gap Reviewed:: Annual Wellness visit Breast Cancer screening Controlling Blood Pressure Reminder: Reminder note to check Health Maintenance for items below Health Maintenance items due: SHINGRIX VACCINE(1 of 2) Never done COVID-19 VACCINE(4 - Booster for Moderna series) due on 08/12/2021 BP CONTROLLED (<130/80) due on 06/12/2022 ADVANCE DIRECTIVE DISCUSSION Never done DEPRESSION ASSESSMENT due on 08/01/2022 MAMMOGRAM due on 01/06/2023 Navigation Signature: Radha Barcenas March 01, 2023 8:35 AM [facility] 03-01-2023 History of Present illness Narrative POPULATION HEALTH NAVIGATION OUTREACH Action/ attempt: Spoke to patient and Medicare WEllness scheduled. Declined other scheduling including mammogram. HCC GAPS I71.21 - Ascending aortic aneurysm (HCC) - [id number] Last Billed 12/10/2021 M05.9 - Seropositive rheumatoid arthritis (HCC) - [id number] Last Billed 07/02/2022 M35.00 - Sjogren's syndrome (HCC) - [id number] Last Billed 07/02/2022 M35.00 - Sicca syndrome (HCC) - [id number] Last Billed 07/02/2022 Care Gaps Annual Wellness visit Breast Cancer screening Controlling Blood Pressure Patient Identified by Name and : YES, via phone Outreach Outcome/Action Spoke to patient / parent / legal guardian: Patient scheduled Did you use a PCP flex slot to schedule this appointment? No Reason for Outreach HCC or suspected condition Payer: Payor: MEDICARE / Plan: MEDICARE A AND B / Product Type: Medicare / Care Gap Reviewed:: Annual Wellness visit Breast Cancer screening Controlling Blood Pressure Reminder: Reminder note to check Health Maintenance for items below Health Maintenance items due: SHINGRIX VACCINE(1 of 2) Never done COVID-19 VACCINE(4 - Booster for Moderna series) due on 08/12/2021 BP CONTROLLED (<130/80) due on 06/12/2022 ADVANCE DIRECTIVE DISCUSSION Never done DEPRESSION ASSESSMENT due on 08/01/2022 MAMMOGRAM due on 01/06/2023 Navigation Signature: Radha Barcenas March 01, 2023 8:35 AM documented in this encounter [facility] 02-16-2023 Note Patient Outreach (IN TMMN) JENNI BAIRD ([id number]) 1955 F Date Time Provider Department 02/16/23 JULES HATCH During your visit today, we recorded the following information about you: Allergies As of Date: 02/16/2023 Noted Allergy Reaction ADALIMUMAB 05/08/2017 14 - Other: See Comments HYDROCHLOROTHIAZIDE 05/22/2019 16 - Unknown LEFLUNOMIDE 05/08/2017 14 - Other: See Comments Date Reviewed: 08/14/2022 Reviewed by: Ankur Tipton APRN.STOPPER MAKER HELPER - Fully Assessed Visit Diagnosis:Encounter for screening mammogram for breast cancer [Z12.31] Order(s):[facility] SCREENING [[id number]] Order #: [id number] FUTURE Prescriptions as of 02/21/2023 - gabapentin (NEURONTIN) 100 mg capsule TAKE 1 TO 2 CAPSULES BY MOUTH EVERY NIGHT AT BEDTIME - metoprolol succinate ER (TOPROL XL) 25 mg 24 hr tablet Take 1 tablet by mouth once daily. - omega-3 fatty acids 1,000 mg cap Take 2 g by mouth once daily. - cevimeline (EVOXAC) 30 mg capsule Take 1 capsule by mouth three times daily. - lisinopril (PRINIVIL) 20 mg tablet Take 1 tablet by mouth once daily. - amLODIPine (NORVASC) 5 mg tablet Take 1 tablet by mouth once daily. - predniSONE (DELTASONE) 5 mg tablet As needed per rheum. - Cholecalciferol, Vitamin D3, 25 mcg (1,000 unit) cap Vitamin D3 1,000 unit capsule - Biotin 10,000 mcg cap Take 5,000 mcg by mouth once daily. - hydroxychloroquine (PLAQUENIL) 200 mg tablet Take 1 tablet by mouth twice daily. - Etanercept (ENBREL SURECLICK) 50 mg/mL (0.98 mL) pnij Inject 50 mg subcutaneously once each week. - FOLIC ACID ORAL Take by mouth. Pt takes two tablets daily. Facility-Administered Medications as of 02/21/2023 - perflutren lipid microspheres 1.3 mL in NaCl (PF) 0.9% 10 mL injection (DEFINITY) - sodium chloride 0.9 % (flush) 10 mL (BD POSIFLUSH) Problem List As Of Date 02/16/2023 Noted Resolved SICCA SYNDROME [M35.00] 03/01/2006 Tobacco use disorder [F17.200] 10/26/2006 02/27/2014 Age-related osteoporosis with current pathologi*10/15/2009 Leukopenia [D72.819] 10/15/2009 Carpal tunnel syndrome [G56.00] 07/29/2010 01/08/2015 Supraspinatus tendonitis [M75.90] 01/06/2011 02/27/2016 Sjogren's syndrome [M35.00] 02/19/2011 Seropositive rheumatoid arthritis [M05.9] 02/10/2012 Essential hypertension, benign [I10] 11/14/2013 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] 11/14/2013 Ascending aortic aneurysm (HCC) [I71.21] 02/27/2014 Hyperlipidemia LDL goal <100 [E78.5] 10/30/2016 Encounter for screening for malignant neoplasm *06/15/2017 07/02/2022 GERD with esophagitis [K21.00] 06/15/2017 Age-related osteoporosis without current pathol*05/31/2017 05/29/2018 Acquired flat foot [M21.40] 05/31/2017 Hypertension [I10] 03/06/2018 Nicotine dependence, unspecified, uncomplicated*05/08/2017 Palpitations [R00.2] 05/11/2017 06/12/2021 Shortness of breath [R06.02] 03/06/2018 03/06/2018 Closed fracture of left hip (HCC) [S72.002A] 05/29/2018 Hyperglycemia [R73.9] 06/12/2021 Encounter Status:Closed by CARLOS PRODUSER on 02/21/23 [facility] 08-17-2022 Miscellaneous Notes Phone call received [facility] Raegan Goncalves requested + results to be faxed [phone]. Faxed 08/17/2022 2:38 PM.. Carmen Bernard LPN documented in this encounter [facility] 08-16-2022 Miscellaneous Notes Pt notified. She declines appt. Advised if rash spreads to eye or near eye to contact eye dr. She verbalized understanding. Shawn Pruett LPN Not really. The valtrex is as good as it gets. Can come in for one of us to double check it. Pt calls to report she was seen in 08/14 and dx with shingles. Pt was prescribed Valtrex. Pt reports rash was on right side of head/scalp and now has traveled to ear and cheek. Pt was advised if rash goes to eye to go to eye dr right away. Pt is asking if there is something topical to put on rash or if there is anyway to keep it from spreading. Also pt is asking if she needs to see ear dr since rash is spreading to ear. Please review and advise. Pushpa Solis LPN documented in this encounter [facility] 08-14-2022 Instructions Ankur Tipton APRN.[facility] - 08/14/2022 10:57 AM EST [facility] PATIENT INFO SHINGLES Shingles (Herpes Zoster) What is shingles? Shingles is an infection caused by the same virus that causes chickenpox. This virus is called varicella zoster. You cannot develop shingles unless you have had a previous infection of chickenpox (usually as a child). Shingles is also called herpes zoster. This infection is most common in people over 60 years of age, but young people can have it as well. How does it occur? After you recover from chickenpox, the chickenpox virus is not destroyed. It moves back to the roots of your nerve cells (near the spinal cord) and becomes inactive (dormant). Later, if the virus is reactivated, the symptoms are called shingles. What exactly causes the reactivation of the virus is not known. A weakened immune system seems to allow reactivation of the virus. Advancing age and chronic use of cortisone-type drugs may trigger shingles. The virus may also become active again after the skin is injured or sunburned. Emotional stress seems to be a common trigger as well. What are the symptoms? The first sign of shingles is often burning, sharp pain, tingling, or numbness in or under your skin on one side of your body or face. The most common site is the back or upper abdomen. You may have severe itching or aching. You also may feel tired and ill with fever, chills, headache, and upset stomach. After several days, you will notice a rash of small, clear, fluid-filled blisters on reddened skin. Within 3 days after they appear, the blisters will turn yellow, then dry and crust over. Over the next 2 weeks the crusts will drop off, sometimes leaving small, pitted scars. Because they tend to follow nerve paths, the blisters are usually found in a line, often extending from the back or flank around to the abdomen, just on one side. Shingles usually doesn't cross the midline of the body. (The word shingles comes from the Latin word for belt or girdle.) The rash also may appear on one side of your face. Some people have painful eye inflammations and infections. Is shingles contagious? You can't get shingles from someone else, but you may get chickenpox from contact with shingles blisters if you have not had chickenpox before. The shingles virus is in the blister fluid. The virus can spread by direct contact with a blister. It can also be spread by indirect contact, for example, if you use a washcloth that has blister fluid on it. If you have shingles, avoid contact with infants, children, women, and adults who have never had chickenpox or the chickenpox shot until your blisters are completely dry. How is shingles diagnosed? Your health care provider will ask about your symptoms and examine you. Your provider may order lab tests to look for the virus in fluid from a blister. How is it treated? It is best to start treatment within 24 to 48 hours after symptoms start. Your health care provider may prescribe: -an antiviral drug, such as acyclovir, to speed recovery and lessen the chance of prolonged symptoms from nerve inflammation -painkillers for more serious discomfort if nonprescription painkillers are not helping enough -antibacterial salves or lotions to help prevent bacterial infection of the blisters -capsaicin cream for pain How long will the effects last? The rash from shingles will heal in 1 to 2 weeks and the pain or irritation will usually disappear within 3 to 5 weeks. If the virus damages a nerve, you may have pain, numbness, or tingling for months or even years after the rash is healed. This is a condition called postherpetic neuralgia. It is most likely to occur after a shingles outbreaks in people over 50 years old. Antiviral medicine prescribed at the time the shingles is diagnosed and taken for 7 days can help prevent this problem. How can I take care of myself? -Take a pain relief medicine such as acetaminophen. Take other medicine as prescribed by your health care provider. -Put a cool compress on the rash (such as a cool, moist washcloth). -Rest in bed during the early stages if you have fever and other symptoms. -Try to avoid having clothing or bed linens rubbing against the rash, which might irritate it. Call your health care provider if: -You develop worsening pain or fever. -The blisters show signs of bacterial infection, such as increasing pain or redness, or milky yellow drainage from the blister sites. -The blisters are close to the eyes. How can I help prevent shingles? -If you have never had chickenpox, you can get a shot to help prevent infection with the chickenpox virus. -You can protect your immune system and lessen your chances of getting shingles by trying to keep your stress under control documented in this encounter [facility] 08-14-2022 History of Present illness Narrative Images from the original note were not included. Subjective HPI Nontoxic-appearing female presents urgent care chief complaint rash. Duration of symptoms 2 days. Associated symptom slightly stinging rash to right side of face and neck. Has not used any OTC medications. Denies any significant pain. States it is tender/burning if she rubs it. Has not had a rash like this in the past. Has had chickenpox in the past. Denies any recent medication changes antibiotic use. Denies any fever body aches chills productive cough chest pain shortness of breath pleuritic pain hemoptysis nausea vomiting abdominal pain change in bowel or bladder habits. Past medical history prescription medication use and allergies reviewed. .Patient presents with: Rash: Pt reported (RT) sided rash, ear pain, swollen glands x2 days. PAST MEDICAL HISTORY Diagnosis Date Age-related osteoporosis with current pathological fracture 10/15/2009 Age-related osteoporosis with current pathological fracture 10/15/2009 L hip fracture 05/20/18 Ascending aortic aneurysm 02/27/2014 01/14/15: [address] scan 04/21/17: [address] scan Carpal tunnel syndrome 07/29/2010 Chronic obstructive pulmonary disease (COPD) ([facility]) Diarrhea Essential hypertension, benign 11/14/2013 H. pylori infection Hyperlipidemia LDL goal <100 10/30/2016 Hypertension 11/14/13 Internal hemorrhoids without mention of complication Osteoporosis 03/09 Seropositive rheumatoid arthritis (HCC) 02/10/2012 Sjogren's syndrome ([facility]) 2005 Snoring Supraspinatus tendonitis 01/06/2011 Syncope PAST SURGICAL HISTORY Procedure Laterality Date COLONOSCOPY FLX DX W/COLLJ SPEC WHEN PFRMD 01/09/07 repeat in COLONOSCOPY FLX DX W/COLLJ SPEC WHEN PFRMD 07/18/2017 10 year repeat DILATATION Ascending Aorta DILATION & CURETTAGE DX&/THER NONOBSTETRIC Dilation & curettage ESOPHAGOGASTRODUODENOSCOPY TRANSORAL DIAGNOSTIC EGD LIG/TRNSXJ FLP TUBE ABDL/VAG APPR UNI/BI Tubal ligation TONSILLECTOMY PRIMARY/SECONDARY <AGE 12 Tonsillectomy ALLERGIES Adalimumab, Hydrochlorothiazide, and Leflunomide MEDICATIONS gabapentin (NEURONTIN) 100 mg capsule^TAKE 1 TO 2 CAPSULES BY MOUTH EVERY NIGHT AT BEDTIME^Disp: ^Rfl: metoprolol succinate ER (TOPROL XL) 25 mg 24 hr tablet^Take 1 tablet by mouth once daily.^Disp: 90 tablet^Rfl: 3 omega-3 fatty acids 1,000 mg cap^Take 2 g by mouth once daily.^Disp: ^Rfl: lisinopril (PRINIVIL) 20 mg tablet^Take 1 tablet by mouth once daily.^Disp: 90 tablet^Rfl: 3 (Patient taking differently: Take 40 mg by mouth once daily.) amLODIPine (NORVASC) 5 mg tablet^Take 1 tablet by mouth once daily.^Disp: 90 tablet^Rfl: 3 (Patient taking differently: Take 10 mg by mouth once daily.) Cholecalciferol, Vitamin D3, 25 mcg (1,000 unit) cap^Vitamin D3 1,000 unit capsule^Disp: ^Rfl: Biotin 10,000 mcg cap^Take 5,000 mcg by mouth once daily.^Disp: ^Rfl: 0 hydroxychloroquine (PLAQUENIL) 200 mg tablet^Take 1 tablet by mouth twice daily.^Disp: ^Rfl: Etanercept (ENBREL SURECLICK) 50 mg/mL (0.98 mL) pnij^Inject 50 mg subcutaneously once each week.^Disp: ^Rfl: 0 FOLIC ACID ORAL^Take by mouth. Pt takes two tablets daily.^Disp: ^Rfl: cevimeline (EVOXAC) 30 mg capsule^Take 1 capsule by mouth three times daily.^Disp: ^Rfl: (Patient not taking: Reported on 06/12/2021 ) predniSONE (DELTASONE) 5 mg tablet^As needed per rheum. ^Disp: ^Rfl: FAMILY HISTORY Problem Relation Age of Onset Hypertension Mother other (Rheumatoid arthritis) Mother other (ASHD) Father [place] other (Grave's disease) Sister Diabetes Sister Colon Cancer Maternal Aunt 39 Social History Tobacco Use Smoking status: Every Day Packs/day: 0.50 Years: 30.00 Pack years: 15.00 Types: Cigarettes Smokeless tobacco: Never Vaping Use Vaping Use: Never used Substance Use Topics Alcohol use: No Drug use: No BP 130/78 Pulse 97 Temp 36.9 C (98.4 F) Resp 16 Wt 61.9 kg (136 lb 6.4 oz) SpO2 97% BMI 23.41 kg/m Review of Systems Constitutional: Negative for chills, fever and malaise/fatigue. HENT: Negative for congestion, ear discharge, ear pain, sinus pain and sore throat. Eyes: Negative for blurred vision, double vision, photophobia, pain, discharge and redness. Respiratory: Negative for cough, hemoptysis, sputum production, shortness of breath, wheezing and stridor. Cardiovascular: Negative for chest pain. Gastrointestinal: Negative for abdominal pain, diarrhea, nausea and vomiting. Musculoskeletal: Negative for myalgias. Skin: Positive for rash. Negative for itching. Neurological: Negative for dizziness and headaches. Objective Physical Exam Constitutional: General: She is not in acute distress. Appearance: She is not diaphoretic. HENT: Head: Normocephalic. Mouth/Throat: Mouth: Mucous membranes are moist. Pharynx: Oropharynx is clear. No oropharyngeal exudate or posterior oropharyngeal erythema. Eyes: Conjunctiva/sclera: Conjunctivae normal. Pupils: Pupils are equal, round, and reactive to light. Cardiovascular: Rate and Rhythm: Normal rate and regular rhythm. Heart sounds: Normal heart sounds. Pulmonary: Effort: Pulmonary effort is normal. No tachypnea, accessory muscle usage or respiratory distress. Breath sounds: Normal breath sounds. No stridor. No wheezing or rhonchi. Abdominal: Palpations: Abdomen is soft. Tenderness: There is no abdominal tenderness. Musculoskeletal: Cervical back: Normal range of motion and neck supple. No rigidity or tenderness. Lymphadenopathy: Cervical: No cervical adenopathy. Skin: General: Skin is warm and dry. Comments: Maculopapular rash with fluid-filled vesicles in clusters pattern noted highlighted area. Does not extend into the face or eye. No remote redness. No significant adenopathy noted. No desquamation of skin or mucosal membrane involvement. Neurological: Mental Status: She is alert and oriented to person, place, and time. ASSESSMENT/PLAN: 1. Rash - ICD9: 782.1, ICD10: R21 - HSV 1,2/VZV AMP MOLECULAR DETECT Suspicious of shingles rash. There are is forming vesicles. HSV swab obtained. We will treat for shingles. Patient's creatinine clearance 80. Will be placed on Valtrex. Will discontinue if shingle swab is negative. Red Flags discussed. Patient was educated on supportive therapies. Patient will follow up with primary care provider as needed. Patient was instructed to immediately proceed to emergency room for any new, worsening, or symptoms lasting longer than anticipated. The patient's clinical presentation is otherwise unremarkable at this time. Based on exam and clinical finding, the patient is stable for discharge. Plan of care was discussed with patient. Patient verbalizes understanding and agrees to plan of care. This note was generated using [employer] software. It may contain errors in wording, punctuation, or spelling. Ankur Tipton APRN.RICA documented in this encounter [facility] 08-14-2022 Miscellaneous Notes Spoke with patient and she has a rash on the left side of her neck below her ear and having pins and needles sensation in her scalp. Recommended patient to to the urgent care to have rash evaluated. Patient understood and agreed. documented in this encounter [facility] 07-21-2022 Miscellaneous Notes Spoke with patient and informed her of results. She verbalized understanding. She is not interested in the prolia or reclast at this time. Myla Lemus Bone density still shows osteoporosis but has not changed. If interested in looking at something like prolia or reclast again, let me know documented in this encounter [facility] 07-13-2022 History of Present illness Narrative Radiology Service Progress Note PATIENT NAME: Jenni Baird DATE OF SERVICE: July 13, 2022 TIME: 2:02 PM PATIENT IDENTITY VERIFICATION COMPLETED USING TWO (2) IDENTIFIERS: Name and Date of confirmed by patient verbally. FALL SCREENING: Has the patient had 2 falls in the last year or 1 fall with injury or currently using an Ambulatory Assistive Device (Walker, Cane, Wheelchair, Crutches, etc.)? No PATIENT GENDER DATA: Female. status: : No status: NO. PATIENT RELEVANT IMPLANT DATA REVIEWED: Not Applicable RADIOLOGY DEPARTMENT: Bone Density PERIPHERAL IV DATA: Not applicable SIGNED BY: RT Susannah(R) July 13, 2022 2:02 PM documented in this encounter [facility] 07-02-2022 Instructions Jules Hatch MD - 07/02/2022 11:04 AM EST BONE MINERAL DENSITY PATIENT INSTRUCTIONS ======== Bone mineral density testing measures the amount of calcium in certain parts of your bones. This information determines how strong your bones are. The test is used to detect osteoporosis, a disease in which the bone's mineral content and density are low, increasing a person's risk of fractures. The lumbar spine (lower back) and the hip are the skeletal sites usually examined. For the test, remember that: 1. You cannot take this test if you are . 2. Eat a normal diet on the day of the test. 3. Take your medications as you normally would. 4. DO NOT take calcium supplements (such as Tums) for 24 hours before the test. 5. On the day of the test, leave valuables (jewelry or credit cards) at home. 6. The test should be performed prior to oral, rectal or IV contrast studies, or at least 7 days after any of these studies. For the test, you may be asked to wear a hospital gown. You will lie on your back, on a padded table, in a comfortable position. Generally, you can resume your usual activities immediately. documented in this encounter [facility] 07-02-2022 History of Present illness Narrative Patient presents with: 6 Month Exam HPI: Patient presents today for office visit for follow up. HTN: Patient is compliant with meds Yes Chest pain: No. Dyspnea: No. Edema: No. Palpitations: No. Syncope: No. Headache: Yes. Comes quick and goes. Dizziness: No. Has noted pain over over her teeth and jaw on her right side. Is getting better now. Has seen dentist and ent for it. Ent has said it is a tmj issues. Told her to take ibu. Dentist thought her bite was ok. Did start after her dental exam. Is now getting again. Had it last time. Was there six months ago. No other symptoms. Has chronic sinus symptoms. No fever or ear pain. Did not feel ill. Discussed tmj. Has been tired and exhausted Dr Boswell told her he white count ecently was slightly low. Sees cardiology in August. Last visit, they said they would order cts again. May want to start every other year. Note was copied and pasted, without alteration from:last ov. Has not been feeling well for several months. Feeling fatigue. Sore throat on and off. Negative covid test a few days ago. Feeling worse the last few days Was coughing worse a few days ago. Is brining up mucous. Cough was there before however. Has allergies. Used to have allergy shots. Some shortness of breath. Has been having some heaviness when she lays on her chest on the left side. No chest pain with exertion. No fever or chills. No edema. Chronic drainage in her throat. No issues with taste or smell. Just did a ct of her chest and her aorta was unchanged. Has noted some lower back pain and sciatic pain. That is better. Has had hip and thigh pain for a year. Had told Dr. Boswell. She sees Dr. Ford and want him to address it. Will defer to him. bp is up today. CONCLUSIONS: - Exam indication: Chest Pain - The left ventricle is normal in size. Left ventricular systolic function is normal. EF = 69 5% (2D biplane) Grade I left ventricular diastolic dysfunction. - The right ventricle is normal in size. Right ventricular systolic function is normal. - There are no significant valvular abnormalities. - There are no significant valvular abnormalities. - The patient has not had a prior [facility] echocardiographic exam for comparison. MEDICATIONS: Current Outpatient Medications Medication Sig metoprolol succinate ER (TOPROL XL) 25 mg 24 hr tablet Take 1 tablet by mouth once daily. lisinopril (PRINIVIL) 20 mg tablet Take 1 tablet by mouth once daily. (Patient taking differently: Take 40 mg by mouth once daily.) amLODIPine (NORVASC) 5 mg tablet Take 1 tablet by mouth once daily. (Patient taking differently: Take 10 mg by mouth once daily.) Cholecalciferol, Vitamin D3, 25 mcg (1,000 unit) cap Vitamin D3 1,000 unit capsule hydroxychloroquine (PLAQUENIL) 200 mg tablet Take 1 tablet by mouth twice daily. Etanercept (ENBREL SURECLICK) 50 mg/mL (0.98 mL) pnij Inject 50 mg subcutaneously once each week. omega-3 fatty acids 1,000 mg cap Take 2 g by mouth once daily. cevimeline (EVOXAC) 30 mg capsule Take 1 capsule by mouth three times daily. (Patient not taking: Reported on 06/12/2021 ) predniSONE (DELTASONE) 5 mg tablet As needed per rheum. Biotin 10,000 mcg cap Take 5,000 mcg by mouth once daily. FOLIC ACID ORAL Take by mouth. Pt takes two tablets daily. Current Facility-Administered Medications Medication Dose Route Frequency perflutren lipid microspheres 1.3 mL in NaCl (PF) 0.9% 10 mL injection (DEFINITY) INTRAVENOUS DIRECTED PRN sodium chloride 0.9 % (flush) 10 mL (BD POSIFLUSH) 10 mL INTRAVENOUS DIRECTED PRN ALLERGIES: ALLERGIES Allergen Reactions Adalimumab Other: See Comments Leflunomide Other: See Comments PAST MEDICAL HISTORY Diagnosis Date Age-related osteoporosis with current pathological fracture 10/15/2009 Age-related osteoporosis with current pathological fracture 10/15/2009 L hip fracture 05/20/18 Ascending aortic aneurysm (HCC) 02/27/2014 01/14/15: [address] scan 04/21/17: [address] scan Carpal tunnel syndrome 07/29/2010 Chronic obstructive pulmonary disease (COPD) ([facility]CC) Diarrhea Essential hypertension, benign 11/14/2013 H. pylori infection Hyperlipidemia LDL goal <100 10/30/2016 Hypertension 11/14/13 Internal hemorrhoids without mention of complication Osteoporosis 03/09 Seropositive rheumatoid arthritis (HCC) 02/10/2012 Sjogren's syndrome ([facility]CC) 2005 Snoring Supraspinatus tendonitis 01/06/2011 Syncope PAST SURGICAL HISTORY Procedure Laterality Date COLONOSCOPY FLX DX W/COLLJ SPEC WHEN PFRMD 01/09/07 repeat in -2016 COLONOSCOPY FLX DX W/COLLJ SPEC WHEN PFRMD 07/18/2017 10 year repeat DILATATION Ascending Aorta DILATION & CURETTAGE DX&/THER NONOBSTETRIC Dilation & curettage ESOPHAGOGASTRODUODENOSCOPY TRANSORAL DIAGNOSTIC EGD LIG/TRNSXJ FLP TUBE ABDL/VAG APPR UNI/BI Tubal ligation TONSILLECTOMY PRIMARY/SECONDARY <AGE 10 Tonsillectomy FAMILY HISTORY Problem Relation Age of Onset Hypertension Mother other (Rheumatoid arthritis) Mother other (ASHD) Father [place] other (Grave's disease) Sister Diabetes Sister Colon Cancer Maternal Aunt 39 Social History Tobacco Use Smoking status: Every Day Packs/day: 0.50 Years: 30.00 Pack years: 15.00 Types: Cigarettes Smokeless tobacco: Never Vaping Use Vaping Use: Never used Substance Use Topics Alcohol use: No Drug use: No Reviewed current medications, allergies, past medical history, surgical history, family history and social history today. REVIEW OF SYSTEMS All other reviewed and negative other than HPI. HEALTH MAINTENANCE: Reviewed health maintenance issues today and recommended the following in detail. DEPRESSION ASSESSMENT Never done COVID-19 VACCINE(4 - Booster for Moderna series) -declines VITALS: BP 122/72 Pulse 76 Wt 61.7 kg (136 lb) SpO2 98% BMI 23.34 kg/m Last 4 Encounter Wt Readings: Date: Wt: 12/31/2021 62.1 kg (137 lb) 12/10/2021 62.6 kg (138 lb) 06/12/2021 62.6 kg (138 lb) 02/18/2021 64 kg (141 lb) PHYSICAL EXAMINATION: General appearance: Well appearing, alert, in no acute distress, well-hydrated, well nourished. Skin: Skin color, texture, turgor normal, no suspicious rashes or lesions Head: Normocephalic, no masses, lesions, tenderness or abnormalities Eyes: Anicteric sclera. Pupils are equally round and reactive to light. Extraocular movements are intact. Oropharynx: no tenderness today over jaw. Referred back to ent or dentis Neck: Supple, no adenopathy; thyroid symmetric, normal size, no bruits Lungs: Lungs clear to auscultation. No wheezing, rhonchi, rales Heart: RRR without murmur, gallop, or rubs. No ectopy Abdomen: Normal abdominal exam, Abdomen soft, non-tender. Bowel sounds normal. No masses, organomegaly Extremities: No deformities, edema, skin discoloration, clubbing or cyanosis. Good capillary refill. Musculoskeletal: No joint swelling, deformity, or tenderness ASSESSMENT/PLAN: 1. Primary hypertension - ICD9: 401.9, ICD10: I10 (primary diagnosis) - good control - Continue current medication(s) - Goal of BP <130/80 - CBC + DIFF - COMP METABOLIC PANEL - LIPID PANEL BASIC 2. Hyperlipidemia LDL goal <100 - ICD9: 272.4, ICD10: E78.5 3. Gastroesophageal reflux disease with esophagitis, unspecified whether hemorrhage - ICD9: 530.11, ICD10: K21.00 4. Hyperglycemia - ICD9: 790.29, ICD10: R73.9 - HGB A1C 5. Leukopenia, unspecified type - ICD9: 288.50, ICD10: D72.819 - check labs. 6. Seropositive rheumatoid arthritis (HCC) - ICD9: 714.0, ICD10: M05.9 - per rheum 7. Age-related osteoporosis with current pathological fracture, sequela - ICD9: 905.5, 733.01, ICD10: M80.00XS - VITAMIN D 25 HYDROXY - DXA-AXIAL SKELETON 8. Fatigue, unspecified type - ICD9: 780.79, ICD10: R53.83 - TSH BLD 9. Disorder of bone, unspecified - ICD9: 733.90, ICD10: M89.9 - VITAMIN D 25 HYDROXY - DXA-AXIAL SKELETON 10. Asymptomatic postmenopausal status - ICD9: V49.81, ICD10: Z78.0 - DXA-AXIAL SKELETON Jules Hatch documented in this encounter [facility] 01-20-2022 Miscellaneous Notes Bruce-- 12/31/21 Next-- 07/02/22 Last refill-- 02/18/21 90 with 3 refills Last labs-- 12/10/21 Patient has been identified by name and date of : Yes Patient phones for refill(s): Pending Prescriptions Disp Refills METOPROLOL SUCCINATE ER 25 MG TABLET,EXTENDED RELEASE 24 HR 90 tablet 3 Sig: Take 1 tablet by mouth once daily. MAURISIO: No Date of last office visit in primary care: 6/2/22 Last 2 Encounter Wt Readings: Date: Wt: 12/31/2021 62.1 kg (137 lb) 12/10/2021 62.6 kg (138 lb) Please advise. Thank you. Sirena Zimmerman documented in this encounter [facility] 01-06-2022 Miscellaneous Notes January 06, 2022 PID: [id number] Jenni Baird [address] [place] [address] Dear Ms. Baird, We are pleased to inform you that the results of your recent breast imaging exam on 01/06/2022 are normal. Your mammogram demonstrates that you have dense breast tissue, which could hide abnormalities. Dense breast tissue, in and of itself, is a relatively common condition. Therefore, this information is not provided to cause undue concern; rather, it is to raise your awareness and promote discussion with your health care provider regarding the presence of dense breast tissue in addition to other risk factors. Early detection of cancer is very important. We also understand recommendations regarding breast cancer screening are controversial. Please discuss with your primary care provider which strategy is best for you and whether a mammogram is right for you. Your imaging studies and report will be kept on file at [facility] as part of your permanent medical record and are available for your continuing care. Thank you for allowing us to help in meeting your health care needs. Sincerely, Dr. Saini Interpreting Radiologist [facility] (Normal over 40) documented in this encounter [facility] 01-06-2022 History of Present illness Narrative Radiology Service Progress Note PATIENT NAME: Jenni Baird DATE OF SERVICE: January 06, 2022 TIME: 9:08 AM PATIENT IDENTITY VERIFICATION COMPLETED USING TWO (2) IDENTIFIERS: Name and Date of confirmed by patient verbally. FALL SCREENING: Has the patient had 2 falls in the last year or 1 fall with injury or currently using an Ambulatory Assistive Device (Walker, Cane, Wheelchair, Crutches, etc.)? No PATIENT GENDER DATA: Female. status: : No status: NO. PATIENT RELEVANT IMPLANT DATA REVIEWED: Not Applicable RADIOLOGY DEPARTMENT: Mammography PERIPHERAL IV DATA: Not applicable SIGNED BY: RT Nilda(R) January 06, 2022 9:08 AM documented in this encounter [facility] 12-31-2021 History of Present illness Narrative Patient presents with: Follow Up: still with fatigue-echo and chest x-ray ok HPI: Patient presents today for office visit for follow up from last ov: She is feeling better overall. Cough is improving. Some drainage. No fever or chills. Reviewed labs. Still pretty tired. admits to not sleeping well. Does not snore if laying on her side which is how she sleeps. Discussed melatonin. Chest discomfort is better. Echo CONCLUSIONS: - Exam indication: Chest Pain - The left ventricle is normal in size. Left ventricular systolic function is normal. EF = 69 5% (2D biplane) Grade I left ventricular diastolic dysfunction. - The right ventricle is normal in size. Right ventricular systolic function is normal. - There are no significant valvular abnormalities. - There are no significant valvular abnormalities. - The patient has not had a prior [facility] echocardiographic exam for comparison. Component Latest Ref Rng & Units 12/04/2021 12/04/2021 12/10/2021 8:41 AM 8:41 AM WBC 3.70 - 11.00 k/uL 4.98 RBC 3.90 - 5.20 m/uL 4.56 Hemoglobin 11.5 - 15.5 g/dL 14.2 Hematocrit 36.0 - 46.0 % 43.1 MCV 80.0 - 100.0 fL 94.5 MCH 26.0 - 34.0 pg 31.1 MCHC 30.5 - 36.0 g/dL 32.9 RDW-CV 11.5 - 15.0 % 14.0 Platelet Count 150 - 400 k/uL 186 MPV 9.0 - 12.7 fL 11.0 Neut% % 56.3 Abs Neut (ANC) 1.45 - 7.50 k/uL 2.80 Lymph% % 31.1 Abs Lymph 1.00 - 4.00 k/uL 1.55 Rich% % 11.0 Abs Rich <0.87 k/uL 0.55 Eosin% % 1.0 Abs Eosin <0.46 k/uL 0.05 Baso% % 0.6 Abs Baso <0.11 k/uL 0.03 Immature Gran % % 0.0 IMMATURE GRANS (ABS) <0.10 k/uL <0.03 NRBC /100 WBC 0.0 Absolute nRBC <0.01 k/uL <0.01 DTYPE Auto Glucose 74 - 99 mg/dL 117 (H) BUN 7 - 21 mg/dL 11 Creatinine 0.58 - 0.96 mg/dL 0.65 0.65 Sodium 136 - 144 mmol/L 136 Potassium 3.7 - 5.1 mmol/L 4.2 Chloride 97 - 105 mmol/L 101 CO2 22 - 30 mmol/L 25 Anion Gap 9 - 18 mmol/L 10 Calcium 8.5 - 10.2 mg/dL 9.8 eGFR >=60 mL/min/1.73m 96 96 T4 5.5 - 10.2 ug/dL 9.0 T4 Uptake 0.91 - 1.19 1.05 FTI 5.3 - 10.8 ug/dL 8.6 Hemoglobin A1C 4.3 - 5.6 % 5.9 (H) Estimated Average Glucose mg/dL 123 TSH 0.270 - 4.200 mIU/L 0.617 Chest xray: Lines, tubes, and devices: None. Lungs and pleura: Mild chronic interstitial lung changes with lingular scarring is unchanged dating back to 2014. There is no focal consolidation or acute pleural process. There is no vascular redistribution to suggest pulmonary edema. Cardiomediastinal silhouette: Unchanged cardiomediastinal silhouette with mild unfolding of the descending thoracic aorta. Bones and soft tissues: The bony structures are intact See last ov two weeks ago, copied and pasted: Has not been feeling well for several months. Feeling fatigue. Sore throat on and off. Negative covid test a few days ago. Feeling worse the last few days Was coughing worse a few days ago. Is brining up mucous. Cough was there before however. Has allergies. Used to have allergy shots. Some shortness of breath. Has been having some heaviness when she lays on her chest on the left side. No chest pain with exertion. No fever or chills. No edema. Chronic drainage in her throat. No issues with taste or smell. Just did a ct of her chest and her aorta was unchanged. Has noted some lower back pain and sciatic pain. That is better. Has had hip and thigh pain for a year. Had told Dr. Boswell. She sees Dr. Ford and want him to address it. Will defer to him. bp is up today. Concerned because her sister has Grave's disease Her hair breaks off and skin is dry. 1. Chest discomfort - ICD9: 786.59, ICD10: R07.89 (primary diagnosis) - doubt cardiac, given her hx, however, do echo. Red flags for re-assessment reviewed with patient in detail. - XR CHEST 2V FRONTAL/LAT - ECG COMPLETE - ECHO - PERFLUTREN LIPID MICROSPHERES 1.1 MG/ML INJECTION IN NS 10 ML - SODIUM CHLORIDE 0.9 % (FLUSH) INJECTION SYRINGE 2. Fatigue, unspecified type - ICD9: 780.79, ICD10: R53.83 - Add doxycycline. Discussed risks and benefits of new medication with the patient. Advised them to call if any side effects or questions. Red flags for re-assessment reviewed with patient in detail. Call if symptoms worsen at all or if not better in one to two weeks Reviewed diagnosis and treatment options in detail. Questions were answered. Patient expressed understanding of treatment plan. - XR CHEST 2V FRONTAL/LAT - ECG COMPLETE - TSH BLD - T4/FTI/T4U 3. Essential hypertension, benign - ICD9: 401.1, ICD10: I10 - suboptimal control - Continue current medication(s) - Recheck next ov - Goal of BP <130/80 4. Ascending aortic aneurysm (HCC) - ICD9: 441.2, ICD10: I71.2 - as above. 5. Hyperlipidemia LDL goal <100 - ICD9: 272.4, ICD10: E78.5 - as above. 6. Hyperglycemia - ICD9: 790.29, ICD10: R73.9 - stable 7. Sjogren's syndrome, with unspecified organ involvement (HCC) - ICD9: 710.2, ICD10: M35.00 Stable. 8. Bronchitis - ICD9: 490, ICD10: J40 - as above. - DOXYCYCLINE MONOHYDRATE 100 MG TABLET MEDICATIONS: Current Outpatient Medications Medication Sig omega-3 fatty acids 1,000 mg cap Take 2 g by mouth once daily. cevimeline (EVOXAC) 30 mg capsule Take 1 capsule by mouth three times daily. (Patient not taking: Reported on 06/12/2021 ) lisinopril (PRINIVIL) 20 mg tablet Take 1 tablet by mouth once daily. (Patient taking differently: Take 40 mg by mouth once daily. ) metoprolol succinate ER (TOPROL XL) 25 mg 24 hr tablet Take 1 tablet by mouth once daily. amLODIPine (NORVASC) 5 mg tablet Take 1 tablet by mouth once daily. (Patient taking differently: Take 10 mg by mouth once daily. ) predniSONE (DELTASONE) 5 mg tablet As needed per rheum. Cholecalciferol, Vitamin D3, (VITAMIN D) 1,000 unit cap Vitamin D3 1,000 unit capsule Biotin 10,000 mcg cap Take 5,000 mcg by mouth once daily. hydroxychloroquine (PLAQUENIL) 200 mg tablet Take 1 tablet by mouth twice daily. Etanercept (ENBREL SURECLICK) 50 mg/mL (0.98 mL) pnij Inject 50 mg subcutaneously once each week. FOLIC ACID ORAL Take by mouth. Pt takes two tablets daily. Current Facility-Administered Medications Medication Dose Route Frequency perflutren lipid microspheres 1.3 mL in NaCl (PF) 0.9% 10 mL injection (DEFINITY) INTRAVENOUS DIRECTED PRN sodium chloride 0.9 % (flush) 10 mL (BD POSIFLUSH) 10 mL INTRAVENOUS DIRECTED PRN ALLERGIES: ALLERGIES Allergen Reactions Adalimumab Other: See Comments Leflunomide Other: See Comments PAST MEDICAL HISTORY Diagnosis Date Age-related osteoporosis with current pathological fracture 10/15/2009 Age-related osteoporosis with current pathological fracture 10/15/2009 L hip fracture 05/20/18 Ascending aortic aneurysm (HCC) 02/27/2014 01/14/15: [address] scan 04/21/17: [address] scan Carpal tunnel syndrome 07/29/2010 Chronic obstructive pulmonary disease (COPD) ([facility]) Diarrhea Essential hypertension, benign 11/14/2013 H. pylori infection Hyperlipidemia LDL goal <100 10/30/2016 Hypertension 11/14/13 Internal hemorrhoids without mention of complication Osteoporosis 03/09 Seropositive rheumatoid arthritis (HCC) 02/10/2012 Sjogren's syndrome (HCC) 2005 Snoring Supraspinatus tendonitis 01/06/2011 Syncope PAST SURGICAL HISTORY Procedure Laterality Date COLONOSCOPY FLX DX W/COLLJ SPEC WHEN PFRMD 01/09/07 repeat in -2016 COLONOSCOPY FLX DX W/COLLJ SPEC WHEN PFRMD 07/18/2017 10 year repeat DILATATION Ascending Aorta DILATION & CURETTAGE DX&/THER NONOBSTETRIC Dilation & curettage ESOPHAGOGASTRODUODENOSCOPY TRANSORAL DIAGNOSTIC EGD LIG/TRNSXJ FLP TUBE ABDL/VAG APPR UNI/BI Tubal ligation TONSILLECTOMY PRIMARY/SECONDARY <AGE 12 Tonsillectomy FAMILY HISTORY Problem Relation Age of Onset Hypertension Mother other (Rheumatoid arthritis) Mother other (ASHD) Father [place] other (Grave's disease) Sister Diabetes Sister Colon Cancer Maternal Aunt 39 Social History Tobacco Use Smoking status: Current Every Day Smoker Packs/day: 0.50 Years: 30.00 Pack years: 15.00 Types: Cigarettes Smokeless tobacco: Never Used Vaping Use Vaping Use: Never used Substance Use Topics Alcohol use: No Drug use: No Reviewed current medications, allergies, past medical history, surgical history, family history and social history today. REVIEW OF SYSTEMS All other reviewed and negative other than HPI. HEALTH MAINTENANCE: Reviewed health maintenance issues today and recommended the following in detail. MAMMOGRAM due on 04/16/2020 VITALS: BP 132/82 Pulse 88 Wt 62.1 kg (137 lb) BMI 23.52 kg/m Last 4 Encounter Wt Readings: Date: Wt: 12/10/2021 62.6 kg (138 lb) 06/12/2021 62.6 kg (138 lb) 02/18/2021 64 kg (141 lb) 04/22/2020 65.3 kg (144 lb) PHYSICAL EXAMINATION: General appearance: Well appearing, alert, in no acute distress, well-hydrated, well nourished. Skin: Skin color, texture, turgor normal, no suspicious rashes or lesions Head: Normocephalic, no masses, lesions, tenderness or abnormalities Lungs: Lungs clear to auscultation. No wheezing, rhonchi, rales Neck: has a subcm palpable superficial well circumscribed lump on right neck. Has been there for years. Advised to call if changes size or shape. Has not changed in years. Heart: RRR without murmur, gallop, or rubs. No ectopy Abdomen: Normal abdominal exam, Abdomen soft, non-tender. Bowel sounds normal. No masses, organomegaly Extremities: No deformities, edema, skin discoloration, clubbing or cyanosis. Good capillary refill. ASSESSMENT/PLAN: 1. Essential hypertension, benign - ICD9: 401.1, ICD10: I10 (primary diagnosis) - good control - Continue current medication(s) - Call if symptoms recur - Goal of BP <130/80 2. Screening breast examination - ICD9: V76.10, ICD10: Z12.39 - Follow up for annual exam in one year. - VESTA SCREENING 3. Chronic insomnia - ICD9: 780.52, ICD10: F51.04 - consider melatonin. Jules Hatch RTO in six months and prn. documented in this encounter [facility] 12-11-2021 Miscellaneous Notes Patient notified of results. Senait Foley MA ----- Message from Jules Hatch MD sent at 12/10/2021 4:31 PM EDT ----- Xray shows no acute changes. Jules Hatch MD documented in this encounter [facility] 12-10-2021 History of Present illness Narrative Radiology Service Progress Note PATIENT NAME: Jenni Baird DATE OF SERVICE: December 10, 2021 TIME: 10:56 AM PATIENT IDENTITY VERIFICATION COMPLETED USING TWO (2) IDENTIFIERS: Name and Date of confirmed by patient verbally. FALL SCREENING: Has the patient had 2 falls in the last year or 1 fall with injury or currently using an Ambulatory Assistive Device (Walker, Cane, Wheelchair, Crutches, etc.)? No PATIENT GENDER DATA: Female. status: : No status: NO. PATIENT RELEVANT IMPLANT DATA REVIEWED: Yes RADIOLOGY DEPARTMENT: General X-ray: Exam(s) Completed: Chest X-Ray PERIPHERAL IV DATA: Not applicable SIGNED BY: RT Kaushik(R) December 10, 2021 10:56 AM documented in this encounter [facility] 12-10-2021 History of Present illness Narrative Patient presents with: Follow Up Fatigue: sore throat on and off-took a negative COVID test-heaviness in chest dull pain if lying on left side x 3 nights Pain: bilateral hips and thighs HPI: Patient presents today for office visit for follow up. Has not been feeling well for several months. Feeling fatigue. Sore throat on and off. Negative covid test a few days ago. Feeling worse the last few days Was coughing worse a few days ago. Is brining up mucous. Cough was there before however. Has allergies. Used to have allergy shots. Some shortness of breath. Has been having some heaviness when she lays on her chest on the left side. No chest pain with exertion. No fever or chills. No edema. Chronic drainage in her throat. No issues with taste or smell. Just did a ct of her chest and her aorta was unchanged. Has noted some lower back pain and sciatic pain. That is better. Has had hip and thigh pain for a year. Had told Dr. Boswell. She sees Dr. Fodr and want him to address it. Will defer to him. bp is up today. Concerned because her sister has Grave's disease Her hair breaks off and skin is dry. Component Latest Ref Rng & Units 12/04/2021 WBC 3.70 - 11.00 k/uL 4.98 RBC 3.90 - 5.20 m/uL 4.56 Hemoglobin 11.5 - 15.5 g/dL 14.2 Hematocrit 36.0 - 46.0 % 43.1 MCV 80.0 - 100.0 fL 94.5 MCH 26.0 - 34.0 pg 31.1 MCHC 30.5 - 36.0 g/dL 32.9 RDW-CV 11.5 - 15.0 % 14.0 Platelet Count 150 - 400 k/uL 186 MPV 9.0 - 12.7 fL 11.0 Neut% % 56.3 Abs Neut (ANC) 1.45 - 7.50 k/uL 2.80 Lymph% % 31.1 Abs Lymph 1.00 - 4.00 k/uL 1.55 Rich% % 11.0 Abs Rich <0.87 k/uL 0.55 Eosin% % 1.0 Abs Eosin <0.46 k/uL 0.05 Baso% % 0.6 Abs Baso <0.11 k/uL 0.03 Immature Gran % % 0.0 IMMATURE GRANS (ABS) <0.10 k/uL <0.03 NRBC /100 WBC 0.0 Absolute nRBC <0.01 k/uL <0.01 DTYPE Auto Glucose 74 - 99 mg/dL 117 (H) BUN 7 - 21 mg/dL 11 Creatinine 0.58 - 0.96 mg/dL 0.65 Sodium 136 - 144 mmol/L 136 Potassium 3.7 - 5.1 mmol/L 4.2 Chloride 97 - 105 mmol/L 101 CO2 22 - 30 mmol/L 25 Anion Gap 9 - 18 mmol/L 10 Calcium 8.5 - 10.2 mg/dL 9.8 eGFR >=60 mL/min/1.73m 96 Hemoglobin A1C 4.3 - 5.6 % 5.9 (H) Estimated Average Glucose mg/dL 123 See previous ov: Suspect she had covid but was not tested. Getting booster first. HTN: Patient is compliant with meds Yes Denies side effects: Yes. Chest pain: No. Dyspnea: No. Edema: No. Palpitations: No.. Dizziness: rare. RHEUM:seeing Dr. Boswell. Has sjogrens and rheumatoid arthritis. Had labs done recently including a cmp per her. Reviewed labs including those below. Does not use her prednisone. OSTEOPOROSIS:did not get reclast. Decided to hold on it. Had been on the fosamax. Her insurance had denied prolia. Had been on fosamax for a number of years. GERD:rare gerd. Cardiology had recommended we do ct scan this year. Discussed keeping bp stable. MEDICATIONS: Current Outpatient Medications Medication Sig omega-3 fatty acids 1,000 mg cap Take 2 g by mouth once daily. lisinopril (PRINIVIL) 20 mg tablet Take 1 tablet by mouth once daily. (Patient taking differently: Take 40 mg by mouth once daily. ) metoprolol succinate ER (TOPROL XL) 25 mg 24 hr tablet Take 1 tablet by mouth once daily. amLODIPine (NORVASC) 5 mg tablet Take 1 tablet by mouth once daily. (Patient taking differently: Take 10 mg by mouth once daily. ) predniSONE (DELTASONE) 5 mg tablet As needed per rheum. Cholecalciferol, Vitamin D3, (VITAMIN D) 1,000 unit cap Vitamin D3 1,000 unit capsule hydroxychloroquine (PLAQUENIL) 200 mg tablet Take 1 tablet by mouth twice daily. Etanercept (ENBREL SURECLICK) 50 mg/mL (0.98 mL) pnij Inject 50 mg subcutaneously once each week. FOLIC ACID ORAL Take by mouth. Pt takes two tablets daily. cevimeline (EVOXAC) 30 mg capsule Take 1 capsule by mouth three times daily. (Patient not taking: Reported on 06/12/2021 ) Biotin 10,000 mcg cap Take 5,000 mcg by mouth once daily. No current facility-administered medications for this visit. ALLERGIES: ALLERGIES Allergen Reactions Adalimumab Other: See Comments Leflunomide Other: See Comments PAST MEDICAL HISTORY Diagnosis Date Age-related osteoporosis with current pathological fracture 10/15/2009 Age-related osteoporosis with current pathological fracture 10/15/2009 L hip fracture 05/20/18 Ascending aortic aneurysm (HCC) 02/27/2014 01/14/15: [address] scan 04/21/17: [address] scan Carpal tunnel syndrome 07/29/2010 Chronic obstructive pulmonary disease (COPD) (HCC) Diarrhea Essential hypertension, benign 11/14/2013 H. pylori infection Hyperlipidemia LDL goal <100 10/30/2016 Hypertension 11/14/13 Internal hemorrhoids without mention of complication Osteoporosis 03/09 Seropositive rheumatoid arthritis (HCC) 02/10/2012 Sjogren's syndrome (HCC) 2004 Snoring Supraspinatus tendonitis 01/06/2011 Syncope PAST SURGICAL HISTORY Procedure Laterality Date COLONOSCOP W/ OR W/O [facility] SPEC 01/09/07 repeat in -2016 COLONOSCOP W/ OR W/O [facility] SPEC 07/18/2017 10 year repeat D&C, DIAG AND/OR THERAPEUTIC Dilation & curettage DILATATION Ascending Aorta EGD W/O OR W/BRUSH/WASH EGD LIGATE FALLOPIAN TUBE Tubal ligation REMOVAL OF TONSILS,<12 Y/O Tonsillectomy FAMILY HISTORY Problem Relation Age of Onset Hypertension Mother other (Rheumatoid arthritis) Mother other (ASHD) Father [place] other (Grave's disease) Sister Diabetes Sister Colon Cancer Maternal Aunt 39 Social History Tobacco Use Smoking status: Current Every Day Smoker Packs/day: 0.50 Years: 30.00 Pack years: 15.00 Types: Cigarettes Smokeless tobacco: Never Used Vaping Use Vaping Use: Never used Substance Use Topics Alcohol use: No Drug use: No Reviewed current medications, allergies, past medical history, surgical history, family history and social history today. REVIEW OF SYSTEMS All other reviewed and negative other than HPI. VITALS: BP 140/82 Pulse 80 Wt 62.6 kg (138 lb) BMI 23.69 kg/m Last 4 Encounter Wt Readings: Date: Wt: 06/12/2021 62.6 kg (138 lb) 02/18/2021 64 kg (141 lb) 04/22/2020 65.3 kg (144 lb) 08/17/2019 61.2 kg (135 lb) PHYSICAL EXAMINATION: General appearance: Well appearing, alert, in no acute distress, well-hydrated, well nourished. Skin: Skin color, texture, turgor normal, no suspicious rashes or lesions Head: Normocephalic, no masses, lesions, tenderness or abnormalities Eyes: Anicteric sclera. Pupils are equally round and reactive to light. Extraocular movements are intact. Ears: External ears normal, canals clear Nose/Sinuses: Nares normal, septum midline, mucosa normal, no drainage or sinus tenderness Oropharynx: Lips, mucosa, and tongue normal, teeth and gums normal, oropharynx normal Neck: Supple, no adenopathy Chest nontender. Lungs: Lungs clear to auscultation. No wheezing, rhonchi, rales Heart: RRR without murmur, gallop, or rubs. No ectopy Abdomen: Normal abdominal exam, Abdomen soft, non-tender. Bowel sounds normal. No masses, organomegaly Extremities: No deformities, edema, skin discoloration, clubbing or cyanosis. Good capillary refill. Musculoskeletal: No joint swelling, deformity, or tenderness ASSESSMENT/PLAN: 1. Chest discomfort - ICD9: 786.59, ICD10: R07.89 (primary diagnosis) - doubt cardiac, given her hx, however, do echo. Red flags for re-assessment reviewed with patient in detail. - XR CHEST 2V FRONTAL/LAT - ECG COMPLETE - ECHO - PERFLUTREN LIPID MICROSPHERES 1.1 MG/ML INJECTION IN NS 10 ML - SODIUM CHLORIDE 0.9 % (FLUSH) INJECTION SYRINGE 2. Fatigue, unspecified type - ICD9: 780.79, ICD10: R53.83 - Add doxycycline. Discussed risks and benefits of new medication with the patient. Advised them to call if any side effects or questions. Red flags for re-assessment reviewed with patient in detail. Call if symptoms worsen at all or if not better in one to two weeks Reviewed diagnosis and treatment options in detail. Questions were answered. Patient expressed understanding of treatment plan. - XR CHEST 2V FRONTAL/LAT - ECG COMPLETE - TSH BLD - T4/FTI/T4U 3. Essential hypertension, benign - ICD9: 401.1, ICD10: I10 - suboptimal control - Continue current medication(s) - Recheck next ov - Goal of BP <130/80 4. Ascending aortic aneurysm (HCC) - ICD9: 441.2, ICD10: I71.2 - as above. 5. Hyperlipidemia LDL goal <100 - ICD9: 272.4, ICD10: E78.5 - as above. 6. Hyperglycemia - ICD9: 790.29, ICD10: R73.9 - stable 7. Sjogren's syndrome, with unspecified organ involvement (HCC) - ICD9: 710.2, ICD10: M35.00 Stable. 8. Bronchitis - ICD9: 490, ICD10: J40 - as above. - DOXYCYCLINE MONOHYDRATE 100 MG TABLET Jules Hatch RTO in two to four weeks and prn. documented in this encounter [facility] 05-29-2018 History of Past i llness Narrative Problem Noted Date Diagnosed Date Resolved Date Closed fracture of left hip 05/29/2018 03/31/2023 Hypertension 03/06/2018 03/31/2023 Shortness of breath 03/06/2018 03/06/20 18 Encounter for screening for malignant neoplasm of colon 06/15/2017 07/02/2022 Overview: Added automatically from request for surgery [id number] Age-related osteoporosis wit hout current pathological fracture 05/31/2017 05/29/2018 Palpitations 05/11/2017 06/12/2021 Supraspinatus tendonitis 01/06/2011 Carpal tunnel syndrome 07/29/201001/08 Tobacco use disorder 10/26/2006 014 documented as of this encounter (statuses as of 03/31/2023) [facility] History of Past illness Narrative* Problem Noted Date Diagnosed Date Resolved Date Closed fracture of left hip 05/29/2018 03/31/2023 Hypertension 03/06/2018 03/31/2023 Shortness of breath 03/06/2018 03/06/20 18 Encounter for screening for malignant neoplasm of colon 06/15/2017 07/02/2022 Overview: Added automatically from request for surgery [id number] Age-related osteoporosis wit hout current pathological fracture 05/31/2017 05/29/2018 Palpitations 05/11/2017 06/12/2021 Supraspinatus tendonitis 01/06/2011 Carpal tunnel syndrome 07/29/201001/08 Tobacco use disorder 10/26/2006 014 documented as of this encounter (statuses as of 04/01/2023) [facility] History of Past illness Narrative* Problem Noted Date Diagnosed Date Resolved Date Closed fracture of left hip 05/29/2018 03/31/2023 Hypertension 03/06/2018 03/31/2023 Shortness of breath 03/06/2018 03/06/20 18 Encounter for screening for malignant neoplasm of colon 06/15/2017 07/02/2022 Overview: Added automatically from request for surgery [id number] Age-related osteoporosis wit hout current pathological fracture 05/31/2017 05/29/2018 Palpitations 05/11/2017 06/12/2021 Supraspinatus tendonitis 01/06/2011 Carpal tunnel syndrome 07/29/201001/08 Tobacco use disorder 10/26/2006 014 documented as of this encounter (statuses as of 04/19/2023) [facility] History of Past illness Narrative* Problem Noted Date Diagnosed Date Resolved Date Closed fracture of left hip 05/29/2018 03/31/2023 Hypertension 03/06/2018 03/31/2023 Shortness of breath 03/06/2018 03/06/20 18 Encounter for screening for malignant neoplasm of colon 06/15/2017 07/02/2022 Overview: Added automatically from request for surgery [id number] Age-related osteoporosis wit hout current pathological fracture 05/31/2017 05/29/2018 Palpitations 05/11/2017 06/12/2021 Supraspinatus tendonitis 01/06/2011 Carpal tunnel syndrome 07/29/201001/08 Tobacco use disorder 10/26/2006 014 documented as of this encounter (statuses as of 04/20/2023) [facility] History of Past illness Narrative* Problem Noted Date Diagnosed Date Resolved Date Closed fracture of left hip 05/29/2018 03/31/2023 Hypertension 03/06/2018 03/31/2023 Shortness of breath 03/06/2018 03/06/20 18 Encounter for screening for malignant neoplasm of colon 06/15/2017 07/02/2022 Overview: Added automatically from request for surgery [id number] Age-related osteoporosis wit hout current pathological fracture 05/31/2017 05/29/2018 Palpitations 05/11/2017 06/12/2021 Supraspinatus tendonitis 01/06/2011 Carpal tunnel syndrome 07/29/201001/08 Tobacco use disorder 10/26/2006 014 documented as of this encounter (statuses as of 06/04/2023) [facility] History of Past illness Narrative* Problem Noted Date Diagnosed Date Resolved Date Closed fracture of left hip 05/29/2018 03/31/2023 Hypertension 03/06/2018 03/31/2023 Shortness of breath 03/06/2018 03/06/20 18 Encounter for screening for malignant neoplasm of colon 06/15/2017 07/02/2022 Overview: Added automatically from request for surgery [id number] Age-related osteoporosis wit hout current pathological fracture 05/31/2017 05/29/2018 Palpitations 05/11/2017 06/12/2021 Supraspinatus tendonitis 01/06/2011 Carpal tunnel syndrome 07/29/201001/08 Tobacco use disorder 10/26/2006 014 documented as of this encounter (statuses as of 06/04/2023) [facility] History of Past illness Narrative* Problem Noted Date Diagnosed Date Resolved Date Closed fracture of left hip 05/29/2018 03/31/2023 Hypertension 03/06/2018 03/31/2023 Shortness of breath 03/06/2018 03/06/20 18 Encounter for screening for malignant neoplasm of colon 06/15/2017 07/02/2022 Overview: Added automatically from request for surgery [id number] Age-related osteoporosis wit hout current pathological fracture 05/31/2017 05/29/2018 Palpitations 05/11/2017 06/12/2021 Supraspinatus tendonitis 01/06/2011 Carpal tunnel syndrome 07/29/201001/08 Tobacco use disorder 10/26/2006 014 documented as of this encounter (statuses as of 10/10/2023) [facility] History of Past illness Narrative* Problem Noted Date Diagnosed Date Resolved Date Closed fracture of left hip 05/29/2018 03/31/2023 Hypertension 03/06/2018 03/31/2023 Shortness of breath 03/06/2018 03/06/20 18 Encounter for screening for malignant neoplasm of colon 06/15/2017 07/02/2022 Overview: Added automatically from request for surgery [id number] Age-related osteoporosis wit hout current pathological fracture 05/31/2017 05/29/2018 Palpitations 05/11/2017 06/12/2021 Supraspinatus tendonitis 01/06/2011 Carpal tunnel syndrome 07/29/201001/08 Tobacco use disorder 10/26/2006 014 documented as of this encounter (statuses as of 10/13/2023) [facility] History of Past illness Narrative* Problem Noted Date Diagnosed Date Resolved Date Closed fracture of left hip 05/29/2018 03/31/2023 Hypertension 03/06/2018 03/31/2023 Shortness of breath 03/06/2018 03/06/20 18 Encounter for screening for malignant neoplasm of colon 06/15/2017 07/02/2022 Overview: Added automatically from request for surgery [id number] Age-related osteoporosis wit hout current pathological fracture 05/31/2017 05/29/2018 Palpitations 05/11/2017 06/12/2021 Supraspinatus tendonitis 01/06/2011 Carpal tunnel syndrome 07/29/201001/08 Tobacco use disorder 10/26/2006 014 documented as of this encounter (statuses as of 11/11/2023) [facility] History of Past illness Narrative* Problem Noted Date Resolved Date Shortness of breath 03/06/2018 03/06/2018 Age-related osteoporosis wit hout current pathological fracture 05/31/2017 05/29/2018 Palpitations 05/11/2017 06/12/2021 Supraspinatus tendonitis 01/06/2011 016 Carpal tunnel syndrome 07/29/2010 5 Tobacco use disorder 10/26/2006 02/27/2014 documented as of this encounter (statuses as of 12/10/2021) [facility] of Past illness Narrative* Problem Noted Date Resolved Date Shortness of breath 03/06/2018 03/06/2018 Age-related osteoporosis wit hout current pathological fracture 05/31/2017 05/29/2018 Palpitations 05/11/2017 06/12/2021 Supraspinatus tendonitis 01/06/2011 016 Carpal tunnel syndrome 07/29/2010 5 Tobacco use disorder 10/26/2006 02/27/2014 documented as of this encounter (statuses as of 12/11/2021) [facility] of [facility] Narrative* Problem Noted Date Resolved Date Shortness of breath 03/06/2018 03/06/2018 Age-related osteoporosis wit hout current pathological fracture 05/31/2017 05/29/2018 Palpitations 05/11/2017 06/12/2021 Supraspinatus tendonitis 01/06/2011 016 Carpal tunnel syndrome 07/29/2010 5 Tobacco use disorder 10/26/2006 02/27/2014 documented as of this encounter (statuses as of 12/31/2021) [facility] of [facility] Narrative* Problem Noted Date Resolved Date Shortness of breath 03/06/2018 03/06/2018 Age-related osteoporosis wit hout current pathological fracture 05/31/2017 05/29/2018 Palpitations 05/11/2017 06/12/2021 Supraspinatus tendonitis 01/06/2011 016 Carpal tunnel syndrome 07/29/2010 5 Tobacco use disorder 10/26/2006 02/27/2014 documented as of this encounter (statuses as of 2022) [facility] of [facility] illness Narrative* Problem Noted Date Resolved Date Shortness of breath 03/06/2018 03/06/2018 Age-related osteoporosis wit hout current pathological fracture 05/31/2017 05/29/2018 Palpitations 05/11/2017 06/12/2021 Supraspinatus tendonitis 01/06/2011 016 Carpal tunnel syndrome 07/29/2010 5 Tobacco use disorder 10/26/2006 02/27/2014 documented as of this encounter (statuses as of 01/08/2022) [facility]2018 History of Past illness Narrative* Problem Noted Date Resolved Date Shortness of breath 03/06/2018 03/06/2018 Age-related osteoporosis wit hout current pathological fracture 05/31/2017 05/29/2018 Palpitations 05/11/2017 06/12/2021 Supraspinatus tendonitis 01/06/2011 016 Carpal tunnel syndrome 07/29/2010 5 Tobacco use disorder 10/26/2006 02/27/2014 documented as of this encounter (statuses as of 01/20/2022) [address]06-2018 History of Past illness Narrative* Problem Noted Date Resolved Date Shortness of breath 03/06/2018 03/06/2018 Encounter for screening for malignant neoplasm o f colon 06/15/2017 07/02/2022 Overview: Added automatically from request for surgery [id number] Age-related osteoporosis wit hout current pathological fracture 05/31/2017 05/29/2018 Palpitations 05/11/2017 06/12/2021 Supraspinatus tendonitis 01/06/2011 016 Carpal tunnel syndrome 07/29/2010 5 Tobacco use disorder 10/26/2006 02/27/2014 documented as of this encounter (statuses as of 07/02/2022) [facility] History of Past illness Narrative* Problem Noted Date Resolved Date Shortness of breath 03/06/2018 03/06/2018 Encounter for screening for malignant neoplasm o f colon 06/15/2017 07/02/2022 Overview: Added automatically from request for surgery [id number] Age-related osteoporosis wit hout current pathological fracture 05/31/2017 05/29/2018 Palpitations 05/11/2017 06/12/2021 Supraspinatus tendonitis 01/06/2011 016 Carpal tunnel syndrome 07/29/2010 5 Tobacco use disorder 10/26/2006 02/27/2014 documented as of this encounter (statuses as of 07/21/2022) [facility] History of Past illness Narrative* Problem Noted Date Resolved Date Shortness of breath 03/06/2018 03/06/2018 Encounter for screening for malignant neoplasm o f colon 06/15/2017 07/02/2022 Overview: Added automatically from request for surgery [id number] Age-related osteoporosis wit hout current pathological fracture 05/31/2017 05/29/2018 Palpitations 05/11/2017 06/12/2021 Supraspinatus tendonitis 01/06/2011 016 Carpal tunnel syndrome 07/29/2010 5 Tobacco use disorder 10/26/2006 02/27/2014 documented as of this encounter (statuses as of 08/14/2022) [facility] History of Past illness Narrative* Problem Noted Date Resolved Date Shortness of breath 03/06/2018 03/06/2018 Encounter for screening for malignant neoplasm o f colon 06/15/2017 07/02/2022 Overview: Added automatically from request for surgery [id number] Age-related osteoporosis wit hout current pathological fracture 05/31/2017 05/29/2018 Palpitations 05/11/2017 06/12/2021 Supraspinatus tendonitis 01/06/2011 016 Carpal tunnel syndrome 07/29/2010 5 Tobacco use disorder 10/26/2006 02/27/2014 documented as of this encounter (statuses as of 08/14/2022) [facility] History of Past illness Narrative* Problem Noted Date Resolved Date Shortness of breath 03/06/2018 03/06/2018 Encounter for screening for malignant neoplasm o f colon 06/15/2017 07/02/2022 Overview: Added automatically from request for surgery [id number] Age-related osteoporosis wit hout current pathological fracture 05/31/2017 05/29/2018 Palpitations 05/11/2017 06/12/2021 Supraspinatus tendonitis 01/06/2011 016 Carpal tunnel syndrome 07/29/2010 5 Tobacco use disorder 10/26/2006 02/27/2014 documented as of this encounter (statuses as of 08/16/2022) [facility] History of Past illness Narrative* Problem Noted Date Resolved Date Shortness of breath 03/06/2018 03/06/2018 Encounter for screening for malignant neoplasm o f colon 06/15/2017 07/02/2022 Overview: Added automatically from request for surgery [id number] Age-related osteoporosis wit hout current pathological fracture 05/31/2017 05/29/2018 Palpitations 05/11/2017 06/12/2021 Supraspinatus tendonitis 01/06/2011 016 Carpal tunnel syndrome 07/29/2010 5 Tobacco use disorder 10/26/2006 02/27/2014 documented as of this encounter (statuses as of 08/17/2022) [facility] History of Past illness Narrative* Problem Noted Date Diagnosed Date Resolved Date Shortness of breath 03/06/2018 03/06/20 18 Encounter for screening for malignant neoplasm of colon 06/15/2017 07/02/2022 Overview: Added automatically from request for surgery [id number] Age-related osteoporosis wit hout current pathological fracture 05/31/2017 05/29/2018 Palpitations 05/11/2017 06/12/2021 Supraspinatus tendonitis 01/06/2011 Carpal tunnel syndrome 07/29/201001/08 Tobacco use disorder 10/26/2006 014 documented as of this encounter (statuses as of 03/01/2023) [facility] Diagnosis Chest discomfort- Primary Other chest pain Fatigue, unspecified type Essential hypertension, benign Ascending aortic aneurysm (HCC) Thoracic aneurysm without mention of rupture Hyperlipidemia LDL goal <100 Other and unspecified hyperlipidemia Hyperglycemia Other abnormal glucose Sjogren's syndrome, with unspecified organ involvement (HCC) Bronchitis Bronchitis, not specified as acute or chronic documented [facility] this encounter [facility] Diagnosis Essential hypertension, benign- Primary Screening breast examination Breast screening, unspecified Primary hypertension Unspecified essential hypertension Chronic insomnia Insomnia, unspecified [facility] Diagnosis Screening breast examination Breast screening, unspecified [facility] Diagnosis Primary hypertension- Primary Unspecified essential hypertension Hyperlipidemia LDL goal <100 Other and unspecified hyperlipidemia Gastroesophageal reflux disease with esophagitis, unspecified whether hemorrhage Hyperglycemia Other abnormal glucose Leukopenia, unspecified type Seropositive rheumatoid arthritis (HCC) Rheumatoid arthritis Age-related osteoporosis with current pathological fracture, sequela Fatigue, unspecified type Disorder of bone, unspecified Asymptomatic postmenopausal status [facility] this encounter [facility] Diagnosis Rash- Primary Rash and other nonspecific skin eruption [facility] Diagnosis Essential hypertension, benign- Primary Hyperlipidemia LDL goal <100 Other and unspecified hyperlipidemia Aneurysm of ascending aorta without rupture (HCC) Gastroesophageal reflux disease with esophagitis, unspecified whether hemorrhage Sjogren's syndrome, with unspecified organ involvement (HCC) Sicca syndrome (HCC) Sicca syndrome Seropositive rheumatoid arthritis (HCC) Rheumatoid arthritis Age-related osteoporosis with current pathological fracture, sequela History of hip fracture Personal history of traumatic fracture Cigarette nicotine dependence without complication Tobacco use disorder Hyperglycemia Other abnormal glucose [facility] Diagnosis Age-related osteoporosis with current pathological fracture, sequela Disorder of bone, unspecified Asymptomatic postmenopausal status [facility] Diagnosis Encounter for screening mammogram for breast cancer [facility] Diagnosis Essential hypertension, benign- Primary Aneurysm of ascending aorta without rupture (HCC) Hyperlipidemia LDL goal <100 Other and unspecified hyperlipidemia Hyperglycemia Other abnormal glucose Gastroesophageal reflux disease with esophagitis, unspecified whether hemorrhage Seropositive rheumatoid arthritis (HCC) Rheumatoid arthritis Sjogren's syndrome, with unspecified organ involvement (HCC) Sicca syndrome (HCC) Sicca syndrome Post herpetic neuralgia Herpes zoster with other nervous system complications Adjustment disorder with anxious mood Adjustment disorder with anxiety Fatigue, unspecified type Mixed hyperlipidemia [facility] Diagnosis Essential hypertension, benign- Primary Sjogren's syndrome, with unspecified organ involvement (HCC) Seasonal allergic rhinitis due to other allergic trigger Anxiety Anxiety state, unspecified [facility] Diagnosis Essential hypertension, benign- Primary Aneurysm of ascending aorta without rupture (HCC) Hyperlipidemia LDL goal <100 Other and unspecified hyperlipidemia Sjogren's syndrome, with unspecified organ involvement (HCC) Seropositive rheumatoid arthritis (HCC) Rheumatoid arthritis Sicca 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 current pathological fracture, sequela Hyperglycemia Other abnormal glucose 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, 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) Malignant melanoma of skin of upper limb, including shoulder Encounter for screening mammogram for malignant neoplasm of breast Other screening mammogram Asymptomatic postmenopausal status [facility] this encounter [facility] Diagnosis Ascending aortic aneurysm (HCC)- Primary Thoracic aneurysm without mention of rupture Chest discomfort Other chest pain Fatigue, unspecified type documented in this encounter [facility] for referral (narrative)* Outpatient Procedure (Routine) - Authorized Specialty Diagnoses / Procedures Referred By Luis M krishna Referred To [facility] Diagnoses Chest discomfort Ascending aortic aneurysm (HCC) Procedures ECHO ECHO TTHRC R-T 2D W/WOM-MODE COMPL SPEC&COLR D Jules Hatch MD [address] [place] [address] [facility] [address] [place] [address] Referral ID Status Reason Start Date Expiration Date Visits Requested Visits Authorized [id number] Authorized Auto-Generat ed Referral 12/10/2021 12/10/2022 1 1 * Outpatient Procedure (Routine) - Closed Specialty Diagnoses / Procedures Referred By Contac t Referred To Contact [facility] [place] Diagnoses Chest discomfort Fatigue, unspecified type Procedures ECG COMPLETE ECG ROUTINE ECG W/LEAST 12 LDS W/I&R Jules Hatch MD [address] [place] [address] [address] Referral ID Status Reason Start Date Expiration Date V isits Requested Visits Authorized [id number] Closed Auto-Generate d Referral 12/10/2021 12/10/2022 1 1 [facility] for referral (narrative)* Diagnostic Procedure Only (Routine) - Authorized Specialty Diagnoses / Procedures Referred By Contac t Referred To Contact [facility] Diagnoses Screening breast examination Procedures VESTA SCREENING SCREENING MAMMOGRAPHY BI 2-VIEW BREAST INC CAD Jules Hatch MD [address] [place] [address] [facility] [address] [place] [address] Referral ID Status Reason Start Date Expiration Date Visits Requested Visits Authorized [id number] Authorized Auto-Generat ed Referral 12/31/2021 01/30/2023 1 1 [facility] for referral (narrative)* Diagnostic Procedure Only (Routine) - Closed Specialty Diagnoses / Procedures Referred By Contac t Referred To Contact [facility] Diagnoses Screening breast examination Procedures VESTA SCREENING SCREENING MAMMOGRAPHY BI 2-VIEW BREAST INC Jules Ayala MD [address] [place] [address] [facility] [address] [place] [address] Referral ID Status Reason Start Date Expiration Date V isits Requested Visits Authorized [id number] Closed Auto-Generate d Referral 12/31/2021 01/30/2023 1 1 [facility] for referral (narrative)* Diagnostic Procedure Only (Routine) - Closed Specialty Diagnoses / Procedures Referred By Contac t Referred To Contact [facility] Diagnoses Encounter for screening mammogram for breast cancer Procedures VESTA SCREENING SCREENING MAMMOGRAPHY BI 2-VIEW BREAST INC Jules Ayala MD [address] [place] [id number] [facility] [address] [place] [phone] Referral ID Status Reason Start Date Expiration Date V isits Requested Visits Authorized [id number] Closed Auto-Generate d Referral 02/16/2023 03/17/2024 1 1 [facility] for referral (narrative)* Diagnostic Procedure Only (Routine) - Pending Review Specialty Diagnoses / Procedures Referred By Contac t Referred To Contact [facility] Diagnoses Asymptomatic postmenopausal status Procedures DXA-AXIAL SKELETON Jules Hatch MD [address] [place] [id number] [facility] Referral ID Status Reason Start Date Expiration Date Visits Requested Visits Authorized [id number] Pending Review Auto-Generat ed Referral 02/08/2024 03/09/2025 1 1 * Diagnostic Procedure Only (Routine) - Pending Review Specialty Diagnoses / Procedures Referred By Contac t Referred To Contact [facility] Diagnoses Encounter for screening mammogram for malignant neoplasm of breast Procedures VESTA SCREENING SCREENING MAMMOGRAPHY BI 2-VIEW BREAST INC Jlues Ayala MD [address] [place] [address] [facility] [address] [place] [address] Referral ID Status Reason Start Date Expiration Date Visits Requested Visits Authorized [id number] Pending Review Auto-Generat ed Referral 02/08/2024 03/09/2025 1 1 [facility] for visit Narrative* Diagnostic Procedure Only (Routine) - Closed Specialty Diagnoses / Procedures Referred By Contac t Referred To Contact [facility] Diagnoses Screening breast examination Procedures VESTA SCREENING SCREENING MAMMOGRAPHY BI 2-VIEW BREAST INC Jules Ayala MD [address] [place] [address] [facility] [address] [place] [address] Referral ID Status Reason Start Date Expiration Date V isits Requested Visits Authorized [id number] Closed Auto-Generate d Referral 12/31/2021 01/30/2023 1 1 [facility] for visit Narrative* Diagnostic Procedure Only (Routine) - Closed Specialty Diagnoses / Procedures Referred By Contdee krishna Referred To Contact [facility] Diagnoses Encounter for screening mammogram for breast cancer Procedures VESTA SCREENING SCREENING MAMMOGRAPHY BI 2-VIEW BREAST INC Jules Ayala MD [address] [place] [address] [facility] [address] [place] [address] Referral ID Status Reason Start Date Expiration Date V isits Requested Visits Authorized [id number] Closed Auto-Generate d Referral 02/16/2023 03/17/2024 1 1 [facility] Summary Purpose Family History No Family History Records FoundNo Family History Records Found Advance Directives Documents on File Type Date Recorded Patient Research And Development Tester Expl anation Advance Directive(s) 07/18/2017 11:20 AM Documents on File Type Date Recorded Patient Research And Development Tester Expl anation Advance Directive(s) 07/18/2017 11:20 AM Additional Source Comments INFORMATION SOURCE (unrecogn ized section and content) DATE CREATED AUTHOR 06/20/2018 [facility] ([place]) DATE CREATED AUTHOR AUTHOR'S ORGANIZ ATION 11/12/2023 [facility] Source Comments (unrecognize d section and content) In the event this informatio n is protected by the Federal Confidentiality of Alcohol and Drug Abuse Patient Records regulations: The Federal rules restrict any use of the information to criminally investigate or prosecute any alcohol or drug abuse patient.[facility] the event this information is protected by the Federal Confidentiality of Alcohol and Drug Abuse Patient Records regulations: The Federal rules restrict any use of the information to criminally investigate or prosecute any alcohol or drug abuse patient.[facility] the event this information is protected by the Federal Confidentiality of Alcohol and Drug Abuse Patient Records regulations: The Federal rules restrict any use of the information to criminally investigate or prosecute any alcohol or drug abuse patient.[facility] the event this information is protected by the Federal Confidentiality of Alcohol and Drug Abuse Patient Records regulations: The Federal rules restrict any use of the information to criminally investigate or prosecute any alcohol or drug abuse patient.[facility] the event this information is protected by the Federal Confidentiality of Alcohol and Drug Abuse Patient Records regulations: The Federal rules restrict any use of the information to criminally investigate or prosecute any alcohol or drug abuse patient.[facility] the event this information is protected by the Federal Confidentiality of Alcohol and Drug Abuse Patient Records regulations: The Federal rules restrict any use of the information to criminally investigate or prosecute any alcohol or drug abuse patient.[facility] the event this information is protected by the Federal Confidentiality of Alcohol and Drug Abuse Patient Records regulations: The Federal rules restrict any use of the information to criminally investigate or prosecute any alcohol or drug abuse patient.[facility] the event this information is protected by the Federal Confidentiality of Alcohol and Drug Abuse Patient Records regulations: The Federal rules restrict any use of the information to criminally investigate or prosecute any alcohol or drug abuse patient.[facility] the event this information is protected by the Federal Confidentiality of Alcohol and Drug Abuse Patient Records regulations: The Federal rules restrict any use of the information to criminally investigate or prosecute any alcohol or drug abuse patient.[facility] the event this information is protected by the Federal Confidentiality of Alcohol and Drug Abuse Patient Records regulations: The Federal rules restrict any use of the information to criminally investigate or prosecute any alcohol or drug abuse patient.[facility] the event this information is protected by the Federal Confidentiality of Alcohol and Drug Abuse Patient Records regulations: The Federal rules restrict any use of the information to criminally investigate or prosecute any alcohol or drug abuse patient.[facility] the event this information is protected by the Federal Confidentiality of Alcohol and Drug Abuse Patient Records regulations: The Federal rules restrict any use of the information to criminally investigate or prosecute any alcohol or drug abuse patient.[facility] the event this information is protected by the Federal Confidentiality of Alcohol and Drug Abuse Patient Records regulations: The Federal rules restrict any use of the information to criminally investigate or prosecute any alcohol or drug abuse patient.[facility] the event this information is protected by the Federal Confidentiality of Alcohol and Drug Abuse Patient Records regulations: The Federal rules restrict any use of the information to criminally investigate or prosecute any alcohol or drug abuse patient.[facility] the event this information is protected by the Federal Confidentiality of Alcohol and Drug Abuse Patient Records regulations: The Federal rules restrict any use of the information to criminally investigate or prosecute any alcohol or drug abuse patient.[facility] the event this information is protected by the Federal Confidentiality of Alcohol and Drug Abuse Patient Records regulations: The Federal rules restrict any use of the information to criminally investigate or prosecute any alcohol or drug abuse patient.[facility] the event this information is protected by the Federal Confidentiality of Alcohol and Drug Abuse Patient Records regulations: The Federal rules restrict any use of the information to criminally investigate or prosecute any alcohol or drug abuse patient.[facility] the event this information is protected by the Federal Confidentiality of Alcohol and Drug Abuse Patient Records regulations: The Federal rules restrict any use of the information to criminally investigate or prosecute any alcohol or drug abuse patient.[facility] the event this information is protected by the Federal Confidentiality of Alcohol and Drug Abuse Patient Records regulations: The Federal rules restrict any use of the information to criminally investigate or prosecute any alcohol or drug abuse patient.[facility] the event this information is protected by the Federal Confidentiality of Alcohol and Drug Abuse Patient Records regulations: The Federal rules restrict any use of the information to criminally investigate or prosecute any alcohol or drug abuse patient.[facility] the event this information is protected by the Federal Confidentiality of Alcohol and Drug Abuse Patient Records regulations: The Federal rules restrict any use of the information to criminally investigate or prosecute any alcohol or drug abuse patient.[facility] the event this information is protected by the Federal Confidentiality of Alcohol and Drug Abuse Patient Records regulations: The Federal rules restrict any use of the information to criminally investigate or prosecute any alcohol or drug abuse patient.[facility] the event this information is protected by the Federal Confidentiality of Alcohol and Drug Abuse Patient Records regulations: The Federal rules restrict any use of the information to criminally investigate or prosecute any alcohol or drug abuse patient.[facility] the event this information is protected by the Federal Confidentiality of Alcohol and Drug Abuse Patient Records regulations: The Federal rules restrict any use of the information to criminally investigate or prosecute any alcohol or drug abuse patient.[facility] Reason for Visit (unrecogniz ed section and content) Reason Comments Follow Up Fatigue sore throat on and o ff-took a negative COVID test-heaviness in chest dull pain if lying on left side x 3 nights Pain bilateral hips and t highs Reason Comments Results Reason Comments Follow Up still with fatigue-e cho and chest x-ray ok Reason Comments Refill Request Reason Comments 6 Month Exam Reason Comments Rash Reason Comments Rash Pt reported (RT) judi ed rash, ear pain, swollen glands x2 days. Reason Comments Shingles Reason Onset Date Comments Population Health Navigation Outreach 03/01/2023 HCC Gaps Reason Comments Medicare Wellness Exam Reason Comments Follow Up Reason Comments Follow Up Care Teams (unrecognized sec tion and content) Commercial Credit Officer Relationship Specialty Start Date End Date Jules Hatch MD [address] [place], [place] [phone] PCP - General Family Practice 06/12/21 Commercial Credit Officer Relationship Specialty Start Date End Date Jules Hatch MD [address] [place], [place] [address] PCP - General Family Practice 06/12/21 Commercial Credit Officer Relationship Specialty Start Date End Date Jules Hatch MD [address] [place], [place] [id number] PCP - General Family Practice 06/12/21 Commercial Credit Officer Relationship Specialty Start Date End Date Jules Hatch MD [address] [place], [place] [phone] PCP - General Family Practice 06/12/21 Commercial Credit Officer Relationship Specialty Start Date End Date Jules Hatch MD [address] [facility] [place] [address] PCP - General Family Practice 06/12/21 Commercial Credit Officer Relationship Specialty Start Date End Date Jules Hatch MD [address] [facility] [place] [address] PCP - General Family Practice 06/12/21 Commercial Credit Officer Relationship Specialty Start Date End Date Jules Hatch MD [address] [facility] [place] [address] PCP - General Family Medicine 06/12/21 Commercial Credit Officer Relationship Specialty Start Date End Date Jules Hatch MD [address] [facility] [place] [id number] PCP - General Family Medicine 06/12/21 Commercial Credit Officer Relationship Specialty Start Date End Date Jules Hatch MD [address] [facility] [place] [address] PCP - General Family Medicine 06/12/21 Commercial Credit Officer Relationship Specialty Start Date End Date Jules Hatch MD [address] [facility] [place] [address] PCP - General Family Medicine 06/12/21 Commercial Credit Officer Relationship Specialty Start Date End Date Jules Hatch MD [address] [facility] [place] [address] PCP - General Family Medicine 06/12/21 Commercial Credit Officer Relationship Specialty Start Date End Date Jules Hatch MD [address] [facility] [place] [address] PCP - General Family Medicine 06/12/21 Commercial Credit Officer Relationship Specialty Start Date End Date Jules Hatch MD [address] [facility] [place] [address] PCP - General Family Medicine 06/12/21 Commercial Credit Officer Relationship Specialty Start Date End Date Jules Hatch MD [address] [place] [address] PCP - General Family Medicine 06/12/21 Commercial Credit Officer Relationship Specialty Start Date End Date Jules Hatch MD [address] [place] [address] PCP - General Family Medicine 06/12/21 Commercial Credit Officer Relationship Specialty Start Date End Date Jules Hatch MD [address] [place] [address] PCP - General Family Medicine 06/12/21 Commercial Credit Officer Relationship Specialty Start Date End Date Jules Hatch MD [address] [place] [address] PCP - General Family Medicine 06/12/21 Commercial Credit Officer Relationship Specialty Start Date End Date Jules Hatch MD [address] [place] [address] PCP - General Family Medicine 06/12/21 Commercial Credit Officer Relationship Specialty Start Date End Date Jules Hatch MD [address] [place] [address] PCP - General Family Medicine 06/12/21 Commercial Credit Officer Relationship Specialty Start Date End Date Jules Hatch MD [address] [place] [address] PCP - General Family Medicine 06/12/21 Commercial Credit Officer Relationship Specialty Start Date End Date Jules Hatch MD [address] [place] [address] PCP - General Family Medicine 06/12/21 Commercial Credit Officer Relationship Specialty Start Date End Date Jules Hatch MD [address] [place] [address] PCP - General Family Medicine 06/12/21 FOR RECORDS PERTAINING TO PATIENTS WHO ARE OR HAVE BEEN ENROLLED IN A CHEMICAL DEPENDENCY/SUBSTANCEABUSE PROGRAM, SOME INFORMATION MAY BE OMITTED. This clinical summary was aggregated from multiple sources. Caution should be exercised in using it in the provision of clinical care. This summary normalizes information from multiple sources, and as a consequence, information in this document may materially change the coding, format and clinical context of patient data. In addition, data may be omitted in some cases. CLINICAL DECISIONS SHOULD BE BASED ON THE PRIMARY CLINICAL RECORDS. [facility]. provides no warranty or guarantee of the accuracy or completeness of information in this document.
[2024-05-22 10:06] LABS: Absolute Lymphocyte Count 1.45 X10^3/uL (0.83-4.51); Absolute Neutrophil Count 0.8 X10^3/uL (2.0-7.7); Basophil# 0.02 X10^3/uL; Basophil% 0.8 % (0-1); Eosinophil# 0.02 X10^3/uL; Eosinophils% 0.8 % (0-5); Hematocrit 41.6 % (37-47); Hemoglobin 13.8 g/dL (12.0-15.0); Lymphocyte # 1.45 X10^3/ul (0.83-4.51); Lymphocyte % 54.7 % (19-41); Mean Corp Hgb Conc 33.2 g/dL (32-36); Mean Corpuscular Hgb 30.5 pg (27.0-32.0); Mean Platelet Vol. 10.8 fl (6.2-12.0); Monocyte# 0.41 X10^3/uL; Monocyte% 15.5 % (0-10); NRBC Flagged by Analyzer 0 % (0-5); Neutrophil # 0.75 X10^3/uL (2.7-7.7); Neutrophil % 28.2 % (47-70); POSITIVE DIFFERENTIAL YES; POSITIVE MORPHOLOGY YES; Platelet Count 176 K/mm3 (150-450); RBC Distribution Width CV 13.3 % (11.6-14.6); RBC Distribution Width SD 45.1 fl (35.1-43.9); Red Blood Count 4.52 M/mm3 (4.2-5.4); White Blood Count 2.7 K/mm3 (4.4-11.0)
[2024-05-22 10:10] LABS: Differential Indicated SCAN CRITERIA MET
[2024-05-22 11:14] LABS: Differential Comment SCANNED
[2024-05-22 11:15] LABS: Platelet Estimate ADEQUATE (ADEQ); Red Cell Morphology NORM C+C NORMAL (NORM C&C)
== END | disposition home or self-care (01) ==
LOC: MTLAB 07:15
PROVIDERS: PCP Family Medicine; Referring Provider Internal Medicine Rheumatology; Visit Provider Internal Medicine Rheumatology
DX: M05.70 Rheumatoid arthritis with rheumatoid factor of unspecified site without organ or systems involvement (principal); Z79.899 Other long term (current) drug therapy; M35.00 Sjogren syndrome, unspecified
CPT/HCPCS: 36415; 85025

== ENCOUNTER → 2024-06-18 | Outpatient (CLI) | payer MEDICARE, OTHER, SELFPAY ==
[2024-06-18 15:28] LABS: Absolute Lymphocyte Count 1.43 X10^3/uL (0.83-4.51); Absolute Neutrophil Count 1.3 X10^3/uL (2.0-7.7); Basophil# 0.02 X10^3/uL; Basophil% 0.6 % (0-1); Eosinophil# 0.01 X10^3/uL; Eosinophils% 0.3 % (0-5); Hematocrit 42.8 % (37-47); Hemoglobin 13.8 g/dL (12.0-15.0); Lymphocyte # 1.43 X10^3/ul (0.83-4.51); Lymphocyte % 44.1 % (19-41); Mean Corp Hgb Conc 32.2 g/dL (32-36); Mean Corpuscular Hgb 29.4 pg (27.0-32.0); Mean Corpuscular Volume 91.1 fL (81-99); Mean Platelet Vol. 10.7 fl (6.2-12.0); Monocyte# 0.48 X10^3/uL; Monocyte% 14.8 % (0-10); NRBC Flagged by Analyzer 0 % (0-5); Neutrophil % 40.2 % (47-70); Platelet Count 183 K/mm3 (150-450); RBC Distribution Width CV 12.9 % (11.6-14.6); RBC Distribution Width SD 43.3 fl (35.1-43.9); White Blood Count 3.2 K/mm3 (4.4-11.0)
[2024-06-18 15:53] LABS: Vitamin B12 766 pg/mL (211-911)
[2024-06-18 15:58] LABS: Magnesium 2.2 mg/dL (1.6-2.6); Thyroid Stim Hormone (TSH) 0.858 uIU/mL (0.358-3.740)
== END | disposition home or self-care (01) ==
PROVIDERS: PCP Family Medicine; Referring Provider Internal Medicine Rheumatology; Visit Provider Internal Medicine Rheumatology
DX: M05.70 Rheumatoid arthritis with rheumatoid factor of unspecified site without organ or systems involvement (principal); Z79.899 Other long term (current) drug therapy
CPT/HCPCS: 36415; 82607; 82746; 83735; 84439; 84443; 85025

== ENCOUNTER → 2024-06-19 | Outpatient (CLI) | payer MEDICARE, OTHER, SELFPAY | END | disposition home or self-care (01) | LOC: MTLAB 15:46 | PROVIDERS: PCP Family Medicine; Referring Provider Internal Medicine Rheumatology; Visit Provider Internal Medicine Rheumatology | DX: M05.70 Rheumatoid arthritis with rheumatoid factor of unspecified site without organ or systems involvement (principal); Z79.899 Other long term (current) drug therapy | CPT/HCPCS: 82746 ==

== ENCOUNTER → 2024-06-20 | Outpatient (CLI) | payer MEDICARE, OTHER, SELFPAY ==
[2024-06-24 00:06] LABS: QNTFERON TB Mitogen Value > 10.00 IU/mL (.); QNTFERON TB Nil Value 0 IU/mL (.); QNTFERON TB1+ Ag Value 0 IU/mL (.); QNTFERON TB2+ Ag Value 0 IU/mL (.); QNTIFERON TB Positive Criteria Negative (Negative)
== END | disposition home or self-care (01) ==
LOC: MTLAB 10:19
PROVIDERS: PCP Family Medicine; Referring Provider Internal Medicine Rheumatology; Visit Provider Internal Medicine Rheumatology
DX: M05.70 Rheumatoid arthritis with rheumatoid factor of unspecified site without organ or systems involvement (principal); Z79.899 Other long term (current) drug therapy
CPT/HCPCS: 36415; 86480

== ENCOUNTER → 2024-07-02 | Outpatient (CLI) | payer MEDICARE, OTHER, SELFPAY ==
[2024-07-02 15:18] LABS: Absolute Lymphocyte Count 2.04 X10^3/uL (0.83-4.51); Absolute Neutrophil Count 2.1 X10^3/uL (2.0-7.7); Basophil# 0.03 X10^3/uL; Basophil% 0.6 % (0-1); Eosinophil# 0.03 X10^3/uL; Eosinophils% 0.6 % (0-5); Hematocrit 39.2 % (37-47); Hemoglobin 12.9 g/dL (12.0-15.0); Lymphocyte # 2.04 X10^3/ul (0.83-4.51); Mean Corp Hgb Conc 32.9 g/dL (32-36); Mean Corpuscular Hgb 29.6 pg (27.0-32.0); Mean Corpuscular Volume 89.9 fL (81-99); Mean Platelet Vol. 10.5 fl (6.2-12.0); Monocyte# 0.66 X10^3/uL; Monocyte% 13.6 % (0-10); NRBC Flagged by Analyzer 0 % (0-5); Neutrophil # 2.09 X10^3/uL (2.7-7.7); Platelet Count 218 K/mm3 (150-450); RBC Distribution Width CV 12.8 % (11.6-14.6); RBC Distribution Width SD 42.5 fl (35.1-43.9); Red Blood Count 4.36 M/mm3 (4.2-5.4); White Blood Count 4.9 K/mm3 (4.4-11.0)
== END | disposition home or self-care (01) ==
PROVIDERS: PCP Family Medicine; Referring Provider Internal Medicine Rheumatology; Visit Provider Internal Medicine Rheumatology
DX: M05.70 Rheumatoid arthritis with rheumatoid factor of unspecified site without organ or systems involvement (principal); Z79.899 Other long term (current) drug therapy; M35.00 Sjogren syndrome, unspecified; M21.40 Flat foot [pes planus] (acquired), unspecified foot; M81.0 Age-related osteoporosis without current pathological fracture
CPT/HCPCS: 36415; 85025

== ENCOUNTER → 2024-08-30 | Outpatient (CLI) | payer MEDICARE, OTHER, SELFPAY ==
[2024-08-30 13:33] LABS: Absolute Lymphocyte Count 2.15 X10^3/uL (0.83-4.51); Absolute Neutrophil Count 3.6 X10^3/uL (2.0-7.7); Basophil# 0.03 X10^3/uL; Basophil% 0.5 % (0-1); Eosinophil# 0.01 X10^3/uL; Eosinophils% 0.2 % (0-5); Hematocrit 44.3 % (37-47); Hemoglobin 14.3 g/dL (12.0-15.0); Lymphocyte # 2.15 X10^3/ul (0.83-4.51); Lymphocyte % 34.4 % (19-41); Mean Corp Hgb Conc 32.3 g/dL (32-36); Mean Corpuscular Hgb 28.9 pg (27.0-32.0); Mean Corpuscular Volume 89.5 fL (81-99); Mean Platelet Vol. 10.5 fl (6.2-12.0); Monocyte# 0.49 X10^3/uL; Monocyte% 7.8 % (0-10); NRBC Flagged by Analyzer 0 % (0-5); Neutrophil # 3.55 X10^3/uL (2.7-7.7); Neutrophil % 56.8 % (47-70); Platelet Count 212 K/mm3 (150-450); RBC Distribution Width CV 14.2 % (11.6-14.6); RBC Distribution Width SD 46.8 fl (35.1-43.9); Red Blood Count 4.95 M/mm3 (4.2-5.4); White Blood Count 6.3 K/mm3 (4.4-11.0)
== END | disposition home or self-care (01) ==
LOC: MTLAB 10:20
PROVIDERS: PCP Family Medicine; Referring Provider Internal Medicine Rheumatology; Visit Provider Internal Medicine Rheumatology
DX: M05.70 Rheumatoid arthritis with rheumatoid factor of unspecified site without organ or systems involvement (principal); Z79.899 Other long term (current) drug therapy
CPT/HCPCS: 36415; 85025

== ENCOUNTER → 2024-10-29 | Outpatient (CLI) | payer MEDICARE, OTHER, SELFPAY ==
[2024-10-29 12:19] LABS: Absolute Lymphocyte Count 1.58 X10^3/uL (0.83-4.51); Absolute Neutrophil Count 4.3 X10^3/uL (2.0-7.7); Basophil# 0.03 X10^3/uL; Basophil% 0.5 % (0-1); Eosinophil# 0.01 X10^3/uL; Eosinophils% 0.2 % (0-5); Hemoglobin 14.7 g/dL (12.0-15.0); Lymphocyte # 1.58 X10^3/ul (0.83-4.51); Lymphocyte % 24.7 % (19-41); Mean Corp Hgb Conc 33.4 g/dL (32-36); Mean Corpuscular Hgb 29.4 pg (27.0-32.0); Monocyte# 0.51 X10^3/uL; NRBC Flagged by Analyzer 0 % (0-5); Neutrophil # 4.25 X10^3/uL (2.7-7.7); Neutrophil % 66.4 % (47-70); Platelet Count 219 K/mm3 (150-450); RBC Distribution Width CV 14.5 % (11.6-14.6); RBC Distribution Width SD 46.4 fl (35.1-43.9); White Blood Count 6.4 K/mm3 (4.4-11.0)
[2024-10-29 12:32] LABS: ALB/GLOB Ratio 1.3 RATIO (0.9-2.4); AST(SGOT) 18 U/L (<=31); Alanine Aminotransfer ALT/SGPT 18 U/L (<=34); Albumin, Serum 4.5 g/dL (3.4-4.8); Alkaline Phosphatase 69 U/L (35-104); Anion Gap 14 (5-15); BUN 12 mg/dL (4-19); BUN/Creat Ratio 18.2 RATIO (10-20); Calcium,Total 10.5 mg/dL (7.6-11.0); Carbon Dioxide 22.9 mmol/L (21.0-32.0); Chloride 100 mmol/L (98-108); Creatinine, Serum 0.67 mg/dL (0.70-1.20); EST Glomerular Filtration Rate 94 (>60); Globulin 3.5 g/dL (2.2-4.2); Glucose 118 mg/dL (70-99); Potassium 4.3 mmol/L (3.3-5.1); Sodium Level 137 mmol/L (133-145); Total Bilirubin 0.37 mg/dL (0.00-1.30)
== END | disposition home or self-care (01) ==
PROVIDERS: PCP Family Medicine; Referring Provider Internal Medicine Rheumatology; Visit Provider Internal Medicine Rheumatology
DX: M05.70 Rheumatoid arthritis with rheumatoid factor of unspecified site without organ or systems involvement (principal); Z79.899 Other long term (current) drug therapy; M35.00 Sjogren syndrome, unspecified
CPT/HCPCS: 36415; 80053; 85025

== ENCOUNTER → 2024-11-27 | Outpatient (CLI) | payer MEDICARE, OTHER, SELFPAY ==
[2024-11-27 15:17] LABS: Absolute Lymphocyte Count 2.25 X10^3/uL (0.83-4.51); Absolute Neutrophil Count 3.7 X10^3/uL (2.0-7.7); Basophil# 0.04 X10^3/uL; Basophil% 0.6 % (0-1); Eosinophil# 0.05 X10^3/uL; Eosinophils% 0.8 % (0-5); Hematocrit 42.8 % (37-47); Hemoglobin 14.3 g/dL (12.0-15.0); Lymphocyte # 2.25 X10^3/ul (0.83-4.51); Lymphocyte % 34.2 % (19-41); Mean Corp Hgb Conc 33.4 g/dL (32-36); Mean Corpuscular Hgb 29.9 pg (27.0-32.0); Mean Corpuscular Volume 89.5 fL (81-99); Mean Platelet Vol. 11.4 fl (6.2-12.0); Monocyte# 0.58 X10^3/uL; Monocyte% 8.8 % (0-10); NRBC Flagged by Analyzer 0 % (0-5); Neutrophil # 3.65 X10^3/uL (2.7-7.7); Neutrophil % 55.4 % (47-70); Platelet Count 234 K/mm3 (150-450); RBC Distribution Width SD 46.5 fl (35.1-43.9); Red Blood Count 4.78 M/mm3 (4.2-5.4); White Blood Count 6.6 K/mm3 (4.4-11.0)
[2024-11-27 15:46] LABS: ALB/GLOB Ratio 1.2 RATIO (0.9-2.4); AST(SGOT) 18 U/L (<=31); Alanine Aminotransfer ALT/SGPT 12 U/L (<=34); Albumin, Serum 4.4 g/dL (3.4-4.8); Alkaline Phosphatase 63 U/L (35-104); Anion Gap 11 (5-15); BUN 11 mg/dL (4-19); BUN/Creat Ratio 19.7 RATIO (10-20); Calcium,Total 10.4 mg/dL (7.6-11.0); Carbon Dioxide 23.7 mmol/L (21.0-32.0); Chloride 102 mmol/L (98-108); Creatinine, Serum 0.58 mg/dL (0.70-1.20); EST Glomerular Filtration Rate 97 (>60); Globulin 3.5 g/dL (2.2-4.2); Glucose 82 mg/dL (70-99); Potassium 4.4 mmol/L (3.3-5.1); Protein, Total 7.9 g/dL (5.9-8.4); Sodium Level 136 mmol/L (133-145); Total Bilirubin 0.31 mg/dL (0.00-1.30)
== END | disposition home or self-care (01) ==
LOC: MTLAB 11:27
PROVIDERS: PCP Family Medicine; Referring Provider Internal Medicine Rheumatology; Visit Provider Internal Medicine Rheumatology
DX: M05.70 Rheumatoid arthritis with rheumatoid factor of unspecified site without organ or systems involvement (principal); Z79.899 Other long term (current) drug therapy
CPT/HCPCS: 36415; 80053; 85025

== ENCOUNTER → 2025-02-19 | Outpatient (CLI) | payer MEDICARE, OTHER, SELFPAY ==
[2025-02-19 10:14] LABS: Hematocrit 43.2 % (37-47); Hemoglobin 14.4 g/dL (12.0-15.0); Immature Granulocytes Count 0.020 X10^3/uL (0.0-0.0); Mean Corp Hgb Conc 33.3 g/dL (32-36); Mean Corpuscular Volume 89.4 fL (81-99); Mean Platelet Vol. 10.7 fl (6.2-12.0); NRBC Flagged by Analyzer 0 % (0-5); Platelet Count 209 K/mm3 (150-450); RBC Distribution Width CV 14.3 % (11.6-14.6); RBC Distribution Width SD 47.1 fl (35.1-43.9); Red Blood Count 4.83 M/mm3 (4.2-5.4); White Blood Count 6.0 K/mm3 (4.4-11.0)
[2025-02-19 13:23] LABS: AST(SGOT) 20 U/L (<=31); Alanine Aminotransfer ALT/SGPT 19 U/L (<=34); Albumin, Serum 4.2 g/dL (3.4-4.8); Alkaline Phosphatase 69 U/L (35-104); Anion Gap 14 (5-15); BUN 9 mg/dL (4-19); BUN/Creat Ratio 15.9 RATIO (10-20); Calcium,Total 9.6 mg/dL (7.6-11.0); Carbon Dioxide 22.3 mmol/L (21.0-32.0); Chloride 101 mmol/L (98-108); Globulin 3.4 g/dL (2.2-4.2); Glucose 118 mg/dL (70-99); Potassium 3.8 mmol/L (3.3-5.1)
[2025-02-19 13:25] LABS: CRP < 3.00 mg/L (0.0-3.0)
== END | disposition home or self-care (01) ==
PROVIDERS: PCP Family Medicine; Referring Provider Internal Medicine Rheumatology; Visit Provider Internal Medicine Rheumatology
DX: M05.70 Rheumatoid arthritis with rheumatoid factor of unspecified site without organ or systems involvement (principal); Z79.899 Other long term (current) drug therapy
CPT/HCPCS: 36415; 80053; 85025; 85652; 86140

== ENCOUNTER → 2025-05-14 | Outpatient (CLI) | payer MEDICARE, OTHER, SELFPAY ==
[2025-05-14 12:45] LABS: Hematocrit 42.8 % (37-47); Hemoglobin 14.4 g/dL (12.0-15.0); Immature Granulocytes Count 0.010 X10^3/uL (0.0-0.0); Mean Corp Hgb Conc 33.6 g/dL (32-36); Mean Corpuscular Volume 89.7 fL (81-99); Mean Platelet Vol. 11.5 fl (6.2-12.0); NRBC Flagged by Analyzer 0 % (0-5); Platelet Count 200 K/mm3 (150-450); RBC Distribution Width CV 14.1 % (11.6-14.6); RBC Distribution Width SD 46.7 fl (35.1-43.9); Red Blood Count 4.77 M/mm3 (4.2-5.4); White Blood Count 5.7 K/mm3 (4.4-11.0)
[2025-05-14 13:21] LABS: AST(SGOT) 22 U/L (<=31); Alanine Aminotransfer ALT/SGPT 21 U/L (<=34); Albumin, Serum 4.3 g/dL (3.4-4.8); Alkaline Phosphatase 69 U/L (35-104); Anion Gap 13 (5-15); BUN 11 mg/dL (4-19); BUN/Creat Ratio 18.6 RATIO (10-20); CRP < 3.00 mg/L (0.0-3.0); Calcium,Total 10.1 mg/dL (7.6-11.0); Carbon Dioxide 23.8 mmol/L (21.0-32.0); Chloride 101 mmol/L (98-108); Globulin 3.5 g/dL (2.2-4.2); Glucose 112 mg/dL (70-99); Potassium 3.8 mmol/L (3.3-5.1)
== END | disposition home or self-care (01) ==
LOC: MTLAB 09:39
PROVIDERS: PCP Family Medicine; Referring Provider Internal Medicine Rheumatology; Visit Provider Internal Medicine Rheumatology
DX: M05.70 Rheumatoid arthritis with rheumatoid factor of unspecified site without organ or systems involvement (principal); Z79.899 Other long term (current) drug therapy
CPT/HCPCS: 36415; 80053; 85025; 85652; 86140